=== PATIENT | female | born 1955 | race Caucasian/White ===

== ENCOUNTER → 2016-05-16 | Day surgery (SDC) | payer OTHER ==
[2016-05-05 10:54] VITALS: BMI 40.0
[~2016-05-16] VITALS: Ht 162.6 cm; Wt 106.8 kg
[~2016-05-16] MED LIST: ASCO500T16 PO; ATROPINE SULFATE 0.1 MG/ML 5ML SYR IV PRN; CALCTAB7 PO; ENAL1TAB31 PO; EpHEDrine SULFATE INJ 50 MG/ML AMP IV PRN; FISHOIL PO; LIDOCAINE HCL 2% 2 ML VIAL (20MG/ML) ONE; PROPOFOL IV EMULSION 10 MG/ML 20 ML VIAL IV ONE
[2016-05-16 10:24] VITALS: Ht 162.6 cm; Wt 106.8 kg
--- NOTE | 2016-05-16 10:38 | Endo History and Physical ---
History & Physical Date of Service: May 16, 2016. Chief Complaint: SCREENING FOR FOR COLON CANCER Referring Physician: DR SANZ History of Present Illness 60 yo CF who presents for colonoscopy secondary to colon polyps. Past Surgical History Hx Cardiac Surgery: No Hx Internal Defibrillator: No Hx Pacemaker: No Hx Abdominal Surgery: Yes (APPY) Hx of Implantable Prosthesis: No Hx Post-Op Nausea and Vomiting: No Hx Cancer Surgery: No Hx Thoracic Surgery: No Hx Orthopedic: No Hx Urinary Tract Surgery: No Family History Polyp, IBD Social History Smoking Status: Never Smoker Hx Substance Use: No Hx Alcohol Use: Yes (RARELY) Allergies Coded Allergies: No Known Allergies (Verified , 05/16/16) Current Medications Reported Home Medications Medications Dose Route/Sig Max Daily Dose Days Date Category Vasotec (Enalapril Maleate) 20 Mg Tab 1 Tab PO QAM 05/05/16 Reported Ascorbic Acid 500 Mg Tab 500 Mg PO QAM 03/07/12 Reported Model-3 (Fish Oil) Oil 1 Cap PO QAM 03/07/12 Reported Caltrate 600 Plus (Calcium Carbonate-Vitamin D W/) 1 Tab Tab 1 Tab PO QAM 03/07/12 Reported Vital Signs Weight (Kilograms): 106.82 Height (Feet): 5 Height (Inches): 4 Date Time Temp Pulse Resp B/P Pulse Ox O2 Delivery O2 Flow Rate FiO2 05/16/16 10:34 36.9 96 20 136/81 96 Room Air Physical Exam General Appearance: WD/WN, no apparent distress Respiratory/Chest: Auscultation: breath sounds normal Cardiovascular: Heart Auscultation: RRR Abdomen: Bowel Sounds: normal Inspection & Palpation: soft, non-distended, no tenderness, guarding & rebound Assessment and Plan Assessment: 60 yo CF who presents for colonoscopy secondary to colon polyps. Plan: Proceed with colonoscopy.
--- NOTE | 2016-05-16 11:42 | GI REPORT ---
Procedure Date: 05/16/2016 11:10 AM Procedure: Colonoscopy Indications: High risk colon cancer surveillance: Personal history of colonic polyps Medicines: Monitored Anesthesia Care Complications: No immediate complications. Estimated Blood Loss: Estimated blood loss: none. Procedure: Pre-Anesthesia Assessment: - Prior to the procedure, a History and Physical was performed, and patient medications and allergies were reviewed. The patient's tolerance of previous anesthesia was also reviewed. The risks and benefits of the procedure and the sedation options and risks were discussed with the patient. All questions were answered, and informed consent was obtained. Prior Anticoagulants: The patient has taken no previous anticoagulant or antiplatelet agents. ASA Grade Assessment: III - A patient with severe systemic disease. After reviewing the risks and benefits, the patient was deemed in satisfactory condition to undergo the procedure. After I obtained informed consent, the scope was passed under direct vision. Throughout the procedure, the patient's blood pressure, pulse, and oxygen saturations were monitored continuously. The Scope was introduced through the anus and advanced to the terminal ileum. The colonoscopy was performed without difficulty. The patient tolerated the procedure well. The quality of the bowel preparation was good. The terminal ileum, ileocecal valve, appendiceal orifice, and rectum were photographed. Findings: Four sessile polyps were found in the rectum and in the sigmoid colon. The polyps were 4 to 6 mm in size. These polyps were removed with a hot snare. Resection and retrieval were complete. Scattered small-mouthed diverticula were found in the entire colon. Impression: - Four 4 to 6 mm polyps in the rectum and in the sigmoid colon, removed with a hot snare. Resected and retrieved. - Diverticulosis in the entire examined colon. Recommendation: - Resume previous diet. - Continue present medications. - Repeat colonoscopy for surveillance based on pathology results. - Return to primary care physician as previously scheduled. Jonah Reeves DO 05/16/2016 11:42:16 AM This report has been signed electronically. Note Initiated On: 05/16/2016 11:10 AM
--- NOTE | 2016-05-16 11:43 | Discharge Instructions ---
Endoscopy Patient Instructions Date / Procedure(s) Performed May 16, 2016. Colonoscopy Allergy Information Coded Allergies: No Known Allergies (Verified , 05/16/16) Discharge Date / Findings May 16, 2016. Colon polyps Diverticulosis Medication Instructions Stopped Medication(s): STOPPED FISH OIL, VITAMIN C, AND CALCUIM ON 05/09/16 Restart Stopped Medication(s): Reported Home Medications Medications Dose Route/Sig Max Daily Dose Days Date Category Vasotec (Enalapril Maleate) 20 Mg Tab 1 Tab PO QAM 05/05/16 Reported Ascorbic Acid 500 Mg Tab 500 Mg PO QAM 03/07/12 Reported [place]-3 (Fish Oil) Oil 1 Cap PO QAM 03/07/12 Reported Caltrate 600 Plus (Calcium Carbonate-Vitamin D W/) 1 Tab Tab 1 Tab PO QAM 03/07/12 Reported OK to resume all medications today as prescribed Provider Instructions Activity Restrictions - No exercising or heavy lifting for 24 hours. - Do not drink alcohol the day of the procedure. - Do not drive a car or operate machinery until the day after the procedure. - Do not make any important decisions or sign important papers in 24 hours after the procedure. Following Day: - Return to full activity which may include returning to work/school. Diet Start your diet with liquids and light foods (jello, soup, juice, toast). Then eat your usual diet if not nauseated. Treatment For Common After Affects For mild abdominal pain, bloating, or excessive gas: - Rest - Eat lightly - Lie on right side Follow-Up Information Follow-up with DR SANZ as scheduled Anesthesia Information What You Should Know You have had a procedure that required some medicine to reduce anxiety and discomfort. This treatment is called moderate sedation. After receiving the treatment, you may be sleepy, but you will be able to breathe on your own. The effects of the treatment may last for several hours. Follow these instructions along with Activity/Diet recommendations noted above: * Do NOT do anything where dizziness or clumsiness would be dangerous. * Rest quietly at home today, then you can be up and about tomorrow. * Have a responsible person stay with you the rest of today. * You may have had an I.V. today. If so, you may take the dressing off later today. Recommendations Call your doctor if: * Trouble breathing * Continuous vomiting for more than 24 hours * Temperature above 101 degrees * Severe abdominal pain or bloating * Pain not relieved by pain medicine ordered * There is increased drainage or redness from any incision * A large amount of rectal bleeding greater than 2-3 tablespoons. (If you had a polyp/s removed or have hemorrhoids, a small amount of blood - from the rectum is to be expected.) * You have any unanswered questions or concerns. IN THE EVENT OF A SERIOUS EMERGENCY, GO TO THE NEAREST EMERGENCY ROOM Your discharge instructions were prepared by provider Jonah Reeves. Patient Instructions Signature Page Lala Mcbride Patient (or Guardian) Signature/Date: I have read and understand the instructions given to me by my caregivers. Caregiver/RN/Doctor Signature/Date: The above-named patient and/or guardian has received patient instructions on this date. + Original Patient Signature Page (only) stays with chart. Please make copy for patient.
--- NOTE | 2016-05-16 11:58 | Anesthesiology Progress Note ---
Anesthesia Post Op Note Date & Time May 16, 2016 at 11:58 Vital Signs Pain Intensity: 0 Vital Signs Past 12 Hours Date Time Temp Pulse Resp B/P Pulse Ox O2 Delivery O2 Flow Rate FiO2 05/16/16 11:53 77 18 129/72 97 Room Air 05/16/16 11:38 90 18 113/64 96 Room Air 05/16/16 10:34 36.9 96 20 136/81 96 Room Air Notes Mental Status: alert / awake / arousable, participated in evaluation Pt Amnestic to Procedure: Yes Nausea / Vomiting: adequately controlled Pain: adequately controlled Airway Patency, RR, SpO2: stable & adequate BP & HR: stable & adequate Hydration State: stable & adequate Anesthetic Complications: no major complications apparent
[2016-05-16 12:08] VITALS: BP 124/76; PULSE 84; O2SAT 96
== END | disposition home or self-care (01) ==
LOC: C.GI 10:12
PROVIDERS: ATTEND Internal Medicine
DX: Z12.11 Encounter for screening for malignant neoplasm of colon (principal); Z86.010 Personal history of colon polyps; D12.8 Benign neoplasm of rectum; D12.5 Benign neoplasm of sigmoid colon; K57.90 Diverticulosis of intestine, part unspecified, without perforation or abscess without bleeding; I10 Essential (primary) hypertension; Z90.89 Acquired absence of other organs; Z68.42 Body mass index [BMI] 45.0-49.9, adult; E66.9 Obesity, unspecified; Z83.71 Family history of colonic polyps

== ENCOUNTER → 2016-06-03 | Outpatient (CLI) | payer OTHER ==
[~2016-06-03] MED LIST changes: -ATROPINE SULFATE 0.1 MG/ML 5ML SYR IV PRN; -EpHEDrine SULFATE INJ 50 MG/ML AMP IV PRN; -LIDOCAINE HCL 2% 2 ML VIAL (20MG/ML) ONE; -PROPOFOL IV EMULSION 10 MG/ML 20 ML VIAL IV ONE
== END | disposition home or self-care (01) ==
LOC: C.PAPS 11:56
PROVIDERS: ATTEND Obstetrics & Gynecology
DX: Z01.419 Encounter for gynecological examination (general) (routine) without abnormal findings (principal)

== ENCOUNTER → 2016-10-19 | Outpatient (CLI) | payer OTHER ==
--- NOTE | 2016-10-19 14:30 | DIAGNOSTIC IMAGING REPORT ---
RIGHT HIP UNILATERAL 2 VIEWS CLINICAL HISTORY: HIP PAIN, RIGHT Right pain. COMPARISON: None. DISCUSSION: Moderate degenerative change right hip joint space. Peripheral osteophytic reaction from the femoral head. Moderate sclerosis of the acetabular surfaces. No evidence for acetabular protrusion. There is no evidence for soft tissue swelling. IMPRESSION: Moderate degenerative change. No acute bony abnormality. Electronically signed by: Sylvester Harding M.D. 10/19/2016 2:28 PM Dictated Date/Time: 10/19/2016 2:28 PM
--- NOTE | 2016-10-19 14:31 | DIAGNOSTIC IMAGING REPORT ---
LEFT HIP UNILATERAL 2 VIEWS CLINICAL HISTORY: HIP PAIN, RIGHT pain COMPARISON: None. DISCUSSION: The bones and joint spaces appear intact. There is no evidence of fracture, dislocation or bony disease. There is no evidence for soft tissue swelling. IMPRESSION: Negative study. Electronically signed by: Sylvester Harding M.D. 10/19/2016 2:30 PM Dictated Date/Time: 10/19/2016 2:30 PM
== END | disposition home or self-care (01) ==
LOC: C.RAD1850 13:56
PROVIDERS: ATTEND Internal Medicine
DX: M25.551 Pain in right hip (principal)

== ENCOUNTER → 2017-01-02 | Outpatient (CLI) | payer OTHER ==
[2017-01-02 10:06] LABS: ALKALINE PHOSPHATASE 72 U/L (45-117); BLOOD UREA NITROGEN 17 mg/dl (7-18); BUN/CREATININE RATIO 22.4 (10-20); CALCIUM 8.8 mg/dl (8.5-10.1); CARBON DIOXIDE 24 mmol/L (21-32); CHLORIDE 109 mmol/L (98-107); CREATININE 0.76 mg/dl (0.60-1.20); GLUCOSE 97 mg/dl (70-99); HDL CHOLESTEROL 40 mg/dl; SODIUM 140 mmol/L (136-145)
[2017-01-02 10:08] LABS: ALB/GLOB RATIO 1.2 (0.9-2); ALT/SGPT 24 U/L (12-78); AST/SGOT 17 U/L (15-37); CHOLESTEROL 268 mg/dl (0-200); CHOLESTEROL/HDL RATIO 6.7; LDL CHOLESTEROL CALCULATED 184 mg/dl; TRIGLYCERIDES 219 mg/dl (0-150); VERY LOW DENSITY LIPOPROT CALC 44 mg/dl
== END | disposition home or self-care (01) ==
LOC: C.LAB1850 07:05
PROVIDERS: ATTEND Internal Medicine
DX: E78.5 Hyperlipidemia, unspecified (principal)

== ENCOUNTER → 2017-06-05 | Outpatient (CLI) | payer OTHER | LOC: C.PATHSPEC 11:20 | PROVIDERS: ATTEND Obstetrics & Gynecology | DX: N84.1 Polyp of cervix uteri (principal) ==

== ENCOUNTER → 2017-07-03 | Outpatient (CLI) | payer OTHER ==
[2017-07-03 09:48] LABS: BLOOD UREA NITROGEN 12 mg/dl (7-18); CREATININE 0.79 mg/dl (0.60-1.20); GLUCOSE 92 mg/dl (70-99)
[2017-07-03 09:49] LABS: ALBUMIN 3.6 gm/dl (3.4-5.0); ALT/SGPT 24 U/L (12-78); CALCIUM 8.9 mg/dl (8.5-10.1); CARBON DIOXIDE 25 mmol/L (21-32); CHOLESTEROL 229 mg/dl (0-200); POTASSIUM 3.8 mmol/L (3.5-5.1); SODIUM 139 mmol/L (136-145)
[2017-07-03 09:58] LABS: ALKALINE PHOSPHATASE 69 U/L (45-117); AST/SGOT 14 U/L (15-37); LDL CHOLESTEROL CALCULATED 129 mg/dl; TOTAL PROTEIN 7.2 gm/dl (6.4-8.2)
== END | disposition home or self-care (01) ==
LOC: C.LAB1850 07:14
PROVIDERS: ATTEND Internal Medicine
DX: E78.5 Hyperlipidemia, unspecified (principal)

== ENCOUNTER 2021-12-19 10:45 | Inpatient (IN) ==
[2021-12-19] MEDS ORDERED: SODIUM CHLORIDE 0.9% 1000ML 1,000 ML IV ONE (11:09)
[2021-12-19 11:38] LABS: Basophils # (auto) 0.03 K/uL (0-0.2); Basophils % (auto) 0.3 %; Eosinophils # (auto) 0.02 K/uL (0-0.50); Eosinophils % (auto) 0.2 %; Hematocrit (blood only) 38.9 % (34.1-44.9); Hemoglobin 12.8 g/dl (12.0-16.0); Immature Granulocytes # (auto) 0.23 K/uL (0.00-0.02); Immature Granulocytes % (auto) 2.1 %; Lymphocytes # (auto) 1.62 K/uL (1.2-3.4); Lymphocytes % (auto) 14.5 %; Mean Corpuscular Hemoglobin 27.9 pg (25.0-34.0); Mean Corpuscular Hgb Conc 32.9 g/dL (32.0-36.0); Mean Corpuscular Volume 84.7 fL (80.0-100.0); Mean Platelet Volume 11.2 fL (9.4-12.3); Monocytes # (auto) 1.47 K/uL (0.24-0.82); Monocytes % (auto) 13.2 %; Neutrophils # (auto) 7.77 K/uL (1.4-6.5); Neutrophils % (auto) 69.7 %; Platelet Count 224 K/uL (130-400); RDW Coefficient of Variation 15.3 % (11.5-14.5); RDW Standard Deviation 47.6 fL (36.4-46.3); Red Blood Count 4.59 M/uL (3.93-5.22); White Blood Count 11.14 K/ul (4.8-10.8)
[2021-12-19] MEDS ORDERED: ONDANSETRON INJ 2 MG/ML 2 ML VIAL IV STA (11:46)
[2021-12-19] MEDS ORDERED: MoRPHine SULFATE 4 MG/ML 1 ML CARP\\VIAL IV STA (11:46)
[2021-12-19 12:00] LABS: Albumin Globulin Ratio 1.1 (0.9-2); Albumin Level 3.5 gm/dl (3.4-5.0); Bilirubin Direct 6.9 mg/dl (0-0.2); Bilirubin,Total 12.4 mg/dl (0.2-1.0); Calcium 9.1 mg/dl (8.5-10.1); Creatinine Clr Calc Pharmacy 86.3 ml/min; Est GFR (African American) 99.5 ml/min; Est GFR (Non-African American) 85.8 ml/min; Globulin 3.1 gm/dl (2.5-4.0); Magnesium 1.9 mg/dl (1.7-2.4); Phosphorus 2.4 mg/dl (2.5-4.9); Potassium 3.3 mmol/L (3.5-5.1); Total Protein 6.6 gm/dl (6.0-8.3)
[2021-12-19] MEDS ORDERED: OPTIRAY 300 100mL IV ONE (13:17)
--- NOTE | 2021-12-19 13:38 | Emergency Department Note ---
Impression & Plan Choledocholithiasis, Cholelithiasis, Obstructive hyperbilirubinemia, COVID-19 ED Provider Note NAME: CRISTOFER ARCINIEGA AGE: 66 SEX: F ARRIVES VIA: Walk-In INFORMANT: Patient ED PROVIDER(S): Rober Vela MD CHIEF COMPLAINT: Abdominal pain, Jaundice PLAN: Disposition: Transfer MEDICAL DECISION MAKING: The patient is a pleasant 66-year-old woman with a past medical history of hypertension, hyperlipidemia who presents to the emergency department ac companied by her for evaluation of new jaundice in the setting of having upper abdominal pain and nausea over the past couple of days. She further adds she has had change in her stool where it appears joe. She denies any fevers but reports that she has had mild cough and congestion which her also has in the setting of recently returning from a trip to [place]. She reports her symptoms began on Monday but feels her cough has been improving. They did not get tested for COVID-19 thinking it may have just been from their travels. She is vaccinated for Covid-19, including her booster. She denies any regular alcohol use. She denies excessive acetaminophen use. Patient reports a history of appendectomy and tubal ligation. On arrival the patient is fatigued, uncomfortable but no acute distress, afebrile with heart in the 100s and vital signs otherwise stable. She appears clinically dry. She does have overt scleral icterus and mild-moderate jaundice. She is mild epigastric and right upper quadrant tenderness without guarding or rebound. WBC 11K, nonspecific. H/H and platelets within normal limits. Chemistry without metabolic acidosis. Electrolytes without significant abnormality. LFTs demonstrate obstructive pattern with total bilirubin 12.4 and direct bilirubin 6.9 with AST and ALT 72 and 135, respectively. Alk phos is elevated to 13. Lipase is not elevated. The patient's COVID-19 RNA, NAAT test was positive, which is considered to be incidental as patient reports resolving congestion at 5 days from symptoms onset and is fully vaccinated for Covid-19. CT of the abdomen pelvis was performed and demonstrates prominent intrahepatic biliary ductal dilatation with the CBD being dilated with abrupt narrowing at the level of the pancreatic head. Findings are suggestive of choledocholithiasis in the setting of numerous gallstones however pancreatic mass is not excluded. There is no CT evidence of cholecystitis. A consultation by general surgery John Paul Clark, general surgery PAC (with Dr. Birch general surgery), who discussed with GI on-call Dr. Santiago. Unfortunately, Dr. Valdez does not perform ERCP and so given the patient's jaundice and si gnificantly elevated bilirubin recommends transfer to tertiary care facility. Empiric ABX, CTX and flagyl administered. The patient agrees with plan for transfer and prefers [facility]. Case was discussed with [facility] transfer center and triage phsycian who accepts the patient for transfer with bed search initiated. Ultrasound ordered per request for further characterization of biliary obstruction while awaiting transfer. Bed assignment was obtained and the patient's accepting physician is Dr. Blank. Maintenance fluids provided and the patient did remain hemodynamically stable in the emergency department. Ground transport is pending. Fortunately we were unable to obtain ground transport tonight and at the earliest will be tomorrow morning but no guarantee. Case was discussed with Dr. Haro, [facility] hospitalist, who will evaluate the patient for admission until transportation becomes available. Appreciate assistance. Triage Nursing notes reviewed and agree them. Prior medical records reviewed Vital Signs: reviewed and remarkable for tachycardia. Differential diagnosis: Gastroenteritis, food borne illness, infections, appendicitis, diverticulitis, inflammatory bowel disease, obstruction, GI bleed, biliary pathology, volvulus, as well as other pathologies. ER treatment provided: See below. Diagnostics interpreted by me: ECG: Sinus tachycardia, 114 bpm, no ectopy, nonspecific ST abnormality, no overt ST elevation or depression, QTC 490, QT 76. Cardiac Monitoring: An order for continuous cardiac monitoring was placed and demonstrated sinus tachycardia, 114 bpm, no ectopy Laboratory studies: See below Imaging studies: See below Consultation(s): Dr. Kilpatrick [facility] hospitalist. John Paul Clark general surgery PAC with Dr. Birch general surgery. Dr. Blank, [facility] GI. Dr. Haro [facility] hospitalist. HPI: The patient is a pleasant 66-year-old woman with a past medical history of hypertension, hyperlipidemia who presents to the emergency department accompanied by her for evaluation of new jaundice in the setting of having upper abdominal pain and nausea over the past couple of days. She further adds she has had change in her stool where it appears joe. She denies any fevers but reports that she has had mild cough and congestion which her also has in the setting of recently returning from a trip to [place]. She reports her symptoms began on Monday but feels her cough has been improving. They did not get tested for COVID-19 thinking it may have just been from their travels. She is vaccinated for Covid-19, including her booster. She denies any regular alcohol use. She denies excessive acetaminophen use. Patient reports a history of appendectomy and tubal ligation. ROS: See above HPI for pertinent positives & negatives. A total of 10 systems reviewed and were otherwise negative. VITALS:See Below PHYSICAL EXAMINATION: GENERAL: Awake, alert, uncomfortable-appearing, in no distress HENT: Normocephalic, atraumatic. Oropharynx with dry mucous membranes and ot herwise unremarkable. EYES: Normal conjunctiva. Overt scleral icterus. NECK: Supple. No nuchal rigidity. FROM. No JVD. RESPIRATORY: Clear to auscultation. CARDIAC: Tachycardic rate, normal rhythm. Extremities warm and well perfused. Pulses equal. ABDOMEN: Soft, non-distended. Mild epigastric and right upper quadrant tenderness without guarding or rebound. No rebound or guarding. No masses. RECTAL: Deferred. MUSCULOSKELETAL: Chest examination reveals no tenderness. The back is symmetrical on inspection without obvious abnormality. There is no CVA tenderness to palpation. No joint edema. LOWER EXTREMITIES: Calves are equal size bilaterally and non-tender. No edema. No discoloration. NEURO: Normal sensorium. No sensory or motor deficits noted. SKIN: No rash or jaundice noted. ED COURSE: Critical Care: I have personally spent greater than 75 minutes of critical care time in the direct management of this patient. This includes bedside care, interpretation of diagnostic studies, and testing, discussion with consultants, patient, and family members, and other required patient management activities. This 75 minutes is in excess of all separately billable procedures. Rober Vela MD Past Med/Surg History Medical History Benign colonic polyp Cervical polyp Diverticulosis Hyperlipidemia Hyperplastic colon polyp Hypertension Osteoarthritis Surgical History History of bilateral tubal ligation History of breast biopsy multiple--all benign History of breast surgery multiple breast cysts removed over the year all Benign History of colonoscopy 2017, due 5 yrs History of tonsillectomy and adenoidectomy Hx of appendectomy Family History Mother Hypercholesterolemia Osteoarthritis Grandmother (Maternal) Coronary heart disease Myocardial infarction Osteoarthritis Grandfather (Maternal) Colon cancer Grandmother (Paternal) Ovarian cancer Father Hypercholesterolemia Stroke Other No family history of adverse response to anesthesia Prostate cancer Denies family history of Breast cancer Social History Smoking Status: Never smoker Second Hand Exposure: Yes (father smoked); Hx Alcohol Use: Yes (very rarely) Alcohol type: wine Hx Substance Use: No Preferred Language: Vietnamese Communication Ability: Effective [employer] Required: No Beliefs That Will Affect Care: None marital status: Current Living Situation: Spouse current occupational status: retired Feels Safe at Home: Yes Childhood Exposure to Second-Hand Smoke: Yes Dental Care, Regularly: Yes Physical Activity Frequency: 5-6 Times per Week Seatbelt Use: always Sunscreen Use: Yes Assistive Devices: Glasses Allergies Allergies Allergy/AdvReac Type Severity Reaction Status Date / Time atorvastatin AdvReac Intermediate Muscle Pain Verified 12/19/21 14:55 simvastatin AdvReac Intermediate Muscle Pain Verified 12/19/21 14:55 Home Meds Home Medications Medication Instructions Recorded Confirmed ccpcoxlc-aci-hpvv-FA-Ca carb-vit K 1 tab PO QAM 08/17/18 12/19/21 18 mg iron-400 mcg-500 mg tablet (One-A-Day Womens Formula) acetaminophen 650 mg 1,300 mg PO BID 06/18/21 12/19/21 tablet,extended release (Arthritis Pain Relief (acetaminophen) ER) coQ10 (ubiquinol) 100 mg capsule 500 mg PO QAM 08/19/21 12/19/21 diclofenac sodium 1 % topical gel 4 g topical BID PRN Pain 08/19/21 12/19/21 enalapril maleate 20 mg tablet 20 mg PO QAM 08/19/21 12/19/21 Previous Rx's Medication Instructions Recorded pravastatin 10 mg tablet 10 mg PO QPM #90 tabs 09/14/21 Results & Data (ED) Vital Signs Vital Signs - 24 hr 12/19/21 10:58 12/19/21 11:34 12/19/21 13:40 Temperature 36.6 C Temperature Source Temporal Artery Scan Pulse Rate 113 H Pulse Rate [Left Finger] 112 H 117 H Pulse Rhythm Pulse Rhythm [Left Finger] Regular Regular Pulse Strength [Left Finger] Normal Respiratory Rate 18 20 18 Respiratory Effort / Characteristics Non-Labored Non-Labored Respiratory Depth Normal Normal Blood Pressure 164/89 H Blood Pressure [Right Arm] 148/92 H 171/76 H Blood Pressure Mean 114 Blood Pressure Mean [Right Arm] 110 107 Pulse Oximetry 97 99 95 Oxygen Delivery Method Room Air Room Air Room Air Sepsis Recent Fever Within 48 Hours No Sepsis New/Unexplained Change in Mental Status N/A Sepsis Action Taken by Nursing No Action Required 12/19/21 12:28 12/19/21 11:09 12/19/21 15:45 Temperature Temperature Source Pulse Rate 109 H 118 H Pulse Rate [Left Finger] 117 H Pulse Rhythm Regular Pulse Rhythm [Left Finger] Regular Pulse Strength [Left Finger] Respiratory Rate 20 20 18 Respiratory Effort / Characteristics Respiratory Depth Normal Blood Pressure Blood Pressure [Right Arm] 122/85 Blood Pressure Mean Blood Pressure Mean [Right Arm] 97 Pulse Oximetry 98 99 98 Oxygen Delivery Method Room Air Room Air Room Air Sepsis Recent Fever Within 48 Hours Sepsis New/Unexplained Change in Mental Status Sepsis Action Taken by Nursing 12/19/21 14:30 12/19/21 17:00 Temperature Temperature Source Pulse Rate Pulse Rate [Left Finger] 119 H 113 H Pulse Rhythm Pulse Rhythm [Left Finger] Regular Regular Pulse Strength [Left Finger] Respiratory Rate 22 18 Respiratory Effort / Characteristics Respiratory Depth Normal Normal Blood Pressure Blood Pressure [Right Arm] 155/95 H 105/79 Blood Pressure Mean Blood Pressure Mean [Right Arm] 115 87 Pulse Oximetry 99 99 Oxygen Delivery Method Room Air Room Air Sepsis Recent Fever Within 48 Hours Sepsis New/Unexplained Change in Mental Status Sepsis Action Taken by Nursing Laboratory Data Attestation: I reviewed the patient's lab results. Result diagrams: 12/19/21 11:23 12/19/21 11:23 Lab Results 12/19/21 12/19/21 12/19/21 Range/Units 11:23 11:23 11:25 WBC 11.14 H (4.8-10.8) K/ul RBC 4.59 (3.93-5.22) M/uL Hgb 12.8 (12.0-16.0) g/dl Hct 38.9 (34.1-44.9) % MCV 84.7 (80.0-100.0) fL MCH 27.9 (25.0-34.0) pg MCHC 32.9 (32.0-36.0) g/dL RDW Std Deviation 47.6 H (36.4-46.3) fL RDW Coeff of Frederic 15.3 H (11.5-14.5) % Plt Count 224 (130-400) K/uL MPV 11.2 (9.4-12.3) fL Immature Gran % (Auto) 2.1 % Neut % (Auto) 69.7 % Lymph % (Auto) 14.5 % [place] % (Auto) 13.2 % Eos % (Auto) 0.2 % Baso % (Auto) 0.3 % Neut # (Auto) 7.77 H (1.4-6.5) K/uL Lymph # (Auto) 1.62 (1.2-3.4) K/uL [place] # (Auto) 1.47 H (0.24-0.82) K/uL Eos # (Auto) 0.02 (0-0.50) K/uL Baso # (Auto) 0.03 (0-0.2) K/uL Immature Gran # (Auto) 0.23 H (0.00-0.02) K/uL Sodium 134 L (136-145) mmol/L Potassium 3.3 L (3.5-5.1) mmol/L Chloride 99 (98-107) mmol/L Carbon Dioxide 23 (21-32) mmol/L Anion Gap 12 H (3-11) BUN 8 (6-23) mg/dl Creatinine 0.73 (0.6-1.2) mg/dl Est Cr Clr Drug Dosing 86.3 ml/min Est GFR ( Amer) 99.5 ml/min Est GFR (Non-Af Amer) 85.8 ml/min BUN/Creatinine Ratio 11.0 (10-20) Glucose 120 H (70-99(Fasting)) mg/dl Calcium 9.1 (8.5-10.1) mg/dl Phosphorus 2.4 L (2.5-4.9) mg/dl Magnesium 1.9 (1.7-2.4) mg/dl Total Bilirubin 12.4 H (0.2-1.0) mg/dl Direct Bilirubin 6.9 H (0-0.2) mg/dl AST 72 H (13-39) U/L ALT 135 H (7-52) U/L Alkaline Phosphatase 213 H (34-104) U/L Total Protein 6.6 (6.0-8.3) gm/dl Albumin 3.5 (3.4-5.0) gm/dl Globulin 3.1 (2.5-4.0) gm/dl Albumin/Globulin Ratio 1.1 (0.9-2) Lipase 7 L (11-82) U/L Urine Color Urine Appearance (Clear) Urine pH (4.5-7.5) Ur Specific Odell (1.000-1.030) Urine Protein (Negative) Urine Glucose (UA) (Negative) Urine Ketones (Negative) Urine Blood (Negative) Urine Nitrite (Negative) Urine Bilirubin (Negative) Urine Urobilinogen (Negative) Ur Leukocyte Esterase (Negative) SARS-CoV-2, RNA, NAAT POSITIVE A* (NEGATIVE) 12/19/21 Range/Units 13:00 WBC (4.8-10.8) K/ul RBC (3.93-5.22) M/uL Hgb (12.0-16.0) g/dl Hct (34.1-44.9) % MCV (80.0-100.0) fL MCH (25.0-34.0) pg MCHC (32.0-36.0) g/dL RDW Std Deviation (36.4-46.3) fL RDW Coeff of Frederic (11.5-14.5) % Plt Count (130-400) K/uL MPV (9.4-12.3) fL Immature Gran % (Auto) % Neut % (Auto) % Lymph % (Auto) % [place] % (Auto) % Eos % (Auto) % Baso % (Auto) % Neut # (Auto) (1.4-6.5) K/uL Lymph # (Auto) (1.2-3.4) K/uL [place] # (Auto) (0.24-0.82) K/uL Eos # (Auto) (0-0.50) K/uL Baso # (Auto) (0-0.2) K/uL Immature Gran # (Auto) (0.00-0.02) K/uL Sodium (136-145) mmol/L Potassium (3.5-5.1) mmol/L Chloride (98-107) mmol/L Carbon Dioxide (21-32) mmol/L Anion Gap (3-11) BUN (6-23) mg/dl Creatinine (0.6-1.2) mg/dl Est Cr Clr Drug Dosing ml/min Est GFR ( Amer) ml/min Est GFR (Non-Af Amer) ml/min BUN/Creatinine Ratio (10-20) Glucose (70-99(Fasting)) mg/dl Calcium (8.5-10.1) mg/dl Phosphorus (2.5-4.9) mg/dl Magnesium (1.7-2.4) mg/dl Total Bilirubin (0.2-1.0) mg/dl Direct Bilirubin (0-0.2) mg/dl AST (13-39) U/L ALT (7-52) U/L Alkaline Phosphatase (34-104) U/L Total Protein (6.0-8.3) gm/dl Albumin (3.4-5.0) gm/dl Globulin (2.5-4.0) gm/dl Albumin/Globulin Ratio (0.9-2) Lipase (11-82) U/L Urine Color Dark Yellow Urine Appearance Clear (Clear) Urine pH 6.5 (4.5-7.5) Ur Specific Odell 1.018 (1.000-1.030) Urine Protein Negative (Negative) Urine Glucose (UA) Negative (Negative) Urine Ketones Trace H (Negative) Urine Blood Negative (Negative) Urine Nitrite Negative (Negative) Urine Bilirubin 2+ H (Negative) Urine Urobilinogen Negative (Negative) Ur Leukocyte Esterase Negative (Negative) SARS-CoV-2, RNA, NAAT (NEGATIVE) Administered Medications Discontinued Medications Sodium Chloride (Nss 1000ml) 1,000 mls @ 999 mls/hr IV .Q1H1M ONE Stop: 12/19/21 12:09 Last Infusion: 12/19/21 12:27 Dose: 999 mls/hr Documented By: Admin: 12/19/21 11:30 Dose: 999 mls/hr Documented By: BOBO Ceftriaxone Sodium (Rocephin) 2,000 mg in 70 mls @ 140 mls/hr IV NOW STA Stop: 12/19/21 15:38 Last Infusion: 12/19/21 16:10 Dose: 140 mls/hr Documented By: Admin: 12/19/21 15:32 Dose: 140 mls/hr Documented By: VAP Lactated Ringer's (Lr) 1,000 mls @ 999 mls/hr IV .Q1H1M ONE Stop: 12/19/21 16:10 Last Infusion: 12/19/21 17:50 Dose: 999 mls/hr Documented By: Admin: 12/19/21 15:44 Dose: 999 mls/hr Documented By: VAP Metronidazole (Flagyl) 500 mg in 100 mls @ 100 mls/hr IV NOW STA Stop: 12/19/21 17:03 Last Admin: 12/19/21 16:40 Dose: 100 mls/hr Documented By: VAP Ioversol (Optiray 300 100ml) 92 ml IV ONCE ONE Stop: 12/19/21 13:18 Last Admin: 12/19/21 13:17 Dose: 92 ml Documented By: MADONNA Morphine Sulfate (Morphine Sulfate 4 Mg/Ml 1 Ml Carp\Vial) 4 mg IV NOW STA Stop: 12/19/21 11:47 Last Admin: 12/19/21 11:59 Dose: 4 mg Documented By: BOBO Morphine Sulfate (Morphine Sulfate 10 Mg/Ml Carp/Vial) 6 mg IV NOW STA Stop: 12/19/21 15:10 Last Admin: 12/19/21 15:31 Dose: 6 mg Documented By: BOBO Ondansetron HCl (Ondansetron Inj 2 Mg/Ml 2 Ml Vial) 4 mg IV NOW STA Stop: 12/19/21 11:47 Last Admin: 12/19/21 11:59 Dose: 4 mg Documented By: VAP Imaging Data Radiologist's Impression: Abdomen/Pelvis CT 12/19/21 13:03 CT abd pelvis IV con only CLINICAL HISTORY: upper abd pain, jaundice, covid TECHNIQUE: Helical axial images of the abdomen and pelvis were obtained and displayed. Automated dose lowering techniques and/or adjustment according to pa tient size were utilized for this exam. This exam was performed with intravenous contrast. CT DOSE: 1097.11 mGy.cm COMPARISON: None available at the time of this dictation. FINDINGS: Lower chest: Bibasilar atelectasis versus scarring is seen. Liver: Unremarkable. No focal lesions are seen. Gallbladder and biliary tree: Cholelithiasis is seen without evidence of cholecystitis. There is prominent dilation of the intrahepatic bile ducts. The extrahepatic and common bile duct measures up to 9 mm in short axis although it appears to sharply narrowing at the level of the pancreatic head. Pancreas: Unremarkable, no focal lesions. Spleen: Unremarkable. Adrenals: Unremarkable. Kidneys and ureters: Unremarkable. Bladder: Unremarkable. Reproductive organs: Unremarkable. Bowel: Diverticulosis is seen without evidence of diverticulitis. Patient is status post appendectomy. There is a [id number] hiatal hernia. Lymph nodes Retroperitoneal: Unremarkable. Pelvic: Unremarkable. Mesenteric: Unremarkable. Peritoneum: Normal. Vessels: Atherosclerotic calcifications are seen. Abdominal wall: Unremarkable. Bones: Degenerative changes in the visualized spine. IMPRESSION: Prominent intrahepatic biliary ductal dilation. The common bile duct is dilated with abrupt narrowing at the level of the pancreatic head. Findings may represent choledocholithiasis in this patient with numerous gallstones however a pancreatic head mass cannot be excluded. No evidence of cholecystitis is seen. ACT 112: Negative or not required by law. Electronically signed by: Leander Oropeza M.D. 12/19/2021 2:05 PM Discharge Plan Visit Data Chief Complaint: Abdominal Pain Stated Complaint: ITCHY SKIN, YELLOW, BACK AND ABD PAIN, ED Provider: Rober Vela Discharge Problem: Choledocholithiasis, Cholelithiasis, Obstructive hyperbilirubinemia, COVID-19 Forms Stand Alone Forms: My [facility] Prescriptions Prescriptions: No Action pravastatin 10 mg tablet 10 mg PO QPM Qty: 90 3RF acetaminophen [Arthritis Pain Relief (acetam)] 650 mg tablet extended release 1,300 mg PO BID One-A-Day Womens Formula 18 mg iron-400 mcg-500 mg tablet 1 tab PO QAM enalapril maleate 20 mg tablet 20 mg PO QAM diclofenac sodium 1 % gel 4 g topical BID PRN (Reason: Pain) Rx Instructions: shoulder coQ10 (ubiquinol) 100 mg capsule 500 mg PO QAM Referrals Referrals: Shavon Chase MD [Primary Care Provider] -
[2021-12-19 13:43] LABS: Appearance Urine Clear (Clear); Blood Urine Negative (Negative); Color Urine Dark Yellow; Glucose Urine UA Negative (Negative); Ketones Urine Trace (Negative); Leukocyte Esterase Urine Negative (Negative); Nitrite Urine Negative (Negative); Protein Urine Negative (Negative); Specific Gravity Urine 1.018 (1.000-1.030); Urobilinogen Urine Negative (Negative); pH Urine 6.5 (4.5-7.5)
[2021-12-19 13:45] LABS: Bilirubin Urine 2+ (Negative)
--- NOTE | 2021-12-19 14:07 | CT Scan Report ---
CT abd pelvis IV con only CLINICAL HISTORY: upper abd pain, jaundice, covid TECHNIQUE: Helical axial images of the abdomen and pelvis were obtained and displayed. Automated dose lowering techniques and/or adjustment according to patient size were utilized for this exam. This e xam was performed with intravenous contrast. CT DOSE: 1097.11 mGy.cm COMPARISON: None available at the time of this dictation. FINDINGS: Lower chest: Bibasilar atelectasis versus scarring is seen. Liver: Unremarkable. No focal lesions are seen. Gallbladder and biliary tree: Cholelithiasis is seen without evidence of cholecystitis. There is prom inent dilation of the intrahepatic bile ducts. The extrahepatic and common bile duct measures up to 9 mm in short axis although it appears to sharply narrowing at the level of the pancreatic head. Pancreas: Unremarkable, no focal lesions. Spleen: Unremarkable. Adrenals: Unremarkable. Kidneys and ureters: Unremarkable. Bladder: Unremarkable. Reproductive organs: Unremarkable. Bowel: Diverticulosis is seen without evidence of diverticulitis. Patient is status post appendectomy . There is a mlncl-rz-hframgmy hiatal hernia. Lymph nodes Retroperitoneal: Unremarkable. Pelvic: Unremarkable. Mesenteric: Unremarkable. Peritoneum: Normal. Vessels: Atherosclerotic calcifications are seen. Abdominal wall: Unremarkable. Bones: Degenerative changes in the visualized spine. IMPRESSION: Prominent intrahepatic biliary ductal dilation. The common bile duct is dilated with abrupt narrowing at the level of the pancreatic head. Findings may represent choledocholithiasis in this patient with numerous gallstones however a pancreatic head mass cannot be excluded. No evidence of cholecystitis is seen. ACT 112: Negative or not required by law. Electronically signed by: Leander Oropeza M.D. 12/19/2021 2:05 PM
--- NOTE | 2021-12-19 14:58 | Hospitalist Consultation ---
Date of Consultation December 19, 2021 Assessment & Plan (1) Cholelithiasis: (2) Choledocholithiasis: Due to the patient's labs, imaging, and clinical presentation I do feel she requires admission to the hospital. I discussed her clinical presentation along with the laboratory findings and the findings on imaging with the on-call ict quality assurance engineer Dr. Santiago. I contacted this specialist as I feel the patient will require an ERCP. Dr. Ho notes that he does not provide this service. He feels that the patient should requires transfer to a facility where this procedure can be offered. Therefore, I discussed with with the patient and she prefers transfer as recommended. We also recommend proceeding as follows: Keep patient n.p.o. Provide analgesics Provide antiemetics Provide intravenous fluids for hydration Recommend initiating antibiotics The above discussion with gastroenterology and additional recommendations have been directly discussed with the treating emergency room physician Supervising Physician Co-Signing Physician Notes I personally saw and examined the patient. I verified all anderson points and agree with John Paul Clark PA-C with the following exceptions and/or additions: 66-year-old female with significant history of intermittent right upper quadrant pain related to fatty meals. Presents with 1 week of increasing right upper quadrant pain. Nausea, decreased appetite and jaundice over the last 2 days. No fevers or chills. Intentional weight loss of 50 pounds over the last year. O/E HS1+2, no murmurs, Chest CTAB, Abdo RUQ and epigastric pain without guarding or rebound tenderness, alert and orientated x3 A/P Obstructive jaundice -suspect due to gallstones with CBD dilatation on CT and elevated LFTs. Due to the holiday weekend there is no one available to do ERCP today or tomorrow therefore recommending transfer to a tertiary care hospital that can facilitate this. IV ceftriaxone given, will add IV metronidazole, n.p.o., IV fluids. History of Present Illness Reason for Consultation: Abdominal pain, choledocholithiasis History of Present Illness This is a 66-year-old female who notes that she recently tested positive for COVID-19. The patient says that she feels as though she has a "head cold.". Concerning this COVID-19 infection she has had a cold for approximately 3 to 4 days. She says she is not short of breath at rest but does get somewhat winded when she negotiates steps and inclines. She has not lost her sense of taste or smell. She does note a decreased appetite. She has an intermittent cough. She does note that she has received 2 COVID-19 vaccines as well as 2 boosters with the most recent booster being in early spring. She presented to the emergency department secondary to abdominal pain x1 week. She initially felt as though she was having heartburn and she took some Tums and Zantac with some relief of her pain. Approximate 24 hours after abdominal pain started though she did develop some severe epigastric pain with associated nausea and vomiting. The pain radiated to her back. She had chills without fevers. She denies any weight loss. She denies any palliative factors but notes that the pain is markedly worse after eating. She denies any diarrhea, bright red blood per rectum, or melanotic stools. She also denies any hematemesis. Patient notes that she has had a colonoscopy in the past and there were polyps noted but she did not have any other significant pathology. She is a lifetime non-smoker. She denies any family history of colon cancer or pancreatic cancer. Concerning prior abdominal surgeries the patient has had an appendectomy at age 12 and a tubal ligation at age 30. Concerning oral intake she has consumed some water this morning but her most recent solid food intake was approximate 6:00 PM on 12/18/2021. Today in the emergency department the patient had labs and imaging which I independently reviewed. CBC revealed white blood cell count was 11.1. Hemoglobin, hematocrit, platelet count were all noted to be within normal range. Chemistry profile showed sodium was 134 with a potassium of 3.3. BUN and creatinine were both within the normal range. Chemistry profile showed total and direct bilirubin were 12.4 and 6.9 respectively. AST and ALT were 72 and 135 respectively and alkaline phosphatase was 213. Lipase was nonelevated. Urinalysis was not indicative of infection. Patient did test positive for COVID-19. A CT scan of the abdomen pelvis was performed that showed prominent intrahepatic biliary ductal dilatation. Common bile duct was noted to be dilated and there was an abrupt narrowing at the level of the pancreatic head. The patient was noted to have cholelithiasis without evidence of cholecystitis. The findings of patient's biliary ductal dilatation were felt to potentially represent choledocholithiasis, particularly in a patient with numerous gallstones. At the time of my interview the patient was resting comfortably in bed and she was in no distress. Allergies Allergy/AdvReac Type Severity Reaction Status Date / Time atorvastatin AdvReac Intermediate Muscle Pain Verified 12/19/21 14:55 simvastatin AdvReac Intermediate Muscle Pain Verified 12/19/21 14:55 Home Medications Medication Instructions Recorded Confirmed Type hgyjpdgl-iua-vfji-FA-Ca carb-vit K 1 tab PO QAM 08/17/18 12/19/21 History 18 mg iron-400 mcg-500 mg tablet (One-A-Day Womens Formula) acetaminophen 650 mg 1,300 mg PO BID 06/18/21 12/19/21 History tablet,extended release (Arthritis Pain Relief (acetaminophen) ER) coQ10 (ubiquinol) 100 mg capsule 500 mg PO QAM 08/19/21 12/19/21 History diclofenac sodium 1 % topical gel 4 g topical BID PRN Pain 08/19/21 12/19/21 History enalapril maleate 20 mg tablet 20 mg PO QAM 08/19/21 12/19/21 History pravastatin 10 mg tablet 10 mg PO QPM #90 tabs 09/14/21 12/19/21 Rx Patient History Medical History Benign colonic polyp Cervical polyp Diverticulosis Hyperlipidemia Hyperplastic colon polyp Hypertension Osteoarthritis Surgical History History of bilateral tubal ligation History of breast biopsy multiple--all benign History of breast surgery multiple breast cysts removed over the year all Benign History of colonoscopy 2016, due 5 yrs History of tonsillectomy and adenoidectomy Hx of appendectomy Family History Mother Hypercholesterolemia Osteoarthritis Grandmother (Maternal) Coronary heart disease Myocardial infarction Osteoarthritis Grandfather (Maternal) Colon cancer Grandmother (Paternal) Ovarian cancer Father Hypercholesterolemia Stroke Other No family history of adverse response to anesthesia Prostate cancer Denies family history of Breast cancer Social History Smoking Status: Never smoker Second Hand Exposure: No; Do You Dip or Chew Tobacco: No; Hx Alcohol Use: Yes Alcohol type: wine Hx Substance Use: No Preferred Language: Divehi Communication Ability: Effective Can Repairer Required: No Beliefs That Will Affect Care: None marital status: Current Living Situation: Spouse current occupational status: retired Feels Safe at Home: Yes Safety Concerns: Feels Safe At This Time Childhood Exposure to Second-Hand Smoke: Yes Dental Care, Regularly: Yes Physical Activity Frequency: 5-6 Times per Week Seatbelt Use: always Sunscreen Use: Yes Assistive Devices: Glasses Review of Systems Constitutional: + chills; no fever Eyes: no eye pain Ear, Nose, Mouth, Throat: no ear pain Respiratory: + cough and + dyspnea on exertion Cardiovascular: no chest pain Gastrointestinal: + abdominal pain, + nausea and + vomiting Genitourinary: no dysuria Musculoskeletal: + back pain (Radiating from abdomen) Integumentary: + pruritus; no rash Neurologic: no localized weakness Physical Exam Constitutional: WD/WN, vitals as above Eyes: Scleral jaundice noted ENMT: Ears: no hearing impairment and no external ear abnormality Sublingual jaundice noted Neck: trachea midline Respiratory: normal respiratory effort, lungs clear to auscultation Cardiovascular: Rate/Rhythm: regular rate and regular rhythm Vessels: dorsalis pedis pulses present Gastrointestinal (Abdomen): Abdomen is soft, nondistended, and nonrigid. Bowel sounds are hypoactive. Patient did have pain with palpation in the epigastric area as well as the right upper quadrant with a positive Garcia sign. Musculoskeletal: No calf tenderness. Feet are warm and nonmottled. Pedal pulses are palpable. Skin: no rashes Neurologic: moves all extremities Psychiatric: A+Ox3, euthymic affect Results & Data Results & Data ([facility]) Vital Signs (Past 12 Hours) Vital Signs Temp Pulse Pulse Resp BP BP Pulse Ox 12/19/21 11:09 118 H 20 99 12/19/21 12:28 109 H 20 98 12/19/21 13:40 117 H 18 171/76 H 95 12/19/21 11:34 112 H 20 148/92 H 99 12/19/21 10:58 36.6 C 113 H 18 164/89 H 97 O2 Del Method 12/19/21 11:09 Room Air 12/19/21 12:28 Room Air 12/19/21 13:40 Room Air 12/19/21 11:34 Room Air 12/19/21 10:58 Room Air PG Care Time/CCT Total # of Minutes Spent Total Time Spent with Patient: Total time spent is greater than 50% in coordination of care (as documented) at patient's floor/unit and/or counseling patient: Coding Level of Care Code 35633 Inpt Consult Level 5 Diagnoses Cholelithiasis K80.20 Choledocholithiasis K80.50
[2021-12-19] MEDS ORDERED: cefTRIAXone SODIUM 2,000 MG/70 ML BAG IV STA (15:09)
[2021-12-19] MEDS ORDERED: MoRPHine SULFATE 10 MG/ML CARP/VIAL IV STA (15:09)
[2021-12-19] MEDS ORDERED: LACTATED RINGER'S 1,000 ML IV ONE (15:10)
[2021-12-19] MEDS ORDERED: metroNIDAZOLE 500 MG/100 ML BAG IV STA (16:04)
[2021-12-19] MEDS ORDERED: MoRPHine SULFATE 2 MG/ML CARP IV PRN ×2 (17:59→23:24)
[2021-12-19] MEDS ORDERED: MoRPHine SULFATE 4 MG/ML 1 ML CARP\\VIAL IV PRN (17:59)
[2021-12-19] MEDS ORDERED: LACTATED RINGER'S 1,000 ML IV SCH (19:45)
--- NOTE | 2021-12-19 20:44 | History & Physical Report ---
Date of Service December 19, 2021 Assessment & Plan (1) Obstructive hyperbilirubinemia: Plan: - GB ultrasound ordered, completed in ED, results pending. -DDx at this point includes obstructing stone in CBD versus an obstructing mass. - Will order MRCP. - Keep patient n.p.o. with IVF - IV Zofran, IV morphine for supportive care. - Continue IV Flagyl and ceftriaxone as started in ED. - GI consult placed, appreciate the recommendations. (2) COVID-19: Plan: - 3-4 days of symptoms, mostly of cough, head cold, occasional shortness of breath with vigorous activity. - SPO2 >92% on room air, no indications for steroids or remdesivir. - Will provide supportive treatment. (3) Hypertension: Plan: - Continue home meds. (4) Hyperlipidemia: Plan: - Hold statin given acute elevation of LFTs. (5) Osteoarthritis: Plan: - Continue topical Voltaren. (6) Hypokalemia: Plan: - 2 K riders added onto IVF, recheck with a.m. labs. Plan - Admit to med/surg. - SCDs for VTE ppx. - Full Code. History of Present Illness Chief Complaint: Abdominal pain x1 week Primary Care Provider: Shavon Chase MD Lala Mcbride is a 66-year-old female with past medical history significant for hypertension, hyperlipidemia, and osteoarthritis who is presenting today with abdominal pain over the past week. Thinking this may be her heartburn, she took Tums and Zantac which did relieve your symptoms somewhat, however her pain became very severe and she started vomiting. Is going to her back and she has had chills at home, however no recorded fevers. Pain is significantly worse after eating. She is not having any change to her stools, denies acholic stools, diarrhea, melena, hematochezia. She had a colonoscopy recently, she thinks it was in the past year and she has other than benign polyps there were no worrisome findings. Upon presentation to the ED, she was hypertensive and HR in 110s, SPO2 >92% on room air, afebrile. Labs significant for an elevated WBC of 11.14, potassium 3.3, phosphorus 2.4. Her T bili is 12.4 with direct 6.9, AST 72, ALT 135, alk phos 213, ALT significantly elevated from prior labs in June. Her lipase is 7. Did test positive for COVID in her ED, for the past several days she has had a head cold, cough, and has been a little bit winded with more vigorous activity, however not short of breath at rest. No unilateral leg swelling or calf pain. She is up-to-date on COVID vaccines and boosters, last received a booster earlier this spring. Patient was originally supposed to be transferred to [facility] as our facility would not be able to perform an ERCP on this patient until Monday, 12/21, however as there are no available beds at transfer facility, we will admit her for MRCP and IV antibiotics. Plan will be for ERCP if indicated on Monday, however patient will be transferred if she decompensates and it is felt ERCP is emergently needed. Allergies Allergy/AdvReac Type Severity Reaction Status Date / Time atorvastatin AdvReac Intermediate Muscle Pain Verified 12/19/21 14:55 simvastatin AdvReac Intermediate Muscle Pain Verified 12/19/21 14:55 Home Medications Medication Instructions Recorded Confirmed Type uzjxxsfz-jol-fygr-FA-Ca carb-vit K 1 tab PO QAM 08/17/18 12/19/21 History 18 mg iron-400 mcg-500 mg tablet (One-A-Day Womens Formula) acetaminophen 650 mg 1,300 mg PO BID 06/18/21 12/19/21 History tablet,extended release (Arthritis Pain Relief (acetaminophen) ER) coQ10 (ubiquinol) 100 mg capsule 500 mg PO QAM 08/19/21 12/19/21 History diclofenac sodium 1 % topical gel 4 g topical BID PRN Pain 08/19/21 12/19/21 History enalapril maleate 20 mg tablet 20 mg PO QAM 08/19/21 12/19/21 History pravastatin 10 mg tablet 10 mg PO QPM #90 tabs 09/14/21 12/19/21 Rx Past Med/Surg History Medical History Benign colonic polyp Cervical polyp Diverticulosis Hyperlipidemia Hyperplastic colon polyp Hypertension Osteoarthritis Surgical History History of bilateral tubal ligation History of breast biopsy multiple--all benign History of breast surgery multiple breast cysts removed over the year all Benign History of colonoscopy 2017, due 5 yrs History of tonsillectomy and adenoidectomy Hx of appendectomy Family History Mother Hypercholesterolemia Osteoarthritis Grandmother (Maternal) Coronary heart disease Myocardial infarction Osteoarthritis Grandfather (Maternal) Colon cancer Grandmother (Paternal) Ovarian cancer Father Hypercholesterolemia Stroke Other No family history of adverse response to anesthesia Prostate cancer Denies family history of Breast cancer Social History Smoking Status: Never smoker Second Hand Exposure: No; Do You Dip or Chew Tobacco: No; Hx Alcohol Use: Yes Alcohol type: wine Hx Substance Use: No Preferred Language: Thai Communication Ability: Effective Wax Pot Tender Required: No Beliefs That Will Affect Care: None marital status: Current Living Situation: Spouse current occupational status: retired Feels Safe at Home: Yes Safety Concerns: Feels Safe At This Time Childhood Exposure to Second-Hand Smoke: Yes Dental Care, Regularly: Yes Physical Activity Frequency: 5-6 Times per Week Seatbelt Use: always Sunscreen Use: Yes Assistive Devices: Glasses Review of Systems Review of Systems: All systems reviewed & are unremarkable except as noted in HPI & below Physical Exam Physical Exam: General: awake, alert, no apparent distress Head: Normocephalic, atraumatic ENT: With icterus, sublingual jaundice;PERRL, EOMI, no pharyngeal exudate, mucous membranes moist Chest: Clear to auscultation, on room air, no adventitious breath sounds Cardiac: Regular rate and rhythm, no murmur, no JVD, normal peripheral pulses, good capillary refill Abdominal: TTP in epigastric and RUQ without rebound or guarding; NABS x 4 quadrants, soft Extremities: Normal inspection, no peripheral edema or erythema, calfs nontender to palpation Psych: Normal mood and affect Neuro: AAO x 3, strength intact bilaterally and rated 5/5, no motor deficits, speech is clear, no peripheral sensory deficits Skin: no rash or erythema Results & Data Results & Data ([facility]) Vital Signs (Past 12 Hours) Vital Signs Temp Pulse Pulse Resp BP BP Pulse Ox 12/19/21 17:00 113 H 18 105/79 99 12/19/21 14:30 119 H 22 155/95 H 99 12/19/21 15:45 117 H 18 122/85 98 12/19/21 11:09 118 H 20 99 12/19/21 12:28 109 H 20 98 12/19/21 13:40 117 H 18 171/76 H 95 12/19/21 11:34 112 H 20 148/92 H 99 12/19/21 10:58 36.6 C 113 H 18 164/89 H 97 O2 Del Method 12/19/21 17:00 Room Air 12/19/21 14:30 Room Air 12/19/21 15:45 Room Air 12/19/21 11:09 Room Air 12/19/21 12:28 Room Air 12/19/21 13:40 Room Air 12/19/21 11:34 Room Air 12/19/21 10:58 Room Air Laboratory Results Abnormal lab results 12/19/21 12/19/21 12/19/21 Range/Units 11:23 11:23 11:25 WBC 11.14 H (4.8-10.8) K/ul RDW Std Deviation 47.6 H (36.4-46.3) fL RDW Coeff of Frederic 15.3 H (11.5-14.5) % Neut # (Auto) 7.77 H (1.4-6.5) K/uL Rush # (Auto) 1.47 H (0.24-0.82) K/uL Immature Gran # (Auto) 0.23 H (0.00-0.02) K/uL Sodium 134 L (136-145) mmol/L Potassium 3.3 L (3.5-5.1) mmol/L Anion Gap 12 H (3-11) Glucose 120 H (70-99(Fasting)) mg/dl Phosphorus 2.4 L (2.5-4.9) mg/dl Total Bilirubin 12.4 H (0.2-1.0) mg/dl Direct Bilirubin 6.9 H (0-0.2) mg/dl AST 72 H (13-39) U/L ALT 135 H (7-52) U/L Alkaline Phosphatase 213 H (34-104) U/L Lipase 7 L (11-82) U/L Urine Ketones (Negative) Urine Bilirubin (Negative) SARS-CoV-2, RNA, NAAT POSITIVE A* (NEGATIVE) 12/19/21 Range/Units 13:00 WBC (4.8-10.8) K/ul RDW Std Deviation (36.4-46.3) fL RDW Coeff of Frederic (11.5-14.5) % Neut # (Auto) (1.4-6.5) K/uL Rush # (Auto) (0.24-0.82) K/uL Immature Gran # (Auto) (0.00-0.02) K/uL Sodium (136-145) mmol/L Potassium (3.5-5.1) mmol/L Anion Gap (3-11) Glucose (70-99(Fasting)) mg/dl Phosphorus (2.5-4.9) mg/dl Total Bilirubin (0.2-1.0) mg/dl Direct Bilirubin (0-0.2) mg/dl AST (13-39) U/L ALT (7-52) U/L Alkaline Phosphatase (34-104) U/L Lipase (11-82) U/L Urine Ketones Trace H (Negative) Urine Bilirubin 2+ H (Negative) SARS-CoV-2, RNA, NAAT (NEGATIVE) Diagnostic Findings Abdomen/Pelvis CT 12/19/21 13:03 CT abd pelvis IV con only CLINICAL HISTORY: upper abd pain, jaundice, covid TECHNIQUE: Helical axial images of the abdomen and pelvis were obtained and displayed. Automated dose lowering techniques and/or adjustment according to patient size were utilized for this exam. This exam was performed with intravenous contrast. CT DOSE: 1097.11 mGy.cm COMPARISON: None available at the time of this dictation. FINDINGS: Lower chest: Bibasilar atelectasis versus scarring is seen. Liver: Unremarkable. No focal lesions are seen. Gallbladder and biliary tree: Cholelithiasis is seen without evidence of cholecystitis. There is prominent dilation of the intrahepatic bile ducts. The extrahepatic and common bile duct measures up to 9 mm in short axis although it appears to sharply narrowing at the level of the pancreatic head. Pancreas: Unremarkable, no focal lesions. Spleen: Unremarkable. Adrenals: Unremarkable. Kidneys and ureters: Unremarkable. Bladder: Unremarkable. Reproductive organs: Unremarkable. Bowel: Diverticulosis is seen without evidence of diverticulitis. Patient is status post appendectomy. There is a [id number] hiatal hernia. Lymph nodes Retroperitoneal: Unremarkable. Pelvic: Unremarkable. Mesenteric: Unremarkable. Peritoneum: Normal. Vessels: Atherosclerotic calcifications are seen. Abdominal wall: Unremarkable. Bones: Degenerative changes in the visualized spine. IMPRESSION: Prominent intrahepatic biliary ductal dilation. The common bile duct is dilated with abrupt narrowing at the level of the pancreatic head. Findings may represent choledocholithiasis in this patient with numerous gallstones however a pancreatic head mass cannot be excluded. No evidence of cholecystitis is seen. ACT 112: Negative or not required by law. Electronically signed by: Leander Oropeza M.D. 12/19/2021 2:05 PM Code Status & VTE Plan Code Status Full code Supervising Physician Co-Signing Physician Notes Attending addendum: I have physically seen this patient, have supervised the LYNNE's activities, and agree with the H&P unless as otherwise noted. Assessment and Plan: Abnormal LFTs- Total bilirubin 12.4, direct bilirubin 6.9, AST 72, ALT 135 CT scan abdomen and pelvis with prominent intrahepatic biliary ductal dilatation. The common bile duct is dilated with abrupt narrowing at the level of pancreatic head. Findings may represent choledocholithiasis in this patient with numerous gallstones however a pancreatic head mass cannot be excluded. No evidence of active cholecystitis is seen Gallbladder ultrasound with positive sonographic Garcia sign and gallbladder wall thickening with multiple gallstones. Findings are concerning for acute cholecystitis. Enlargement of the common bile duct may be reactive, with distal choledocholithiasis not being excluded. NPO IV fluids Zofran 4 mg IV every 6 hours as needed Morphine sulfate 4 mg IV every 3 hours as needed severe pain Ceftriaxone 2 g IV daily Flagyl 5 mg IV every 8 hours Consult gastroenterology If ERCP required, and unable to be done locally, the patient will be transferred to another facility COVID-19 infection- 3 to 4 days of improving symptoms of cough and head congestion Nonhypoxic No steroids or remdesivir due to above Remaining orders and notations as noted PG Care Time/CCT Total # of Minutes Spent Total Time Spent with Patient: Total time spent is greater than 50% in coordination of care (as documented) at patient's floor/unit and/or counseling patient: Coding Level of Care Code 09559 Initial Inpt Care Lvl 3 Diagnoses Obstructive hyperbilirubinemia K83.1 COVID-19 U07.1 Hypertension I10 Hyperlipidemia E78.5 Osteoarthritis M19.90 Hypokalemia E87.6
--- NOTE | 2021-12-19 21:18 | Ultrasound Report ---
US gallbladder CLINICAL HISTORY: jaundice, choledocholithiasis TECHNIQUE: Multiple real-time sonographic images of the right upper quadrant were obtained. Comparison: Comparison is made to CT abdomen pelvis 12/19/2021 FINDINGS: The liver is diffusely homogenous with normal contour and echogenicity. The liver is mildly coarsened in echotexture without evidence of underlying mass. No intrahepatic ductal dilatation is seen. Sarahi ear hyperechoic foci with posterior shadowing are identified layering dependently within the gallblad marcelino, which are consistent with gallstones. Nonmobile stones are seen in the gallbladder neck. The gal lbladder wall measures up to 0.4 cm in thickness. A sonographic Garcia's sign was elicited by the son ographer. The common duct measures 1.0 cm in diameter at the level of the hepatic artery. The panc reas is not well visualized secondary to overlying bowel gas. The right kidney shows normal echogenicity, cortical thickness and renal contour. The right kidney sh ows no evidence of hydronephrosis or mass. No ascites or free fluid is seen in Brock's pouch. IMPRESSION: 1. Positive sonographic Garcia's sign and gallbladder wall thickening with multiple gallstones. Find ings are concerning for acute cholecystitis. 2. Enlargement of the common bile duct may be reactive, distal choledocholithiasis cannot be exclude d. ACT 112: Negative or not required by law. Electronically signed by: Leander Oropeza M.D. 12/19/2021 9:16 PM
[2021-12-19] MEDS ORDERED: DICLOFENAC SOD 1% GEL 100 GM TUBE EXT PRN (23:24)
[2021-12-19] MEDS ORDERED: ALBUT/IPRATROP 3MG/0.5MG NEB 3 ML VIAL NEB PRN (23:24)
[2021-12-19] MEDS ORDERED: guaiFENesin 600 MG TABCR PO PRN (23:24)
[2021-12-19] MEDS ORDERED: POLYETHYLENE (MIRALAX) 17 GM PACK PO PRN (23:24)
[2021-12-19] MEDS ORDERED: ONDANSETRON INJ 2 MG/ML 2 ML VIAL IV PRN (23:24)
[2021-12-20] MEDS: POTASSIUM CHLORIDE / WTR 10 MEQ/100 ML PLCT IV SCH ×2 (00:01→01:20)
[2021-12-20] MEDS ORDERED: metroNIDAZOLE 500 MG/100 ML BAG IV SCH (01:00)
[2021-12-20] MEDS ORDERED: ENOXAPARIN INJ 60 MG/0.6 ML SYR SQ SCH (01:15)
[2021-12-20] MEDS: MoRPHine SULFATE 4 MG/ML 1 ML CARP\\VIAL IV PRN ×2 (01:16→05:54)
[2021-12-20 06:53] LABS: Basophils # (auto) 0.02 K/uL (0-0.2); Basophils % (auto) 0.3 %; Eosinophils # (auto) 0.03 K/uL (0-0.50); Eosinophils % (auto) 0.4 %; Hematocrit (blood only) 34.6 % (34.1-44.9); Hemoglobin 11.9 g/dl (12.0-16.0); Immature Granulocytes # (auto) 0.15 K/uL (0.00-0.02); Immature Granulocytes % (auto) 2.2 %; Lymphocytes # (auto) 1.08 K/uL (1.2-3.4); Lymphocytes % (auto) 15.7 %; Mean Corpuscular Hemoglobin 30.3 pg (25.0-34.0); Mean Corpuscular Hgb Conc 34.4 g/dL (32.0-36.0); Mean Platelet Volume 11.3 fL (9.4-12.3); Monocytes # (auto) 0.98 K/uL (0.24-0.82); Monocytes % (auto) 14.2 %; Neutrophils # (auto) 4.64 K/uL (1.4-6.5); Neutrophils % (auto) 67.2 %; Platelet Count 228 K/uL (130-400); RDW Coefficient of Variation 15.8 % (11.5-14.5); RDW Standard Deviation 50.9 fL (36.4-46.3); Red Blood Count 3.93 M/uL (3.93-5.22)
[2021-12-20] MEDS ORDERED: MoRPHine SULFATE 2 MG/ML CARP IV ONE (07:15)
[2021-12-20 07:17] LABS: Albumin Globulin Ratio 1.2 (0.9-2); BUN Creatinine Ratio 18.2 (10-20); Bilirubin Direct 6.3 mg/dl (0-0.2); Bilirubin,Total 10.5 mg/dl (0.2-1.0); Calcium 8.6 mg/dl (8.5-10.1); Est GFR (African American) 113.3 ml/min; Est GFR (Non-African American) 97.7 ml/min; Globulin 2.6 gm/dl (2.5-4.0); Potassium 3.6 mmol/L (3.5-5.1); Total Protein 5.6 gm/dl (6.0-8.3)
--- NOTE | 2021-12-20 07:22 | Electrocardiogram Report ---
Test Reason : Blood Pressure : / mmHG Vent. Rate : 114 BPM Atrial Rate : 114 BPM P-R Int : 134 ms QRS Dur : 076 ms QT Int : 356 ms P-R-T Axes : 022 053 038 degrees QTc Int : 490 ms Sinus arrhythmia with PACs Nonspecific ST abnormality Abnormal ECG No previous ECGs available Confirmed by eSymour Vila ([id number]) on 12/20/2021 7:22:21 AM Referred By: REFERRED SELF Confirmed By:Ramon Vila
--- NOTE | 2021-12-20 08:11 | Magnetic Resonance Report ---
MRCP CLINICAL HISTORY: Obstructive hyperbilirubinemia. TECHNIQUE: Utilizing a 1.5 Kayla magnet and dedicated coil, multiplanar, multiecho imaging [facility] was performed utilizing heavily T2 weighted pulsing sequences without IV contrast. COMPARISON STUDY: CT of the abdomen and pelvis and right upper quadrant ultrasound December 19, 2021 . FINDINGS: There are trace bilateral pleural effusions. Moderate sized hiatal hernia is noted. No hepa tic lesions are identified on this unenhanced exam. There is moderate intra and extrahepatic biliary ductal dilatation. There is abrupt caliber change of the mid common bile duct shown on coronal 3-D MR CP sequence image 94 of 152. No common bile duct calculi are identified. There is no pancreatic ducta l dilatation. There is pancreas divisum. Although suboptimally assessed on this unenhanced exam, ther e is suggestion of a mass within the pancreatic head which measures approximately 2.8 x 2.1 cm on axi al FIESTA sequence image 19 of 32. This likely accounts for common bile duct obstruction. No addition al masses are identified. A prominent portacaval lymph node measures 1 cm in short axis diameter. The re are numerous gallstones within the gallbladder. There is no pericholecystic fluid. Unenhanced imag es of the spleen, adrenal glands and right kidney are normal. A small cyst arises from the lower pole of the left kidney. There is no hydronephrosis. Caliber of visualized small and large bowel are norm al. IMPRESSION: 1. Moderate intra and extra hepatic biliary ductal dilatation with abrupt caliber change of the mid c ommon bile duct. Suspected associated pancreatic head mass, measuring approximately 2.8 x 2.1 cm. The se findings are suggestive of a neoplasm and suspicious for pancreatic adenocarcinoma. Cholangiocarci noma could appear similar. GI consultation for consideration for ERCP is recommended. 2. Cholelithiasis. Gallbladder distention. No convincing evidence for acute cholecystitis although a hepatobiliary scan could be obtained if indicated. 3. No pancreatic ductal dilatation. Pancreas divisum. 4. No common bile duct calculi identified. 5. Nonspecific prominent portacaval lymph node. ACT 112: Negative or not required by law. Electronically signed by: Eduar Arora M.D. 12/20/2021 8:09 AM
--- NOTE | 2021-12-20 08:17 | Communication Note ---
Date of Service: December 20, 2021 By CMS guidelines, a determination that the admission or continued stay is not medically necessary has been made by a member of the UR committee and bart garcia for this hospital stay, therefore a Code 44 will be completed and the Inpatient admission will be changed to outpatient.
[2021-12-20] MEDS ORDERED: CEROVITE ADV FORMULA TAB PO SCH (09:00)
[2021-12-20] MEDS ORDERED: ENALAPRIL MALEATE 10 MG TAB PO SCH (09:00)
[2021-12-20] MEDS ORDERED: cefTRIAXone SODIUM 2,000 MG in DEXTROSE 5% 50 ML IV SCH (09:00)
[2021-12-20] MEDS ORDERED: NON-FORMULARY MEDICATION (Coq10 (Ubiquinol) 100 mg capsule) PO SCH (09:00)
--- NOTE | 2021-12-20 22:24 | Discharge Summary ---
Date of Service December 20, 2021 Admission HPI Per Admitting Provider Lala Mcbride is a 66-year-old female with past medical history significant for hypertension, hyperlipidemia, and osteoarthritis who is presenting today with abdominal pain over the past week. Thinking this may be her heartburn, she took Tums and Zantac which did relieve your symptoms somewhat, however her pain became very severe and she started vomiting. Is going to her back and she has had chills at home, however no recorded fevers. Pain is significantly worse after eating. She is not having any change to her stools, denies acholic stools, diarrhea, melena, hematochezia. She had a colonoscopy recently, she thinks it was in the past year and she has other than benign polyps there were no worrisome findings. Upon presentation to the ED, she was hypertensive and HR in 110s, SPO2 >92% on room air, afebrile. Labs significant for an elevated WBC of 11.14, potassium 3.3, phosphorus 2.4. Her T bili is 12.4 with direct 6.9, AST 72, ALT 135, alk phos 213, ALT significantly elevated from prior labs in June. Her lipase is 7. Did test positive for COVID in her ED, for the past several days she has had a head cold, cough, and has been a little bit winded with more vigorous activity, however not short of breath at rest. No unilateral leg swelling or calf pain. She is up-to-date on COVID vaccines and boosters, last received a booster earlier this spring. Patient was originally supposed to be transferred to [facility] as our facility would not be able to perform an ERCP on this patient until Monday, 12/21, however as there are no available beds at transfer facility, we will admit her for MRCP and IV antibiotics. Plan will be for ERCP if indicated on Monday, however patient will be transferred if she decompensates and it is felt ERCP is emergently needed. Principal Diagnosis Obstructive jaundice Pancreatic mass Discharge Exam Constitutional WD/WN, vitals as above Respiratory normal respiratory effort, lungs clear to auscultation Cardiovascular RRR, no murmur, no edema Gastrointestinal (Abdomen) Inspection/Auscultation: abdomen normal to inspection; abdomen not distended Percussion/Palpation: + abdomen tender (Right upper quadrant and epigastric) and abdomen soft; no guarding and abdomen not rigid Psychiatric A+Ox3, euthymic affect Discharge Data Allergies Allergy/AdvReac Type Severity Reaction Status Date / Time atorvastatin AdvReac Intermediate Muscle Pain Verified 12/19/21 14:55 simvastatin AdvReac Intermediate Muscle Pain Verified 12/19/21 14:55 Consultations 12/19/21 19:56 ED Decision to Admit Stat 12/19/21 23:24 Consult Gastroenterology Routine 12/20/21 07:43 Burn CD for patient Stat Ordered Studies 12/19/21 13:03 CT abd pelvis IV con only Stat IMPRESSION: Prominent intrahepatic biliary ductal dilation. The common bile duct is dilated with abrupt narrowing at the level of the pancreatic head. Findings may represent choledocholithiasis in this patient with numerous gallstones however a pancreatic head mass cannot be excluded. No evidence of cholecystitis is seen. 12/19/21 17:58 US gallbladder Stat IMPRESSION: 1. Positive sonographic Garcia's sign and gallbladder wall thickening with multiple gallstones. Findings are concerning for acute cholecystitis. 2. Enlargement of the common bile duct may be reactive, distal choledocholithiasis cannot be excluded. 12/20/21 04:14 MR MRCP Urgent IMPRESSION: 1. Moderate intra and extra hepatic biliary ductal dilatation with abrupt caliber change of the mid common bile duct. Suspected associated pancreatic head mass, measuring approximately 2.8 x 2.1 cm. These findings are suggestive of a neoplasm and suspicious for pancreatic adenocarcinoma. Cholangiocarcinoma could appear similar. GI consultation for consideration for ERCP is recommended. 2. Cholelithiasis. Gallbladder distention. No convincing evidence for acute cholecystitis although a hepatobiliary scan could be obtained if indicated. 3. No pancreatic ductal dilatation. Pancreas divisum. 4. No common bile duct calculi identified. 5. Nonspecific prominent portacaval lymph node. Hospital Course (1) Obstructive hyperbilirubinemia: Lala Mcbride is a 66 year old female admitted overnight at [facility] from December 19 - 2021 due to obstructive jaundice. MRCP was concerning for suspected pancreatic head mass suspicious for pancreatic adenocarcinoma. This was discussed with the patient and her prior to transfer. Transfer was arranged to outside facility due to no ERCP services at this hospital currently. However due to lack of transport she was admitted overnight and placed on IV ceftriaxone and metronidazole, n.p.o. and IV fluids. Transport is now arranged for the morning and she will be transferred to [facility] for further treatment. Nb: medication list below is her outpatient medications, please see separate scanned file for inpatient medications. (2) COVID-19: (3) Hypertension: (4) Hyperlipidemia: (5) Osteoarthritis: (6) Hypokalemia: Total Time Total Time Spent Total Time Spent (In Minutes): 40 Discharge Plan Discharge Items Patient Disposition: Transfer Acute Care Hospital Reason For Visit: OBSTRUCTIVE HYPERBILIRUBINEMIA Discharge Diagnosis: OBSTRUCTIVE HYPERBILIRUBINEMIA Activity: Resume your previous activity Non-emergency contact: Primary Care Provider Call non-emergency contact if: you have any medication questions and your symptoms worsen Follow-up/Referrals: Shavon Chase MD [Primary Care Provider] - Diet: Other - See Diet Comment Diet Comment: NPO Addtl Attending Provider Instructions: Lala Mcbride is a 66 year old female admitted overnight at [facility] from December 19 - 2021 due to obstructive jaundice. MRCP was concerning for suspected pancreatic head mass suspicious for pancreatic adenocarcinoma. Transfer was arranged to outside facility due to no ERCP services at this hospital currently. However due to lack of transport she was admitted overnight here and placed on IV ceftriaxone and metronidazole, kept NPO and is now being transferred. Nb: medication list below is her outpatient medications, please see seperate scanned file for inpatient medications. Pending Studies at Discharge: No Stand-Alone Forms: My [facility] Skilled Items Patient informed of condition?: Yes DNR: No Discharge Level of Care: Other Communicable Disease: Yes (COVID-19) Discharge Prognosis: Stable Lines: Peripheral IV Urinary Catheter: No Medications and DC Order Prescriptions: Continued pravastatin 10 mg tablet 10 mg PO QPM Qty: 90 3RF acetaminophen [Arthritis Pain Relief (acetam)] 650 mg tablet extended release 1,300 mg PO BID One-A-Day Womens Formula 18 mg iron-400 mcg-500 mg tablet 1 tab PO QAM enalapril maleate 20 mg tablet 20 mg PO QAM diclofenac sodium 1 % gel 4 g topical BID PRN (Reason: Pain) Rx Instructions: shoulder coQ10 (ubiquinol) 100 mg capsule 500 mg PO QAM Discharge Orders: Discharge Order (Routine); Ordered 12/20/21 Ordered By: Vahe Kilpatrick Admission Data Admit Date/Time: 12/19/21 20:42 Attending Provider: Vahe Kilpatrick Admit Provider: Raymundo Haro Primary Care Provider: Shavon Chase V. Other Providers: Raymundo Haro ; Raphael Santiago Jr Other Interventions: Discharge Summary Assessment (RN) Last Done: 12/20/21 09:09 Coding Level of Care Code D/C DAY MANAGEMENT >30 MINS Diagnoses Obstructive hyperbilirubinemia K83.1 COVID-19 U07.1 Hypertension I10 Hyperlipidemia E78.5 Osteoarthritis M19.90 Hypokalemia E87.6
== END 2021-12-20 09:10 | disposition short-term general hospital (02) | DRG 444 ==
LOC: ED 10:45 → SUATTDRO 20:42 → 2N 20:42

== ENCOUNTER 2023-05-14 16:41 | Inpatient (IN) ==
--- OUTSIDE RECORDS SUMMARY | 2023-05-14 16:49 | External Medical Summary | Summary of Care ---
Author Name Unknown Organization [facility] Address [address] [place] [address] Phone [phone] Care Team Providers Care Early Years Teacher Name Role Phone Shavon Hancock MD [facility] Care Provider Reason for Visit * Reason Onset Date Comments Precert Approved 05/02/2023 13 MARLENY martinez - - Encounter Details Date Type Department Care Team (Late st Contact Info) Description 04/28/2023 Telephone Hematology/Oncology Treatment, [place] [address] [place] [address] Joe Raya MD [address] [place] [address] Precert Approved (Coy martinez - - ) Allergies Active Allergy Reactions Criticality Noted Date Comments Atorvastatin High 03/17/2022 Other reaction(s): Muscle Pain Simvastatin High 03/17/2022 Other reaction(s): Muscle Pain Statins 12/20/2021 Except pravastatin documented as of this encounter (statuses as of 05/02/2023) Medications Medication Sig Dispensed Refills Start Date End Date Status Enalapril Maleate 10 MG Oral Tablet (Vasotec) Take 2 Tablets by mouth in the morning. Patient states she is taking 20mg in morning and 10mg at night. 0 Active Pravastatin Sodium 20 MG Oral Tablet (Pravachol) Take 1 Tablet by mouth every evening. 0 Active Co-Enzyme Q10 100 MG Oral Capsule Take by mouth . 0 Active Prochlorperazine Maleate 10 MG Oral Tablet (Compazine)Indicatio ns:Malignant neoplasm of head of pancreas (HCC) Take 1 Tablet (10 mg) by mouth every 6 hours as needed for Nausea. 30 Tablet 3 03/21/2022 Active Additional Information Patient not taking.Reported on 07/04/2022 Dexamethasone 4 MG Oral Tablet (Decadron)Indication s:Pancreatic adenocarcinoma (HCC) 8mg in AM on day 2, 8mg twice a day on days 3 and 4 of each cycle 50 Tablet 1 09/05/2022 Active Additional Information Patient not taking.Reported on 10/11/2022 oxyCODONE HCl 5 MG Oral Tablet (Oxy IR)Indications:Malig nant neoplasm of head of pancreas (HCC) Take 1 Tablet by mouth every 8 hours as needed for Pain, Moderate. 60 Tablet 0 09/28/2022 Active Loratadine 10 MG Oral Capsule (Claritin) Take 1 Capsule by mouth in the morning. 0 Active Rivaroxaban 20 MG Oral Tablet (Xarelto)Indications :Malignant neoplasm of head of pancreas (HCC) Take 1 Tablet by mouth daily with dinner. 90 Tablet 1 11/21/2022 Active Omeprazole 20 MG Oral Capsule Delayed Release (PriLOSEC) Take 1 Capsule by mouth in the morning. 90 Capsule 0 12/08/2022 Active Lidocaine-Prilocaine 2.5-2.5 % External Cream (Emla)Indications:Ma lignant neoplasm of head of pancreas (HCC) APPLY TO SKIN OVER MEDIPORT & COVER 1HR PRIOR TO ACCESSING. 30 g 1 12/26/2022 Active Potassium Chloride ER 10 MEQ Oral Tablet Extended ReleaseIndications:M alignant neoplasm of head of pancreas (HCC) Take 1 Tablet by mouth in the morning and 1 Tablet before bedtime. 60 Tablet 5 03/28/2023 Active Diphenoxylate-Atropi ne 2.5-0.025 MG Oral Tablet (Lomotil)Indications :Pancreatic adenocarcinoma (HCC) Take 2 Tablets by mouth 4 times a day as needed for Diarrhea. 60 Tablet 1 04/05/2023 Active Ondansetron HCl 8 MG Oral TabletIndications:Ma lignant neoplasm of head of pancreas (HCC) Take 1 Tablet by mouth in the morning and 1 Tablet at noon and 1 Tablet before bedtime. 30 Tablet 3 04/11/2023 Active LORazepam 0.5 MG Oral Tablet (Ativan)Indications: Pancreatic adenocarcinoma (HCC) Take 1 Tablet by mouth every 8 hours as needed for Anxiety. 60 Tablet 0 04/21/2023 Active Gabapentin 300 MG Oral Capsule (Neurontin)Indicatio ns:Malignant neoplasm of head of pancreas (HCC),Chemotherapy-i nduced neuropathy Take 1 Capsule by mouth in the morning and 1 Capsule at noon and 1 Capsule before bedtime. 90 Capsule 3 04/25/2023 Active Hyoscyamine Sulfate ER 0.375 MG Oral Tablet Extended Release 12 Hour (Levbid)Indications: Pancreatic adenocarcinoma (HCC) Take 1 Tablet by mouth every 12 hours as needed for Cramping. 60 Tablet 2 04/27/2023 Active Hospital, Clinic, or Other Facility Administered Medication Ordered Dose Route Frequency Start Date End Date Status Fluorouracil (5-Fu) 4,375 mg in NSS 138 mL infusion 4375 mg IV CONTINUOUS 04/12/2023 05/01/2023 Discontinued documented as of this encounter (statuses as of 05/02/2023) Active Problems Problem Noted Date Diagnosed Date Metastasis to liver 03/30/2023 Dehydration 05/26/2022 Diarrhea 05/26/2022 Malignant neoplasm of head of pancreas Encounter for antineoplastic chemotherapy 2021 Postprocedural intraabdominal abscess 02/04/2022 Hepatic abscess 02/04/2022 Pancreatic adenocarcinoma 12/23/2021 Hypertension 12/20/2021 Hyperlipidemia 12/20/2021 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 documented as of this encounter (statuses as of 05/02/2023) Resolved Problems Problem Noted Date Diagnosed Date Resolved Date COVID-19 12/24/2021 12/28/2021 Post-ERCP acute pancreatitis 12/22/2021 12/28/2021 Choledocholithiasis 12/22/2021 12/29/19 Right upper quadrant pain 12/20/2021 documented as of this encounter (statuses as of 05/02/2023) Immunizations Name Administration Dates Next Due COVID-19 mRNA, LNP-s, No Pre serve, 2-Dose Series (Moderna) 06/16/2020,05/12/2020 Seasonal Influenza Virus Vac cine, Unspecified Formulation 02/21/2018,01/05/2017,04/24/2015 Seasonal Influenza, Quadriva lent Hd (Fluzone Hd) 12/16/2022 documented as of this encounter Social History Tobacco Use Types Packs/Day Years Used Date Smoking Tobacco: Never Smokeless Tobacco: Never Alcohol Use Standard Drinks/Week Comments Yes 0 (1 standard drink = 0.6 oz pur e alcohol) rarely Sex and Gender Information Value Date Recorded Sex Assigned at Not on file Gender Identity Not on file Sexual Orientation Not on file Job Start Date Occupation Industry Not on file Not on file Not on file documented as of this encounter Functional Status Functional Status Response Date of Assess ment Are you deaf or do you have serious difficulty h earing? No 12/20/2021 Are you blind or do you have serious difficulty seeing, even when wearing glasses? No 12/20/2021 Do you have serious difficul ty walking or climbing stairs? (5 years old or older) No 12/20/2021 Do you have difficulty dress ing or bathing? (5 years old or older) No 12/20/2021 Because of a physical, menta l, or emotional condition, do you have difficulty doing errands alone such as visiting a doctor s office or shopping? (15 years old or older) No 12/21/19 22 Cognitive Status Response Date of Assessm ent Because of a physical, menta l, or emotional condition, do you have serious difficulty concentrating, remembering, or making decisions? (5 years old or older) No 12/20/2021 documented as of this encounter Miscellaneous Notes * Telephone Encounter - Gay Hewitt, KATHERINE - 05/02/2023 9:02 AM EST New or re-auth: New authorization Approved/Denied: Approved Drug Name and Formulation: Hyoscyamine Sulfate ER 0.375MG er tablets How Prescribed(directions/sig): Take 1 Tablet by mouth every 12 hours as needed for Cramping Day Supply: 30 Did you receive insurance information from outside the chart? No, received insurance information within the chart Valid auth start date: 04/28/23 Valid auth end date: 04/25/24 Rx Insurance Info: OSITO BRUCE Reference #: N/A Rx Benefits Verified through/on date: 05/02/23 Referral (TE) received from: Prescribing Clinic Gay Hewitt [employer] P: [phone] F: [phone] 05/02/23,9:02 AM * Telephone Encounter - Gay Hewitt OSA - 05/01/2023 11:54 AM EST Images from the original note were not included. Awaiting determination from [facility] New or re-auth: New authorization Approved/Denied: Approved Drug Name and Formulation: Hyoscyamine Sulfate ER 0.375MG er tablets How Prescribed(directions/sig): Take 1 Tablet by mouth every 12 hours as needed for Cramping Day Supply: 30 Did you receive insurance information from outside the chart? No, received insurance information within the chart Valid auth start date: 04/28/23 Valid auth end date: Open ended Rx Insurance Info: [facility] Reference #: [id number] Rx Benefits Verified through/on date: 05/01/23 Referral (TE) received from: Prescribing Clinic Gay Hewitt [employer] P: [phone] F: [phone] 05/01/23,11:50 AM * Telephone Encounter - Gay Hewitt OSA - 04/29/2023 8:21 PM EST [facility] Authorization Submission Submission Information: Medication: Hyoscyamine Sulfate ER 0.375MG er tablets Portal used: [facility]/Right fax Insurance: [facility]/ HELPER Authorization #/Mcmullen: [id number] Gay Hewitt [employer] P: [phone] F: [phone] 04/29/2023,8:22 PM * Telephone Encounter - Nikki Tam RN - 04/28/2023 8:54 AM EST ICD-10: c25.9 Start date: 1 week Drugs: Disp Refills Start End Hyoscyamine Sulfate ER 0.375 MG Oral Tablet Extended Release 12 Hour (Levbid) 60 Tablet 2 04/27/2023-- Sig - Route: Take 1 Tablet by mouth every 12 hours as needed for Cramping. - Oral Physician: Dr Raya Received fax from Cyn that levbid rx requires auth. documented in this encounter Plan of Treatment Upcoming Encounters Date Type Department Care Team (Latest Contact Info) Description 05/02/2023 11:00 AM EST Hem/Onc Treatment Hematology[address] [address] Bo[place], Chair 8 Hem Onc [address] [place] [address] Metastasis to liver (HCC)*; Encounter for antineoplastic chemotherapy; Malignant neoplasm of head of pancreas (HCC) 05/05/2023 10:00 AM EST Appointment Ancillary Special Procedures, [place] [id number] [place] [address] 05/09/2023 11:30 AM EST Office Visit Hematology/Oncolog y [facility] Bozena [address] [place] [address] Natasha Houser CRNP [address] [facility] [address] 05/09/2023 12:00 PM EST Hem/Onc Treatment [address]ematology[address] [address] Bozena, Chair 7 Hem Onc [address] [place] [address] 05/23/2023 8:45 AM EST Office Visit Hematology/Oncolog y [facility] Bozena [address] [place] [address] Joe Raya MD [address] [facility] [place] [address] Health Maintenance Due Date Last Done Comments Lipid Panel 1955 Depression Screening 1967 Albumin/Creatinine Ratio 11/28/1973 Hepatitis C Screening 11/28/1973 DTaP,Tdap,and Td Vaccines (1 - Tdap) 11/28/1974 Cologuard 11/28/2000 Colonoscopy 11/28/2000 Colorectal Cancer Screening 11/28/2000 Fecal Occult Blood Test 11/28/2000 Sigmoidoscopy 11/28/2000 DXA Scan 11/28/2020 Mammogram 12/03/2020 12/04/2019, 07/13/2018 Pneumococcal Vaccine: 65+ Years (2 - PPSV23 or PCV20) 02/10/2021 12/16/2020 COVID-19 Vaccine (5 - 2022-24 season) 2022 08/05/2021, 02/10/2021, 06/16/2020, Additional history exists GFR 05/01/2024 05/01/2023, 11/2023, 04/11/2023, Additional history exists Zoster Vaccines Completed 04/06/2020, 02/04/2020 Influenza Vaccine (FLU shot) Completed 04/2022, 01/21/2020, 03/29/2019, Additional history exists GARDASIL-HPV IMMUNIZATION SERIES Aged Out No longer eligible based on patient's age to complete this topic Hepatitis B Aged Out No longer eligi ble based on patient's age to complete this topic MENINGOCOCCAL (MENACTRA/MENVEO) Aged Out No longer eligible based on patient's age to complete this topic documented as of this encounter Medical Devices Implanted Type Area Sand Conditioner Device Identifier Shelf Expiration Date Model / Serial / Lot Stent 10fr 9cm Clso-10-9 - [id number] Implanted:Qty : 1 on 12/21/2021 by Stanton Bailey MD at ENDOSCOPY [facility] COOK : NIKKI [place] [id number] 07/15/2024 [id number] / / [id number] Port Implant W/8f Poly Cath - [id number] Implanted:Qty : 1 on 04/01/2022 by Sylvester Givens, DO at OR [facility] Right: Chest CR BARD : [employer] [id number] 05/17/2022 [id number] / / [id number] documented as of this encounter Advance Directives Latest Code Status on File Code Status Date Activated Date Inactivated Comments Full Code 01/28/2022 3:55 PM 02/08/2022 8:29 PM Question Answer Comments Discussion of Advance Directives occurred with: Not Discussed due to patient's condition Code Status History Code Status Date Activated Date Inactivated Comments Full Code 01/28/2022 9:47 AM 01/28/2022 3:55 PM Question Answer Comments Discussion of Advance Directives occurred with: Not Discussed due to patient's condition Limited Code 12/20/2021 11:44 AM 12/28/2021 6:37 PM Okay with CPR and defibrillator. Do NOT intubate Question Answer Comments Discussion of Advance Directives occurred with: Patient Intubation? No Cardiac Compressions? Yes Defibrillation? Yes Limited Code 12/20/2021 11:43 AM 12/20/2021 11:44 AM Okay with CPR and defibrillator. Do NOT intubate Question Answer Comments Discussion of Advance Directives occurred with: Patient Full Code 12/20/2021 10:55 AM 12/20/2021 11:43 AM This order reflects the patients wishes and were consensually agreed upon. Question Answer Comments Discussion of Advance Directives occurred with: Patient Care Teams Early Years Teacher Relationship Specialty Start Date End Date Shavon Hancock MD [address] [address] PCP - General Internal Medicine 06/15/18 documented as of this encounter
--- OUTSIDE RECORDS SUMMARY | 2023-05-14 16:49 | External Medical Summary | Summary of Care ---
Author Name Unknown Organization [facility] Address [address] [place] [address] Phone [phone] Care Team Providers Care Systems Manager Name Role Phone Shavon Hancock MD Prim ry Care Provider Reason for Visit * Reason Comments Chemotherapy C2D1 Onivyde/Leucovo rin/5FU * Episode Based Medications (Routine) - Authorized Specialty Diagnoses / Procedures Referred By Patrick sahu Referred To Contact Diagnoses Metastasis to liver (HCC) Encounter for antineoplastic chemotherapy Malignant neoplasm of head of pancreas (HCC) Procedures MT LEUCOVORIN CALCIUM INJECTION MT PALONOSETRON HCL MT FLUOROURACIL INJECTION MT INJ IRINOTECAN LIPOSOME 1 MG MT INJECTION, UDENYCA 0.5 MG Joe Raya MD 200 [facility] [place] [address] Anc Hem/Onc Scenery [address] [address] Referral ID Status Reason Start Date Expiration Date V isits Requested Visits Authorized [id number] Authorized 04/04/2023 04/16/2099 [id number] Encounter Details Date Type Department Care Team (Latest Contact Info) Description 05/02/2023 11:00 AM EST Hem/Onc Treatment Hematology/Oncolog y Treatment, [address] [address] Bozena, Chair 8 Hem Onc Scenery [address] [place] [address] [place] [address] Metastasis to liver (HCC)*; Encounter for antineoplastic chemotherapy; Malignant neoplasm of head of pancreas (HCC) Allergies Active Allergy Reactions Criticality Noted Date [...] on file documented as of this encounter Last Filed Vital Signs Vital Sign Reading Time Taken Comments Blood Pressure 123/72 05/02/2023 11:05 AM EST Pulse 87 05/02/2023 11:05 AM EST Temperature 36.5 C (97.7 F) 05/02/2023 11:[address] Respiratory Rate 16 05/02/2023 11:05 AM EST Oxygen Saturation 96% 05/02/2023 11:05 AM EST Inhaled Oxygen Concentration - - Weight 70.5 kg (155 lb 6.4 oz) 05/02/2023 11:05 AM EST Height - - Body Mass Index 26.05 04/05/2023 12:00 PM EST documented in this encounter Functional Status Functional Status Response [...] (15 years old or older) No 12/21/19 Cognitive Status Response Date of Assessm ent Because of a physical, menta l, or emotional condition, do you have serious difficulty concentrating, remembering, or making decisions? (5 years old or older) No 12/20/2021 documented as of this encounter Nursing Notes * Lupe Mendez RN - 05/02/2023 12:41 PM EST Chair 12 Pt here for chemo. States she feels much better then last week and has gained weight. Chemo agents Onivyde Appetite "much better" Nausea/Vomiting denies Diarrhea improved but still goes about 3 x/day, no more cramping Constipation denies Mucositis denies Fatigue denies Bleeding denies Infection denies Rash denies Numbness tingling stable Pain denies Radiation no ABN Labs WNL for treatment Alt in Tx: no Return in 2 days Safety and Risk for Injury Patient will remain free from injury. Ensure appropriate safety devices are available. Provide and maintain safe environment. Pt notified that pharmacy needed to obtain onivyde from [facility] for full dose and agreeable to waiting for med. Goals: Patient will remain free from injury. Possible barriers to meeting goals: ambulation with IV pole, benadryl side effects, use of ambulatory device Stability of the patient: Moderately stable - low risk of patient condition declining or worsening Summary regarding today's goals: Met: patient without injury during treatment today Functional status at today's visit: Restricted in physically strenuous activity but ambulatory and able to carry out work on a light orsedentary nature, e.g. light house work, office work The drug name, dose, infusion volume, rate and route of administration, expiration date and time, appearance and physical integrity of the drug and rate set on the pump and sequencing of drug administration (as applicable) were verified by me and second sign-in RN. Patient was assessed for symptoms or adverse side effects during treatment. Pt tolerated ordered medications well. No complaints. Home 5-FU pump initiated. Discharged in stable condition. * Nikki Tam RN - 05/01/2023 1:19 PM EST Alk phos 183. Dr Raya aware. documented in this encounter Plan of Treatment Upcoming Encounters Date Type Department Care Team (Late st Contact Info) Description 05/04/2023 2:00 PM EST Hem/Onc Treatment Hematology/[address]cology [address] [address] Bozena, Chair 7 Hem On[address] [place] [address] 05/05/2023 10:00 AM EST Appointment Ancillary Special Procedures, [address] [address] 05/15/2023 9:30 AM EST Laboratory Laboratory, [address] [address] [facility], Lab [address] [place] [address] 05/16/2023 8:15 AM EST Office Visit Hematology/Oncology [facility] [address] [place] [address] Joe Raya MD 200 [facility] [place] [address] 05/16/2023 8:45 AM EST Hem/Onc Treatment Hematology/Oncology [address], [address] [address] Bozena, Chair 2 Hem Onc [address] [place] [address] Health Maintenance Due Date Last Done Comments [...] this encounter Medical Devices Implanted Type Area Dictating Machine Typist Device Identifier Shelf Expiration Date Model / Serial / Lot Stent 10fr 9cm Clso-10-9 - [id number] Implanted:Qty : 1 on 12/21/2021 by Stanton Bailey MD at ENDOSCOPY [facility] COOK : [place]KKI [place] [id number] 07/15/2024 [id number] / / [id number] Port Implant W/8f Poly Cath - [id number] Implanted:Qty : 1 on 04/01/2022 by Sylvester Givens DO at OR [facility] Right: Chest CR BARD : PERIPHERAL VASCULAR [id number] 05/17/2022 [id number] / / [id number] documented as of this encounter Visit Diagnoses Diagnosis Metastasis to liver (HCC)- Primary Secondary malignant neoplasm of liver Encounter for antineoplastic chemotherapy Malignant neoplasm of head of pancreas (HCC) Malignant neoplasm of head of pancreas documented in this encounter Administered Medications Active Administered Medications - up to 3 most recent administrations Medication Order MAR Action Action Date Dose Rate Site Atropine sulfate inj 0.4 mg 0.4 mg, IV Push, ONCE PRN Diarrhea, Starting on Mon05/02/23 at 1107, Until Discontinued Given 05/02/2023 1:45 PM EST 0.4 mg diphenhydrAMINE (Benadryl) inj 50 mg 50 mg, IV Push, ONCE PRN Other, Hypersensitivity Reaction, Starting on Mon05/02/23 at 1107, Until Mon05/03/23 at 1106, For 24 hours EPINEPHrine 1 MG/ML inj 0.3 mg 0.3 mg, Intramuscular, ONCE PRN Other, Hypersensitivity Reaction or Anaphylaxis, Starting on Mon05/02/23 at 1107, Until Mon05/03/23 at 1106, For 24 hours hEParin 100 UNIT/ML Lock Flush inj 500 Units 500 Units (5 mL), IV Lock, PRN Other, IV Flush, Starting on Mon05/02/23 at 1107, Until Mon05/03/23 at 1106, For 24 hours, Do not flush if lock, PICC, or central line not in place; IV infusing or unable to flush. Hydrocortisone Sod Suc (PF) (Solu-Cortef) inj 100 mg 100 mg, IV Push, ONCE PRN Other, Hypersensitivity Reaction, Starting on Mon05/02/23 at 1107, Until Mon05/03/23 at 1106, For 24 hours LORAzepam (Ativan) tab 0.5 mg 0.5 mg, Oral, ONCE PRN Anxiety, Nausea, Starting on Mon05/02/23 at 0830, Until Discontinued NSS infusion Intravenous, at 50 mL/hr, PRN, Starting on Mon05/02/23 at 0830, Until Discontinued, Maintenance line Start Infusion 05/02/2023 11:20 AM EST 50 mL/hr oxygen GAS Inhalation, OXYGEN, First dose on Mon05/02/23 at 1145, Until Discontinued, Device/Managed by: Low Flow Device, Goal SPO2 (%): 91-95, Starting Device: Nasal Cannula, Initial Flow Rate (LPM): 2, Lowest Support: Nasal Cannula: Flow 0-6 LPM. Titrate up/down by 1 LPM., Higher Support: Non-Rebreather (NRB) Mask: Minimum of 10 LPM. Titrate to maintain bag inflation., Titration Interval: Q2 minutes and as needed., Notify Provider: For sudden DECREASE in resting SPO2 to less than 85% and when escalating delivery device., Wean patient off Oxygen when the oxygen saturation is greater than or equal to 93% sodium chloride 0.9 % flush central line 10 mL 10 mL, IV Push, PRN Other, IV Flush, Starting on Mon05/02/23 at 1107, Until Mon05/03/23 at 1106, For 24 hours, Do not flush if lock, PICC, or central line not in place; IV infusing or unable to flush. Given 05/02/2023 3:48 PM EST 10 mL Inactive Administered Medications - up to 3 most recent administrations Medication Order MAR Action Action Date Dose Rate Site dexAMETHasone (Decadron) tab 12 mg 12 mg, Oral, ONCE, On Mon05/02/23 at 1145, For 1 dose Given 05/02/2023 1:19 PM EST 12 mg Fluorouracil (5-Fu) 4,375 mg for Home Infusion 4,375 mg (rounded from 4,368 mg = 2,400 mg/m2 1.82 m2 Treatment Plan BSA from Recorded weight), Intravenous, Administer over 46 Hours, Home Infusion Pharmacy to specify base solution and volume., ONCE, 1 dose, On Mon05/02/23 at 1030 Start Infusion 05/02/2023 3:50 PM EST 4,375 mg 3 mL/hr irinotecan liposome (Onivyde) 129 mg in D5W 500 mL infusion 129 mg (rounded from 127.4 mg = 70 mg/m2 1.82 m2 Treatment Plan BSA from Recorded weight), IV Piggyback, ONCE, 1 dose, On Mon05/02/23 at 1145, Administer over 90 Minutes, Give prior to leucovorin and 5-FU Allow solution to come to room temperature before mixing. If UGT1A1*28 Allele present give 50 mg/m2. Use Dedicated line Without Filter Start Infusion 05/02/2023 1:44 PM EST 129 mg 333.33 mL/hr leucovorin calcium 750 mg in D5W 250 mL INFUSION 750 mg (rounded from 728 mg = 400 mg/m2 1.82 m2 Treatment Plan BSA from Recorded weight), IV Piggyback, ONCE, 1 dose, On Mon05/02/23 at 1145, Administer over 30 Minutes Start Infusion 05/02/2023 3:13 PM EST 750 mg 500 mL/hr Palonosetron (Aloxi) inj SOLN 0.25 mg 0.25 mg, IV Push, ONCE, On Mon05/02/23 at 1145, For 1 dose, Restricted per [facility] antiemetic guidelines Given 05/02/2023 1:19 PM EST 0.25 mg documented in this encounter Advance Directives Latest Code Status [...] Advance Directives occurred with: Patient Care Teams Systems Manager Relationship Specialty Start Date End Date Shavon Hancock MD [address] [address] PCP - General Internal Medicine 06/15/18 documented as of this encounter
--- OUTSIDE RECORDS SUMMARY | 2023-05-14 16:49 | External Medical Summary | Summary of Care ---
Author Name Unknown Organization [facility] Address [address] [place] [address] Phone [phone] Care Team Providers Care Flight Communications Specialist Name Role Phone Shavon Hancock MD [facility] Care Provider Encounter Details Date Type Department Care Team (Late st Contact Info) Description 05/11/2023 Telephone Hematology/Oncology [facility] [address] [place] [place] [address] Services, Scheduling [address] [place] [address] Allergies Active Allergy Reactions Criticality Noted Date Comments Atorvastatin High 03/17/2022 Other reaction(s): Muscle Pain Simvastatin High 03/17/2022 Other reaction(s): Muscle Pain Statins 12/20/2021 Except pravastatin documented as of this encounter (statuses as of 05/11/2023) Medications Medication Sig Dispensed Refills Start Date [...] of head of pancreas (HCC),Chemotherapy-i nduced neuropathy (HCC) Take 1 Capsule by mouth in the morning and 1 Capsule at noon and 1 Capsule before bedtime. 90 Capsule 3 04/25/2023 Active Hyoscyamine Sulfate ER 0.375 MG Oral Tablet Extended Release 12 Hour (Levbid)Indications: Pancreatic adenocarcinoma (HCC) Take 1 Tablet by mouth every 12 hours as needed for Cramping. 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 documented as of this encounter (statuses as of 05/11/2023) Resolved Problems Problem Noted Date Diagnosed Date Resolved Date COVID-19 12/24/2021 12/28/2021 Post-ERCP acute pancreatitis 12/22/2021 12/28/2021 Choledocholithiasis 12/22/2021 12/29/19 Right upper quadrant pain 12/20/2021 documented as of this encounter (statuses as of 05/11/2023) Immunizations Name Administration Dates Next Due COVID-19 [...] encounter Miscellaneous Notes * Telephone Encounter - Andreea Nunez OSA - 05/11/2023 9:41 AM EST Diana Parmar called asking to speak with a nurse in regards to some of the issues shes having Please call her back thank you documented in this encounter Plan of Treatment Upcoming Encounters Date Type Department Care Team (Late st Contact Info) Description 05/15/2023 9:30 AM EST Laboratory Laboratory, [address] [address] [facility], Lab [address] [place] [address] 05/16/2023 8:15 AM EST Office Visit Hematology/Oncology [facility] [place] [address] [place] [address] Joe Raay MD [address] [place] [address] 05/16/2023 8:45 AM EST Hem/Onc Treatment Hematology/Oncology Treatment, [place] [address] [place], [place] [address] Bozena, Chair 2 Hem [facility]c [facility] [address] 05/19/2023 2:00 PM EST Appointment Ancillary Special Procedures, [address] [address] Health Maintenance Due Date Last Done Comments [...] PCV20) 02/10/2021 12/16/2020 COVID-19 Vaccine (5 - 2022- season) 2022 08/05/2021, 02/10/2021, 06/16/2020, Additional history exists GFR 05/01/2024 05/01/2023, 11/2023, 04/11/2023, Additional history exists Diabetes Screening 05/01/2026 05/01/2023, 0 04/24/2023, 04/11/2023, Additional history exists Zoster Vaccines Completed [...] this encounter Medical Devices Implanted Type Area Import/Export Clerk Device Identifier Shelf Expiration Date Model / Serial / Lot Stent 10fr 9cm Clso-10-9 - [id number] Implanted:Qty : 1 on 12/21/2021 by Stanton Bailey MD at [facility]COPY [facility] COOK : NIKKI [place] [id number] 07/15/2024 [id number] / / [id number] Port Implant W/8f Poly Cath - [id number] Implanted:Qty : 1 on 04/01/2022 by Sylvester Givens DO at OR [facility] Right: Chest CR BARD : PERIPHERAL VASCULAR [id number] 05/17/2022 [id number] / / [id number] documented as of this encounter Advance Directives [...] Advance Directives occurred with: Patient Care Teams Flight Communications Specialist Relationship Specialty Start Date End Date Shavon Hancock MD [address] [place] [address] PCP - General Internal Medicine 06/15/18 documented as of this encounter
--- OUTSIDE RECORDS SUMMARY | 2023-05-14 16:49 | External Medical Summary | Summary of Care ---
Author Name Unknown Organization [facility] Address [address] [place] [address] Phone [phone] Care Team Providers Care Forestry Tree Pruner Name Role Phone Shavon Hancock MD [facility] Care Provider Reason for Visit * Reason Onset Date Comments Precert Approved 04/28/2023 13 MARLENY martinez - - Awaiting determination from [facility] Encounter Details Date Type Department Care Team (Late st Contact Info) Description 04/28/2023 Telephone Hematology/Oncology Treatment, [place] [address] [place] [address] Joe Raya MD [address] [place] [address] Precert Approved (13 MARLENY martinez - - Awaitin... Allergies Active Allergy Reactions Criticality Noted Date Comments Atorvastatin High 03/17/2022 Other reaction(s): Muscle Pain Simvastatin High 03/17/2022 Other reaction(s): Muscle Pain Statins 12/20/2021 Except pravastatin documented as of this encounter (statuses as of 05/01/2023) Medications Medication Sig Dispensed Refills Start Date [...] mL infusion 4375 mg IV CONTINUOUS 04/12/2023 Ac tive documented as of this encounter (statuses as of 05/01/2023) Active Problems Problem Noted Date Diagnosed Date Metastasis to liver 03/30/2023 Dehydration 05/26/2022 Diarrhea 05/26/2022 Malignant neoplasm of head of pancreas Encounter for antineoplastic chemotherapy 2021 Postprocedural intraabdominal abscess 02/04/2022 Hepatic abscess 02/04/2022 Pancreatic adenocarcinoma 12/23/2021 Hypertension 12/20/2021 Hyperlipidemia 12/20/2021 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 documented as of this encounter (statuses as of 05/01/2023) Resolved Problems Problem Noted Date Diagnosed Date Resolved Date COVID-19 12/24/2021 12/28/2021 Post-ERCP acute pancreatitis 12/22/2021 12/28/2021 Choledocholithiasis 12/22/2021 12/29/19 Right upper quadrant pain 12/20/2021 documented as of this encounter (statuses as of 05/01/2023) Immunizations Name Administration Dates Next Due COVID-19 [...] Telephone Encounter - Gay Hewitt, KATHERINE - 05/01/2023 11:54 AM EST Images from [...] end date: Open ended Rx Insurance Info: [facility] Reference #: [id number] Rx Benefits Verified through/on date: 05/01/23 Referral (TE) received from: Prescribing Clinic Gay Hewitt Medication Picking Belt Operator P: [phone] F: [phone] 05/01/23,11:50 AM * Telephone Encounter - Gay Hewitt OSA - 04/29/2023 8:21 PM EST [facility] Authorization Submission Submission Information: Medication: Hyoscyamine Sulfate ER 0.375MG er tablets Portal used: [facility]/Right fax Insurance: [employer]/ NI Authorization #/Mcmullen: [id number] Gay Hewitt Medication Picking Belt Operator P: [phone] F: [phone] 04/29/2023,8:22 PM * Telephone Encounter - Nikki [...] Oral Physician: Dr Raya Received fax from [facility] that levbid rx requires auth. documented in this encounter Plan of Treatment Upcoming Encounters Date Type Department Care Team (Late st Contact Info) Description 05/02/2023 11:00 AM EST Hem/Onc Treatment Hematology/Oncology Treatment, [place] [facility] [address] Bo[place], Chair 8 Hem Onc [facility] 200 [facility] [address] 05/05/2023 10:00 AM EST Appointment Ancillary Special Procedures, [facility] [facility] [address] [phone] 05/08/2023 10:00 AM EST Laboratory Laboratory, [facility] [address] [place] [address] [facility], Lab [address] [place] [address] 05/09/2023 11:30 AM EST Office Visit Hematology/Oncology [facility] [address] [place] [address] Natasha Houser CRNP 400 [facility] [place] [address] 05/09/2023 12:00 PM EST Hem/Onc Treatment Hematology/Oncology Treatment, [place] [address] [place] [address] Bozena, Chair 7 Hem Onc [address] [place] [address] 05/23/2023 8:45 AM EST Office Visit Hematology/Oncology [facility] [place] 200 [facility] [place] [address] Joe Raya MD 200 [facility] [place] [address] Health Maintenance Due Date Last Done Comments Lipid Panel 1955 Depression Screening 1967 Albumin/Creatinine Ratio 11/28/1973 Hepatitis C Screening 11/28/1973 DTaP,Tdap,and Td Vaccines (1 - Tdap) 11/28/1974 Cologuard 11/28/2000 Colonoscopy 11/28/2000 Colorectal Cancer Screening 11/28/2000 Fecal Occult Blood Test 11/28/2000 Sigmoidoscopy 11/28/2000 DXA Scan 11/28/2020 Mammogram 12/03/2020 12/04/2019, 07/13/2018 Pneumococcal Vaccine: 65+ Years (2 - PPSV23 or PCV20) 02/10/2021 12/16/2020 COVID-19 Vaccine ( - 2022-24 season) 2022 08/05/2021, 02/10/2021, 06/16/2020, [...] this encounter Medical Devices Implanted Type Area Photographer News Device Identifier Shelf Expiration Date Model / Serial / Lot Stent 10fr 9cm Clso-10-9 - [id number] Implanted:Qty : 1 on 12/21/2021 by Stanton Bailey MD at ENDOSCOPY [facility] COOK : [place] [id number] 07/15/2024 [id number] / / [id number] Port Implant W/8f Poly Cath - [id number] Implanted:Qty : 1 on 04/01/2022 by Sylvester Givens DO at OR [facility] Right: Chest CR BARD : PERIPHERAL VASCULAR [id number] 05/17/2022 [id number] / / [id number] documented as of this encounter Advance Directives [...] Advance Directives occurred with: Patient Care Teams Forestry Tree Pruner Relationship Specialty Start Date End Date Shavon Hancock MD [address] [place] [address] PCP - General Internal Medicine 06/15/18 documented as of this encounter
--- OUTSIDE RECORDS SUMMARY | 2023-05-14 16:49 | External Medical Summary | Summary of Care ---
Author Name Unknown Organization [facility] Address [address] [place] [address] Phone [phone] Care Team Providers Care Media Marketing Manager Name Role Phone Shavon Hancock MD [facility] Care Provider Encounter Details Date Type Department Care Team (Late st Contact Info) Description 05/04/2023 Orders Only [facility] RX [address] [place] [address] Joe Raya MD [address] [place] [address] Allergies Active Allergy Reactions Criticality Noted Date Comments Atorvastatin High 03/17/2022 Other reaction(s): Muscle Pain Simvastatin High 03/17/2022 Other reaction(s): Muscle Pain Statins 12/20/2021 Except pravastatin documented as of this encounter (statuses as of 05/04/2023) Medications Medication Sig Dispensed Refills Start Date [...] Start Date End Date Status Fluorouracil (5-Fu) 2,175 mg in NSS 138 mL infusion 2175 mg IV CONTINUOUS 05/04/2023 05/05/2023 Active documented as of this encounter (statuses as of 05/04/2023) Active Problems Problem Noted Date Diagnosed Date Metastasis to liver 03/30/2023 Dehydration 05/26/2022 Diarrhea 05/26/2022 Malignant neoplasm of head of pancreas Encounter for antineoplastic chemotherapy 2021 Postprocedural intraabdominal abscess 02/04/2022 Hepatic abscess 02/04/2022 Pancreatic adenocarcinoma 12/23/2021 Hypertension 12/20/2021 Hyperlipidemia 12/20/2021 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 documented as of this encounter (statuses as of 05/04/2023) Resolved Problems Problem Noted Date Diagnosed Date Resolved Date COVID-19 12/24/2021 12/28/2021 Post-ERCP acute pancreatitis 12/22/2021 12/28/2021 Choledocholithiasis 12/22/2021 12/29/19 Right upper quadrant pain 12/20/2021 documented as of this encounter (statuses as of 05/04/2023) Immunizations Name Administration Dates Next Due COVID-19 [...] No 12/20/2021 documented as of this encounter Plan of Treatment Upcoming Encounters Date Type Department Care Team (Latest Contact Info) Description 05/05/2023 10:00 AM [facility] Hospital Encounter Ancillary Special Procedures, [address] [address] Canceled (Operations Clinical Pre Requisites Not Met) 05/05/2023 2:00 PM [facility] Hospital Encounter Ancillary Special Procedures, [address] [address] Canceled (Patient Cancel-Unplanned Event) 05/15/2023 9:30 AM [facility] Laboratory Laboratory, [address] [phone] [facility], Lab [address] [place] [address] 05/16/2023 8:15 AM EST Office Visit Hematology/Oncolog y [facility] [address] [place] [address] Joe Raya MD [address] [place] [address] 05/16/2023 8:45 AM EST Hem/Onc Treatment Hematology/Oncolog y Treatment, [place] [facility] [address] [place] [address] [place], Chair 2 Hem Onc Scenery [address] [place] [address] 05/19/2023 2:00 PM EST Appointment Ancillary Special Procedures, [place] [id number] [place] [address] Health Maintenance Due Date Last Done [...] 06/16/2020, Additional history exists GFR 05/01/2024 05/01/2023, /0 11/2023, 04/11/2023, Additional history exists Diabetes Screening [...] this encounter Medical Devices Implanted Type Area Director Government Device Identifier Shelf Expiration Date Model / Serial / Lot Stent 10fr 9cm Clso-10-9 - [id number] Implanted:Qty : 1 on 12/21/2021 by Stanton Bailey MD at ENDOSCOPY [facility] [place] COOK : NIKKI [place] [id number] 07/15/2024 [id number] / / [id number] Port Implant W/8f Poly Cath - [id number] Implanted:Qty : 1 on 04/01/2022 by Sylvester Givens DO at [facility] Right: Chest CR BARD : PERIPHERAL VASCULAR [id number] 05/17/2022 [id number] / / [id number] documented as of this encounter Advance Directives [...] Advance Directives occurred with: Patient Care Teams Media Marketing Manager Relationship Specialty Start Date End Date Shavon Hancock MD [address] [address] PCP - General Internal Medicine 06/15/18 documented as of this encounter
--- OUTSIDE RECORDS SUMMARY | 2023-05-14 16:49 | External Medical Summary ---
Author Name Unknown Address Unknown Organization K1G:LABORATORY [facility] - [address] [facility] [address] Laboratory Report Ordering Provider Test Date Status ALICE ROSEN 05/01/2023 11:10:01 Final Observation Date Value Abnormality Reference (Units ) Status SYNC LEUKOCYTES IN BLOOD BY AUTOMATED COUNT 05/01/2023 11:10:01 5.61 4.00-10.80 (K/uL) Final Neutrophils/100 leukocytes in Blood by Manual count 05/01/2023 11:10:01 48.0 40.0-75.0 (%) Final Lymphocytes/100 leukocytes in Blood by Manual count 05/01/2023 11:10:01 28.0 18.0-42.0 (%) Final Monocytes/100 leukocytes in Blood by Manual count 05/01/2023 11:10:01 8.0 1.0-11.0 (%) Final Eosinophils/100 leukocytes in Blood by Manual count 05/01/2023 11:10:01 12.0 Above high normal 0.0-6.0 (%) Final Metamyelocytes/100 leukocytes in Blood by Manual count 05/01/2023 11:10:01 3.0 Above high normal <=0.0 (%) Final Myelocytes/100 leukocytes in Blood by Manual count 05/01/2023 11:10:01 1.0 Above high normal <=0.0 (%) Final Neutrophils [#/volume] in Blood by Manual count 05/01/2023 11:10:01 2.69 1.80-7.70 (K/uL) Final Lymphocytes [#/volume] in Blood by Manual count 05/01/2023 11:10:01 1.57 1.00-4.80 (K/uL) Final Monocytes [#/volume] in Blood by Manual count 05/01/2023 11:10:01 0.45 0.00-1.10 (K/uL) Final Eosinophils [#/volume] in Blood by Manual count 05/01/2023 11:10:01 0.67 0.00-0.70 (K/uL) Final Metamyelocytes [#/volume] in Blood by Manual count 05/01/2023 11:10:01 0.17 Above high normal <=0.00 (K/uL) Final Myelocytes [#/volume] in Blood by Manual count 05/01/2023 11:10:01 0.06 Above high normal <=0.00 (K/uL) Final Nucleated erythrocytes/100 leukocytes [Ratio] in Blood by Automated count 05/01/2023 11:10:01 Final Performing Location LABORATORY [address] [address]
--- OUTSIDE RECORDS SUMMARY | 2023-05-14 16:49 | External Medical Summary | Summary of Care ---
Author Name Unknown Organization [facility] Address [address] [place] [address] Phone [phone] Care Team Providers Care Research Psychologist Name Role Phone Shavon Hancock MD [facility] Care Provider Reason for Visit * Reason Comments Outpatient Testing Encounter Details Date Type Department Care Team (Late st Contact Info) Description 05/01/2023 11:00 AM EST Laboratory Laboratory, [place] [address] [place] [address] Gj, Lab [facility] [place] [address] Pancreatic adenocarcinoma (HCC) Allergies Active Allergy Reactions Criticality Noted [...] 11:00 AM EST Hem/Onc Treatment Hematology/Oncology Treatment, [address] [address] Bozena, Chair 8 Hem On[address] [address] 05/05/2023 10:00 AM EST Appointment Ancillary Special Procedures, [address] [address] 05/08/2023 10:00 AM EST Laboratory Laboratory, [address] [address] Gj, Lab [address] [place] [address] 05/09/2023 11:30 AM EST Office Visit Hematology/Oncology [facility] [address] [facility] [place] [address] Natasha Houser CRNP 400 [facility] [place] [address] 05/09/2023 12:00 PM EST Hem/Onc Treatment Hematology/Oncology Treatment, [place] [address] [facility] [address] [place] [address] Bozena, Chair 7 Hem Onc [address] [place] [address] 05/23/2023 8:45 AM EST Office Visit Hematology/Oncology [facility] [place] [address] [facility] [place] [address] Joe Raya MD [address] [facility] [place] [address] Pending Results Name Type Priority Associated Diagnoses Date /Time CBC WITH WBC DIFFERENTIAL Lab STAT Pancreatic adenocarcinoma (HCC) 05/01/2023 11:10 AM EST COMPREHENSIVE METABOLIC PANEL Lab STAT Pancreatic adenocarcinoma (HCC) 05/01/2023 11:10 AM EST CBC Lab STAT Pancreatic adenocarcinoma (HCC) 05/01/2023 11:10 AM EST DIFFERENTIAL, AUTOMATED Lab STAT Pancreatic adenocarcinoma (HCC) 05/01/2023 11:10 AM EST Scheduled Orders Name Type Priority Associated Diagnoses Orde r Schedule CBC Lab STAT Pancreatic adenocarcinoma (HCC) Ordered: 05/01/2023 DIFFERENTIAL, AUTOMATED Lab STAT Pancreatic adenocarcinoma (HCC) Ordered: 05/01/2023 Health Maintenance Due Date Last Done Comments [...] PCV20) 02/10/2021 12/16/2020 COVID-19 Vaccine ( - 2022- season) 2022 08/05/2021, 02/10/2021, 06/16/2020, Additional history exists GFR 04/24/2024 04/24/2023, 03/18, 03/29/2023, Additional history exists Zoster Vaccines Completed 04/06/2020, [...] this encounter Medical Devices Implanted Type Area Presser Cotton Ginning Device Identifier Shelf Expiration Date Model / Serial / Lot Stent 10fr 9cm Clso-10-9 - [id number] Implanted:Qty : 1 on 12/21/2021 by Stanton Bailey MD at [place] [facility] [place] [id number] 07/15/2024 [id number] / / [id number] Port Implant W/8f Poly Cath - [id number] Implanted:Qty : 1 on 04/01/2022 by Sylvester Givens DO at OR [facility] Right: Chest CR BARD : PERIPHERAL VASCULAR [id number] 05/17/2022 [id number] / / [id number] documented as of this encounter Visit Diagnoses Diagnosis Pancreatic adenocarcinoma (HCC) Malignant neoplasm of pancreas, part unspecified documented in this encounter Advance Directives Latest [...] Advance Directives occurred with: Patient Care Teams Research Psychologist Relationship Specialty Start Date End Date Shavon Hancock MD [address] [address] PCP - General Internal Medicine 06/15/18 documented as of this encounter
--- OUTSIDE RECORDS SUMMARY | 2023-05-14 16:49 | External Medical Summary | Summary of Care ---
Author Name Unknown Organization [facility] Address [address] [place] [address] Phone [phone] Care Team Providers Care Hat Renovator Name Role Phone Shavon Hancock MD Care Provider Encounter Details Date Type Department Care Team (Latest Contact Info) Description 04/28/2023 11:59 PM [facility] Hospital Encounter Ancillary Special Procedures, [facility] [address] [place] [address] Canceled (Clinician Appointment Cancel Rescheduled at later date) Discharge Disposition: Home - Self Care Allergies Active Allergy Reactions Criticality Noted Date Comments Atorvastatin High 03/17/2022 Other reaction(s): Muscle Pain Simvastatin High 03/17/2022 Other reaction(s): Muscle Pain Statins 12/20/2021 Except pravastatin documented as of this encounter (statuses as of 05/05/2023) Medications Medication Sig Dispensed Refills Start Date [...] as of this encounter (statuses as of 05/05/2023) Active Problems Problem Noted Date Diagnosed Date Metastasis to liver 03/30/2023 Dehydration 05/26/2022 Diarrhea 05/26/2022 Malignant neoplasm of head of pancreas Encounter for antineoplastic chemotherapy 2021 Postprocedural intraabdominal abscess 02/04/2022 Hepatic abscess 02/04/2022 Pancreatic adenocarcinoma 12/23/2021 Hypertension 12/20/2021 Hyperlipidemia 12/20/2021 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 documented as of this encounter (statuses as of 05/05/2023) Resolved Problems Problem Noted Date Diagnosed Date Resolved Date COVID-19 12/24/2021 12/28/2021 Post-ERCP acute pancreatitis 12/22/2021 12/28/2021 Choledocholithiasis 12/22/2021 12/29/19 Right upper quadrant pain 12/20/2021 documented as of this encounter (statuses as of 05/05/2023) Immunizations Name Administration Dates Next Due COVID-19 [...] Care Team (Latest Contact Info) Description 05/05/2023 2:00 PM EST Hospital Encounter Ancillary Special Procedures, [place] [address] [place] [address] Canceled (Patient Cancel-Unplanned Event) 05/05/2023 4:00 PM EST Immunization/Inject ion Hematology/Oncolog y Treatment, [place] [address] [place] [address] Bozena, Chair 3 Hem Onc [facility] [address] [place] [address] 05/15/2023 9:30 AM EST Laboratory Laboratory, [place] [address] [facility] [place] [id number] [facility], Lab [address] [place] [address] [place] [address] 05/16/2023 8:15 AM EST Office Visit Hematology/Oncolog y [facility] [place] 200 [facility] [place] [address] Joe Raya MD [address] [place] [address] 05/16/2023 8:45 AM EST Hem/Onc Treatment Hematology/Oncolog y Treatment, [place] [address] [place] [address] Bozena, Chair 2 Hem Onc [place] [address] [facility] [place] [address] 05/19/2023 2:00 PM EST Appointment Ancillary Special Procedures, [place] [address] [place] [address] Health Maintenance Due Date Last Done Comments [...] this encounter Medical Devices Implanted Type Area Gardening Instructor Device Identifier Shelf Expiration Date Model / Serial / Lot Stent 10fr 9cm Clso-10-9 - [id number] Implanted:Qty : 1 on 12/21/2021 by Stanton Bailey MD at ENDOSCOPY [facility] [place] : [place] [id number] 07/15/2024 [id number] / / [id number] Port Implant W/8f Poly Cath - [id number] Implanted:Qty : 1 on 04/01/2022 by Sylvester Givens DO at OR [facility] Right: Chest CR BARD : PERIPHERAL VASCULAR [id number] 05/17/2022 [id number] / / [id number] documented as of this encounter Advance Directives [...] Advance Directives occurred with: Patient Care Teams Hat Renovator Relationship Specialty Start Date End Date Shavon Hancock MD [address] [place] [address] PCP - General Internal Medicine 06/15/18 documented as of this encounter
--- OUTSIDE RECORDS SUMMARY | 2023-05-14 16:49 | External Medical Summary | Summary of Care ---
Author Name Unknown Organization [facility] Address [address] [facility] [address] Phone [phone] Care Team Providers Care Carpenter Repairer Name Role Phone Shavon Hancock MD [facility] Care Provider Encounter Details Date Type Department Care Team (Late st Contact Info) Description 05/04/2023 Orders Only Hematology/Oncology [facility] [employer] [place] 200 [facility] [place] [address] Joe Raya MD [address] [facility] [place] [address] Malignant neoplasm of head of pancreas (HCC)*; Metastasis to liver (HCC) Allergies Active Allergy Reactions Criticality Noted [...] No 12/20/2021 documented as of this encounter Progress Notes * Joe Raya MD - 05/04/2023 3:02 PM EST When she came for the pump disconnect today, found out that she had not received 5-Fluorouracil infusion, at the most she may have received about 1/3 of the dose. We decided to give 5-Fluorouracil infusion for over 23 hours, half the dose. When she comes tomorrow for the pump disconnect, she will receive prophylactic Pegfilgrastim. We donot have other timing to give her prophylactic Pegfilgrastim over the weekend. documented in this encounter Plan of Treatment Upcoming Encounters Date Type Department Care Team (Latest Contact Info) Description 05/05/2023 10:00 AM EST Hospital Encounter Ancillary Special Procedures, [place] [address] Canceled (Operations Clinical Pre Requisites Not Met) 05/05/2023 2:00 PM EST Appointment Ancillary Special Procedures, [facility] [address] [place] [address] 05/15/2023 9:30 AM EST Laboratory Laboratory, [place] [address] [place] [phone] [facility], Lab [address] [place] [address] 05/16/2023 8:15 AM EST Office Visit Hematology/Oncolog y [facility] [employer] [place] [address] [place] [address] Joe Raya MD [address] [place] [address] 05/16/2023 8:45 AM EST Hem/Onc Treatment Hematology/Oncolog y Treatment, [place] [address] [place] [address] Bozena, Chair 2 Hem Onc [place] [address] [place] [address] Health Maintenance Due Date Last Done Comments [...] 06/16/2020, Additional history exists GFR 05/01/2024 05/01/2023, 01/0 11/2023, 04/11/2023, Additional history exists Diabetes Screening [...] this encounter Medical Devices Implanted Type Area Vat Overhauler Device Identifier Shelf Expiration Date Model / Serial / Lot Stent 10fr 9cm Clso-10-9 - [id number] Implanted:Qty : 1 on 12/21/2021 by Stanton Bailey MD at [place]OSCOPY [facility] [place] : [place] [id number] 07/15/2024 [id number] / / [id number] Port Implant W/8f Poly Cath - [id number] Implanted:Qty : 1 on 04/01/2022 by Sylvester Givens DO at [facility] Right: Chest CR BARD : PERIPHERAL VASCULAR [id number] 05/17/2022 [id number] / / [id number] documented as of this encounter Visit Diagnoses Diagnosis Malignant neoplasm of head of pancreas (HCC)- Primary Malignant neoplasm of head of pancreas Metastasis to liver (HCC) Secondary malignant neoplasm of liver documented in this encounter Advance Directives Latest [...] Advance Directives occurred with: Patient Care Teams Carpenter Repairer Relationship Specialty Start Date End Date Shavon Hancock MD [address] [place] [address] PCP - General Internal Medicine 06/15/18 documented as of this encounter
--- OUTSIDE RECORDS SUMMARY | 2023-05-14 16:49 | External Medical Summary | Summary of Care ---
Author Name Unknown Organization [facility] Address [address] [place] [address] Phone [phone] Care Team Providers Care Chemical Tester Name Role Phone Shavon Hancock MD Care Provider Encounter Details Date Type Department Care Team (Latest Contact Info) Description 05/05/2023 11:59 PM [email or web address] Hospital Encounter Ancillary Special Procedures, [facility] [address] [place] [address] Canceled (Patient Cancel-Unplanned Event) Discharge Disposition: Home - Self Care Allergies Active Allergy Reactions Criticality Noted Date Comments Atorvastatin High 03/17/2022 Other reaction(s): Muscle Pain Simvastatin High 03/17/2022 Other reaction(s): Muscle Pain Statins 12/20/2021 Except pravastatin documented as of this encounter (statuses as of 05/12/2023) Medications Medication Sig Dispensed Refills Start Date [...] as of this encounter (statuses as of 05/12/2023) Active Problems Problem Noted Date Diagnosed Date Metastasis to liver 03/30/2023 Dehydration 05/26/2022 Diarrhea 05/26/2022 Malignant neoplasm of head of pancreas Encounter for antineoplastic chemotherapy 2021 Postprocedural intraabdominal abscess 02/04/2022 Hepatic abscess 02/04/2022 Pancreatic adenocarcinoma 12/23/2021 Hypertension 12/20/2021 Hyperlipidemia 12/20/2021 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 documented as of this encounter (statuses as of 05/12/2023) Resolved Problems Problem Noted Date Diagnosed Date Resolved Date COVID-19 12/24/2021 12/28/2021 Post-ERCP acute pancreatitis 12/22/2021 12/28/2021 Choledocholithiasis 12/22/2021 12/29/19 Right upper quadrant pain 12/20/2021 documented as of this encounter (statuses as of 05/12/2023) Immunizations Name Administration Dates Next Due COVID-19 [...] Description 05/15/2023 9:30 AM EST Laboratory Laboratory, [address] [phone] [place], Lab [address] [place] [address] 05/16/2023 8:15 AM EST Office Visit Hematology/Oncology [facility] [place] [address] [place] [address] Joe Raya MD 200 [facility] [place] [address] 05/16/2023 8:45 AM EST Hem/Onc Treatment Hematology/Oncology Treatment, [place] [address] [facility] [address] [place] [address] Bozena, Chair 2 Hem Onc [address] [place] [address] 05/19/2023 2:00 PM EST Appointment Ancillary Special Procedures, [facility] [address] [address] Health Maintenance Due Date Last Done Comments [...] this encounter Medical Devices Implanted Type Area Wallpaper Scraper Device Identifier Shelf Expiration Date Model / Serial / Lot Stent 10fr 9cm Clso-10-9 - [id number] Implanted:Qty : 1 on 12/21/2021 by Stanton Bailey MD at [place]OSCOPY [facility] [place] : [place] [id number] 07/15/2024 [id number] / / [id number] Port Implant W/8f Poly Cath - [id number] Implanted:Qty : 1 on 04/01/2022 by Sylvester Givens DO at OR [facility] Right: Chest CR BARD : PERIPHERAL VASCULAR [id number] 05/17/2022 [id number] / / [id number] documented as of this encounter Advance Directives [...] Advance Directives occurred with: Patient Care Teams Chemical Tester Relationship Specialty Start Date End Date Shavon Hancock MD [address] [place] [address] PCP - General Internal Medicine 06/15/18 documented as of this encounter
--- OUTSIDE RECORDS SUMMARY | 2023-05-14 16:49 | External Medical Summary ---
Author Name Unknown Address Unknown Organization K1G:LABORATORY [facility] - [address] [place] [id number] Laboratory Report Ordering Provider Test Date Status ALICE ROSEN 05/01/2023 11:10:01 Final Observation Date Value Abnormality Reference (Units ) Status WBC, Total 05/01/2023 11:10:01 5.61 4.00-10.8 0 (K/uL) Final RBC 05/01/2023 11:10:01 4.17 3.85-5.15 (M/uL) Final Hemoglobin 05/01/2023 11:10:01 11.0 Below low normal 12 .0-15.3 (g/dL) Final HCT 05/01/2023 11:10:01 36.4 36.0-45.2 (%) Final MCV 05/01/2023 11:10:01 87.3 81.5-97.5 (fL) Final MCH 05/01/2023 11:10:01 26.4 27.0-34.0 (pg) Final MCHC 05/01/2023 11:10:01 30.2 32.0-36.0 (g/dL) Final RDW 05/01/2023 11:10:01 18.5 11.5-15.5 (%) Final Platelets 05/01/2023 11:10:01 282 140-400 (K /uL) Final MPV 05/01/2023 11:10:01 10.5 6.6-11.1 ( fL) Final Performing Location LABORATORY [facility] - [address] [facility] [address]
--- OUTSIDE RECORDS SUMMARY | 2023-05-14 16:49 | External Medical Summary | Summary of Care ---
Author Name Unknown Organization [facility] Address [address] [place] [address] Phone [phone] Care Team Providers Care Fabrication Manager Name Role Phone Shavon [facility]ancock MD [facility] Care Provider Reason for Visit * Reason Comments Procedure Pump disconnect Medication Administration Udenyca * Episode Based Medications (Routine) - Authorized Specialty Diagnoses / Procedures Referred By Patrick sahu Referred To Contact Diagnoses Metastasis to liver (HCC) Encounter for antineoplastic chemotherapy Malignant neoplasm of head of pancreas (HCC) Procedures [place] LEUCOVORIN CALCIUM INJECTION [place] PALONOSETRON HCL [place] FLUOROURACIL INJECTION [place] INJ IRINOTECAN LIPOSOME 1 MG [place] INJECTION, UDENYCA 0.5 MG Joe Raya MD [address] [place] [address] Anc Hem/Onc [address] [address] Referral ID Status Reason Start Date Expiration Date V isits Requested Visits Authorized [id number] Authorized 04/04/2023 04/16/2099 999 [id number] Encounter Details Date Type Department Care Team (Latest Contact Info) Description 05/05/2023 4:00 PM EST Immunization/ Injection Hematology/Oncology Treatment, [address] [address] Bozena, Chair 3 Hem Onc [address] [place] [address] Metastasis to liver (HCC)*; Encounter for antineoplastic [...] as of this encounter Nursing Notes * Akash Potter RN - 05/05/2023 4:25 PM EST Chair 9. Pt pump disconnected without issue. No kinks/leaks noticed. Pt denies any issues overnight. Port flushed with NSS, positive blood return. Port flushed with Heparin, port removed without issue. Udenyca given in PILAR per patient request. Pt ambulated from treatment room in stable condition. documented in this encounter Plan of Treatment Upcoming Encounters Date Type Department Care Team (Late st Contact Info) Description 05/15/2023 9:30 AM EST Laboratory Laboratory, [address] [phone] [facility], Lab [address] [place] [address] 05/16/2023 8:15 AM EST Office Visit Hematology/Oncology [address] [place] [address] Joe Raya MD [address] [place] [address] [place] [address] 05/16/2023 8:45 AM EST Hem/Onc Treatment Hematology/Oncology Treatment, [address] [place] [address] Bozena, Chair 2 Hem Onc [address] [address] 05/19/2023 2:00 PM EST Appointment Ancillary Special Procedures, [facility] [address] [phone] Health Maintenance Due Date Last Done Comments [...] encounter Medical Devices Implanted Type Area Director Fundraising Device Identifier Shelf Expiration Date Model / Serial / Lot Stent 10fr 9cm Clso-10-9 - [id number] Implanted:Qty : 1 on 12/21/2021 by Stanton Bailey MD at ENDOSCOPY [facility] [place] : [place] [id number] 07/15/2024 [id number] / / [id number] Port Implant W/8f Poly Cath - [id number] Implanted:Qty : 1 on 04/01/2022 by Sylvester Givens DO at OR [facility] Right: Chest CR BARD : PERIPHERAL VASCULAR [id number] 05/17/2022 [id number] / / [id number] documented as of this encounter Visit Diagnoses Diagnosis Metastasis to liver (HCC)- Primary Secondary malignant neoplasm of liver Encounter for antineoplastic chemotherapy Malignant neoplasm of head of pancreas (HCC) Malignant neoplasm of head of pancreas documented in this encounter Administered Medications Active Administered Medications - up to 3 most recent administrations Medication Order MAR Action Action Date Dose Rate Site hEParin 100 UNIT/ML Lock Flush inj 500 Units 500 Units (5 mL), IV Lock, PRN Other, IV Flush, Starting on Mon05/05/23 at 1600, Until 05/06/23 at 1559, For 24 hours, Do not flush if lock, PICC, or central line not in place; IV infusing or unable to flush. Given 05/05/2023 4:04 PM EST 500 Units sodium chloride 0.9 % flush central line 10 mL 10 mL, IV Push, PRN Other, IV Flush, Starting on Mon05/05/23 at 1600, Until 05/06/23 at 1559, For 24 hours, Do not flush if lock, PICC, or central line not in place; IV infusing or unable to flush. Given 05/05/2023 4:04 PM EST 10 mL Inactive Administered Medications - up to 3 most recent administrations Medication Order MAR Action Action Date Dose Rate Site Pegfilgrastim-cbqv (Udenyca) inj 6 mg 6 mg, Subcutaneous, ONCE, On Mon05/05/23 at 1645, For 1 dose Given 05/05/2023 4:04 PM EST 6 mg Arm L eft Upper documented in this encounter Advance Directives Latest [...] Advance Directives occurred with: Patient Care Teams Fabrication Manager Relationship Specialty Start Date End Date Shavon Hancock MD [address] [place] [address] PCP - General Internal Medicine 06/15/18 documented as of this encounter
--- OUTSIDE RECORDS SUMMARY | 2023-05-14 16:49 | External Medical Summary | Summary of Care ---
Author Name Unknown Organization [facility] Address [address] [place] [address] Phone [phone] Care Team Providers Care Lead Welder Name Role Phone Shavon Hancock MD [facility] Care Provider Reason for Visit * Reason Onset Date Comments Test Results 05/04/2023 Encounter Details Date Type Department Care Team (Late st Contact Info) Description 05/04/2023 Telephone Genetics HemOnc, [facility] [address] [place] [address] Stephanie Joshua, MS [address] [place] [address] Test Results Allergies Active Allergy Reactions Criticality Noted Date [...] encounter Miscellaneous Notes * Telephone Encounter - Stephanie Joshua, MS - 05/04/2023 2:59 PM EST I contacted Diana Mcbride today to disclose genetic test results by [facility]. Sent Gigzolo message. Genetic Test Result 05/03/2023: Negative Test Ordered: Multi-Cancer Panel at [facility] (70 genes) Genes Included: AIP, ALK, APC, BANDAR, AXIN2, BAP1, BARD1, BLM, BMPR1A, BRCA1, BRCA2, BRIP1, CDC73, CDH1, CDK4, CDKN1B, CDKN2A (p14ARF), CDKN2A (v45TOZ3m), CHEK2, CTNNA1, DICER1, EGFR, EPCAM, FH, FLCN, GREM1, HOXB13, KIT, LTZR1, MAX, MBD4, MEN1, MET, MITF, MLH1, MSH2, MSH3, MSH6, MUTYH, NF1, NF2, NTHL1, PALB2, PDGFRA, PMS2, POLD1, POLE, POT1, WLQSG3M, PTCH1, PTEN, RAD51C, RAD51D, RB1, RET, SDHA, SDHAF2, SDHB, SDHC, SDHD, SMAD4, SMARCA4, SMARCB1, SMARCE1, STK11, SUFU, TRYG149, TP53, TSC1, TSC2, VHL Summary & Follow Up: No hereditary cancer syndrome identified. No genetic variants were identified that explain the personal and family history of cancer. It is unlikely that Diana has a genetic variant that significantly increases risk for cancer. Diana should follow cancer screening recommendations based on personal and family history of cancer. No additional genetic testing is recommended at this time; however, the patient will be made aware of the 150-day reflex window, should they wish to purse additional analysis. Familial Implications: Genetic testing is not recommended for Diana's unaffected family members since no significant variants were found. Close relatives are encouraged to speak with their doctors about the family history of cancer to develop a personalized cancer screening plan. Stephanie Joshua MS, [facility] Licensed, Certified Genetic Counselor Cancer Genetics Risk Assessment Clinic, [facility] 05/04/2023 documented in this encounter Plan of Treatment Upcoming Encounters Date Type Department Care Team (Latest Contact Info) Description 05/05/2023 10:00 AM EST Hospital Encounter Ancillary Special Procedures, [address] [address] Canceled (Operations Clinical Pre Requisites Not Met) 05/05/2023 2:00 PM EST Appointment Ancillary Special Procedures, [address] [address] 05/15/2023 9:30 AM EST Laboratory Laboratory, [address] [address] [facility], Lab [address] [place] [address] 05/16/2023 8:15 AM EST Office Visit Hematology/Oncolog y [facility] [place] [address] [place] [address] Joe Raya MD [address] [place] [address] 05/16/2023 8:45 AM EST Hem/Onc Treatment Hematology/Oncolog y Treatment, [place] [address] [place], [place] [address] Bozena, Chair 2 Hem Onc Scenery [address] [place] [address] Health Maintenance Due Date Last Done Comments [...] this encounter Medical Devices Implanted Type Area Rehab Care Assistant Device Identifier Shelf Expiration Date Model / Serial / Lot Stent 10fr 9cm Clso-10-9 - [id number] Implanted:Qty : 1 on 12/21/2021 by Stanton Bailey MD [place] [facility] [place] [id number] 07/15/2024 [id number] / / [id number] Port Implant W/8f Poly Cath - [id number] Implanted:Qty : 1 on 04/01/2022 by Sylvester Givens, at OR [facility] Right: Chest CR BARD : PERIPHERAL VASCULAR [id number] 05/17/2022 [id number] / / [id number] documented as of this encounter Advance Directives [...] Advance Directives occurred with: Patient Care Teams Lead Welder Relationship Specialty Start Date End Date Shavon Hancock MD [address] [address] PCP - General Internal Medicine 06/15/18 documented as of this encounter
--- OUTSIDE RECORDS SUMMARY | 2023-05-14 16:49 | External Medical Summary | Summary of Care ---
Author Name Unknown Organization [facility] Address [address] [place] [address] Phone [phone] Care Team Providers Care Product Development Consultant Name Role Phone Shavon Hancock MD Prim ry Care Provider Reason for Visit * Reason Comments IV Therapy Hydration Chemotherapy Reconnect 5FU Pump * Episode Based Medications (Routine) - Authorized Specialty Diagnoses / Procedures Referred By Patrick sahu Referred To Contact Diagnoses Metastasis to liver (HCC) Encounter for antineoplastic chemotherapy Malignant neoplasm of head of pancreas (HCC) Procedures [place] LEUCOVORIN CALCIUM INJECTION [place] PALONOSETRON HCL [place] FLUOROURACIL INJECTION [place] INJ IRINOTECAN LIPOSOME 1 MG [place] INJECTION, UDENYCA 0.5 MG Joe Raya MD 200 [place] [address] Anc Hem/Onc [address] [address] Referral ID Status Reason Start Date Expiration Date V isits Requested Visits Authorized [id number] Authorized 04/04/2023 04/16/2099 999 999 Encounter Details Date Type Department Care Team (Latest Contact Info) Description 05/04/2023 2:00 PM EST Hem/Onc Treatment Hematology/Oncolog y Treatment, [address] [address] Bozena, Chair 7 Hem Onc Scenery [address] [place] [address] [place] [address] Metastasis to liver (HCC)*; Encounter for antineoplastic [...] acute pancreatitis 12/22/2021 12/28/2021 Choledocholithiasis 12/22/2021 12/29/19 22 Right upper quadrant pain 12/20/2021 documented as [...] Sign Reading Time Taken Comments Blood Pressure 118/76 05/04/2023 3:06 PM EST Pulse 68 05/04/2023 3:06 PM EST Temperature 36.6 C (97.9 F) 05/04/2023 3:06 PM ES T Respiratory Rate 16 05/04/2023 3:06 PM EST Oxygen Saturation 95% 05/04/2023 3:06 PM EST Inhaled Oxygen Concentration - - Weight - - Height - - Body Mass Index - - documented in this encounter Functional Status Functional [...] as of this encounter Nursing Notes * Rose York RN - 05/04/2023 5:03 PM EST Pt connected to CADD pump. Line unclamped; 5FU infusion initiated. Pt discharged in stable condition. * Nikki Tam RN - 05/04/2023 3:25 PM EST [facility] contacted- will cancel udenyca tomorrow and reschedule for in 2 weeks (05/19/23) * Akash Potter RN - 05/04/2023 3:07 PM EST Port access in place. Flushed with NSS. Pt fluids infusing. Safety and Risk for Injury Patient will remain free from injury. Ensure appropriate safety devices are available. Provide and maintain safe environment. * Apurva Cortes RN - 05/04/2023 3:07 PM EST 5FU pump appeared to be finished running, programming was correct and CADD pump states volume is at0ml. Volume of 5FU bag appears to be mostly full, maybe only 1/3 of the dose was administered. RN spoke with Dr. Raya regarding the 5FU medication and that most of the medication still remains in the bag. Patient would like to receive as much of the dose as she can, and Dr. Raya would like to give most of the dose we can until she comes back tomorrow, in [address]. [address] Raya, we will also administer Udenyca injection tomorrow as well when patient comes for pump d/c. Per pharmacy, able to program pump for 24 hours, patient will be ordered to receive about half of the dose she was originally ordered. Patient is agreeable to the plan above. In regards to her chemo tx 05/02, patient says she is feeling well today without any acute issues orcomplaints. Patient is comfortable and denies further needs at this time. documented in this encounter Plan of Treatment Upcoming Encounters Date Type Department Care Team (Latest Contact Info) Description 05/05/2023 10:00 AM EST Hospital Encounter Ancillary Special Procedures, [address] [address] Canceled (Operations Clinical Pre Requisites Not Met) 05/05/2023 2:00 PM EST Hospital Encounter Ancillary Special Procedures, [address] [address] Canceled (Patient Cancel-Unplanned Event) 05/15/2023 9:30 AM EST Laboratory Laboratory, [address] [address] [facility], Lab [address] [place] [address] 05/16/2023 8:15 AM EST Office Visit Hematology/Oncolog y [facility] Bozena [address] [place] [address] Joe Raya MD [address] [place] [address] [place] [address] 05/16/2023 8:45 AM EST Hem/Onc Treatment Hematology/Oncolog y Treatment, [place] 200 [facility] [place] [address] Bozena, Chair [address] Hem On[address] [place] [address] 05/19/2023 2:00 PM EST Appointment Ancillary Special Procedures, [address] [address] Health Maintenance Due Date Last Done Comments [...] this encounter Medical Devices Implanted Type Area Cheese Tester Device Identifier Shelf Expiration Date Model / Serial / Lot Stent 10fr 9cm Clso-10-9 - [id number] Implanted:Qty : 1 on 12/21/2021 by Stanton Bailey MD at [place] [facility] [place] [id number] 07/15/2024 [id number] / / [id number] Port Implant W/8f Poly Cath - [id number] Implanted:Qty : 1 on 04/01/2022 by Sylvester Givens DO at OR [facility] Right: Chest CR BARD : PERIPHERAL VASCULAR [id number] 05/17/2022 [id number] / / [id number] documented as of this encounter Visit Diagnoses [...] Lock, PRN Other, IV Flush, Starting on Marichuy 05/04/23 at 1413, Until Mon05/05/23 at 1412, For 24 hours, Do not flush if lock, PICC, or central line not in place; IV infusing or unable to flush. Given 05/04/2023 2:16 PM EST 500 Units sodium chloride 0.9 % flush central line 10 mL 10 mL, IV Push, PRN Other, IV Flush, Starting on Marichuy 05/04/23 at 1413, Until Mon05/05/23 at 1412, For 24 hours, Do not flush if lock, PICC, or central line not in place; IV infusing or unable to flush. Given 05/04/2023 2:16 PM EST 10 mL Inactive Administered Medications - up to 3 most recent administrations Medication Order MAR Action Action Date Dose Rate Site Fluorouracil (5-Fu) 2,175 mg for Home Infusion 2,175 mg (rounded from 2,184 mg = 1,200 mg/m2 1.82 m2 Treatment Plan BSA from Recorded weight), Intravenous, Administer over 23 Hours, Home Infusion Pharmacy to specify base solution and volume., ONCE, 1 dose, On Marichuy 05/04/23 at 1600 Start Infusion 05/04/2023 4:55 PM EST 2,175 mg 3 mL/hr NSS infusion FOR HYDRATION Intravenous, at 500 mL/hr Administer over 2 Hours, ONCE, 1 dose, On Marichuy 05/04/23 at 1445 Start Infusion 05/04/2023 2:14 PM EST 1,000 mL 500 mL/hr documented in this encounter Advance Directives Latest [...] Advance Directives occurred with: Patient Care Teams Product Development Consultant Relationship Specialty Start Date End Date Shavon Hancock MD [address] [place] [address] PCP - General Internal Medicine 06/15/18 documented as of this encounter
--- OUTSIDE RECORDS SUMMARY | 2023-05-14 16:49 | External Medical Summary | Summary of Care ---
Author Name Unknown Organization [facility] Address [address] [place] [address] Phone [phone] Care Team Providers Care Physical Therapy Aides Teacher Name Role Phone Shavon Hancock MD [facility] Care Provider Encounter Details Date Type Department Care Team (Late st Contact Info) Description 05/11/2023 Telephone Hematology/Oncology [facility] [address] [place] [facility] [place] [address] Services, Scheduling [address] [place] [address] Allergies Active Allergy Reactions Criticality Noted Date [...] encounter Miscellaneous Notes * Telephone Encounter - Nikki Tam RN - 05/11/2023 12:13 PM EST Called patient. She states that her nausea and diarrhea have been "wearing me out". Diarrhea: 3 episodes so far today, 5-6 episodes yesterday. Taking lomotil 4x/ day, eventually it improves but then the next day it has worn off so it starts over again. Nausea: Taking zofran 3x/ day. Does not take compazine very frequently, the few times she has triedit she has vomited before it worked. This is making her have a hard time eating as well. Cramping: This has improved with levbid. Patient states that she is drinking fluids, denies dizziness. Reviewed with Dr Raya. Patient can try imodium in between lomotil doses. Patient encouraged to trytaking compazine more frequently and alternate with zofran. Offered for patient to come to office for labs/ hydration/ see Dr Raya while in treatment room. Patient declined, states that she thinks she is doing ok for now but will let us know if she changes her mind. Verbalized understanding of above. * Telephone Encounter - Andreea Nunez OSA - 05/11/2023 9:41 AM EST Diana Parmar called asking to speak with a nurse in regards to some of the issues shes having Please call her back thank you documented in this encounter Plan of Treatment Upcoming Encounters Date Type Department Care Team (Late st Contact Info) Description 05/15/2023 9:30 AM EST Laboratory Laboratory, [address] [phone] [facility], Lab [address] [place] [address] 05/16/2023 8:15 AM EST Office Visit Hematology/Oncology [address] [address] Joe Raya MD [address] [place] [address] 05/16/2023 8:45 AM EST Hem/Onc Treatment Hematology/Oncology Treatment, [address] [address] Bozena, Chair [address] [address] 05/19/2023 2:00 PM EST Appointment Ancillary Special Procedures, [facility] [address] [address] Health Maintenance Due Date Last Done Comments [...] PCV20) 02/10/2021 12/16/2020 COVID-19 Vaccine (5 - season) 2022 08/05/2021, 02/10/2021, 06/16/2020, Additional history [...] this encounter Medical Devices Implanted Type Area Auto Radiator Mechanic Device Identifier Shelf Expiration Date Model / Serial / Lot Stent 10fr 9cm Clso-10-9 - [id number] Implanted:Qty : 1 on 12/21/2021 by Stanton Bailey MD [place] [facility] [place] [id number] 07/15/2024 [id number] / / [id number] Port Implant W/8f Poly Cath - [id number] Implanted:Qty : 1 on 04/01/2022 by Sylvester Givens DO at OR [facility] Right: Chest CR BARD : PERIPHERAL VASCULAR [id number] 05/17/2022 [id number] / / [id number] documented as of this encounter Advance Directives [...] Advance Directives occurred with: Patient Care Teams Physical Therapy Aides Teacher Relationship Specialty Start Date End Date Shavon Hancock MD [address] [place] [address] PCP - General Internal Medicine 06/15/18 documented as of this encounter
--- OUTSIDE RECORDS SUMMARY | 2023-05-14 16:49 | External Medical Summary | Summary of Care ---
Author Name Unknown Organization [facility] Address [address] [place] [address] Phone [phone] Care Team Providers Care Skeins Yarn Examiner Name Role Phone Shavon Hancock MD [facility] Care Provider Reason for Visit * Reason Comments Procedure Pump disconnect Medication Administration Udenyca * Episode Based Medications (Routine) - Authorized Specialty Diagnoses / Procedures Referred By Patrick sahu Referred To Contact Diagnoses Metastasis to liver (HCC) Encounter for antineoplastic chemotherapy Malignant neoplasm of head of pancreas (HCC) Procedures IN LEUCOVORIN CALCIUM INJECTION IN PALONOSETRON HCL IN FLUOROURACIL INJECTION IN INJ IRINOTECAN LIPOSOME 1 MG IN INJECTION, UDENYCA 0.5 MG Joe Raya MD [address] [place] [address] Anc Hem/Onc [address] [address] Referral ID Status Reason Start Date Expiration Date V isits Requested Visits Authorized [id number] Authorized 04/04/2023 04/16/2099 999 999 Encounter Details Date Type Department Care Team (Latest Contact Info) Description 05/05/2023 4:00 PM EST Immunization/ Injection Hematology/Oncology Treatment, [address] [address] Bozena, Chair [address] On[address] [place] [address] Metastasis to liver (HCC)*; Encounter for antineoplastic [...] Description 05/15/2023 9:30 AM EST Laboratory Laboratory, [address] [phone] [facility], Lab [address] [place] [address] 05/16/2023 8:15 AM EST Office Visit Hematology/Oncology [address] [place] [address] Joe Raya MD [address] [place] [address] [place] [address] 05/16/2023 8:45 AM EST Hem/Onc Treatment Hematology/Oncology Treatment, [address] [place] [address] Bozena, Chair 2 Hem Onc [address] [address] 05/19/2023 2:00 PM EST Appointment Ancillary Special Procedures, [facility] [address] [id number] Health Maintenance Due Date Last Done Comments [...] this encounter Medical Devices Implanted Type Area Avionics Manager Device Identifier Shelf Expiration Date Model / Serial / Lot Stent 10fr 9cm Clso-10-9 - [id number] Implanted:Qty : 1 on 12/21/2021 by Stanton Bailey MD [place] [facility] [place] [id number] 07/15/2024 [id number] / / [id number] Port Implant W/8f Poly Cath - [id number] Implanted:Qty : 1 on 04/01/2022 by Sylvester Givens DO at OR [facility] Right: Chest CR BARD : PERIPHERAL VASCULAR [id number] 05/17/2022 [id number] / / [id number] documented as of this encounter Visit Diagnoses [...] Advance Directives occurred with: Patient Care Teams Skeins Yarn Examiner Relationship Specialty Start Date End Date Shavon Hancock MD [address] [place] [address] PCP - General Internal Medicine 06/15/18 documented as of this encounter
--- OUTSIDE RECORDS SUMMARY | 2023-05-14 16:49 | External Medical Summary | Summary of Care ---
Author Name Unknown Organization [facility] Address [address] [place] [address] Phone [phone] Care Team Providers Care Medical Staff Services Coordinator Name Role Phone Shavon Hancock MD Prim ry Care Provider Reason for Visit * Reason Comments IV Therapy Hydration Chemotherapy Reconnect 5FU Pump * Episode Based Medications (Routine) - Authorized Specialty Diagnoses / Procedures Referred By Patrick sahu Referred To Contact Diagnoses Metastasis to liver (HCC) Encounter for antineoplastic chemotherapy Malignant neoplasm of head of pancreas (HCC) Procedures [place] LEUCOVORIN CALCIUM INJECTION [place] PALONOSETRON HCL [place] FLUOROURACIL INJECTION [place] INJ IRINOTECAN LIPOSOME 1 MG [place] INJECTION, UDENYCA 0.5 MG Joe Raya MD 200 [place] [address] Anc Hem/Onc [address] [address] Referral ID Status Reason Start Date Expiration Date V isits Requested Visits Authorized [id number] Authorized 04/04/2023 04/16/2099 999 999 Encounter Details Date Type Department Care Team (Latest Contact Info) Description 05/04/2023 2:00 PM EST Hem/Onc Treatment Hematology/Oncolog y Treatment, [address] [address] Bozena, Chair 7 Hem Onc Scenery [address] [place] [address] [place] [address] Metastasis to liver (HCC)*; Encounter for antineoplastic [...] PM EST Hospital Encounter Ancillary Special Procedures, [address] [address] Canceled (Patient Cancel-Unplanned Event) 05/05/2023 4:00 PM EST Immunization/Inject ion Hematology/Oncolog y Treatment, [address] [place] [address] Bozena, Chair 3 Hem Onc [address] [place] [address] 05/15/2023 9:30 AM EST Laboratory Laboratory, [address] [phone] [facility], Lab [address] [place] [address] 05/16/2023 8:15 AM EST Office Visit Hematology/Oncolog y [facility] [address] [place] [address] Joe Raya MD [address] [place] [address] [place] [address] 05/16/2023 8:45 AM EST Hem/Onc Treatment Hematology/Oncolog y Treatment, [address] [address] Bozena, Chair 2 Hem Onc [address] [place] [address] 05/19/2023 2:00 PM EST Appointment Ancillary Special Procedures, [place] [address] [place] [address] Health Maintenance Due Date Last Done Comments [...] this encounter Medical Devices Implanted Type Area Exhibit Builder Device Identifier Shelf Expiration Date Model / Serial / Lot Stent 10fr 9cm Clso-10-9 - [id number] Implanted:Qty : 1 on 12/21/2021 by Stanton Bailey MD at ENDOSCOPY [facility] : [place] [id number] 07/15/2024 [id number] / / [id number] Port Implant W/8f Poly Cath - [id number] Implanted:Qty : 1 on 04/01/2022 by Sylvester Givens DO at OR [facility] Right: Chest CR BARD : PERIPHERAL VASCULAR [id number] 05/17/2022 [id number] / / [id number] documented as of this encounter Visit Diagnoses Diagnosis Metastasis to liver (HCC)- Primary Secondary malignant neoplasm of liver Encounter for antineoplastic chemotherapy Malignant neoplasm of head of pancreas (HCC) Malignant neoplasm of head of pancreas documented in this encounter Administered Medications Inactive Administered Medications - up to 3 [...] 4:55 PM EST 2,175 mg 3 mL/hr hEParin 100 UNIT/ML Lock Flush inj 500 Units 500 Units (5 mL), IV Lock, PRN Other, IV Flush, Starting on Marichuy 05/04/23 at 1413, Until Marichuy 05/04/23 at 2104, For 24 hours, Do not flush if lock, PICC, or central line not in place; IV infusing or unable to flush. Given 05/04/2023 2:16 PM EST 500 Units NSS infusion FOR HYDRATION Intravenous, at 500 mL/hr Administer over 2 Hours, ONCE, 1 dose, On Marichuy 05/04/23 at 1445 Start Infusion 05/04/2023 2:14 PM EST 1,000 mL 500 mL/hr sodium chloride 0.9 % flush central line 10 mL 10 mL, IV Push, PRN Other, IV Flush, Starting on Marichuy 05/04/23 at 1413, Until Marichuy 05/04/23 at 2104, For 24 hours, Do not flush if lock, PICC, or central line not in place; IV infusing or unable to flush. Given 05/04/2023 2:16 PM EST 10 mL documented in this encounter Advance Directives Latest [...] Advance Directives occurred with: Patient Care Teams Medical Staff Services Coordinator Relationship Specialty Start Date End Date Shavon Hancock MD [address] [place] [address] PCP - General Internal Medicine 06/15/18 documented as of this encounter
--- OUTSIDE RECORDS SUMMARY | 2023-05-14 16:49 | External Medical Summary | Summary of Care ---
Author Name Unknown Organization [facility] Address [address] [place] [address] Phone [phone] Care Team Providers Care Care Manager Cna Name Role Phone Shavon Hancock MD Care Provider Encounter Details Date Type Department Care Team (Latest Contact Info) Description 05/05/2023 11:59 PM [facility] Hospital Encounter Ancillary Special Procedures, [facility] [address] [place] [address] Canceled (Operations Clinical Pre Requisites Not Met) Discharge Disposition: Home - Self Care Allergies [...] Description 05/15/2023 9:30 AM EST Laboratory Laboratory, [address] [phone] Gj, Lab [address] [place] [address] 05/16/2023 8:15 AM EST Office Visit Hematology/Oncology [facility] Bozen[address] [place] [address] Joe Raya MD 200 [facility] [place] [address] 05/16/2023 8:45 AM EST Hem/Onc Treatment Hematology/Oncology Treatment, [place] [address] [place] [address] Bozena, Chair [address] Hem [address] [place] [address] 05/19/2023 2:00 PM EST Appointment [facility] [address] [address] Health Maintenance Due Date Last Done Comments [...] this encounter Medical Devices Implanted Type Area Naval Designer Device Identifier Shelf Expiration Date Model / Serial / Lot Stent 10fr 9cm Clso-10-9 - [id number] Implanted:Qty : 1 on 12/21/2021 by Stanton Bailey MD [place] [facility] [place] [id number] 07/15/2024 [id number] / / [id number] Port Implant W/8f Poly Cath - [id number] Implanted:Qty : 1 on 04/01/2022 by Sylvester Givens DO at OR [facility] Right: Chest CR BARD : PERIPHERAL VASCULAR [id number] 05/17/2022 [id number] / / [id number] documented as of this encounter Advance Directives [...] Advance Directives occurred with: Patient Care Teams Care Manager Cna Relationship Specialty Start Date End Date Shavon Hancock MD [address] [place] [address] PCP - General Internal Medicine 06/15/18 documented as of this encounter
--- OUTSIDE RECORDS SUMMARY | 2023-05-14 16:50 | External Medical Summary | Summary of Care ---
Author Name Unknown Organization [facility] Address [address] [place] [address] Phone [phone] Care Team Providers Care Assembler [employer] Name Role Phone [facility] Care Provider Reason for Visit * Reason Comments Chemotherapy HOLD C2D1 Onivyde/Le uco/5FU IV Therapy Hydration Encounter Details Date Type Department Care Team (Latest Contact Info) Description 04/25/2023 2:00 PM EST Hem/Onc Treatment Hematology/Oncolog y Treatment, [address] [id number] [place], Chair [address] Hem On[address] [address] Metastasis to liver (HCC)*; Encounter for antineoplastic chemotherapy; Malignant neoplasm of head of pancreas (HCC); Dehydration; Diarrhea, unspecified type Allergies Active Allergy Reactions Criticality Noted Date Comments Atorvastatin High 03/17/2022 Other reaction(s): Muscle Pain Simvastatin High 03/17/2022 Other reaction(s): Muscle Pain Statins 12/20/2021 Except pravastatin documented as of this encounter (statuses as of 04/25/2023) Medications Medication Sig Dispensed Refills Start Date [...] Oral Capsule Take by mouth . 0 Acti ve Prochlorperazine Maleate 10 MG Oral Tablet (Compazine)Indicati ons:Malignant neoplasm of head of pancreas (HCC) Take 1 Tablet (10 mg) by mouth every 6 hours as needed for Nausea. 30 Tablet 3 03/21/2022 Active Additional Information Patient not taking.Reported on 07/04/2022 Dexamethasone 4 MG Oral Tablet (Decadron)Indicatio ns:Pancreatic adenocarcinoma (HCC) 8mg in AM on day 2, 8mg twice a day on days 3 and 4 of each cycle 50 Tablet 1 09/05/2022 Active Additional Information Patient not taking.Reported on 10/11/2022 oxyCODONE HCl 5 MG Oral Tablet (Oxy IR)Indications:Lindsay gnant neoplasm of head of pancreas (HCC) Take 1 Tablet by mouth every 8 hours as needed for Pain, Moderate. 60 Tablet 0 09/28/2022 Active Loratadine 10 MG Oral Capsule (Claritin) Take 1 Capsule by mouth in the morning. 0 Active Rivaroxaban 20 MG Oral Tablet (Xarelto)Indication s:Malignant neoplasm of head of pancreas (HCC) Take 1 Tablet by mouth daily with dinner. 90 Tablet 1 11/21/2022 Active Omeprazole 20 MG Oral Capsule Delayed Release (PriLOSEC) Take 1 Capsule by mouth in the morning. 90 Capsule 0 12/08/2022 Active Lidocaine-Prilocain e 2.5-2.5 % External Cream (Emla)Indications:M alignant neoplasm of head of pancreas (HCC) APPLY TO SKIN OVER MEDIPORT & COVER 1HR PRIOR TO ACCESSING. 30 g 1 12/26/2022 Active Potassium Chloride ER 10 MEQ Oral Tablet Extended ReleaseIndications: Malignant neoplasm of head of pancreas (HCC) Take 1 Tablet by mouth in the morning and 1 Tablet before bedtime. 60 Tablet 5 03/28/2023 Active Diphenoxylate-Atrop ine 2.5-0.025 MG Oral Tablet (Lomotil)Indication s:Pancreatic adenocarcinoma (HCC) Take 2 Tablets by mouth 4 times a day as needed for Diarrhea. 60 Tablet 1 04/05/2023 Active Ondansetron HCl 8 MG Oral TabletIndications:M alignant neoplasm of head of pancreas (HCC) Take 1 Tablet by mouth in the morning and 1 Tablet at noon and 1 Tablet before bedtime. 30 Tablet 3 04/11/2023 Active LORazepam 0.5 MG Oral Tablet (Ativan)Indications :Pancreatic adenocarcinoma (HCC) Take 1 Tablet by mouth every 8 hours as needed for Anxiety. 60 Tablet 0 04/21/2023 Active Gabapentin 300 MG Oral Capsule (Neurontin)Indicati ons:Malignant neoplasm of head of pancreas (HCC),Chemotherapy- induced neuropathy Take 1 Capsule by mouth in the morning and 1 Capsule at noon and 1 Capsule before bedtime. 90 Capsule 3 11/24/2022 4 Discontinu ed(Refill) Hospital, Clinic, or Other Facility Administered Medication Ordered Dose Route Frequency Start Date End Date Status Fluorouracil (5-Fu) 4,375 mg in NSS 138 mL infusion 4375 mg IV CONTINUOUS 04/12/2023 Ac tive documented as of this encounter (statuses as of 04/25/2023) Active Problems Problem Noted Date Diagnosed Date Metastasis to liver 03/30/2023 Dehydration 05/26/2022 Diarrhea 05/26/2022 Malignant neoplasm of head of pancreas Encounter for antineoplastic chemotherapy 2021 Postprocedural intraabdominal abscess 02/04/2022 Hepatic abscess 02/04/2022 Pancreatic adenocarcinoma 12/23/2021 Hypertension 12/20/2021 Hyperlipidemia 12/20/2021 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 documented as of this encounter (statuses as of 04/25/2023) Resolved Problems Problem Noted Date Diagnosed Date Resolved Date COVID-19 12/24/2021 12/28/2021 Post-ERCP acute pancreatitis 12/22/2021 12/28/2021 Choledocholithiasis 12/22/2021 12/29/19 Right upper quadrant pain 12/20/2021 documented as of this encounter (statuses as of 04/25/2023) Immunizations Name Administration Dates Next Due COVID-19 [...] Sign Reading Time Taken Comments Blood Pressure 139/82 04/25/2023 2:05 PM EST Pulse 116 04/25/2023 2:05 PM EST Temperature 37.1 C (98.8 F) 04/25/2023 2:05 PM ES T Respiratory Rate 18 04/25/2023 2:05 PM EST Oxygen Saturation 96% 04/25/2023 2:05 PM EST Inhaled Oxygen Concentration - - Weight 66.4 kg (146 lb 6.4 oz) 04/25/2023 2:05 P M EST Height - - Body Mass Index 24.54 04/05/2023 12:00 PM EST documented in this [...] as of this encounter Nursing Notes * Bobbi Crowder RN - 04/25/2023 4:50 PM EST Goals: Patient will remain free from injury. Possible barriers to meeting goals: Fall risk d.t ambulation with IV pole. Stability of the patient: Moderately stable - low risk of patient condition declining or worsening Summary regarding today's goals: Met: Patient remained free of injury. Patient tolerated procedure well. Discharged in stable condition. * Brenna Moise RN - 04/25/2023 3:19 PM EST Chair 11, present Chemo agents Onivyde/Leucovorin/5FU Appetite poor, weight down approx 15 pounds Nausea/Vomiting no Diarrhea yes, watery stools with stomach cramping, taking Imodium and Lomotil Constipation no Mucositis no Fatigue yes, has no energy to do anything Bleeding no Infection no but recent Covid infection Rash no Numbness tingling no Pain no Radiation no ABN Labs WNL for treatment Alt in Tx: HOLD chemo today, hydration only due to pt not feeling well Return in 1 week Pt is very teary and emotional today, stating she doesn't feel well, wants a break but isn't ready to give up. Emotional support provided. Dr Raya spoke with patient and spouse in exam room re how patient is feeling today and treatment moving forward. Plan to hold chemo today for a week, will give hydration today. VAD accessed without difficulty, good blood return noted, flushed with NSS and fluids infusing. Safety and Risk for Injury Patient will remain free from injury. Ensure appropriate safety devices are available. Provide and maintain safe environment. documented in this encounter Plan of Treatment Upcoming Encounters Date Type Department Care Team (Late st Contact Info) Description 04/28/2023 10:00 AM EST Hospital Encounter Ancillary Special Procedures, [address] [id number] 05/01/2023 11:00 AM EST Laboratory Laboratory, [address] [id number] [place], Lab [address] [place] [id number] 05/02/2023 11:00 AM EST Hem/Onc Treatment Hematology/Oncology Treatment, [place] [address] [facility] [address] [place], [place] [address] Bozena, Chair 8 Hem Onc Scenery [address] [place] [address] 05/08/2023 10:00 AM EST Laboratory Laboratory, [id number] [place] [address] [facility], Lab [facility] [place] [address] 05/09/2023 11:30 AM EST Office Visit Hematology/Oncology [facility] [place] [address] [facility] [place] [address] Natasha Houser CRNP [address] [place] [address] 05/09/2023 12:00 PM EST Hem/Onc Treatment [facility] [place] [address] [facility] [address] [place], Chair 7 Hem Onc Scenery [address] [facility] [place] [address] 05/23/2023 8:45 AM EST Office Visit Hematology/Oncology [facility] [place] [address] [facility] [place] [address] Joe Raya MD [address] [facility] [place] [id number] Health Maintenance Due Date Last Done Comments [...] 04/24/2024 04/24/2023, 03/18, 03/29/2023, Additional history exists Diabetes Screening 04/24/2026 04/24/2023, 1 06/12/2022, 03/29/2023, Additional history exists Zoster Vaccines Completed [...] this encounter Medical Devices Implanted Type Area Oven Builder Device Identifier Shelf Expiration Date Model / Serial / Lot Stent 10fr 9cm Clso-10-9 - [id number] Implanted:Qty : 1 on 12/21/2021 by Stanton Bailey MD at ENDOSCOPY [facility] : NIKKI CHELY [id number] 07/15/2024 [id number] / / [id number] Port Implant W/8f Poly Cath - [id number] Implanted:Qty : 1 on 04/01/2022 by Sylvester Givens DO at OR [facility] Right: Chest CR BARD : [employer]HER[employer] [id number] 05/17/2022 [id number] / / [id number] documented as of this encounter Visit Diagnoses Diagnosis Metastasis to liver (HCC)- Primary Secondary malignant neoplasm of liver Encounter for antineoplastic chemotherapy Malignant neoplasm of head of pancreas (HCC) Malignant neoplasm of head of pancreas Dehydration Diarrhea, unspecified type documented in this encounter Administered Medications Active Administered Medications - up to 3 most recent administrations Medication Order MAR Action Action Date Dose Rate Site hEParin 100 UNIT/ML Lock Flush inj 500 Units 500 Units (5 mL), IV Lock, PRN Other, IV Flush, Starting on Mon04/25/23 at 1517, Until Mon04/26/23 at 1516, For 24 hours, Do not flush if lock, PICC, or central line not in place; IV infusing or unable to flush. Given 04/25/2023 4:45 PM EST 500 Units sodium chloride 0.9 % flush central line 10 mL 10 mL, IV Push, PRN Other, IV Flush, Starting on Mon04/25/23 at 1517, Until Mon04/26/23 at 1516, For 24 hours, Do not flush if lock, PICC, or central line not in place; IV infusing or unable to flush. Given 04/25/2023 4:45 PM EST 10 mL Inactive Administered Medications - up to 3 most recent administrations Medication Order MAR Action Action Date Dose Rate Site NSS infusion FOR HYDRATION Intravenous, at 500 mL/hr Administer over 2 Hours, ONCE, 1 dose, On Mon04/25/23 at 1630 Start Infusion 04/25/2023 2:45 PM EST 1,000 mL 500 mL/hr documented [...] Advance Directives occurred with: Patient Care Teams Assembler [employer] Relationship Specialty Start Date End Date Shavon Hancock MD [address] [place] [address] PCP - General Internal Medicine 06/15/18 documented as of this encounter
--- OUTSIDE RECORDS SUMMARY | 2023-05-14 16:50 | External Medical Summary | Summary of Care ---
Author Name Unknown Organization [facility] [address] [address] Phone [phone] Care Team Providers Care Coat Examiner Name Role Phone Shavon Hancock MD [facility] Care Provider Reason for Visit * Reason Comments Re-Check Encounter Details Date Type Department Care Team (Late st Contact Info) Description 03/30/2023 9:15 AM EST Office Visit Hematology/Oncology [facility] [place] [address] [facility] [place] [address] Joe Raya MD [address] [facility] [place] [address] Malignant neoplasm of head of pancreas (HCC)*; Metastasis to liver (HCC) Allergies Active Allergy Reactions Criticality Noted Date Comments Atorvastatin High 03/17/2022 Other reaction(s): Muscle Pain Simvastatin High 03/17/2022 Other reaction(s): Muscle Pain Statins 12/20/2021 Except pravastatin documented as of this encounter (statuses as of 04/22/2023) Medications Medication Sig Dispensed Refills Start Date [...] with dinner. 90 Tablet 1 11/21/2022 Active Gabapentin 300 MG Oral Capsule (Neurontin)Indicati ons:Malignant neoplasm of head of pancreas (HCC),Chemotherapy- induced neuropathy Take 1 Capsule by mouth in the morning and 1 Capsule at noon and 1 Capsule before bedtime. 90 Capsule 3 11/24/2022 Active Omeprazole 20 MG Oral Capsule Delayed [...] as needed for Diarrhea. 60 Tablet 1 09/05/2022 3 Discontinu ed(Refill) Ondansetron HCl 8 MG Oral TabletIndications:M alignant neoplasm of head of pancreas (HCC) Take 1 Tablet by mouth in the morning and 1 Tablet at noon and 1 Tablet before bedtime. 30 Tablet 3 01/30/2023 3 Discontinu ed(Refill) LORazepam 0.5 MG Oral Tablet (Ativan)Indications :Pancreatic adenocarcinoma (HCC) Take 1 Tablet by mouth every 8 hours as needed for Anxiety. 60 Tablet 0 03/28/2023 4 Discontinu ed(Refill) documented as of this encounter (statuses as of 04/22/2023) Active Problems Problem Noted Date Diagnosed Date Metastasis to liver 03/30/2023 Dehydration 05/26/2022 Diarrhea 05/26/2022 Malignant neoplasm of head of pancreas 2 Encounter for antineoplastic chemotherapy 2021 Postprocedural intraabdominal abscess 02/04/2022 Hepatic abscess 02/04/2022 Pancreatic adenocarcinoma 12/23/2021 Hypertension 12/20/2021 Hyperlipidemia 12/20/2021 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 documented as of this encounter (statuses as of 04/22/2023) Resolved Problems Problem Noted Date Diagnosed Date Resolved Date COVID-19 12/24/2021 12/28/2021 Post-ERCP acute pancreatitis 12/22/2021 12/28/2021 Choledocholithiasis 12/22/2021 12/29/19 Right upper quadrant pain 12/20/2021 documented as of this encounter (statuses as of 04/22/2023) Immunizations Name Administration Dates Next Due COVID-19 [...] Sign Reading Time Taken Comments Blood Pressure 163/84 03/30/2023 9:05 AM EST Pulse 77 03/30/2023 9:05 AM EST Temperature 36.7 C (98.1 F) 03/30/2023 9:05 AM ES T Respiratory Rate - - Oxygen Saturation 96% 03/30/2023 9:05 AM EST Inhaled Oxygen Concentration - - Weight 72.7 kg (160 lb 3.2 oz) 03/30/2023 9:05 A M EST Height - - Body Mass Index 26.85 07/06/2022 10:13 AM EDT documented in this encounter Functional Status Functional [...] Progress Notes * Joe Raya MD - 04/22/2023 4:01 PM EST Because of previous history of neutropenia and high risk for febrile neutropenia, I would like to give her prophylactic Neulasta(to prevent febrile neutropenia). * Joe Raya MD - 03/30/2023 9:15 AM EST Hematology/Oncology Outpatient Clinic note [facility] [address] [facility] [place] [address] Name: Diana Mcbride Date: 11/02/2022 CHIEF COMPLAINT: Diana Mcbride is a 67 year old female here today for f/u visit today. 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 - NEGATIVE for pathogenic/likely pathogenic mutations in the common homologous recombination repairgenes on this panel. - KRAS G12V --> positive. -TP53 positive -CDKN2A --> positive Cancer Staging Pathological T3 N2 Metastatic 08/03/22 DATE OF DIAGNOSIS: 12/21/21 TREATMENT HISTORY: S/P Whipple's procedure (01/2022). -final pathology showed 4.6 cm primary tumor, invading the duodenal wall, negative margin, 8/29 lymph nodes positive for metastatic disease. Modified FOLFIRINOX chemotherapy.(04/05/2022- 09/06/2022, During the 12 cycle, decided discontinue oxaliplatin and irinotecan because of some neuropathy symptoms and diarrhea and hypokalemia because of that) - discontinued d/t disease progression CURRENT TREATMENT: Gemcitabine and Abraxane started on 09/20/2022 10/11/2022 --> decided to change gemcitabine And Abraxane chemotherapy to every other week. 03/30/2023--> disease progression noted in the latest imaging studies with enlarging upper abdominal lymph node measuring about 3 cm, significant rise in the CA 19-9 level noted, she will receive gemcitabine Abraxane today and in 2 weeks will change it to liposomal irinotecan, 5-Fluorouracil andleucovorin every 2 weekly. She is on Xarelto for IVC thrombus noted in March 2022 (initially started on Eliquis but becauseof insurance change to Xarelto). DIAGNOSTIC WORKUP: She presented with obstructive jaundice at [facility], bilirubin level around 10. MRCP (12/20/2021: 1. Moderate intra and extra hepatic biliary ductal dilatation with abrupt caliber change of the midcommon bile duct. Suspected associated pancreatic head mass, measuring approximately 2.8 x 2.1 cm. These findings are suggestive of a neoplasm and suspicious for pancreatic adenocarcinoma. Cholangiocarcinoma could appear similar. GI consultation for consideration for ERCP is recommended. 2. Cholelithiasis. Gallbladder distention. No convincing evidence for acute cholecystitis although a hepatobiliary scan could be obtained if indicated. 3. No pancreatic ductal dilatation. Pancreas divisum. 4. No common bile duct calculi identified. CT scan of the abdomen and pelvis (12/27/2021) 1. Worsening findings of acute pancreatitis. No drainable collection, necrosis or thrombus. 2. Secondary inflammation to the duodenum, worsened. 3. Improved pneumobilia and stable positioning of CBD stent. 4. Cholelithiasis. No cholecystitis. 5. Moderate hernia with reflux. 6. Stable small left and improved right effusion. FNA from the pancreatic head --> suspicious for adenocarcinoma (12/21/2021). S/P biliary stent placement done. She underwent the Whipple's procedure, cholecystectomy, biopsy from the liver lesion on 01/28/[address] Vazquez: -poorly differentiated adenocarcinoma 4.6 cm, invading the duodenal wall -negative margin -12/13 lymph nodes positive for metastatic disease -focal high-grade pancreatic intraepithelial neoplasia noted -liver biopsy --> benign findings -cholecystectomy specimen showed cholelithiasis, 1 reactive lymph node. -CA 19-9 level --> 378 (12/23/2021). Earlier she received modified FOLFIRINOX but while she was finishing the treatment, found to have increasing liver lesion, biopsy from that confirmed metastatic pancreatic cancer (08/03/2022) OTHER IMPORTANT HISTORY: -hypertension -hyperlipidemia. -uterine lesion noted in the recent imaging studies, no local symptoms, seen by fresco artist Dr. Raya at [facility]. As she has no symptoms and the planning to start chemotherapy soon, would like to hold further evaluation at this time. Interval History: She has come to the clinic for the follow-up, currently she is receiving gemcitabine and Abraxane every other week. Treatment schedule with change because of neuropathy symptoms and low blood count issues. Overall she has tolerated treatment well, she is also on Neurontin, previously noted neuropathy symptoms have improved to some extent, ambulates with the help of the cane, weight gain noted, current weight 160 lb, no nausea, no vomiting at this time, no abdominal pain. She is on Xarelto, no new bleeding complications. No increasing leg edema. No new cardiac or pulmonary symptoms No fever.ECOG PS 1. Past Medical History: Diagnosis Date Arthritis Hyperlipidemia Hypertension Pancreatic adenocarcinoma (HCC) 12/23/2021 Past Surgical History: Procedure Laterality Date BREAST LESION,OTHER,EXCISION Bilateral EGD, W/ENDOSCOPIC US N/A 12/21/2021 ESOPHAGOGASTRODUODENOSCOPY (EGD), FLEXIBLE, TRANSORAL, ENDOSCOPIC ULTRASOUND performed by Stanton Bailey MD at ENDOSCOPY [facility] EGD, W/ENDOSCOPIC US 07/06/2022 mass found liver/biopsies show chronic inflammation/ESOPHAGOGASTRODUODENOSCOPY (EGD), FLEXIBLE, TRANSORAL, ENDOSCOPIC ULTRASOUND performed by Asim Rojas DO at ENDOSCOPY [facility] EGD, W/ENDOSCOPIC US N/A 08/03/2022 ESOPHAGOGASTRODUODENOSCOPY (EGD), FLEXIBLE, TRANSORAL, ENDOSCOPIC ULTRASOUND performed by Stanton Bailey MD at ENDOSCOPY [facility] ERCP, DIAGNOSTIC, SPECIMEN COLLECTION N/A 12/21/2021 ENDOSCOPIC RETROGRADE CHOLANGIOPANCREATOGRAPHY (ERCP) DIAGNOSTIC performed by Stanton Bailey MD at ENDOSCOPY [facility] INSER TUNN ACC DEV;5 YRS/OLDER Right 04/01/2022 INSERT TUNNELED CENTRAL VENOUS ACCESS WITH SUBQ PORT performed by Sylvester Givens DO at OR [facility] MASTECTOMY, PARTIAL REMOVE PANCREAS, PARTIAL (WHIPPLE) N/A 01/28/2022 PANCREATECTOMY PROXIMAL WITH SUBTOTAL DUODENECTOMY performed by Pritesh Vazquez MD at OR [facility] US ENDOSCOPIC 07/21/2022 pancreatic mass -atypical cells and inflammatory cells / [facility] Social History Tobacco Use Smoking status: Never Smokeless tobacco: Never Vaping Use Vaping Use: Never used Substance and Sexual Activity Alcohol use: Yes Comment: rarely Drug use: Never Review of patient's allergies indicates: Allergen Reactions Atorvastatin Other reaction(s): Muscle Pain Simvastatin Other reaction(s): Muscle Pain Statins Except pravastatin Current Outpatient Medications Medication Sig Dispense Refill Enalapril Maleate 10 MG Oral Tablet (Vasotec) Take 2 Tablets by mouth in the morning. Patient states she is taking 20mg in morning and 10mg at night. Pravastatin Sodium 20 MG Oral Tablet (Pravachol) Take 1 Tablet by mouth every evening. Co-Enzyme Q10 100 MG Oral Capsule Take by mouth . (Patient not taking: Reported on 10/11/2022) Prochlorperazine Maleate 10 MG Oral Tablet (Compazine) Take 1 Tablet (10 mg) by mouth every 6 hoursas needed for Nausea. (Patient not taking: Reported on 07/04/2022) 30 Tablet 3 Dexamethasone 4 MG Oral Tablet (Decadron) 8mg in AM on day 2, 8mg twice a day on days 3 and 4 of each cycle (Patient not taking: Reported on 10/11/2022) 50 Tablet 1 Diphenoxylate-Atropine 2.5-0.025 MG Oral Tablet (Lomotil) Take 2 Tablets by mouth 4 times a day as needed for Diarrhea. 60 Tablet 1 oxyCODONE HCl 5 MG Oral Tablet (Oxy IR) Take 1 Tablet by mouth every 8 hours as needed for Pain, Moderate. 60 Tablet 0 Loratadine 10 MG Oral Capsule (Claritin) Take 1 Capsule by mouth in the morning. Rivaroxaban 20 MG Oral Tablet (Xarelto) Take 1 Tablet by mouth daily with dinner. 90 Tablet 1 Gabapentin 300 MG Oral Capsule (Neurontin) Take 1 Capsule by mouth in the morning and 1 Capsule at noon and 1 Capsule before bedtime. 90 Capsule 3 Omeprazole 20 MG Oral Capsule Delayed Release (PriLOSEC) Take 1 Capsule by mouth in the morning. 90Capsule 0 Lidocaine-Prilocaine 2.5-2.5 % External Cream (Emla) APPLY TO SKIN OVER MEDIPORT & COVER 1HR PRIOR TO ACCESSING. 30 g 1 Ondansetron HCl 8 MG Oral Tablet Take 1 Tablet by mouth in the morning and 1 Tablet at noon and 1 Tablet before bedtime. 30 Tablet 3 Potassium Chloride ER 10 MEQ Oral Tablet Extended Release Take 1 Tablet by mouth in the morning and1 Tablet before bedtime. 60 Tablet 5 LORazepam 0.5 MG Oral Tablet (Ativan) Take 1 Tablet by mouth every 8 hours as needed for Anxiety. 60 Tablet 0 No current facility-administered medications for this visit. OBJECTIVE: BP 163/84 (BP Site: Right Arm, BP Position: Sitting, BP Cuff Size: Regular) | Pulse 77 | Temp 36.7 C (98.1 F) | Wt 72.7 kg (160 lb 3.2 oz) | SpO2 96% | BMI 26.85 kg/m | BSA 1.82 m PHYSICAL EXAM: ECOG: Performance Status 1 = 80-90% Symptoms but nearly ambulatory General Appearance: No acute distress HEENT: Normal - No oral or pharyngeal masses, ulceration or thrush noted Lymph Nodes: Normal - No palpable lymph nodes in the neck or supraclavicular areas Lungs/Thorax: Normal - Clear to auscultation Heart: Normal - Regular rate and rhythm, normal S1, S2, no appreciable murmurs Extremities: +trace BLE edema Abdomen: Normal - Soft, nontender, bowel sounds present, no appreciable hepatosplenomegaly, no palpable masses Musculoskeletal: Normal - No pain on palpation over bony prominence, no joint or bony deformity Neurologic: alert and oriented x 4, ambulating with cane LABS: Blood workup done on 12/07/2022: -BUN/Creat: 9/0.7, Calcium 8.5 -AST 34, ALT 30, alkaline phosphatase 132, bilirubin level 0.3 -WBC 2900, H&H of 9.6/32.4, Platelet count [id number] CA 19-9 Latest Ref Rng <35.0 U/mL 12/23/2021 378.0 (H) 03/21/2022 505.5 (H) 05/30/2022 622.2 (H) 06/27/2022 382.1 (H) 07/25/2022 187.1 (H) 11/02/2022 50.6 (H) 11/23/2022 44.2 (H) __ Blood workup done on 02/01/2023: -WBC 4500, H&H of 10.5/37.5, Platelet count [id number] -BUN/Creat: 15/0.7, normal LFT. Calcium 8.7 -CA 19-9 level --> 46.7 Blood workup done on 03/29/2023: -WBC 3900, H&H of 10.9/37, Platelet count of [id number] -BUN/Creat: 10/0.7, Calcium 8.6 -AST 35, ALT 27, alkaline phosphatase 144, bilirubin level 0.4 -CA 19-9 level --> 705 MRI of the abdomen (08/15/2022) -previously noted liver lesion has decreased in size from 2 x 1.4 -> 1.6 x 1.2 cm. - soft tissue infiltration noted in the previously resected pancreas measuring 3.4 x 2.3 cm (previously 4.2 x 4.3 cm). -no significant intra-abdominal lymphadenopathy PET-CT scan (12/13/2022). -new focal uptake within the gabriella hepatis region around the surgical clip. This could be new lymphnode or physiologic bowel activity. SUV of 4.86. -mild splenomegaly. - Previous FDG activity along the posterior margin the surgical bed extending into the aortocaval chain, has resolved in the interim. No abnormal uptake identified within the liver. CT scan of the abdomen (12/26/2022). 1. Focal progression of disease around the proper hepatic artery, accounting for the hypermetabolicfocus on PET. 2. Regression of disease in other areas in the aortocaval space, retroaortic region, and SMA. 3. No change in the two right hepatic subcentimeter lesions. 4. Interval hemorrhage and decrease in size of the left kidney lower pole cyst CT scan of the chest, abdomen and pelvis on 03/22/2023: -increase in the lymph node around the celiac axis and SMA, now measuring about 3.0 cm, earlier It was 2.3 cm -stable lung nodules, stable liver lesions. Stable left para-aortic lymph node. No new sites of disease identified IMPRESSION/PLAN: Pancreatic head adenocarcinoma Liver metastasis Encounter for chemotherapy Chemotherapy induced peripheral neuropathy IVC thrombus Currently she is receiving gemcitabine Abraxane every other week. Gradual reduction of the CA 19-9 level noted to around 44, Reviewed with her and her regarding the recent follow-up CT scan of the chest, abdomen pelvis done on 03/22/2023, slight increase in the previously noted celiac axis/SMA lymph node measuring about 3 cm, previously It was 2.3 cm, otherwise stable lung nodules, stable liver lesions. Significant rise in the CA 19-9 level noted to around 700 range. I would like to repeat CA 19-9 level today. Earlier NGS checkup showed no actionable mutation Talked to them about next chemotherapy in the form of liposomal irinotecan, 5- Fluorouracil and leucovorin, reviewed with them regarding treatment schedule side effect profile she is in agreement for that Today she will receive gemcitabine Abraxane, this would be last treatment, in 2 weeks will start liposomal irinotecan, 5-Fluorouracil and leucovorin. She has neuropathy symptoms, which has remained stable, she is on Neurontin. Ambulates with the help of the cane. Overall she is doing well and having decent quality of life She will continue Xarelto She will take Imodium and Lomotil for the symptomatic treatment of diarrhea Once we start on any new treatment, will see her every other cycle. Dr. Joe Raya Hem/Onc (This note was completed using the dictation program Fluency Direct. As such, there may be misspellings word substitutions, or other variations that should not change the essence of the clinical content of this encounter note. If there is need for further clarification, please direct questions to the provider listed above.) documented in this encounter Nursing Notes * Conor Nguyen, MED ASSIST - 03/30/2023 9:08 AM EST Patient identified by name and date of . Do you have any concerns about pain management for today's visit? No Living Will or Advance Directive for Health Care as noted on problem list. My [facility] is a way you can talk to your provider online through e-mail. Would you like to sign up? I can activate it for you? ALREADY ACTIVE BP 163/84 (BP Site: Right Arm, BP Position: Sitting, BP Cuff Size: Regular) | Pulse 77 | Temp 36.7 C (98.1 F) | Wt 72.7 kg (160 lb 3.2 oz) | SpO2 96% | BMI 26.85 kg/m | BSA 1.82 m Patient was instructed to not get up on the exam table/exam chair until directed and assisted by their provider; patient is to remain seated in the chair/ wheelchair/ exam table/ exam chair for fall prevention and safety reasons. Patient is aware to have assistance to step down off exam table/exam chair with personnel. Patient voiced full comprehension of instructions. documented in this encounter Plan of Treatment Upcoming Encounters Date Type Department Care Team (Late st Contact Info) Description 04/24/2023 10:00 AM EST Laboratory Laboratory, [address] [id number] [facility], Lab [address] [place] [id number] 04/25/2023 2:00 PM EST Hem/Onc Treatment Hematology/Oncology Treatment, [address] [address] [address], [address] Hem Onc Scene [address] [place] [address] 04/28/2023 10:00 AM EST Hospital Encounter Ancillary Special Procedures, [facility] [address] [address] 05/08/2023 10:00 AM EST Laboratory Laboratory, [address] [address] [facility], Lab [address] [place] [id number] 05/09/2023 11:30 AM EST Office Visit Hematology/Oncology [facility] [address] [facility] [place] [address] Natasha Houser CRNP [address] [facility] [place] [address] 05/09/2023 12:00 PM EST Hem/Onc Treatment Hematology/Oncology Treatment, [place] [facility] [address] [address], [address] 7 Hem Onc [address] [place] [address] 05/23/2023 8:45 AM EST Office Visit Hematology/Oncology [facility] [address] [facility] [place] [address] Joe Raya MD [address] [facility] [place] [address] Scheduled Orders Name Type Priority Associated Diagnoses Orde r Schedule CA 19-9 Lab Routine Malignant neoplasm of head of pancreas (HCC) Metastasis to liver (HCC) Ordered: 03/30/2023 Health Maintenance Due Date Last Done Comments [...] 08/05/2021, 02/10/2021, 06/16/2020, Additional history exists GFR 04/11/2024 04/11/2023, 03/17, 03/13/2023, Additional history exists Diabetes Screening 04/11/2026 04/11/2023, 1 05/30/2022, 03/13/2023, Additional history exists Zoster Vaccines Completed 04/06/2020, [...] this encounter Medical Devices Implanted Type Area Professional Services Manager Device Identifier Shelf Expiration Date Model / Serial / Lot Stent 10fr 9cm Clso-10-9 - [id number] Implanted:Qty : 1 on 12/21/2021 by Stanton Bailey MD at ENDOSCOPY [facility] COOK : [place] [id number] 07/15/2024 [id number] / / [id number] Port Implant W/8f Poly Cath - [id number] Implanted:Qty : 1 on 04/01/2022 by Sylvester Givens DO at OR [facility] Right: Chest CR BARD : PERIPHERAL VASCULAR [id number] 05/17/2022 [id number] / / [id number] documented as of this encounter Visit Diagnoses [...] Advance Directives occurred with: Patient Care Teams Coat Examiner Relationship Specialty Start Date End Date Shavon Hancock MD [address] [place] [address] PCP - General Internal Medicine 06/15/18 documented as of this encounter"
--- OUTSIDE RECORDS SUMMARY | 2023-05-14 16:50 | External Medical Summary ---
Author Name Unknown Address Unknown Organization : Laboratory Report Ordering Provider Test Date Status DEE DEE JENKINS 04/24/2023 10:04:15 Final Observation Date Value Abnormality Reference (Units ) Status REFERENCE LAB SCANNED REPORT 04/24/2023 10:04:15 RESULT SCAN Final Performing Location
--- OUTSIDE RECORDS SUMMARY | 2023-05-14 16:50 | External Medical Summary | Summary of Care ---
Author Name Unknown Organization [facility] [address] [facility] [address] Phone [phone] Care Team Providers Care Die Maker Apprentice Name Role Phone Shavon Hancock MD [facility] Care Provider Reason for Visit * Reason Onset Date Comments Medication Refill 04/25/2023 Encounter Details Date Type Department Care Team (Late st Contact Info) Description 04/25/2023 Refill Hematology/Oncology [facility] [place] 200 [facility] [place] [address] Joe Raya MD 200 [facility] [place] [address] Malignant neoplasm of head of pancreas (HCC); Chemotherapy-induced neuropathy Allergies Active Allergy Reactions Criticality Noted Date [...] before bedtime. 90 Capsule 3 04/25/2023 Active Gabapentin 300 MG Oral Capsule (Neurontin)Indicati [...] encounter Miscellaneous Notes * Telephone Encounter - Joe Raya MD - 04/25/2023 3:17 PM EST E-prescribed Neurontin. * Telephone Encounter - Joe Raya MD - 04/25/2023 3:16 PM ESTFrom: Diaan Mcbride To: Office of Joe Raya MD Sent: 04/25/2023 8:25 AM EST Subject: Medication Renewal Request Refills have been requested for the following medications: Gabapentin 300 MG Oral Capsule (Neurontin) [Joe Raya MD] Preferred pharmacy: [id number] Delivery method: Pickup documented in this encounter Plan of Treatment Upcoming Encounters Date Type Department Care Team (Late st Contact Info) Description 04/28/2023 10:00 AM EST Hospital Encounter Ancillary Special Procedures, [facility] [place] [id number] [place] [address] 05/08/2023 10:00 AM EST Laboratory Laboratory, [address] [id number] [facility], Lab [address] [place] [address] 05/09/2023 11:30 AM EST Office Visit Hematology/Oncology [facility] [address] [place] [address] Natasha Houser CRNP [address] [place] [address] [place] [address] 05/09/2023 12:00 PM EST Hem/Onc Treatment Hematology/Oncology Treatment, [place] 200 [facility] [address] Bozena, Chair 7 Hem Onc [address] [place] [address] 05/23/2023 8:45 AM EST Office Visit Hematology/Oncology [facility] [address] [place] [address] Joe Raya MD 200 [facility] [place] [address] Health Maintenance Due Date Last Done Comments [...] this encounter Medical Devices Implanted Type Area Studio Couch Frame Builder Device Identifier Shelf Expiration Date Model / Serial / Lot Stent 10fr 9cm Clso-10-9 - [id number] Implanted:Qty : 1 on 12/21/2021 by Stanton Bailey MD at ENDOSCOPY [facility] COOK : [place] [id number] 07/15/2024 [id number] / / [id number] Port Implant W/8f Poly Cath - [id number] Implanted:Qty : 1 on 04/01/2022 by Sylvester Givens DO at OR [facility] Right: Chest CR BARD : PERIPHERAL VASCULAR [id number] 05/17/2022 [id number] / / [id number] documented as of this encounter Visit Diagnoses Diagnosis Malignant neoplasm of head of pancreas (HCC) Malignant neoplasm of head of pancreas Chemotherapy-induced neuropathy 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
--- OUTSIDE RECORDS SUMMARY | 2023-05-14 16:50 | External Medical Summary | Summary of Care ---
Author Name Unknown Organization [facility] Address [address] [place] [address] Phone [phone] Care Team Providers Care Outplacement Consultant Name Role Phone Shavon Hancock MD [facility] Care Provider Reason for Visit * Reason Onset Date Comments Precert In Process 04/28/2023 Coy martinez Encounter Details Date Type Department Care Team (Late st Contact Info) Description 04/28/2023 Telephone Hematology/Oncology Treatment, [place] 200 [facility] [place] [address] Joe Raya MD 200 [place] [address] Precert In Process (Coy martinez) Allergies Active Allergy Reactions Criticality Noted Date Comments Atorvastatin High 03/17/2022 Other reaction(s): Muscle Pain Simvastatin High 03/17/2022 Other reaction(s): Muscle Pain Statins 12/20/2021 Except pravastatin documented as of this encounter (statuses as of 04/29/2023) Medications Medication Sig Dispensed Refills Start Date [...] as of this encounter (statuses as of 04/29/2023) Active Problems Problem Noted Date Diagnosed Date Metastasis to liver 03/30/2023 Dehydration 05/26/2022 Diarrhea 05/26/2022 Malignant neoplasm of head of pancreas Encounter for antineoplastic chemotherapy 2021 Postprocedural intraabdominal abscess 02/04/2022 Hepatic abscess 02/04/2022 Pancreatic adenocarcinoma 12/23/2021 Hypertension 12/20/2021 Hyperlipidemia 12/20/2021 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375MG er tablets Portal used: CMM/Right fax Insurance: [employer]/ PACE Authorization #/Mcmullen: [id number] Gay Hewitt Med[employer] Mining Machinery Assembler P: [phone] F: [phone] 04/29/2023,8:22 PM * Telephone Encounter - Nikki [...] Oral Physician: Dr Raya Received fax from [facility] that levbid rx requires auth. documented in this encounter Plan of Treatment Upcoming Encounters Date Type Department Care Team (Late st Contact Info) Description 05/01/2023 11:00 AM EST Laboratory Laboratory, [address] [phone] [facility], Lab [address] [place] [address] 05/02/2023 11:00 AM EST Hem/Onc Treatment Hematology/Oncology [address] [place] [address] Bozena, Chair 8 Hem Onc [address] [place] [address] 05/05/2023 10:00 AM EST Appointment Ancillary Special Procedures, [address] [address] 05/08/2023 10:00 AM EST Laboratory Laboratory, [address] [phone] [facility], Lab [address] [place] [address] 05/09/2023 11:30 AM EST Office Visit Hematology/Oncology [address] [place] [address] Natasha Houser CRNP 400 [facility] [place] [address] 05/09/2023 12:00 PM EST Hem/Onc Treatment Hematology/Oncology Treatment, [address] [place], [place] [address] Bozena, Chair 7 Hem Onc [facility] 200 [facility] [place] [address] 05/23/2023 8:45 AM EST Office Visit Hematology/Oncology [facility] [place] 200 [facility] [place] [address] Joe Raya MD 200 [facility] [place] [address] Health Maintenance Due Date Last Done Comments [...] encounter Medical Devices Implanted Type Area Director Of Informatics Device Identifier Shelf Expiration Date Model / Serial / Lot Stent 10fr 9cm Clso-10-9 - [id number] Implanted:Qty : 1 on 12/21/2021 by Stanton Bailey MD at ENDOSCOPY [facility] CHELY : [place] [id number] 07/15/2024 [id number] / / [id number] Port Implant W/8f Poly Cath - [id number] Implanted:Qty : 1 on 04/01/2022 by Sylvester Givens DO at OR [facility] Right: Chest CR BARD : PERIPHERAL VASCULAR [id number] 05/17/2022 [id number] / / [id number] documented as of this encounter Advance Directives [...] Advance Directives occurred with: Patient Care Teams Outplacement Consultant Relationship Specialty Start Date End Date Shavon Hancock MD [address] [address] PCP - General Internal Medicine 06/15/18 documented as of this encounter
--- OUTSIDE RECORDS SUMMARY | 2023-05-14 16:50 | External Medical Summary | Summary of Care ---
Author Name Unknown Organization [facility] Address [address] [place] [address] Phone [phone] Care Team Providers Care Dispatcher Maintenance Name Role Phone Shavon Hancock MD [facility] Care Provider Reason for Visit * Reason Onset Date Comments Precert Future 04/28/2023 levbid Encounter Details Date Type Department Care Team (Late st Contact Info) Description 04/28/2023 Telephone Hematology/Oncology Treatment, [place] 200 [place] [address] Joe Raya MD 200 [place] [address] Precert Future (levbid) Allergies Active Allergy Reactions Criticality Noted Date Comments Atorvastatin High 03/17/2022 Other reaction(s): Muscle Pain Simvastatin High 03/17/2022 Other reaction(s): Muscle Pain Statins 12/20/2021 Except pravastatin documented as of this encounter (statuses as of 04/28/2023) Medications Medication Sig Dispensed Refills Start Date [...] as of this encounter (statuses as of 04/28/2023) Active Problems Problem Noted Date Diagnosed Date Metastasis to liver 03/30/2023 Dehydration 05/26/2022 Diarrhea 05/26/2022 Malignant neoplasm of head of pancreas Encounter for antineoplastic chemotherapy 2021 Postprocedural intraabdominal abscess 02/04/2022 Hepatic abscess 02/04/2022 Pancreatic adenocarcinoma 12/23/2021 Hypertension 12/20/2021 Hyperlipidemia 12/20/2021 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 documented as of this encounter (statuses as of 04/28/2023) Resolved Problems Problem Noted Date Diagnosed Date Resolved Date COVID-19 12/24/2021 12/28/2021 Post-ERCP acute pancreatitis 12/22/2021 12/28/2021 Choledocholithiasis 12/22/2021 12/29/19 Right upper quadrant pain 12/20/2021 documented as of this encounter (statuses as of 04/28/2023) Immunizations Name Administration Dates Next Due COVID-19 [...] Care Team (Latest Contact Info) Description 04/28/2023 10:00 AM EST Hospital Encounter Ancillary Special Procedures, [address] [address] Canceled (Clinician Appointment Cancel Rescheduled at later date) 05/01/2023 11:00 AM EST Laboratory Laboratory, [address] [address] [facility], Lab [address] [place] [address] 05/02/2023 11:00 AM EST Hem/Onc Treatment Hematology/Oncolog [facility] Treatment, [place] 200 [facility] [address] Bozena, Chair 8 Hem Onc [place] [address] [place] [address] 05/05/2023 10:00 AM EST Appointment Ancillary Special Procedures, [address] [address] 05/08/2023 10:00 AM EST Laboratory Laboratory, [address] [address] [facility], Lab [address] [place] [address] 05/09/2023 11:30 AM EST Office Visit Hematology/Oncolog y [facility] [place] [address] [place] [address] Natasha Houser CRNP [address] [place] [address] [place] [address] 05/09/2023 12:00 PM EST Hem/Onc Treatment Hematology/Oncolog y Treatment, [place] [address] [place] [address] Bozena, Chair 7 Hem Onc [place] [address] [place] [address] 05/23/2023 8:45 AM EST Office Visit Hematology/Oncolog y [place] Bozena [place] [address] [place] [address] Joe Raya MD 200 [place] [address] Health Maintenance Due Date Last Done Comments [...] this encounter Medical Devices Implanted Type Area Blade Groover Device Identifier Shelf Expiration Date Model / Serial / Lot Stent 10fr 9cm Clso-10-9 - [id number] Implanted:Qty : 1 on 12/21/2021 by Stanton Bailey MD at ENDOSCOPY [facility] [place] COOK : [place] [id number] 07/15/2024 [id number] / / [id number] Port Implant W/8f Poly Cath - [id number] Implanted:Qty : 1 on 04/01/2022 by Sylvester Givens DO at OR [facility] Right: Chest CR BARD : PERIPHERAL VASCULAR [id number] 05/17/2022 [id number] / / [id number] documented as of this encounter Advance Directives [...] Advance Directives occurred with: Patient Care Teams Dispatcher Maintenance Relationship Specialty Start Date End Date Shavon Hancock MD [address] [place] [address] PCP - General Internal Medicine 06/15/18 documented as of this encounter
--- OUTSIDE RECORDS SUMMARY | 2023-05-14 16:50 | External Medical Summary ---
Author Name Unknown Address Unknown Organization K1G:LABORATORY [facility] - [facility] [address] Laboratory Report Ordering Provider Test Date Status ALICE ROSEN 04/24/2023 10:04:15 Final Observation Date Value Abnormality Reference (Units ) Status BUN 04/24/2023 10:04:15 14 6-20 (mg/dL) Final Creatinine 04/24/2023 10:04:15 0.8 0.5-1.0 (mg/dL) Final Glomerular filtration rate/1.73 sq M.predicted [Volume Rate/Area] in Serum, Plasma or Blood by Creatinine-based formula (CKD-EPI) 04/24/2023 10:04:15 83 >=60 (mL/min) Final eGFR is calculated based on the CKD-EPI 2020 equation SODIUM 04/24/2023 10:04:15 135 135-146 (m mol/L) Final Potassium 04/24/2023 10:04:15 3.9 3.5-5.1 (m mol/L) Final Cl 04/24/2023 10:04:15 103 98-107 (mm ol/L) Final CO2 04/24/2023 10:04:15 21 Below low normal 22- 32 (mmol/L) Final Anion gap 04/24/2023 10:04:15 11 7-15 (mmol /L) Final Glucose 04/24/2023 10:04:15 106 70-120 (mg /dL) Final Albumin 04/24/2023 10:04:15 3.4 Below low normal 3.8 -5.0 (g/dL) Final AST (Aspartate aminotransferase) 04/24/2023 10:04:15 13 10-35 (U/L) Fin al Alk Phos 04/24/2023 10:04:15 166 Above high normal 35 -130 (U/L) Final Bilirubin, Total 04/24/2023 10:04:15 0.5 <=1 .2 (mg/dL) Final Calcium 04/24/2023 10:04:15 8.9 8.4-10.2 ( mg/dL) Final Protein 04/24/2023 10:04:15 6.0 6.0-8.3 (g /dL) Final ALT (Alanine aminotransferase) 04/24/2023 10:04:15 8 Below low normal 10-35 (U/L) Final Performing Location LABORATORY [facility] - [address] [place] [phone]
--- OUTSIDE RECORDS SUMMARY | 2023-05-14 16:50 | External Medical Summary ---
Author Name Unknown Address Unknown Organization K01:[facility] [place] [facility] [address] [place] [address] Laboratory Report Ordering Provider Test Date Status ALICE ROSEN 04/24/2023 10:04:15 Final Observation Date Value Abnormality Reference (Units ) Status Cancer Ag 19-9 04/24/2023 10:04:15 1372.0 Above high norm al <35.0 (U/mL) Final Performing Location LABORATORY [facility] - [address] [place] [address]
--- OUTSIDE RECORDS SUMMARY | 2023-05-14 16:50 | External Medical Summary | Summary of Care ---
Author Name Unknown Organization [facility] Address [address] [place] [address] Phone [phone] Care Team Providers Care Cigar Roller Name Role Phone Shavon [facility] MD [facility] Care Provider Reason for Visit * [...] UDENYCA 0.5 MG Joe Raya MD 200 [place] [address] Anc Hem/Onc [address] [address] Referral ID Status Reason Start Date Expiration Date V isits Requested Visits Authorized [id number] Authorized 04/04/2023 04/16/2099 [id number] Encounter Details Date Type Department Care Team (Latest Contact Info) Description 04/14/2023 4:15 PM EST Immunization/ Injection Hematology/Oncology Treatment, [address] [address] Bozena, Chair 11 Hem Onc [address] [place] [address] Metastasis to liver (HCC)*; Encounter for antineoplastic chemotherapy; Malignant neoplasm of head of pancreas (HCC); Encounter for adjustment and management of vascular access device; Encounter for prevention of neutropenia due to chemotherapy Allergies Active Allergy Reactions Criticality Noted Date Comments Atorvastatin High 03/17/2022 Other reaction(s): Muscle Pain Simvastatin High 03/17/2022 Other reaction(s): Muscle Pain Statins 12/20/2021 Except pravastatin documented as of this encounter (statuses as of 04/14/2023) Medications Medication Sig Dispensed Refills Start Date [...] 11/21/2022 Active Gabapentin 300 MG Oral Capsule (Neurontin)Indicatio [...] before bedtime. 60 Tablet 5 03/28/2023 Active LORazepam 0.5 MG Oral Tablet (Ativan)Indications: Pancreatic adenocarcinoma (HCC) Take 1 Tablet by mouth every 8 hours as needed for Anxiety. 60 Tablet 0 03/28/2023 Active Diphenoxylate-Atropi ne 2.5-0.025 MG Oral [...] before bedtime. 30 Tablet 3 04/11/2023 Active Hospital, Clinic, or Other Facility Administered Medication Ordered Dose Route Frequency Start Date End Date Status Fluorouracil (5-Fu) 4,375 mg in NSS 138 mL infusion 4375 mg IV CONTINUOUS 04/12/2023 Ac tive documented as of this encounter (statuses as of 04/14/2023) Active Problems Problem Noted Date Diagnosed Date Metastasis to liver 03/30/2023 Dehydration 05/26/2022 Diarrhea 05/26/2022 Malignant neoplasm of head of pancreas Encounter for antineoplastic chemotherapy 2021 Postprocedural intraabdominal abscess 02/04/2022 Hepatic abscess 02/04/2022 Pancreatic adenocarcinoma 12/23/2021 Hypertension 12/20/2021 Hyperlipidemia 12/20/2021 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 CADD pump reservoir volume is 0ml; infusion is complete. Device clamped/disconnected from VAD. VAD flushed with 10 ml NSS and Heparin 5 ml (100 units/ml). Nix needle removed intact. Udenyca administered per order; pt tolerated well. Pt reported 1 episode of emesis this a.m., but otherwise has no concerns related to treatment. Pt discharged in stable condition. documented in this encounter Plan of Treatment Upcoming Encounters Date Type Department Care Team (Late st Contact Info) Description 04/24/2023 10:00 AM EST Laboratory Laboratory, [address] [address] [facility], Lab [address] [place] [address] 04/25/2023 2:00 PM EST Hem/Onc Treatment Hematology/Oncology [address] [address] Bozena, Chair 10 Hem Onc [address] [place] [address] 04/28/2023 10:00 AM EST Hospital Encounter Ancillary Special Procedures, [facility] [address] [address] 05/08/2023 10:00 AM EST Laboratory Laboratory, [address] [address] [facility], Lab [address] [place] [address] 05/09/2023 11:30 AM EST Office Visit Hematology/Oncology [address] [place] [address] Natasha Houser CRNP [address] [place] [address] 05/09/2023 12:00 PM EST Hem/Onc Treatment Hematology/Oncology [address] [place], [place] [address] Bozena, Chair 7 Hem Onc [address] [place] [address] 05/23/2023 8:45 AM EST Office Visit Hematology/Oncology [facility] [place] 200 [facility] [place] [address] Joe Raya MD 200 [facility] [place] [address] Health Maintenance Due Date Last Done Comments [...] this encounter Medical Devices Implanted Type Area Retail Service Specialist Device Identifier Shelf Expiration Date Model / Serial / Lot Stent 10fr 9cm Clso-10-9 - [id number] Implanted:Qty : 1 on 12/21/2021 by Stanton Bailey MD at ENDOSCOPY [facility] [place] : [place] [id number] 07/15/2024 [id number] / / [id number] Port Implant W/8f Poly Cath - [id number] Implanted:Qty : 1 on 04/01/2022 by Sylvester Givens DO at [facility] Right: Chest CR BARD : PERIPHERAL VASCULAR [id number] 05/17/2022 [id number] / / [id number] documented as of this encounter Visit Diagnoses Diagnosis Metastasis to liver (HCC)- Primary Secondary malignant neoplasm of liver Encounter for antineoplastic chemotherapy Malignant neoplasm of head of pancreas (HCC) Malignant neoplasm of head of pancreas Encounter for adjustment and management of vascular access device Encounter for prevention of neutropenia due to chemotherapy documented in this encounter Administered Medications Active Administered Medications - up to 3 most recent administrations Medication Order MAR Action Action Date Dose Rate Site hEParin 100 UNIT/ML Lock Flush inj 500 Units 500 Units (5 mL), IV Lock, PRN Other, IV Flush, Starting on Mon04/14/23 at 1616, Until 04/15/23 at 1615, For 24 hours, Do not flush if lock, PICC, or central line not in place; IV infusing or unable to flush. Given 04/14/2023 4:19 PM EST 500 Units sodium chloride 0.9 % flush central line 10 mL 10 mL, IV Push, PRN Other, IV Flush, Starting on Mon04/14/23 at 1616, Until 04/15/23 at 1615, For 24 hours, Do not flush if lock, PICC, or central line not in place; IV infusing or unable to flush. Given 04/14/2023 4:19 PM EST 10 mL Inactive Administered Medications - up to 3 most recent administrations Medication Order MAR Action Action Date Dose Rate Site Pegfilgrastim-cbqv (Udenyca) inj 6 mg 6 mg, Subcutaneous, ONCE, On Mon04/14/23 at 1730, For 1 dose Given 04/14/2023 4:23 PM EST 6 mg Arm R ight Upper documented in this encounter Advance Directives [...] Advance Directives occurred with: Patient Care Teams Cigar Roller Relationship Specialty Start Date End Date Shavon Hancock MD [address] [address] PCP - General Internal Medicine 06/15/18 documented as of this encounter
--- OUTSIDE RECORDS SUMMARY | 2023-05-14 16:50 | External Medical Summary ---
Author Name Unknown Address Unknown Organization K1G:LABORATORY [facility] - [facility] [address] Laboratory Report Ordering Provider Test Date Status ALICE ROSEN 05/01/2023 11:10:01 Final Observation Date Value Abnormality Reference (Units ) Status BUN 05/01/2023 11:10:01 11 6-20 (mg/dL) Final Creatinine 05/01/2023 11:10:01 0.8 0.5-1.0 (mg/dL) Final Glomerular filtration rate/1.73 sq M.predicted [Volume Rate/Area] in Serum, Plasma or Blood by Creatinine-based formula (CKD-EPI) 05/01/2023 11:10:01 86 >=60 (mL/min) Final eGFR is calculated based on the CKD-EPI 2020 equation SODIUM 05/01/2023 11:10:01 142 135-146 (m mol/L) Final Potassium 05/01/2023 11:10:01 3.8 3.5-5.1 (m mol/L) Final Cl 05/01/2023 11:10:01 107 98-107 (mm ol/L) Final CO2 05/01/2023 11:10:01 23 22-32 (mmo l/L) Final Anion gap 05/01/2023 11:10:01 12 7-15 (mmol /L) Final Glucose 05/01/2023 11:10:01 116 70-120 (mg /dL) Final Albumin 05/01/2023 11:10:01 3.0 Below low normal 3.8 -5.0 (g/dL) Final AST (Aspartate aminotransferase) 05/01/2023 11:10:01 20 10-35 (U/L) Fin al Alk Phos 05/01/2023 11:10:01 183 Above high normal 35 -130 (U/L) Final Bilirubin, Total 05/01/2023 11:10:01 0.3 <=1 .2 (mg/dL) Final Calcium 05/01/2023 11:10:01 8.6 8.4-10.2 ( mg/dL) Final Protein 05/01/2023 11:10:01 5.7 Below low normal 6.0 -8.3 (g/dL) Final ALT (Alanine aminotransferase) 05/01/2023 11:10:01 9 Below low normal 10-35 (U/L) Final Performing Location LABORATORY [facility] - [address] [place] [phone]
--- OUTSIDE RECORDS SUMMARY | 2023-05-14 16:50 | External Medical Summary | Summary of Care ---
Author Name Unknown Organization [facility] Address [address] [place] [address] Phone [phone] Care Team Providers Care Cutter Inspector Name Role Phone [facility] Provider Reason for Visit * Reason Comments Outpatient Testing Encounter Details Date Type Department Care Team (Late st Contact Info) Description 04/24/2023 10:00 AM EST Laboratory Laboratory, [id number] [place] [address] Gj, Lab [facility] [place] [address] Pancreatic adenocarcinoma (HCC) Allergies Active Allergy Reactions Criticality Noted Date Comments Atorvastatin High 03/17/2022 Other reaction(s): Muscle Pain Simvastatin High 03/17/2022 Other reaction(s): Muscle Pain Statins 12/20/2021 Except pravastatin documented as of this encounter (statuses as of 04/24/2023) Medications Medication Sig Dispensed Refills Start Date [...] for Anxiety. 60 Tablet 0 04/21/2023 Active Hospital, Clinic, or Other Facility Administered Medication Ordered Dose Route Frequency Start Date End Date Status Fluorouracil (5-Fu) 4,375 mg in NSS 138 mL infusion 4375 mg IV CONTINUOUS 04/12/2023 Ac tive documented as of this encounter (statuses as of 04/24/2023) Active Problems Problem Noted Date Diagnosed Date Metastasis to liver 03/30/2023 Dehydration 05/26/2022 Diarrhea 05/26/2022 Malignant neoplasm of head of pancreas Encounter for antineoplastic chemotherapy 2021 Postprocedural intraabdominal abscess 02/04/2022 Hepatic abscess 02/04/2022 Pancreatic adenocarcinoma 12/23/2021 Hypertension 12/20/2021 Hyperlipidemia 12/20/2021 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 documented as of this encounter (statuses as of 04/24/2023) Resolved Problems Problem Noted Date Diagnosed Date Resolved Date COVID-19 12/24/2021 12/28/2021 Post-ERCP acute pancreatitis 12/22/2021 12/28/2021 Choledocholithiasis 12/22/2021 12/29/19 Right upper quadrant pain 12/20/2021 documented as of this encounter (statuses as of 04/24/2023) Immunizations Name Administration Dates Next Due COVID-19 [...] Team (Late st Contact Info) Description 04/25/2023 2:00 PM EST Hem/Onc Treatment [facility]emat[facility]cology [facility], [place] [facility] [address] Bo[place], Chair 10 Hem On[address] [place] [address] 04/28/2023 10:00 AM EST Hospital Encounter Ancillary Special Procedures, [facility] [address] [address] 05/08/2023 10:00 AM EST Laboratory Laboratory, [address] [phone] Gj, Lab [address] [place] [address] 05/09/2023 11:30 AM EST Office Visit Hematology/Oncology [facility] 200 [facility] [place] [address] Natasha Houser CRNP [address] [place] [address] 05/09/2023 12:00 PM EST Hem/Onc Treatment Hematology/Oncology Treatment, [place] [address] [place], [place] [address] Bozena, Chair 7 Hem Onc [facility] [address] [place] [address] 05/23/2023 8:45 AM EST Office Visit Hematology/Oncology [facility] [place] [address] [place] [address] Joe Raya MD [address] [place] [address] Scheduled Orders Name Type Priority Associated Diagnoses Orde r Schedule CBC Lab STAT Pancreatic adenocarcinoma (HCC) Ordered: 04/24/2023 DIFFERENTIAL, AUTOMATED Lab STAT Pancreatic adenocarcinoma (HCC) Ordered: 04/24/2023 Health Maintenance Due Date Last Done Comments [...] this encounter Medical Devices Implanted Type Area Passenger Flagman Device Identifier Shelf Expiration Date Model / Serial / Lot Stent 10fr 9cm Clso-10-9 - [id number] Implanted:Qty : 1 on 12/21/2021 by Stanton Bailey MD at ENDOSCOPY [facility] : [place] [id number] 07/15/2024 [id number] / / [id number] Port Implant W/8f Poly Cath - [id number] Implanted:Qty : 1 on 04/01/2022 by Sylvester Givens DO at [facility] Right: Chest CR BARD : PERIPHERAL VASCULAR [id number] 05/17/2022 [id number] / / [id number] documented as of this encounter Visit Diagnoses [...] Advance Directives occurred with: Patient Care Teams Cutter Inspector Relationship Specialty Start Date End Date Shavon Hancock MD [address] [place] [address] PCP - General Internal Medicine 06/15/18 documented as of this encounter
--- OUTSIDE RECORDS SUMMARY | 2023-05-14 16:50 | External Medical Summary ---
Author Name Unknown Address Unknown Organization K1G:LABORATORY [facility] - [address] [facility] [id number] Laboratory Report Ordering Provider Test Date Status ALICE ROSEN 04/24/2023 10:04:15 Final Observation Date Value Abnormality Reference (Units ) Status SYNC LEUKOCYTES IN BLOOD BY AUTOMATED COUNT 04/24/2023 10:04:15 5.12 4.00-10.80 (K/uL) Final Segs 04/24/2023 10:04:15 51.5 40.0-75.0 (%) Final Lymphs % 04/24/2023 10:04:15 31.1 18.0-42.0 (%) Final Monos 04/24/2023 10:04:15 13.5 Above high normal 1.0-11.0 (%) Final Eosinophils 04/24/2023 10:04:15 3.5 0.0-6.0 (%) Final Basos 04/24/2023 10:04:15 0.4 0.0-2.0 (%) Final Absolute Segs 04/24/2023 10:04:15 2.64 1.80-7.70 (K/uL) Final Lymphs, absolute 04/24/2023 10:04:15 1.59 1.00-4.80 (K/ul) Final Monos, Abs 04/24/2023 10:04:15 0.69 0.00-1.10 (K/uL) Final Eos, Abs 04/24/2023 10:04:15 0.18 0.00-0.70 (K/uL) Final Basos, Abs 04/24/2023 10:04:15 0.02 0.00-0.20 (K/uL) Final Performing Location LABORATORY [facility] - [address] [facility] [address]
--- OUTSIDE RECORDS SUMMARY | 2023-05-14 16:50 | External Medical Summary ---
Author Name Unknown Address Unknown Organization K1G:LABORATORY [facility] - [address] [place] [id number] Laboratory Report Ordering Provider Test Date Status ALICE ROSEN 04/24/2023 10:04:15 Final Observation Date Value Abnormality Reference (Units ) Status WBC, Total 04/24/2023 10:04:15 5.12 4.00-10.8 0 (K/uL) Final RBC 04/24/2023 10:04:15 3.99 3.85-5.15 (M/uL) Final Hemoglobin 04/24/2023 10:04:15 10.5 Below low normal 12 .0-15.3 (g/dL) Final HCT 04/24/2023 10:04:15 34.6 Below low normal 36. 0-45.2 (%) Final MCV 04/24/2023 10:04:15 86.7 81.5-97.5 (fL) Final MCH 04/24/2023 10:04:15 26.3 27.0-34.0 (pg) Final MCHC 04/24/2023 10:04:15 30.3 32.0-36.0 (g/dL) Final RDW 04/24/2023 10:04:15 17.4 11.5-15.5 (%) Final Platelets 04/24/2023 10:04:15 351 140-400 (K /uL) Final MPV 04/24/2023 10:04:15 10.5 6.6-11.1 ( fL) Final Performing Location [facility] - [address] [place] [phone]
--- OUTSIDE RECORDS SUMMARY | 2023-05-14 16:50 | External Medical Summary | Summary of Care ---
Author Name Unknown Organization [facility] Address [address] [facility] [address] Phone [phone] Care Team Providers Care Loss Prevention Associate Name Role Phone Shavon Hancock MD [facility] Care Provider Reason for Visit * Reason Onset Date Comments Medication Refill 04/21/2023 Encounter Details Date Type Department Care Team (Late st Contact Info) Description 04/21/2023 Refill Hematology/Oncology [facility] [place] 200 [facility] [place] [address] Joe Raya MD 200 [place] [id number] Pancreatic adenocarcinoma (HCC) Allergies Active Allergy Reactions Criticality Noted Date Comments Atorvastatin High 03/17/2022 Other reaction(s): Muscle Pain Simvastatin High 03/17/2022 Other reaction(s): Muscle Pain Statins 12/20/2021 Except pravastatin documented as of this encounter (statuses as of 04/21/2023) Medications Medication Sig Dispensed Refills Start Date [...] for Anxiety. 60 Tablet 0 04/21/2023 Active LORazepam 0.5 MG Oral Tablet (Ativan)Indications :Pancreatic adenocarcinoma (HCC) Take 1 Tablet by mouth every 8 hours as needed for Anxiety. 60 Tablet 0 03/28/2023 4 Discontinu ed(Refill) Hospital, Clinic, or Other Facility Administered Medication Ordered Dose Route Frequency Start Date End Date Status Fluorouracil (5-Fu) 4,375 mg in NSS 138 mL infusion 4375 mg IV CONTINUOUS 04/12/2023 Ac tive documented as of this encounter (statuses as of 04/21/2023) Active Problems Problem Noted Date Diagnosed Date Metastasis to liver 03/30/2023 Dehydration 05/26/2022 Diarrhea 05/26/2022 Malignant neoplasm of head of pancreas 2 Encounter for antineoplastic chemotherapy 2021 Postprocedural intraabdominal abscess 02/04/2022 Hepatic abscess 02/04/2022 Pancreatic adenocarcinoma 12/23/2021 Hypertension 12/20/2021 Hyperlipidemia 12/20/2021 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 documented as of this encounter (statuses as of 04/21/2023) Resolved Problems Problem Noted Date Diagnosed Date Resolved Date COVID-19 12/24/2021 12/28/2021 Post-ERCP acute pancreatitis 12/22/2021 12/28/2021 Choledocholithiasis 12/22/2021 12/29/19 Right upper quadrant pain 12/20/2021 documented as of this encounter (statuses as of 04/21/2023) Immunizations Name Administration Dates Next Due COVID-19 [...] encounter Miscellaneous Notes * Telephone Encounter - Natasha Houser CRNP - 04/21/2023 1:43 PM EST Signed Prescriptions: Disp Refills LORazepam 0.5 MG Oral Tablet (Ativan) 60 Tab*0 Sig: Take 1 Tablet by mouth every 8 hours as needed for Anxiety.Authorizing Provider: NATASHA HOUSER * Telephone Encounter - Akash Potter RN - 04/21/2023 12:56 PM ESTPending Prescriptions: Disp Refills LORazepam 0.5 MG Oral Tablet (Ativan) 60 Tab*0 Sig: Take 1 Tablet by mouth every 8 hours as needed for Anxiety. * Telephone Encounter - Akash Potter RN - 04/21/2023 12:53 PM EST Last filled 03/28/23 for 20 day supply. Checked PDMP. No concerns. documented in this encounter Plan of Treatment Upcoming Encounters Date Type Department Care Team (Late st Contact Info) Description 04/24/2023 10:00 AM EST Laboratory Laboratory, [address] [phone] [facility], Lab [address] [place] [address] 04/25/2023 2:00 PM EST Hem/Onc Treatment Hematology/Oncology Treatment, [address] [address] Bozena, Chair 10 Hem Onc [address] [address] 04/28/2023 10:00 AM EST Hospital Encounter Ancillary Special Procedures, [facility] [address] [id number] 05/08/2023 10:00 AM EST Laboratory Laboratory, [address] [phone] [facility], Lab [address] [place] [address] 05/09/2023 11:30 AM EST Office Visit Hematology/Oncology [facility] 200 [facility] [place] [place] [address] Natasha Houser CRNP 400 [facility] [place] [address] 05/09/2023 12:00 PM EST Hem/Onc Treatment Hematology/Oncology Treatment, [place] [address] [facility] [address] [place] [address] Bozena, Chair 7 Hem Onc [address] [place] [address] 05/23/2023 8:45 AM EST Office Visit Hematology/Oncology [facility] [address] [place] [address] Joe Raya MD 200 [facility] [place] [place] [address] Health Maintenance Due Date Last Done Comments [...] this encounter Medical Devices Implanted Type Area Track Surfacing Machine Operator Device Identifier Shelf Expiration Date Model / Serial / Lot Stent 10fr 9cm Clso-10-9 - [id number] Implanted:Qty : 1 on 12/21/2021 by Stanton Bailey MD at ENDOSCOPY [facility] : [place] [id number] 07/15/2024 [id number] / / [id number] Port Implant W/8f Poly Cath - [id number] Implanted:Qty : 1 on 04/01/2022 by Sylvester Givens DO at [facility] Right: Chest CR BARD : PERIPHERAL VASCULAR [id number] 05/17/2022 [id number] / / [id number] documented as of this encounter Visit Diagnoses [...] Advance Directives occurred with: Patient Care Teams Loss Prevention Associate Relationship Specialty Start Date End Date Shavon Hancock MD [address] [place] [address] PCP - General Internal Medicine 06/15/18 documented as of this encounter
[2023-05-14 17:35] LABS: Basophils # (auto) 0.06 K/uL (0.00-0.20); Basophils % (auto) 0.6 %; Eosinophils # (auto) 0.17 K/uL (0.00-0.50); Eosinophils % (auto) 1.8 %; Hematocrit (blood only) 30.3 % (37.0-47.0); Hemoglobin 9.3 g/dl (12.0-16.0); Immature Granulocytes % (auto) 1.1 %; Lymphocytes # (auto) 1.67 K/uL (1.20-3.40); Mean Corpuscular Hemoglobin 26.2 pg (25.0-34.0); Mean Corpuscular Hgb Conc 30.7 g/dL (32.0-36.0); Mean Corpuscular Volume 85.4 fL (80.0-100.0); Mean Platelet Volume 10.8 fL (9.4-12.4); Monocytes # (auto) 0.88 K/uL (0.11-0.59); Monocytes % (auto) 9.5 %; Platelet Count 475 K/uL (130-400); RDW Coefficient of Variation 20.3 % (11.5-14.5); RDW Standard Deviation 59.7 fL (36.4-46.3); Red Blood Count 3.55 M/uL (4.20-5.40); White Blood Count 9.28 K/ul (4.8-10.8)
[2023-05-14] MEDS: SODIUM CHLORIDE 0.9% 1,000 ML IV SCH ×3 (17:46→20:45)
[2023-05-14 17:55] LABS: Albumin Globulin Ratio 1.2 (0.9-2); Albumin Level 2.6 gm/dl (3.4-5.0); BUN Creatinine Ratio 9.2 (10-20); Bilirubin,Total 0.5 mg/dl (0.2-1.0); Calcium 7.8 mg/dl (8.6-10.3); Creatinine Clr Calc Pharmacy 13.1 ml/min; Est GFR (African American) 12.6 ml/min; Est GFR (Non-African American) 10.9 ml/min; Globulin 2.2 gm/dl (2.5-4.0); Potassium 4.8 mmol/L (3.5-5.1); Total Protein 4.8 gm/dl (6.0-8.3)
[2023-05-14 18:02] LABS: Anisocytosis Present; Echinocytes 2+; Polychromasia 1+; Tear Drop Cells 1+; Toxic Granulation 1+
--- NOTE | 2023-05-14 20:41 | History & Physical Report ---
Date of Service May 14, 2023 Assessment & Plan (1) Pancreatic adenocarcinoma: (2) IVC thrombosis: (3) Hypotension: (4) Acute kidney injury: Plan Hypotension -BP in 70s/40s on arrival, suspect due to hypovolemia -S/P 2L of NSS, BP improved to 100/57 with some tachycardia (rates up to 120). Will continue home metoprolol for now with hold precautions. -Continue w/ maintenance fluids. No history of CHF, no reduced EF in the past. -Albumin low (2.2) on admission, ordered 50g of 25% albumin -Monitor on telemetry Acute Kidney Injury -Cr 4.01 on admission. Will hold nephrotoxic agents -Suspect pre-renal etiology due to poor PO intake and frequent diarrhea secondary to chemotherapy -CT A/P ordered -Repeat metabolic panel in a.m. Diarrhea- Campylobacter -Approximately 1 week of loose stools, typically has diarrhea after chemo but this was more significant -Only has had 1 episode of diarrhea so far today -Stool Biofire positive for Campylobacter -Started daily azithromycin, anticipate minimum 7-10 day course Metastatic Pancreatic Adenocarcinoma | S/P Whipple -Follows with [facility] Oncology, Dr. Raya -Most recent chemotherapy treatment two weeks prior, is due for next treatment this week -CT A/P shows large-volume abdominal ascites. Anasarca. Could consider paracentesis -Pain from cancer and arthritis managed with Tylenol Abnormal EKG -V5 lead in EKG in ED appearing like a. flutter, but only in this isolated lead -Repeat EKG ordered -Will continue to monitor patient on telemetry Hyponatremia -Sodium of 129 on admission -Patient receiving NSS maintenance fluids, will repeat metabolic panel in a.m. 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 Will continue home metoprolol with hold precautions Diet: Regular Admit to PCU/tele VTE Prophylaxis: Home Xarelto Code Status: Full History of Present Illness Primary Care Provider: MD Lala Montes is a 67 year-old female who presents today due to hypotension. She has a current diagnosis of metastatic pancreatic adenocarcinoma (follows with [facility] Oncology, Dr. Raya), hx of prior IVC thrombus, HTN. She presents with ongoing diarrhea and decreased PO intake for the past week, also has been taking care of her who had a knee replacement for the past week which has been physically draining for her. Checked her BP today and it was 70s/40s, denies dizziness/lightheadedness/chest pain/shortness of breath. Has been checking her temperature daily and has been afebrile. Notes 1 week of fatigue, diarrhea, and poor appetite, secondary to recent chemotherapy treatment (her notes that this was a "heavier" round of chemo that was started in March. Denies vomiting and denies any blood in her stool- notes she has a hemorrhoid that gets irritated with ongoing diarrhea but has not noticed that bleeding this week. Allergies Allergy/AdvReac Type Severity Reaction Status Date / Time atorvastatin AdvReac Intermediate Muscle Pain Verified 10/28/22 10:39 simvastatin AdvReac Intermediate Muscle Pain Verified 10/28/22 10:39 Home Medications Medication Instructions Recorded Confirmed Type acetaminophen 650 mg 0 mg PO BID PRN pain 12/29/21 05/15/23 History tablet,extended release (Arthritis Pain Relief (acetaminophen) ER) loratadine 10 mg tablet (Claritin) 10 mg PO DAILY PRN ONCE DOSE 07/14/22 05/15/23 History FOLLOWING CHEMO ondansetron HCl 8 mg tablet 8 mg PO Q8H PRN Nausea 07/14/22 05/15/23 History potassium chloride 10 mEq 10 meq PO BID 07/14/22 05/15/23 History capsule,extended release prochlorperazine maleate 10 mg 10 mg PO Q6H PRN Nausea 07/14/22 05/15/23 History tablet rivaroxaban 20 mg tablet (Xarelto) 20 mg PO QPM 07/14/22 05/15/23 History pravastatin 10 mg tablet 10 mg PO QPM #90 tabs 10/17/22 05/15/23 Rx oxycodone 5 mg capsule 5 mg PO HS PRN SLEEP/PAIN 10/28/22 05/15/23 History lorazepam 0.5 mg tablet (Ativan) 0.5 mg PO Q8H PRN Anxiety 10/31/22 05/15/23 History metoprolol succinate 25 mg 25 mg PO DAILY #90 tabs 10/31/22 05/15/23 Rx tablet,extended release 24 hr enalapril maleate 20 mg tablet 20 mg PO BID #180 tabs 03/03/23 05/15/23 Rx omeprazole 20 mg tablet,delayed 20 mg PO QAM #90 tabs 03/20/23 05/15/23 Rx release gabapentin 300 mg capsule 300 mg PO TID 05/15/23 05/15/23 History hyoscyamine sulfate 0.375 mg 0.375 mg PO BID 05/15/23 05/15/23 History tablet,extended release,12 hr midodrine 2.5 mg tablet 5 mg (2 x 2.5 mg) PO 05/17/23 Rx TID@0800,1200,1700 30 days #90 tabs Past Med/Surg History Medical History Pancreatic cancer PVCs (premature ventricular contractions) IVC thrombosis on Xarelto PAC (premature atrial contraction) PACs/PVCs -- Follows with [facility] Cardio Sepsis 01/2022 post-op fever, blood cultures grew s. aureus, concern for intraabdominal infection > abx infusions finished 02/17/22 History of COVID-19 12/19/21 (asymptomatic, [facility]) Tachycardia Irregular heart beat Irregular heart rate Obstructive hyperbilirubinemia Cholelithiasis Choledocholithiasis Acute pain of right knee Hypertension increased after Whipple procedure, now on enalapril total 30 mg daily, white coat hypertension Hyperplastic colon polyp HX-HAS BEEN REMOVED Hyperlipidemia Diverticulosis HX Cervical polyp Surgical History History of ERCP S 12/2021 History of cholecystectomy Whipple + cholecystectomy ([facility], 01/2022) H/O Whipple procedure Whipple + cholecystectomy ([facility], 01/28/2022) S/P PICC central line placement 02/2022 s/p removal History of breast biopsy multiple- all benign History of bilateral tubal ligation History of tonsillectomy and adenoidectomy History of colonoscopy History of breast surgery multiple breast cysts removed- all benign Hx of appendectomy Family History Mother Hypercholesterolemia Osteoarthritis Grandmother (Maternal) Coronary heart disease Myocardial infarction Osteoarthritis Grandfather (Maternal) Colon cancer Grandmother (Paternal) Ovarian cancer Father Hypercholesterolemia Stroke Other No family history of adverse response to anesthesia Prostate cancer Denies family history of Breast cancer Social History Smoking Status: Never smoker Second Hand Exposure: Yes (HX-FATHER SMOKED); Do You Dip or Chew Tobacco: No; Hx Alcohol Use: No Hx Substance Use: No Preferred Language: Kosovan Communication Ability: Effective Learning Strategist Required: No Beliefs That Will Affect Care: None marital status: Current Living Situation: Spouse current occupational status: retired Feels Safe at Home: Yes Childhood Exposure to Second-Hand Smoke: Yes Dental Care, Regularly: Yes Physical Activity Frequency: 5-6 Times per Week Seatbelt Use: always Sunscreen Use: Yes Assistive Devices: Cane and Walker Review of Systems Review of Systems: As per above Physical Exam Constitutional: + thin and + frail appearing; no acute d istress Eyes: + anicteric sclerae; no conjunctival abn ormality ENMT: Ears: no external ear abnormality Nose: no external nose abnormality Moist mucous membranes Respiratory: normal respiratory effort, lungs clear to auscultation Cardiovascular: Rate/Rhythm: regular rhythm and + tachycardic Heart Sounds: no murmur Extremities: no edema Gastrointestinal (Abdomen): Percussion/Palpation: abdomen soft; no guarding Abdomen with mlld distention, some discomfort to palpation or right upper and lower quadrants Musculoskeletal: Moves all limbs independently Skin: no rashes, warm and dry Psychiatric: A+Ox3, euthymic affect Results & Data Results & Data Vital Signs (Past 12 Hours) Vital Signs Temp Pulse Resp BP Pulse Ox O2 Del Method O2 Flow Rate 05/14/23 19:10 108 H 23 05/14/23 19:00 97/62 L 05/14/23 19:00 106 H 15 05/14/23 18:50 108 H 20 05/14/23 18:46 99/57 L 05/14/23 18:46 107 H 24 05/14/23 18:40 107 H 17 96 05/14/23 18:30 96/63 L 05/14/23 18:30 108 H 20 99 05/14/23 18:20 104 H 17 93 05/14/23 18:15 97/56 L 05/14/23 18:15 103 H 19 98 05/14/23 18:10 106 H 17 99 05/14/23 18:00 104 H 22 92 05/14/23 18:00 100/57 L 05/14/23 17:50 103 H 19 94 05/14/23 17:45 107 H 21 99 05/14/23 17:45 94/59 L 05/14/23 17:41 111 H 05/14/23 17:30 107 H 17 99 05/14/23 17:30 88/52 L 05/14/23 17:21 114 H 05/14/23 17:21 99 Room Air 0 05/14/23 17:20 108 H 16 100 05/14/23 17:16 112 H 18 100 05/14/23 17:16 77/39 L 05/14/23 17:10 115 H 24 100 05/14/23 17:09 113 H 24 93 05/14/23 16:48 36.2 C L 95 H 20 70/47 L 94 Room Air Supervising Physician Co-Signing Physician Notes Attending addendum: I have physically seen this patient, have supervised the medical residents activities, and agree with the H&P unless as otherwise noted. Assessment and Plan: Hypotension/hypovolemia- Admit to monitored bed Blood pressure upon arrival 70s/40s, with improvement to 100/2:57 liters saline bolus Hold enalapril Continue metoprolol succinate with hold parameters due to heart rate in the 120s Continue IV fluid rehydration Further improvement in blood pressure after 50 g of 25% albumin given Acute kidney injury- Creatinine 4.01 on admission, baseline 0.58 Primarily expected to be prerenal, she improved with IV fluids as noted above Hypovolemia and dehydration likely secondary to diarrheal episodes CT of the abdomen and Pelvis to rule out any underlying pathology Campylobacter jejuni diarrhea- Stool bio fire positive for Campylobacter Due to immunocompromise state, will place on azithromycin 5 mg daily for 7 to 10-day course Pancreatic adenocarcinoma/status post Whipple- Follows with [facility] oncology Dr. Raya CT abdomen/pelvis shows large volume abdominal ascites. Anasarca Should consider diagnostic/therapeutic paracentesis with albumin supplementation Resident Activity Tracking Resident Involvement: Resident Care Provided Care Provided: Adult [facility] Medicine
[2023-05-14 21:00] LABS: Appearance Urine Cloudy (Clear); Bilirubin Urine 1+ (Negative); Blood Urine Negative (Negative); Glucose Urine UA Negative (Negative); Ketones Urine Negative (Negative); Leukocyte Esterase Urine Negative (Negative); Nitrite Urine Negative (Negative); Protein Urine 1+ (Negative); Specific Gravity Urine >= 1.030 (1.000-1.030); Urobilinogen Urine Negative (Negative); pH Urine 5.5 (4.5-7.5)
[2023-05-14 21:12] LABS: Color Urine Dark Yellow
[2023-05-14 21:25] LABS: Epithelial Cell Urine >30 /lpf (0-5)
[2023-05-14 21:26] LABS: Bacteria Urine Negative (Negative); RBC Urine 0-4 /hpf (0-4); WBC Urine 0-5 /hpf (0-5)
--- NOTE | 2023-05-14 21:52 | CT Scan Report ---
Exam(s): CT ABDOMEN + PELVIS Without Contrast EXAM: CT Abdomen and Pelvis Without Intravenous Contrast CLINICAL HISTORY: Reason for exam: known pancreatic adenocarcinoma, abdominal swellin. TECHNIQUE: Axial computed tomography images of the abdomen and pelvis without intravenous contrast. CTDI is 24.5 mGy and DLP is 1295.29 mGy-cm. Automated exposure control was utilized for the study. A dose lowering technique was utilized adhering to the principles of ALARA. COMPARISON: No relevant prior studies available. FINDINGS: Lung bases: Unremarkable. No mass. No consolidation. ABDOMEN: Liver: Mild surface nodularity of the liver, core liver hepatic cirrhosis. Gallbladder and bile ducts: Cholecystectomy. No splenomegaly. No ductal dilation. Pancreas: Pancreatic duct stent. Surgical clips in the pancreas. History of adenocarcinoma of the pancreas. Correlate with surgical history. Evaluation is limited without contrast. Spleen: See above. Adrenals: Unremarkable. No mass. Kidneys and ureters: Unremarkable. No obstructing stones. No hydronephrosis. Stomach and bowel: Wall thickening of small bowel, correlate for enteritis. Diverticulosis, without acute diverticulitis. No bowel obstruction. No free air. PELVIS: Appendix: No findings to suggest acute appendicitis. Bladder: Unremarkable. No stones. Reproductive: Unremarkable as visualized. ABDOMEN and PELVIS: Intraperitoneal space: Large-volume abdominal ascites .Anasarca. Bones/joints: Degenerative changes of the spine. No acute fracture. No dislocation. Soft tissues: See above. Vasculature: Atherosclerotic changes of the aorta. No abdominal aortic aneurysm. Lymph nodes: Unremarkable. No enlarged lymph nodes. IMPRESSION: 1. Large-volume abdominal ascites. Anasarca. 2. Wall thickening of small bowel, correlate for enteritis. 3. Pancreatic duct stent. Surgical clips in the pancreas. History of adenocarcinoma of the pancreas. Correlate with surgical history. Evaluation is limited without contrast. 4. Mild surface nodularity of the liver, core liver hepatic cirrhosis. 5. Diverticulosis, without acute diverticulitis. No bowel obstruction. No free air. Electronically signed by: Jose Brown MD 05/14/23 21:50 PM
[2023-05-14 22:14] LABS: Adenovirus F 40/41 PCR Not Detected (NotDetected); Astrovirus PCR Not Detected (NotDetected); Cryptosporidium PCR Not Detected (NotDetected); Cyclospora cayetanensis PCR Not Detected (NotDetected); Entamoeba histolytica PCR Not Detected (NotDetected); Enteroaggregative E.coli(EAEC) Not Detected (NotDetected); Enteropathogenic E.coli (EPEC) Not Detected (NotDetected); Enterotoxigenic E.coli (ETEC) Not Detected (NotDetected); Giardia lamblia PCR Not Detected (NotDetected); Norovirus GI/GII PCR Not Detected (NotDetected); Plesiomonas shigelloides PCR Not Detected (NotDetected); Rotavirus A PCR Not Detected (NotDetected); Salmonella PCR Not Detected (NotDetected); Sapovirus PCR Not Detected (NotDetected); Shiga-like Toxin E.coli (STEC) Not Detected (NotDetected); Shigella/Enteroinvasive E.coli Not Detected (NotDetected); Vibrio cholerae PCR Not Detected (NotDetected); Vibrio species PCR Not Detected (NotDetected); Yersinia enterocolitica PCR Not Detected (NotDetected)
[2023-05-14] MEDS ORDERED: PROCHLORPERAZINE MALEATE 10 MG TAB PO PRN (22:24)
[2023-05-14] MEDS ORDERED: ACETAMINOPHEN 325 MG TAB PO PRN (22:24)
[2023-05-14] MEDS ORDERED: RIVAROXABAN 20 MG TAB PO SCH (22:24)
[2023-05-14 22:34] LABS: Campylobacter PCR DETECTED (NotDetected)
[2023-05-14] MEDS ORDERED: AZITHROMYCIN 250 MG TAB PO ONE (23:05)
[2023-05-14] MEDS: PRAVASTATIN SOD 10 MG TAB PO SCH (23:46)
[2023-05-15] MEDS: ALBUMIN 25% 25 GM/100 ML VIAL IV SCH ×2 (00:07→01:19)
--- NOTE | 2023-05-15 00:59 | Emergency Department Note ---
Impression & Plan RONALD (acute kidney injury), Pancreatic carcinoma metastatic to liver, Campylobacter diarrhea ED Provider Note CHIEF COMPLAINT: Diarrhea, weakness HISTORY OF PRESENT ILLNESS: This 67-year-old female patient with past medical history of metastatic prostate cancer with lesions in the liver presents to the emergency department with complaints of significant diarrhea over the last 2 weeks. The patient has been attempting to control the diarrhea with [id number] agents. Tonight the patient took her blood pressure and it was noted to be in the 70s systolic. She contacted her oncologist who referred her to the emergency department. Patient denies any blood in the stools. She has been able to drink fluids, but has not been eating or drinking much. She denies any fevers. REVIEW OF SYSTEMS: A review of systems was performed with positives and pertinent negatives listed in the history of present illness. 10 systems were reviewed and are otherwise negative. ALLERGIES: see below MEDICATIONS: see below PMH: see below SOCIAL HISTORY: see below DDx: Infectious diarrhea, chemotherapy related diarrhea, electrolyte abnormality, acute kidney injury among others PHYSICAL EXAM: Vital signs reviewed. General: Chronically ill-appearing 67-year-old female, no significant distress HEENT: No scleral icterus, PERRLA, neck supple. Moist mucous membranes Cardiovascular: Regular rate and rhythm, no extra sounds. Pulmonary: Clear to auscultation bilaterally, normal work of breathing. Abdomen: Soft, mild generalized tenderness, no rebound or guarding, nondistended, positive bowel sounds. Musculoskeletal: Atraumatic, no peripheral edema. Neurologic: Patient awake alert and oriented x 3, speech is clear Skin: Warm, dry, no rash EMERGENCY DEPARTMENT COURSE/MDM: This patient was evaluated and appeared to be in no significant distress. IV access was obtained and laboratory work was drawn. The patient was placed on the awake overnight monitor noted to be in a sinus tachycardia. IV fluids were initiated. Patient's laboratory work reveals an acute kidney injury with a creatinine of 4 with a baseline of 0.58. Patient's blood pressure improved significantly after just 1 L of IV normal saline solution, fluids were continued. Stool sample was obtained and the patient is positive for Campylobacter. Patient's case was discussed with the hospitalist service who has agreed to evaluate the patient for admission and further management. Patient and her are aware of the plan and agreed. MONITORING: An order for cardiac monitoring was placed and the patient is noted to be in a sinus tachycardia at 104 beats per minute. EKG: To my interpretation reveals a sinus tachycardia at 112 bpm. Nonspecific T wave flattening, QTc is prolonged at 526. No PVC, no PAC. When compared to previous dated March 17, 2022, QTc has lengthened and T wave flattening laterally is new. 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 [place] 01/2022 post-op fever, blood cultures grew s. aureus, concern for intraabdominal infection > abx infusions finished 02/17/22 History of COVID-19 12/19/21 (asymptomatic, [facility]) Tachycardia Irregular heart beat Irregular heart rate Obstructive hyperbilirubinemia Cholelithiasis Choledocholithiasis Acute pain of right knee Hypertension increased after Whipple procedure, now on enalapril total 30 mg daily, white coat hypertension Hyperplastic colon polyp HX-HAS BEEN REMOVED Hyperlipidemia Diverticulosis HX Cervical polyp Surgical History History of ERCP S 12/2021 History of cholecystectomy Whipple + cholecystectomy ([facility], 01/2022) H/O Whipple procedure Whipple + cholecystectomy ([facility], 01/28/2022) S/P PICC central line placement 02/2022 s/p removal History of breast biopsy multiple- all benign History of bilateral tubal ligation History of tonsillectomy and adenoidectomy History of colonoscopy History of breast surgery multiple breast cysts removed- all benign Hx of appendectomy Family History Mother Hypercholesterolemia Osteoarthritis Grandmother (Maternal) Coronary heart disease Myocardial infarction Osteoarthritis Grandfather (Maternal) Colon cancer Grandmother (Paternal) Ovarian cancer Father Hypercholesterolemia Stroke Other No family history of adverse response to anesthesia Prostate cancer Denies family history of Breast cancer Social History Smoking Status: Never smoker Second Hand Exposure: Yes (HX-FATHER SMOKED); Do You Dip or Chew Tobacco: No; Hx Alcohol Use: No Hx Substance Use: No Preferred Language: Barbadian Communication Ability: Effective 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 Beliefs That Will Affect Care: None marital status: Current Living Situation: Spouse current occupational status: retired Feels Safe at Home: Yes Childhood Exposure to Second-Hand Smoke: Yes Dental Care, Regularly: Yes Physical Activity Frequency: 5-6 Times per Week Seatbelt Use: always Sunscreen Use: Yes Assistive Devices: Cane and Walker Allergies Allergies Allergy/AdvReac Type Severity Reaction Status Date / Time atorvastatin AdvReac Intermediate Muscle Pain Verified 10/28/22 10:39 simvastatin AdvReac Intermediate Muscle Pain Verified 10/28/22 10:39 Home Meds Home Medications Medication Instructions Recorded Confirmed acetaminophen 650 mg 0 mg PO BID PRN pain 12/29/21 05/18/23 tablet,extended release (Arthritis Pain Relief (acetaminophen) ER) loratadine 10 mg tablet (Claritin) 10 mg PO DAILY PRN ONCE DOSE 07/14/22 05/18/23 FOLLOWING CHEMO potassium chloride 10 mEq 10 meq PO BID 07/14/22 05/18/23 capsule,extended release prochlorperazine maleate 10 mg 10 mg PO Q6H PRN Nausea 07/14/22 05/18/23 tablet rivaroxaban 20 mg tablet (Xarelto) 20 mg PO QPM 07/14/22 05/18/23 oxycodone 5 mg capsule 5 mg PO HS PRN SLEEP/PAIN 10/28/22 05/18/23 gabapentin 300 mg capsule 300 mg PO TID 05/15/23 05/18/23 hyoscyamine sulfate 0.375 mg 0.375 mg PO BID 05/15/23 05/18/23 tablet,extended release,12 hr lorazepam 0.5 mg tablet (Ativan) 0.5 mg PO Q8H PRN Anxiety 05/18/23 05/18/23 ondansetron HCl 8 mg tablet 8 mg PO Q8H PRN Nausea 05/18/23 05/18/23 Previous Rx's Medication Instructions Recorded pravastatin 10 mg tablet 10 mg PO QPM #90 tabs 10/17/22 metoprolol succinate 25 mg 25 mg PO DAILY #90 tabs 10/31/22 tablet,extended release 24 hr enalapril maleate 20 mg tablet 20 mg PO BID #180 tabs 03/03/23 omeprazole 20 mg tablet,delayed 20 mg PO QAM #90 tabs 03/20/23 release midodrine 2.5 mg tablet 5 mg (2 x 2.5 mg) PO 05/17/23 TID@0800,1200,1700 30 days #90 tabs Results & Data (ED) Vital Signs Vital Signs - 24 hr 05/14/23 16:48 05/14/23 17:09 05/14/23 17:10 Temperature 36.2 C L Temperature Source Temporal Artery Scan Pulse Rate 95 H 113 H 115 H Pulse Rate from SpO2 Sensor 112 H 113 H Respiratory Rate 20 24 24 Respiratory Effort / Characteristics Non-Labored Spontaneous Respiratory Depth Normal Respiratory Pattern Regular Blood Pressure 70/47 L Blood Pressure Mean 54 Pulse Oximetry 94 93 100 Oxygen Delivery Method Room Air Oxygen Flow Rate Sepsis Recent Fever Within 48 Hours No Sepsis New/Unexplained Change in Mental Status N/A Sepsis Action Taken by Nursing No Action Required 05/14/23 17:16 05/14/23 17:16 05/14/23 17:20 Temperature Temperature Source Pulse Rate 112 H 108 H Pulse Rate from SpO2 Sensor 113 H 107 H Respiratory Rate 18 16 Respiratory Effort / Characteristics Respiratory Depth Respiratory Pattern Blood Pressure 77/39 L Blood Pressure Mean 60 Pulse Oximetry 100 100 Oxygen Delivery Method Oxygen Flow Rate Sepsis Recent Fever Within 48 Hours Sepsis New/Unexplained Change in Mental Status Sepsis Action Taken by Nursing 05/14/23 17:21 05/14/23 17:21 05/14/23 17:30 Temperature Temperature Source Pulse Rate 114 H Pulse Rate from SpO2 Sensor Respiratory Rate Respiratory Effort / Characteristics Respiratory Depth Respiratory Pattern Blood Pressure 88/52 L Blood Pressure Mean 63 Pulse Oximetry 99 Oxygen Delivery Method Room Air Oxygen Flow Rate 0 Sepsis Recent Fever Within 48 Hours Sepsis New/Unexplained Change in Mental Status Sepsis Action Taken by Nursing 05/14/23 17:30 05/14/23 17:41 05/14/23 17:45 Temperature Temperature Source Pulse Rate 107 H 111 H Pulse Rate from SpO2 Sensor 107 H Respiratory Rate 17 Respiratory Effort / Characteristics Respiratory Depth Respiratory Pattern Blood Pressure 94/59 L Blood Pressure Mean 76 Pulse Oximetry 99 Oxygen Delivery Method Oxygen Flow Rate Sepsis Recent Fever Within 48 Hours Sepsis New/Unexplained Change in Mental Status Sepsis Action Taken by Nursing 05/14/23 17:45 05/14/23 17:50 05/14/23 18:00 Temperature Temperature Source Pulse Rate 107 H 103 H Pulse Rate from SpO2 Sensor 106 H 103 H Respiratory Rate 21 19 Respiratory Effort / Characteristics Respiratory Depth Respiratory Pattern Blood Pressure 100/57 L Blood Pressure Mean 67 Pulse Oximetry 99 94 Oxygen Delivery Method Oxygen Flow Rate Sepsis Recent Fever Within 48 Hours Sepsis New/Unexplained Change in Mental Status Sepsis Action Taken by Nursing 05/14/23 18:00 05/14/23 18:10 05/14/23 18:15 Temperature Temperature Source Pulse Rate 104 H 106 H 103 H Pulse Rate from SpO2 Sensor 106 H 108 H 102 H Respiratory Rate 22 17 19 Respiratory Effort / Characteristics Respiratory Depth Respiratory Pattern Blood Pressure Blood Pressure Mean Pulse Oximetry 92 99 98 Oxygen Delivery Method Oxygen Flow Rate Sepsis Recent Fever Within 48 Hours Sepsis New/Unexplained Change in Mental Status Sepsis Action Taken by Nursing 05/14/23 18:15 05/14/23 18:20 05/14/23 18:30 Temperature Temperature Source Pulse Rate 104 H 108 H Pulse Rate from SpO2 Sensor 105 H 108 H Respiratory Rate 17 20 Respiratory Effort / Characteristics Respiratory Depth Respiratory Pattern Blood Pressure 97/56 L Blood Pressure Mean 68 Pulse Oximetry 93 99 Oxygen Delivery Method Oxygen Flow Rate Sepsis Recent Fever Within 48 Hours Sepsis New/Unexplained Change in Mental Status Sepsis Action Taken by Nursing 05/14/23 18:30 05/14/23 18:40 05/14/23 18:46 Temperature Temperature Source Pulse Rate 107 H 107 H Pulse Rate from SpO2 Sensor 107 H Respiratory Rate 17 24 Respiratory Effort / Characteristics Respiratory Depth Respiratory Pattern Blood Pressure 96/63 L Blood Pressure Mean 69 Pulse Oximetry 96 Oxygen Delivery Method Oxygen Flow Rate Sepsis Recent Fever Within 48 Hours Sepsis New/Unexplained Change in Mental Status Sepsis Action Taken by Nursing 05/14/23 18:46 05/14/23 18:50 05/14/23 19:00 Temperature Temperature Source Pulse Rate 108 H 106 H Pulse Rate from SpO2 Sensor Respiratory Rate 20 15 Respiratory Effort / Characteristics Respiratory Depth Respiratory Pattern Blood Pressure 99/57 L Blood Pressure Mean 78 Pulse Oximetry Oxygen Delivery Method Oxygen Flow Rate Sepsis Recent Fever Within 48 Hours Sepsis New/Unexplained Change in Mental Status Sepsis Action Taken by Nursing 05/14/23 19:00 05/14/23 19:10 05/14/23 19:15 Temperature Temperature Source Pulse Rate 108 H 115 H Pulse Rate from SpO2 Sensor 112 H Respiratory Rate 23 16 Respiratory Effort / Characteristics Respiratory Depth Respiratory Pattern Blood Pressure 97/62 L Blood Pressure Mean 79 Pulse Oximetry 97 Oxygen Delivery Method Oxygen Flow Rate Sepsis Recent Fever Within 48 Hours Sepsis New/Unexplained Change in Mental Status Sepsis Action Taken by Nursing 05/14/23 19:15 05/14/23 19:20 05/14/23 19:30 Temperature Temperature Source Pulse Rate 111 H 112 H Pulse Rate from SpO2 Sensor 112 H 111 H Respiratory Rate 20 17 Respiratory Effort / Characteristics Respiratory Depth Respiratory Pattern Blood Pressure 109/62 Blood Pressure Mean 70 Pulse Oximetry 95 94 Oxygen Delivery Method Oxygen Flow Rate Sepsis Recent Fever Within 48 Hours Sepsis New/Unexplained Change in Mental Status Sepsis Action Taken by Nursing 05/14/23 19:30 05/14/23 19:40 05/14/23 19:45 Temperature Temperature Source Pulse Rate 114 H Pulse Rate from SpO2 Sensor 114 H Respiratory Rate 18 Respiratory Effort / Characteristics Respiratory Depth Respiratory Pattern Blood Pressure 98/61 L 92/58 L Blood Pressure Mean 70 71 Pulse Oximetry 95 Oxygen Delivery Method Oxygen Flow Rate Sepsis Recent Fever Within 48 Hours Sepsis New/Unexplained Change in Mental Status Sepsis Action Taken by Nursing 05/14/23 19:45 05/14/23 19:50 05/14/23 20:00 Temperature Temperature Source Pulse Rate 114 H 115 H 115 H Pulse Rate from SpO2 Sensor 114 H 115 H 114 H Respiratory Rate 18 20 Respiratory Effort / Characteristics Respiratory Depth Respiratory Pattern Blood Pressure Blood Pressure Mean Pulse Oximetry 95 94 96 Oxygen Delivery Method Oxygen Flow Rate Sepsis Recent Fever Within 48 Hours Sepsis New/Unexplained Change in Mental Status Sepsis Action Taken by Nursing 05/14/23 20:00 05/14/23 20:10 05/14/23 20:15 Temperature Temperature Source Pulse Rate 119 H Pulse Rate from SpO2 Sensor 119 H Respiratory Rate 19 Respiratory Effort / Characteristics Respiratory Depth Respiratory Pattern Blood Pressure 106/61 93/70 L Blood Pressure Mean 73 77 Pulse Oximetry 97 Oxygen Delivery Method Oxygen Flow Rate Sepsis Recent Fever Within 48 Hours Sepsis New/Unexplained Change in Mental Status Sepsis Action Taken by Nursing 05/14/23 20:15 05/14/23 20:20 05/14/23 20:30 Temperature Temperature Source Pulse Rate 118 H 119 H 121 H Pulse Rate from SpO2 Sensor 118 H 119 H 121 H Respiratory Rate 20 Respiratory Effort / Characteristics Respiratory Depth Respiratory Pattern Blood Pressure Blood Pressure Mean Pulse Oximetry 96 96 97 Oxygen Delivery Method Oxygen Flow Rate Sepsis Recent Fever Within 48 Hours Sepsis New/Unexplained Change in Mental Status Sepsis Action Taken by Nursing 05/14/23 20:30 05/14/23 20:44 05/14/23 20:50 Temperature Temperature Source Pulse Rate 135 H 123 H Pulse Rate from SpO2 Sensor 123 H Respiratory Rate 16 20 Respiratory Effort / Characteristics Respiratory Depth Respiratory Pattern Blood Pressure 100/57 L Blood Pressure Mean 66 Pulse Oximetry 95 Oxygen Delivery Method Oxygen Flow Rate Sepsis Recent Fever Within 48 Hours Sepsis New/Unexplained Change in Mental Status Sepsis Action Taken by [facility]sp Medications Current Medication List: was personally reviewed by me Laboratory Data Attestation: I reviewed the patient's lab results. 05/17/23 06:37 05/17/23 06:37 Lab Results 05/14/23 05/14/23 05/14/23 Range/Units 17:18 18:05 20:45 WBC 9.28 (4.8-10.8) K/ul RBC 3.55 L (4.20-5.40) M/uL Hgb 9.3 L (12.0-16.0) g/dl Hct 30.3 L (37.0-47.0) % MCV 85.4 (80.0-100.0) fL MCH 26.2 (25.0-34.0) pg MCHC 30.7 L (32.0-36.0) g/dL RDW Std Deviation 59.7 H (36.4-46.3) fL RDW Coeff of Frederic 20.3 H (11.5-14.5) % Plt Count 475 H (130-400) K/uL MPV 10.8 (9.4-12.4) fL Immature Gran % (Auto) 1.1 % Neut % (Auto) 69.0 % Lymph % (Auto) 18.0 % Bath % (Auto) 9.5 % Eos % (Auto) 1.8 % Baso % (Auto) 0.6 % Neut # (Auto) 6.40 (1.40-6.50) K/uL Lymph # (Auto) 1.67 (1.20-3.40) K/uL Bath # (Auto) 0.88 H (0.11-0.59) K/uL Eos # (Auto) 0.17 (0.00-0.50) K/uL Baso # (Auto) 0.06 (0.00-0.20) K/uL Immature Gran # (Auto) 0.10 (0.01-0.20) K/uL Toxic Granulation 1+ Polychromasia 1+ Anisocytosis Present Tear Drop Cells 1+ Echinocytes 2+ Sodium 129 L (136-145) mmol/L Potassium 4.8 (3.5-5.1) mmol/L Chloride 102 (98-107) mmol/L Carbon Dioxide 17 L (21-32) mmol/L Anion Gap 10 (3-11) BUN 37 H (6-23) mg/dl Creatinine 4.01 H (0.6-1.2) mg/dl Est Cr Clr Drug Dosing 13.1 ml/min Est GFR ( Amer) 12.6 ml/min Est GFR (Non-Af Amer) 10.9 ml/min BUN/Creatinine Ratio 9.2 L (10-20) Glucose 101 H (70-99(Fasting)) mg/dl Lactate 1.4 (0.4-2.0) mmol/L Calcium 7.8 L (8.6-10.3) mg/dl Total Bilirubin 0.5 (0.2-1.0) mg/dl AST 15 (13-39) U/L ALT 6 L (7-52) U/L Alkaline Phosphatase 224 H (34-104) U/L Total Protein 4.8 L (6.0-8.3) gm/dl Albumin 2.6 L (3.4-5.0) gm/dl Globulin 2.2 L (2.5-4.0) gm/dl Albumin/Globulin Ratio 1.2 (0.9-2) Lipase 13 (11-82) U/L Procalcitonin 1.05 H (0-0.5) ng/ml Urine Color Dark Yellow Urine Appearance Cloudy A (Clear) Urine pH 5.5 (4.5-7.5) Ur Specific [place] >= 1.030 (1.000-1.030) Urine Protein 1+ H (Negative) Urine Glucose (UA) Negative (Negative) Urine Ketones Negative (Negative) Urine Blood Negative (Negative) Urine Nitrite Negative (Negative) Urine Bilirubin 1+ H (Negative) Urine Urobilinogen Negative (Negative) Ur Leukocyte Esterase Negative (Negative) Urine RBC 0-4 (0-4) /hpf Urine WBC 0-5 (0-5) /hpf Ur Epithelial Cells >30 H (0-5) /lpf Urine Bacteria Negative (Negative) Hyaline Casts 10-30 H (0-5) /lpf Stl C. cayetanensis PCR Not Detected (NotDetected) Stool Rotavirus A PCR Not Detected (NotDetected) Stl Adenov F 40/41 PCR Not Detected (NotDetected) Stool Astrovirus (PCR) Not Detected (NotDetected) Stool Campylobacter PCR DETECTED A* (NotDetected) Stl C. diff Tox B Gene Negative Cdiff Gene (Neg) Stool Cryptosporidium PCR Not Detected (NotDetected) Stl E.coli Shiga Tox PCR Not Detected (NotDetected) Stl Enterotoxigenic E PCR Not Detected (NotDetected) Stool EPEC (PCR) Not Detected (NotDetected) Stool EAEC (PCR) Not Detected (NotDetected) Stl E. histolytica PCR Not Detected (NotDetected) Stool Giardia Lamblia PCR Not Detected (NotDetected) Stool Salmonella PCR Not Detected (NotDetected) Stool Sapovirus (PCR) Not Detected (NotDetected) Stl P. shigelloides PCR Not Detected (NotDetected) Stl Shigella/EIEC PCR Not Detected (NotDetected) St Y.enterocolitica PCR Not Detected (NotDetected) Stool Vibrio (PCR) Not Detected (NotDetected) Stl Vibrio cholerae PCR Not Detected (NotDetected) Stl Norovirus GI/GII PCR Not Detected (NotDetected) Administered Medications Discontinued Medications Azithromycin (Azithromycin 250 Mg Tab) 500 mg PO NOW ONE Stop: 05/14/23 23:06 Last Admin: 05/14/23 23:45 Dose: 500 mg Documented By: JESSE Azithromycin (Azithromycin 250 Mg Tab) [facility] [place]: 05/25/23 08:59 Last Admin: 05/17/23 09:19 Dose: 500 mg Documented By: Admin: 05/16/23 09:16 Dose: 500 mg Documented By: Admin: 05/15/23 09:26 Dose: 500 mg Documented By: MTRupert Sodium Chloride (Nss) 1,000 mls @ 999 mls/hr IV .Q1H1M [facility] Stop: 05/14/23 19:45 Last Infusion: 05/14/23 19:32 Dose: Infused Documented By: BCWhitney Admin: 05/14/23 18:36 Dose: 999 mls/hr Documented By: Infusion: 05/14/23 18:35 Dose: Infused Documented By: Admin: 05/14/23 17:46 Dose: 999 mls/hr Documented By: ALEX Sodium Chloride (Nss) 1,000 mls @ 150 mls/hr IV .Q6H40M OFE Stop: 06/13/23 20:14 Last Admin: 05/15/23 07:42 Dose: Not Given Documented By: Infusion: 05/15/23 04:27 Dose: Infused Documented By: Admin: 05/14/23 20:45 Dose: 150 mls/hr Documented By: ALEX Albumin Human (Albumin 25%) 25 gm in 100 mls @ 50 mls/hr IV Q2H OFE Stop: 05/15/23 03:29 Last Infusion: 05/15/23 05:57 Dose: Infused Documented By: Admin: 05/15/23 01:19 Dose: 50 mls/hr Documented By: Infusion: 05/15/23 01:19 Dose: Infused Documented By: Admin: 05/15/23 00:07 Dose: 50 mls/hr Documented By: JESSE Lactated Ringer's (Lr) 1,000 mls @ 100 mls/hr IV .Q10H OFE Stop: 06/14/23 05:59 Last Infusion: 05/15/23 14:17 Dose: Infused Documented By: Admin: 05/15/23 06:13 Dose: 100 mls/hr Documented By: JESSE Albumin Human (Albumin 25%) 25 gm in 100 mls @ 50 mls/hr IV Q2H OFE Stop: 05/16/23 20:29 Last Infusion: 05/16/23 20:39 Dose: Infused Documented By: LUIS ARMANDO Admin: 05/16/23 18:39 Dose: 50 mls/hr Documented By: Infusion: 05/16/23 18:39 Dose: Infused Documented By: Admin: 05/16/23 16:39 Dose: 50 mls/hr Documented By: VINNIE Lorazepam (Lorazepam 0.5 Mg Tab) 0.5 mg PO BID PRN PRN Reason: Anxiety Stop: 06/13/23 22:23 Last Admin: 05/16/23 20:07 Dose: 0.5 mg Documented By: LUIS ARMANDO Admin: 05/15/23 22:19 Dose: 0.5 mg Documented By: LUIS ARMANDO Metoprolol Succinate (Metoprolol Succ 50mg Ext Rel Tab) 50 mg PO DAILY OFE Stop: 06/14/23 08:59 Last Admin: 05/17/23 09:19 Dose: 50 mg Documented By: Admin: 05/16/23 09:17 Dose: 50 mg Documented By: Admin: 05/15/23 09:30 Dose: 50 mg Documented By: VINNIE Midodrine (Midodrine Hcl 2.5 Mg Tab) 2.5 mg PO TID@0800,1200,1700 OFE Stop: 06/14/23 11:59 Last Admin: 05/16/23 11:52 Dose: 2.5 mg Documented By: Admin: 05/16/23 09:16 Dose: 2.5 mg Documented By: Admin: 05/15/23 16:26 Dose: 2.5 mg Documented By: Admin: 05/15/23 12:22 Dose: 2.5 mg Documented By: VINNIE Midodrine (Midodrine Hcl 2.5 Mg Tab) 5 mg PO TID@0800,1200,1700 OFE Stop: 06/15/23 16:59 Last Admin: 05/17/23 12:13 Dose: 5 mg Documented By: Admin: 05/17/23 09:19 Dose: 5 mg Documented By: Admin: 05/16/23 16:08 Dose: 5 mg Documented By: FUNMILAYO Pantoprazole Sodium (Pantoprazole 40 Mg Tab) 40 mg PO QAM OFE Stop: 06/14/23 08:59 Last Admin: 05/17/23 09:19 Dose: 40 mg Documented By: Admin: 05/16/23 09:17 Dose: 40 mg Documented By: Admin: 05/15/23 09:26 Dose: 40 mg Documented By: VINNIE Pravastatin Sodium (Pravastatin Sod 10 Mg Tab) 10 mg PO QPM OFE Stop: 06/13/23 22:23 Last Admin: 05/16/23 20:07 Dose: 10 mg Documented By: LUIS ARMANDO Admin: 05/15/23 20:07 Dose: 10 mg Documented By: LUIS ARMANDO Admin: 05/14/23 23:46 Dose: 10 mg Documented By: B Imaging Data Radiologist's Impression: Abdomen/Pelvis CT 05/14/23 20:32 Exam(s): CT ABDOMEN + PELVIS Without Contrast EXAM: CT Abdomen and Pelvis Without Intravenous Contrast CLINICAL HISTORY: Reason for exam: known pancreatic adenocarcinoma, abdominal swellin. TECHNIQUE: Axial computed tomography images of the abdomen and pelvis without intravenous contrast. CTDI is 24.5 mGy and DLP is 1295.29 mGy-cm. Automated exposure control was utilized for the study. A dose lowering technique was utilized adhering to the principles of ALARA. COMPARISON: No relevant prior studies available. FINDINGS: Lung bases: Unremarkable. No mass. No consolidation. ABDOMEN: Liver: Mild surface nodularity of the liver, core liver hepatic cirrhosis. Gallbladder and bile ducts: Cholecystectomy. No splenomegaly. No ductal dilation. Pancreas: Pancreatic duct stent. Surgical clips in the pancreas. History of adenocarcinoma of the pancreas. Correlate with surgical history. Evaluation is limited without contrast. Spleen: See above. Adrenals: Unremarkable. No mass. Kidneys and ureters: Unremarkable. No obstructing stones. No hydronephrosis. Stomach and bowel: Wall thickening of small bowel, correlate for enteritis. Diverticulosis, without acute diverticulitis. No bowel obstruction. No free air. PELVIS: Appendix: No findings to suggest acute appendicitis. Bladder: Unremarkable. No stones. Reproductive: Unremarkable as visualized. ABDOMEN and PELVIS: Intraperitoneal space: Large-volume abdominal ascites .Anasarca. Bones/joints: Degenerative changes of the spine. No acute fracture. No dislocation. Soft tissues: See above. Vasculature: Atherosclerotic changes of the aorta. No abdominal aortic aneurysm. Lymph nodes: Unremarkable. No enlarged lymph nodes. IMPRESSION: 1. Large-volume abdominal ascites. Anasarca. 2. Wall thickening of small bowel, correlate for enteritis. 3. Pancreatic duct stent. Surgical clips in the pancreas. History of adenocarcinoma of the pancreas. Correlate with surgical history. Evaluation is limited without contrast. 4. Mild surface nodularity of the liver, core liver hepatic cirrhosis. 5. Diverticulosis, without acute diverticulitis. No bowel obstruction. No free air. Electronically signed by: Jose Brown MD 05/14/23 21:50 PM Discharge Plan Visit Data Chief Complaint: Hypotension Stated Complaint: REF BY DOC, HYPOTENSION ED Provider: Bonita Morocho Discharge Problem: RONALD (acute kidney injury), Pancreatic carcinoma metastatic to liver, Campylobacter diarrhea Patient Disposition: Admitted As Inpatient Discharge Instructions Interventions: ED Discharge Assessment Last Done: 05/14/23 21:49
[2023-05-15] MEDS ORDERED: LACTATED RINGER'S 1,000 ML IV SCH (06:00)
[2023-05-15 07:03] LABS: Basophils # (auto) 0.02 K/uL (0.00-0.20); Basophils % (auto) 0.3 %; Eosinophils # (auto) 0.06 K/uL (0.00-0.50); Eosinophils % (auto) 0.9 %; Hematocrit (blood only) 25.8 % (37.0-47.0); Immature Granulocytes # (auto) 0.06 K/uL (0.01-0.20); Immature Granulocytes % (auto) 0.9 %; Lymphocytes # (auto) 1.13 K/uL (1.20-3.40); Lymphocytes % (auto) 17.3 %; Mean Corpuscular Hemoglobin 26.8 pg (25.0-34.0); Mean Corpuscular Volume 86.3 fL (80.0-100.0); Mean Platelet Volume 10.6 fL (9.4-12.4); Monocytes # (auto) 0.76 K/uL (0.11-0.59); Monocytes % (auto) 11.6 %; Neutrophils # (auto) 4.51 K/uL (1.40-6.50); Platelet Count 293 K/uL (130-400); RDW Coefficient of Variation 20.2 % (11.5-14.5); RDW Standard Deviation 61.3 fL (36.4-46.3); Red Blood Count 2.99 M/uL (4.20-5.40); White Blood Count 6.54 K/ul (4.8-10.8)
[2023-05-15 07:17] LABS: Albumin Globulin Ratio 1.7 (0.9-2); Albumin Level 2.9 gm/dl (3.4-5.0); BUN Creatinine Ratio 11.9 (10-20); Bilirubin,Total 0.6 mg/dl (0.2-1.0); Calcium 7.9 mg/dl (8.6-10.3); Est GFR (African American) 18.3 ml/min; Est GFR (Non-African American) 15.8 ml/min; Globulin 1.7 gm/dl (2.5-4.0); Potassium 4.7 mmol/L (3.5-5.1); Total Protein 4.6 gm/dl (6.0-8.3)
[2023-05-15] MEDS: SODIUM CHLORIDE 0.9% 1,000 ML IV SCH (07:42)
[2023-05-15 07:47] LABS: Anisocytosis Present; Echinocytes 1+; Ovalocytes 1+; Tear Drop Cells 1+
[2023-05-15] MEDS ORDERED: METOPROLOL SUCC 25MG EXT REL TAB PO SCH (09:00)
[2023-05-15] MEDS: PANTOprazole 40 MG TAB PO SCH (09:26)
[2023-05-15] MEDS: AZITHROMYCIN 250 MG TAB PO SCH (09:26)
[2023-05-15] MEDS: METOPROLOL SUCC 50MG EXT REL TAB PO SCH (09:30)
--- NOTE | 2023-05-15 09:41 | Electrocardiogram Report ---
Test Reason : Blood Pressure : / mmHG Vent. Rate : 112 BPM Atrial Rate : 112 BPM P-R Int : 118 ms QRS Dur : 080 ms QT Int : 386 ms P-R-T Axes : 064 076 067 degrees QTc Int : 526 ms Sinus tachycardia Nonspecific T wave abnormality Prolonged QT Abnormal ECG When compared with ECG of 17-MAR-2022 11:05, Aberrant conduction is no longer Present Nonspecific T wave abnormality now evident in Lateral leads Confirmed by Red Qureshi ([id number]) on 05/15/2023 9:40:44 AM Referred By: Shavon Wright Confirmed By:Red Qureshi
[2023-05-15] MEDS: MIDODRINE HCL 2.5 MG TAB PO SCH ×2 (12:22→16:26)
[2023-05-15] MEDS ORDERED: Nursing to Pharmacy Communication SCH (12:45)
--- NOTE | 2023-05-15 14:19 | Hospitalist Progress Note ---
"Date of Service May 15, 2023 Assessment & Plan (1) Hypotension: Plan: Hypotension -Now resolved -BP in 70s/40s on arrival, suspect due to hypovolemia, possibly due to Campylobacter diarrhea -She received IV fluids, albumin -Currently blood pressure 114/75 -Continue azithromycin which was started at home for the Campylobacter (2) Pancreatic adenocarcinoma: Plan: Metastatic Pancreatic Adenocarcinoma | S/P Whipple -Follows with [facility], Dr. Raya -Most recent chemotherapy treatment two weeks prior, is due for next treatment this week -CT A/P shows large-volume abdominal ascites. Anasarca. Could consider paracentesis -Pain from cancer and arthritis managed with Tylenol (3) Acute kidney injury: Plan: Acute Kidney Injury -Cr 4.01 on admission. Some improvement following IV fluids, creatinine is currently 2.90 -Suspect pre-renal etiology due to poor PO intake and frequent diarrhea secondary to chemotherapy -CT A/P ordered -Repeat metabolic panel in a.m. 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 Plan Hopefully discharge in next 24 to 48 hours Admission and Anticipated Discharge Date Admission Date: May 14, 2023 Subjective Patient seen and examined, still complains of distended abdomen, open for paracentesis procedure Review of Systems Review of Systems: All systems reviewed are negative, apart from the ones contained in the history. Physical Exam Physical Exam: The patient is awake, alert and oriented 3, well developed and well nourished, normocephalic and atraumatic, lying in bed and in no acute distress. HEENT--PERRL, EOMI, mucous membranes and oropharynx mildly dry Neck--supple. No JVD. No bruits. Thyroid normal, trachea midline, no adenopathy. Heart--normal S1 and S2. No murmurs, rubs or gallops. Lungs--clear bilaterally, no respiratory distress, no accessory muscle use. Abdomen--distended Extremities--no cyanosis or clubbing. No edema. Dermatologic--normal skin turgor, normal color, no abnormal lymph nodes, no rash. Neurologic--cranial nerves II through XII grossly intact. Rheumatologic--normal range of motion. Psychiatric--normal affect. Results & Data Results & Data Vital Signs (Past 12 Hours) Vital Signs Temp Pulse Pulse Resp BP Pulse Ox O2 Del Method 05/15/23 11:51 97.9 F 101 H 18 114/75 98 Room Air 05/15/23 09:21 97.9 F 123 H 18 113/73 Room Air 05/15/23 07:41 97.9 F 122 H 16 92/44 L 95 Room Air 05/15/23 03:27 98.8 F 121 H 19 95/52 L 91 Room Air PG Care Time/CCT Total # of Minutes Spent Total Time Spent with Patient: Total time spent is greater than 50% in coordination of care (as documented) at patient's floor/unit and/or counseling patient: Coding Level of Care Code 14627 SUB INP/OBS CARE 2/35MIN Diagnoses Hypotension I95.9 Pancreatic adenocarcinoma C25.9 Acute kidney injury N17.9 IVC thrombosis I82.220 Ascites R18.8 Hyponatremia E87.1 Time Spent (min) 35"
[2023-05-15] MEDS ORDERED: RIVAROXABAN 20 MG TAB PO SCH (16:30)
[2023-05-15] MEDS: PRAVASTATIN SOD 10 MG TAB PO SCH (20:07)
[2023-05-15] MEDS: LORazepam 0.5 MG TAB PO PRN (22:19)
[2023-05-16 06:42] LABS: Basophils # (auto) 0.02 K/uL (0.00-0.20); Basophils % (auto) 0.2 %; Eosinophils # (auto) 0.08 K/uL (0.00-0.50); Eosinophils % (auto) 0.9 %; Hematocrit (blood only) 30.6 % (37.0-47.0); Hemoglobin 9.7 g/dl (12.0-16.0); Immature Granulocytes # (auto) 0.05 K/uL (0.01-0.20); Immature Granulocytes % (auto) 0.5 %; Lymphocytes # (auto) 1.22 K/uL (1.20-3.40); Lymphocytes % (auto) 13.2 %; Mean Corpuscular Hemoglobin 26.3 pg (25.0-34.0); Mean Corpuscular Hgb Conc 31.7 g/dL (32.0-36.0); Mean Corpuscular Volume 82.9 fL (80.0-100.0); Mean Platelet Volume 10.8 fL (9.4-12.4); Monocytes % (auto) 9.8 %; Neutrophils # (auto) 6.95 K/uL (1.40-6.50); Neutrophils % (auto) 75.4 %; Platelet Count 387 K/uL (130-400); RDW Coefficient of Variation 20.6 % (11.5-14.5); RDW Standard Deviation 59.3 fL (36.4-46.3); Red Blood Count 3.69 M/uL (4.20-5.40); White Blood Count 9.22 K/ul (4.8-10.8)
[2023-05-16 07:06] LABS: Albumin Globulin Ratio 1.5 (0.9-2); Albumin Level 2.9 gm/dl (3.4-5.0); BUN Creatinine Ratio 18.8 (10-20); Bilirubin,Total 0.7 mg/dl (0.2-1.0); Calcium 8.5 mg/dl (8.6-10.3); Creatinine Clr Calc Pharmacy 27.7 ml/min; Est GFR (African American) 29.7 ml/min; Est GFR (Non-African American) 25.7 ml/min; Potassium 4.5 mmol/L (3.5-5.1); Total Protein 4.9 gm/dl (6.0-8.3)
[2023-05-16 07:10] LABS: Prothrombin Time 11.4 Seconds (9.0-12.0)
[2023-05-16 07:24] LABS: Anisocytosis Present; Echinocytes 1+; Ovalocytes 1+
[2023-05-16] MEDS: MIDODRINE HCL 2.5 MG TAB PO SCH ×3 (09:16→16:08)
[2023-05-16] MEDS: AZITHROMYCIN 250 MG TAB PO SCH (09:16)
[2023-05-16] MEDS: METOPROLOL SUCC 50MG EXT REL TAB PO SCH (09:17)
[2023-05-16] MEDS: PANTOprazole 40 MG TAB PO SCH (09:17)
--- NOTE | 2023-05-16 12:50 | Hospitalist Progress Note ---
"Date of Service May 16, 2023 Assessment & Plan (1) Hypotension: Plan: Hypotension -Now resolved -BP in 70s/40s on arrival, suspect due to hypovolemia, possibly due to Campylobacter diarrhea -She received IV fluids, albumin -Currently blood pressure 101/66 -Continue azithromycin which was started at home for the Campylobacter (2) Ascites: Plan: CT scan of the abdomen showed evidence of large volume ascites She is now status post paracentesis by IR Removal of about 5 L of fluid Patient feels much more comfortable (3) Pancreatic adenocarcinoma: Plan: Metastatic Pancreatic Adenocarcinoma | S/P Whipple -Follows with [facility], Dr. Raya -Most recent chemotherapy treatment two weeks prior, is due for next treatment this week -Pain from cancer and arthritis managed with Tylenol (4) Acute kidney injury: Plan: Acute Kidney Injury -Cr 4.01 on admission. Some improvement following IV fluids, creatinine is currently 2.90 -Suspect pre-renal etiology due to poor PO intake and frequent diarrhea secondary to chemotherapy -CT A/P ordered -Repeat metabolic panel in a.m. 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 Plan Hopefully discharge in next 24 hours Admission and Anticipated Discharge Date Admission Date: May 14, 2023 Subjective Patient seen and examined, feels overall better following paracentesis Review of Systems Review of Systems: All systems reviewed are negative, apart from the ones contained in the history. Physical Exam Physical Exam: The patient is awake, alert and oriented 3, well developed and well nourished, normocephalic and atraumatic, lying in bed and in no acute distress. HEENT--PERRL, EOMI, mucous membranes and oropharynx mildly dry Neck--supple. No JVD. No bruits. Thyroid normal, trachea midline, no adenopathy. Heart--normal S1 and S2. No murmurs, rubs or gallops. Lungs--clear bilaterally, no respiratory distress, no accessory muscle use. Abdomen--distended Extremities--no cyanosis or clubbing. No edema. Dermatologic--normal skin turgor, normal color, no abnormal lymph nodes, no rash. Neurologic--cranial nerves II through XII grossly intact. Rheumatologic--normal range of motion. Psychiatric--normal affect. Results & Data Results & Data Vital Signs (Past 12 Hours) Vital Signs Temp Pulse Pulse Pulse Resp BP Pulse Ox 05/16/23 10:55 97.9 F 99 H 18 93/58 L 94 05/16/23 09:11 98.1 F 118 H 16 101/66 92 05/16/23 07:52 97.9 F 126 H 20 105/71 93 05/16/23 07:15 120 H 05/16/23 03:22 98.1 F 119 H 18 109/75 93 O2 Del Method 05/16/23 10:55 Room Air 05/16/23 09:11 Room Air 05/16/23 07:52 Room Air 05/16/23 07:15 05/16/23 03:22 Room Air PG Care Time/CCT Total # of Minutes Spent Total Time Spent with Patient: Total time spent is greater than 50% in coordination of care (as documented) at patient's floor/unit and/or counseling patient: Coding Level of Care Code 66092 SUB INP/OBS CARE 2/35MIN Diagnoses Hypotension I95.9 Ascites R18.8 Pancreatic adenocarcinoma C25.9 Acute kidney injury N17.9 IVC thrombosis I82.220 Hyponatremia E87.1 Time Spent (min) 35"
--- NOTE | 2023-05-16 14:42 | Ultrasound Report ---
ULTRASOUND-GUIDED PARACENTESIS CLINICAL HISTORY: Ascites PROCEDURE: Procedure and risks were explained. Informed consent was obtained. A final timeout was com pleted. The abdomen was prepped and draped in sterile fashion. 1% buffered lidocaine was utilized for skin anesthesia. Utilizing ultrasound guidance, a 5 [place] safety centesis catheter was advanced into the left lower q uadrant pocket of ascites. Ultrasound images were obtained. 5 L of ascites fluid was removed and disc arded. Moderate ascites remains. The catheter was removed and Band-Aid applied. The patient tolerated the procedure well. Vital signs will be monitored postprocedure. IMPRESSION: Paracentesis as above. Moderate ascites remains. Performed, dictated, and signed by Torres Paz PA-C; to be co-signed by Dr. Rito Romero. Electronically signed by: Rito Romero M.D. 05/16/2023 2:55 PM
[2023-05-16] MEDS: ALBUMIN 25% 25 GM/100 ML VIAL IV SCH ×2 (16:39→18:39)
[2023-05-16] MEDS: LORazepam 0.5 MG TAB PO PRN (20:07)
[2023-05-16] MEDS: PRAVASTATIN SOD 10 MG TAB PO SCH (20:07)
[2023-05-17 07:17] LABS: Basophils # (auto) 0.01 K/uL (0.00-0.20); Basophils % (auto) 0.2 %; Eosinophils # (auto) 0.08 K/uL (0.00-0.50); Eosinophils % (auto) 1.4 %; Hematocrit (blood only) 27.7 % (37.0-47.0); Hemoglobin 8.8 g/dl (12.0-16.0); Immature Granulocytes # (auto) 0.04 K/uL (0.01-0.20); Immature Granulocytes % (auto) 0.7 %; Lymphocytes # (auto) 0.84 K/uL (1.20-3.40); Lymphocytes % (auto) 14.8 %; Mean Corpuscular Hemoglobin 26.3 pg (25.0-34.0); Mean Corpuscular Hgb Conc 31.8 g/dL (32.0-36.0); Mean Corpuscular Volume 82.9 fL (80.0-100.0); Mean Platelet Volume 10.3 fL (9.4-12.4); Monocytes # (auto) 0.74 K/uL (0.11-0.59); Neutrophils # (auto) 3.97 K/uL (1.40-6.50); Neutrophils % (auto) 69.9 %; Platelet Count 243 K/uL (130-400); RDW Coefficient of Variation 20.5 % (11.5-14.5); RDW Standard Deviation 59.4 fL (36.4-46.3); Red Blood Count 3.34 M/uL (4.20-5.40); White Blood Count 5.68 K/ul (4.8-10.8)
[2023-05-17 07:29] LABS: Albumin Globulin Ratio 1.9 (0.9-2); Albumin Level 2.9 gm/dl (3.4-5.0); BUN Creatinine Ratio 26.2 (10-20); Bilirubin,Total 0.8 mg/dl (0.2-1.0); Calcium 8.4 mg/dl (8.6-10.3); Creatinine Clr Calc Pharmacy 41.4 ml/min; Est GFR (African American) 49.2 ml/min; Est GFR (Non-African American) 42.4 ml/min; Globulin 1.5 gm/dl (2.5-4.0); Potassium 4.4 mmol/L (3.5-5.1); Total Protein 4.4 gm/dl (6.0-8.3)
[2023-05-17 07:40] LABS: Anisocytosis Present; Polychromasia 1+; Tear Drop Cells 1+
[2023-05-17] MEDS: AZITHROMYCIN 250 MG TAB PO SCH (09:19)
[2023-05-17] MEDS: MIDODRINE HCL 2.5 MG TAB PO SCH ×2 (09:19→12:13)
[2023-05-17] MEDS: METOPROLOL SUCC 50MG EXT REL TAB PO SCH (09:19)
[2023-05-17] MEDS: PANTOprazole 40 MG TAB PO SCH (09:19)
--- NOTE | 2023-05-17 12:31 | Discharge Summary ---
Date of Service May 17, 2023 Admission HPI Per Admitting Provider Lala Mcbride is a 67 year-old female who presents today due to hypotension. She has a current diagnosis of metastatic pancreatic adenocarcinoma (follows with [facility], Dr. Raya), hx of prior IVC thrombus, HTN. She presents with ongoing diarrhea and decreased PO intake for the past week, also has been taking care of her who had a knee replacement for the past week which has been physically draining for her. Checked her BP today and it was 70s/40s, denies dizziness/lightheadedness/chest pain/shortness of breath. Has been checking her temperature daily and has been afebrile. Notes 1 week of fatigue, diarrhea, and poor appetite, secondary to recent chemotherapy treatment (her notes that this was a "heavier" round of chemo that was started in March. Denies vomiting and denies any blood in her stool- notes she has a hemorrhoid that gets irritated with ongoing diarrhea but has not noticed that bleeding this week. Principal Diagnosis Hypotension, ascites Discharge Exam The patient is awake, alert and oriented 3, well developed and well nourished, normocephalic and atraumatic, lying in bed and in no acute distress. HEENT--PERRL, EOMI, mucous membranes and oropharynx mildly dry Neck--supple. No JVD. No bruits. Thyroid normal, trachea midline, no adenopathy. Heart--normal S1 and S2. No murmurs, rubs or gallops. Lungs--clear bilaterally, no respiratory distress, no accessory muscle use. Abdomen--distended Extremities--no cyanosis or clubbing. No edema. Dermatologic--normal skin turgor, normal color, no abnormal lymph nodes, no rash. Neurologic--cranial nerves II through XII grossly intact. Rheumatologic--normal range of motion. Psychiatric--normal affect. Discharge Data Allergies Allergy/AdvReac Type Severity Reaction Status Date / Time atorvastatin AdvReac Intermediate Muscle Pain Verified 10/28/22 10:39 simvastatin AdvReac Intermediate Muscle Pain Verified 10/28/22 10:39 Consultations 05/14/23 21:58 ED Decision to Admit Stat Ordered Studies 05/14/23 20:32 CT Abd and Pelvis [CT abd pelvis wo con] Urgent 05/16/23 08:00 IR paracentesis abd w/img US Routine Hospital Course (1) Hypotension: Hypotension -Now resolved -BP in 70s/40s on arrival, suspect due to hypovolemia, possibly due to Campylobacter diarrhea -She received IV fluids, albumin -Currently blood pressure 109/70 -Continue azithromycin which was started at home for the Campylobacter -Continue midodrine at home (2) Ascites: CT scan of the abdomen showed evidence of large volume ascites She is now status post paracentesis by IR Removal of about 5 L of fluid Patient feels much more comfortable (3) Pancreatic adenocarcinoma: Metastatic Pancreatic Adenocarcinoma | S/P Whipple -Follows with [facility], Dr. Raya -Most recent chemotherapy treatment two weeks prior, is due for next treatment this week -Pain from cancer and arthritis managed with Tylenol (4) Acute kidney injury: Acute Kidney Injury -Cr 4.01 on admission. Some improvement following IV fluids, creatinine is currently 1.30 -Suspect pre-renal etiology due to poor PO intake and frequent diarrhea secondary to chemotherapy -CT A/P ordered -Repeat metabolic panel in a.m. 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 Plan Hopefully discharge in next 24 hours Total Time Total Time Spent Total Time Spent (In Minutes): 35 Discharge Plan Discharge Items Patient Disposition: Home - Self-Care Reason For Visit: HYPOTENSION Discharge Diagnosis: Hypotension, ascitis Activity: Resume your previous activity Non-emergency contact: Primary Care Provider and Oncologist Call non-emergency contact if: you have any medication questions Follow-up/Referrals: Shavon Chase MD [Primary Care Provider] - 05/23/23 1:30 pm Diet: Regular Addtl Attending Provider Instructions: please make appointment to follow up with your regular Oncologist Pending Studies at Discharge: No Stand-Alone Forms: My [employer], Smoking Cessation Medications and DC Order Prescriptions: New midodrine 2.5 mg Tablet 5 mg PO TID@0800,1200,1700 30 Days Qty: 90 0RF Continued acetaminophen [Arthritis Pain Relief (acetam)] 650 mg tablet extended release 0 mg PO BID PRN (Reason: pain) Rx Instructions: Unable to verify medication with patient/pharmacy at this date/time. pravastatin 10 mg tablet 10 mg PO QPM Qty: 90 3RF metoprolol succinate 25 mg tablet extended release 24 hr 25 mg PO DAILY Qty: 90 1RF omeprazole 20 mg tablet,delayed release (DR/EC) 20 mg PO QAM Qty: 90 3RF oxycodone 5 mg capsule 5 mg PO HS PRN (Reason: SLEEP/PAIN) lorazepam [Ativan] 0.5 mg tablet 0.5 mg PO Q8H PRN (Reason: Anxiety) hyoscyamine sulfate 0.375 mg tablet extended release 12 hr 0.375 mg PO BID gabapentin 300 mg capsule 300 mg PO TID potassium chloride 10 mEq Capsule, Extended Release 10 meq PO BID ondansetron HCl 8 mg Tablet 8 mg PO Q8H PRN (Reason: Nausea) prochlorperazine maleate 10 mg Tablet 10 mg PO Q6H PRN (Reason: Nausea) loratadine [Claritin] 10 mg Tablet 10 mg PO DAILY PRN (Reason: ONCE DOSE FOLLOWING CHEMO) Patient Comments: TAKES MONDAY FOLLOWING CHEMO, ONE DOSE ONLY. Xarelto 20 mg Tablet 20 mg PO QPM Rx Instructions: must administer with evening meal Held enalapril maleate 20 mg tablet 20 mg PO BID Qty: 180 1RF Hold Instructions: Resume on 05/27/23. Resume when your Blood pressure improves to above 120/70mmhg Discharge Orders: Discharge Order (Routine); Ordered 05/17/23 Ordered By: Modesto Weller Admission Data Admit Date/Time: 05/14/23 20:52 Attending Provider: Modesto Weller Admit Provider: Alecia Cope Primary Care Provider: Shavon Chase V. Other Providers: Raymundo Haro Other Interventions: Discharge Summary Assessment (RN) Last Done: 05/17/23 12:19 Coding Level of Care Code 48573 INP/OBS DISCH >30 MIN Diagnoses Hypotension I95.9 Ascites R18.8 Pancreatic adenocarcinoma C25.9 Acute kidney injury N17.9 IVC thrombosis I82.220 Hyponatremia E87.1 Time Spent (min) 35
--- NOTE | 2023-05-17 18:59 | Billing Data ---
Date of Service May 17, 2023 Coding Level of Care Code 26387 INT INP/OBS CARE
== END 2023-05-17 13:35 | disposition home or self-care (01) | DRG 372 ==
LOC: ED 16:41 → 2S 20:52 → SUATTDRO 20:52 → 2S 21:49
DX: K52.1 Toxic gastroenteritis and colitis; C78.7 Secondary malignant neoplasm of liver and intrahepatic bile duct; Z98.0 Intestinal bypass and anastomosis status; A04.5 Campylobacter enteritis; R18.8 Other ascites; C25.9 Malignant neoplasm of pancreas, unspecified; Z88.8 Allergy status to other drugs, medicaments and biological substances; Z86.718 Personal history of other venous thrombosis and embolism; N17.9 Acute kidney failure, unspecified; E87.1 Hypo-osmolality and hyponatremia; I95.89 Other hypotension; Z86.16 Personal history of COVID-19

== ENCOUNTER 2023-05-19 09:55 | Inpatient (IN) ==
[2023-05-19] MEDS: SODIUM CHLORIDE 0.9% 500 ML IV STA (11:27)
[2023-05-19] MEDS: ONDANSETRON INJ 2 MG/ML 2 ML VIAL IV STA ×2 (11:29→15:28)
[2023-05-19] MEDS: FAMOTIDINE 20 MG in SYRINGE 3 ML IV STA (11:30)
[2023-05-19] MEDS: METOPROLOL TARTRATE 1 MG/ML VIAL IV STA (11:31)
[2023-05-19 11:45] LABS: Hematocrit (blood only) 38.1 % (37.0-47.0); Hemoglobin 12.1 g/dl (12.0-16.0); Mean Corpuscular Hemoglobin 26.4 pg (25.0-34.0); Mean Corpuscular Hgb Conc 31.8 g/dL (32.0-36.0); Mean Platelet Volume 10.2 fL (9.4-12.4); Platelet Count 449 K/uL (130-400); RDW Standard Deviation 58.4 fL (36.4-46.3); Red Blood Count 4.59 M/uL (4.20-5.40); White Blood Count 14.96 K/ul (4.8-10.8)
--- NOTE | 2023-05-19 11:56 | Emergency Department Note ---
Impression & Plan Acute kidney injury, Abdominal ascites, Metastasis from pancreatic cancer ED Provider Note CHIEF COMPLAINT: Abdominal swelling, vomiting HISTORY OF PRESENT ILLNESS: This 67-year-old female patient with past medical history of metastatic pancreatic cancer, acute kidney injury, ascites presents to the emergency department with complaints of vomiting and inability to tolerate oral intake. The patient was recently hospitalized for acute kidney injury after a Campylobacter infection. Patient had intractable diarrhea. She was hydrated intravenously and did undergo paracentesis. She states the fluid has recollected and is worse at this time. She denies any blood in her urine or stools. Patient denies any difficulty urinating. REVIEW OF SYSTEMS: A review of systems was performed with positives and pertinent negatives listed in the history of present illness. 10 systems were reviewed and are otherwise negative. ALLERGIES: see below MEDICATIONS: see below PMH: see below SOCIAL HISTORY: see below DDx: Intravenous volume depletion, massive ascites, portal vein thrombus, viral gastroenteritis, UTI, bowel obstruction among others. PHYSICAL EXAM: Vital signs reviewed. General: Chronically ill-appearing 67-year-old female, in no significant distress. HEENT: No scleral icterus, PERRLA, neck supple. CV: Tachycardic, regular. Pulmonary: Clear to auscultation bilaterally, normal work of breathing. Abdomen: Soft, mild diffuse abdominal tenderness, distended, positive fluid wave, no tympany to percussion Musculoskeletal: Atraumatic, no peripheral edema. Neurologic: Patient awake alert and oriented x 3, speech is clear Skin: Warm, dry, no rash EMERGENCY DEPARTMENT COURSE/MDM: This patient was evaluated and appeared to be in no distress. IV access was obtained and laboratory work was drawn. The patient was placed on the lunchroom monitor. She is noted to have significant abdominal distention and exam is consistent with a large amount of ascites. I did evaluate the patient on her last emergency visit prior to her hospitalization. It does appear that the patient is not able to take in enough fluid to maintain her renal function. Patient's creatinine today is 2.09 from 1.3 at discharge. At this time she appears to be intravascularly depleted and suffering from significant third spacing of her fluid. She is noted to be tachycardic and gentle IV hydration was initiated. She did improve after several doses of IV Zofran. Abdominal x-ray was performed and reveals no evidence of obstruction. CT imaging of the abdomen pelvis was contemplated however she had a CT just several days ago. Patient and her had multiple questions about her ascites moving forward. I am concerned that the patient may not have a realistic understanding of her prognosis. We did discuss that there are limited interventions moving forward for the ascites. At this time due to the vomiting and RONALD, patient will be evaluated by hospitalist service for admission. She and her have expressed understanding and agreed. MONITORING: An order for cardiac monitoring was placed and the patient is noted to be in a sinus tachycardia at beats 106 per minute. RADIOLOGY: KUB to my interpretation reveals no evidence of obstruction or free air. EKG: To my interpretation reveals a sinus tachycardia at [address] segments. QTc is 547. 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 aureus, concern for intraabdominal infection > abx infusions finished 02/17/22 History of COVID-19 12/19/21 (asymptomatic, [facility]) Tachycardia Irregular heart beat Irregular heart rate Obstructive hyperbilirubinemia Cholelithiasis Choledocholithiasis Acute pain of right knee Hypertension increased after Whipple procedure, now on enalapril total 30 mg daily, white coat hypertension Hyperplastic colon polyp HX-HAS BEEN REMOVED Hyperlipidemia Diverticulosis HX Cervical polyp Surgical History History of ERCP [facility] 12/2021 History of cholecystectomy Whipple + cholecystectomy ([facility], 01/2022) H/O Whipple procedure Whipple + cholecystectomy ([facility], 01/28/2022) S/P PICC central line placement 02/2022 s/p removal History of breast biopsy multiple- all benign History of bilateral tubal ligation History of tonsillectomy and adenoidectomy History of colonoscopy History of breast surgery multiple breast cysts removed- all benign Hx of appendectomy Family History Mother Hypercholesterolemia Osteoarthritis Grandmother (Maternal) Coronary heart disease Myocardial infarction Osteoarthritis Grandfather (Maternal) Colon cancer Grandmother (Paternal) Ovarian cancer Father Hypercholesterolemia Stroke Other No family history of adverse response to anesthesia Prostate cancer Denies family history of Breast cancer Social History Smoking Status: Never smoker Second Hand Exposure: Yes (HX-FATHER SMOKED); Do You Dip or Chew Tobacco: No; Hx Alcohol Use: No Hx Substance Use: No Preferred Language: Croatian Communication Ability: Effective Technical Solution Architect Required: No Beliefs That Will Affect Care: None marital status: Current Living Situation: Spouse current occupational status: retired Other Information That Helps Us Care for You: No Feels Safe at Home: Yes Safety Concerns: Feels Safe At This Time Childhood Exposure to Second-Hand Smoke: Yes Dental Care, Regularly: Yes Physical Activity Frequency: 5-6 Times per Week Seatbelt Use: always Sunscreen Use: Yes Assistive Devices: Cane and Walker Allergies Allergies Allergy/AdvReac Type Severity Reaction Status Date / Time atorvastatin AdvReac Intermediate Muscle Pain Verified 10/28/22 10:39 simvastatin AdvReac Intermediate Muscle Pain Verified 10/28/22 10:39 Home Meds Home Medications Medication Instructions Recorded Confirmed acetaminophen 650 mg 0 mg PO BID PRN pain 12/29/21 05/19/23 tablet,extended release (Arthritis Pain Relief (acetaminophen) ER) loratadine 10 mg tablet (Claritin) 10 mg PO DAILY PRN ONCE DOSE 07/14/22 05/19/23 FOLLOWING CHEMO potassium chloride 10 mEq 10 meq PO BID 07/14/22 05/19/23 capsule,extended release prochlorperazine maleate 10 mg 10 mg PO Q6H PRN Nausea 07/14/22 05/19/23 tablet rivaroxaban 20 mg tablet (Xarelto) 20 mg PO QPM 07/14/22 05/19/23 gabapentin 300 mg capsule 300 mg PO TID 05/15/23 05/19/23 hyoscyamine sulfate 0.375 mg 0.375 mg PO BID 05/15/23 05/19/23 tablet,extended release,12 hr lorazepam 0.5 mg tablet (Ativan) 0.5 mg PO Q8H PRN Anxiety 05/18/23 05/19/23 ondansetron HCl 8 mg tablet 8 mg PO Q8H PRN Nausea 05/18/23 05/19/23 Previous Rx's Medication Instructions Recorded pravastatin 10 mg tablet 10 mg PO QPM #90 tabs 10/17/22 metoprolol succinate 25 mg 25 mg PO DAILY #90 tabs 10/31/22 tablet,extended release 24 hr enalapril maleate 20 mg tablet 20 mg PO BID #180 tabs 03/03/23 omeprazole 20 mg tablet,delayed 20 mg PO QAM #90 tabs 03/20/23 release midodrine 2.5 mg tablet 5 mg (2 x 2.5 mg) PO 05/17/23 TID@0800,1200,1700 30 days #90 tabs Results & Data (ED) Vital Signs Vital Signs - 24 hr 05/19/23 09:57 05/19/23 10:39 05/19/23 11:06 Temperature 36.0 C L Temperature Source Temporal Artery Scan Pulse Rate 116 H 131 H Pulse Rate [Apical] Respiratory Rate 16 Respiratory Effort / Characteristics Non-Labored Respiratory Depth Normal Blood Pressure 109/78 Blood Pressure [Left Arm] Blood Pressure Mean 88 Blood Pressure Mean [Left Arm] Blood Pressure Position [Left Arm] Pulse Oximetry 97 97 Oxygen Delivery Method Room Air Room Air Sepsis Recent Fever Within 48 Hours No Sepsis New/Unexplained Change in Mental Status No Sepsis Action Taken by Nursing No Action Required 05/19/23 11:31 05/19/23 12:11 05/19/23 15:30 Temperature Temperature Source Pulse Rate 129 H Pulse Rate [Apical] 109 H 121 H Respiratory Rate 18 17 Respiratory Effort / Characteristics Respiratory Depth Blood Pressure 156/97 H Blood Pressure [Left Arm] 142/97 H 141/91 H Blood Pressure Mean Blood Pressure Mean [Left Arm] 112 107 Blood Pressure Position [Left Arm] Semi-fowlers Semi-fowlers Pulse Oximetry 98 96 Oxygen Delivery Method Room Air Room Air Sepsis Recent Fever Within 48 Hours Sepsis New/Unexplained Change in Mental Status Sepsis Action Taken by Nursing 05/19/23 15:59 Temperature Temperature Source Pulse Rate 123 H Pulse Rate [Apical] Respiratory Rate Respiratory Effort / Characteristics Respiratory Depth Blood Pressure Blood Pressure [Left Arm] Blood Pressure Mean Blood Pressure Mean [Left Arm] Blood Pressure Position [Left Arm] Pulse Oximetry Oxygen Delivery Method Sepsis Recent Fever Within 48 Hours Sepsis New/Unexplained Change in Mental Status Sepsis Action Taken by [facility] Medications Current Medication List: was personally reviewed by me Laboratory Data Attestation: I reviewed the patient's lab results. 05/21/23 05:52 05/21/23 12:03 Lab Results 05/19/23 05/19/23 05/19/23 Range/Units 11:23 13:13 14:14 WBC 14.96 H (4.8-10.8) K/ul RBC 4.59 (4.20-5.40) M/uL Hgb 12.1 (12.0-16.0) g/dl Hct 38.1 (37.0-47.0) % MCV 83.0 (80.0-100.0) fL MCH 26.4 (25.0-34.0) pg MCHC 31.8 L (32.0-36.0) g/dL RDW Std Deviation 58.4 H (36.4-46.3) fL RDW Coeff of Frederic 21.0 H (11.5-14.5) % Plt Count 449 H (130-400) K/uL MPV 10.2 (9.4-12.4) fL PT 14.1 H (9.0-12.0) Seconds INR 1.3 H (0.9-1.1) Sodium 128 L (136-145) mmol/L Potassium 5.9 H (3.5-5.1) mmol/L Chloride 101 (98-107) mmol/L Carbon Dioxide 16 L (21-32) mmol/L Anion Gap 11 (3-11) BUN 47 H (6-23) mg/dl Creatinine 2.09 H (0.6-1.2) mg/dl Est Cr Clr Drug Dosing Not Reportable Est GFR ( Amer) 27.7 ml/min Est GFR (Non-Af Amer) 23.9 ml/min BUN/Creatinine Ratio 22.5 H (10-20) Glucose 140 H (70-99(Fasting)) mg/dl Calcium 10.6 H (8.6-10.3) mg/dl Total Bilirubin 0.7 (0.2-1.0) mg/dl AST 27 (13-39) U/L ALT 17 (7-52) U/L Alkaline Phosphatase 398 H (34-104) U/L Troponin I High Sens 39.7 H 94.5 H* D (0-14) pg/ml Total Protein 5.1 L (6.0-8.3) gm/dl Albumin 2.9 L (3.4-5.0) gm/dl Globulin 2.2 L (2.5-4.0) gm/dl Albumin/Globulin Ratio 1.3 (0.9-2) Lipase 164 H (11-82) U/L Urine Color Dark Yellow Urine Appearance Cloudy A (Clear) Urine pH 5.0 (4.5-7.5) Ur Specific [place] 1.024 (1.000-1.030) Urine Protein Trace H (Negative) Urine Glucose (UA) Negative (Negative) Urine Ketones Trace H (Negative) Urine Blood Negative (Negative) Urine Nitrite Negative (Negative) Urine Bilirubin 1+ H (Negative) Urine Urobilinogen Negative (Negative) Ur Leukocyte Esterase 1+ H (Negative) Urine WBC (Auto) >30 H (0-5) /hpf Urine RBC (Auto) 0-4 (0-4) /hpf U Hyaline Cast (Auto) 10-30 H (0-5) /lpf U Epithel Cells (Auto) >30 H (0-5) /lpf Urine Bacteria (Auto) Negative (Negative) Administered Medications Calcitonin [place] (Calcitonin [place] 400 Units/2 Ml) 300 units SQ Q12 OFE Stop: 05/22/23 21:01 Last Admin: 05/21/23 12:36 Dose: 300 units Documented By: JOSE DANIEL Gabapentin (Gabapentin 300 Mg Cap) 300 mg PO TID [facility] Stop: 06/18/23 20:59 Last Admin: 05/21/23 12:38 Dose: 300 mg Documented By: JOSE DANIEL Admin: 05/21/23 08:32 Dose: 300 mg Documented By: JOSE DANIEL Admin: 05/20/23 20:54 Dose: 300 mg Documented By: Admin: 05/20/23 13:34 Dose: 300 mg Documented By: Admin: 05/20/23 07:59 Dose: 300 mg Documented By: Admin: 05/19/23 20:56 Dose: 300 mg Documented By: VJ Hyoscyamine (Hyoscyamine Sulfate 0.375 Mg Tabcr) 0.375 mg PO BID OFE Stop: 06/18/23 20:59 Last Admin: 05/21/23 08:32 Dose: 0.375 mg Documented By: JOSE DANIEL Admin: 05/20/23 20:54 Dose: 0.375 mg Documented By: Admin: 05/20/23 07:59 Dose: 0.375 mg Documented By: Admin: 05/19/23 20:56 Dose: 0.375 mg Documented By: VJ Famotidine 20 mg/ Syringe 5 mls @ 2.5 mls/min IV BID OFE Stop: 06/19/23 08:59 Last Admin: 05/21/23 08:23 Dose: 2.5 mls/min Documented By: JOSE DANIEL Admin: 05/20/23 21:16 Dose: 2.5 mls/min Documented By: Admin: 05/20/23 07:58 Dose: 2.5 mls/min Documented By: GONZALO Acetaminophen (Ofirmev) 1,000 mg in 100 mls @ 400 mls/hr IV Q8H PRN PRN Reason: NPO Stop: 05/22/23 19:44 Last Infusion: 05/19/23 20:20 Dose: Infused Documented By: Admin: 05/19/23 19:59 Dose: 400 mls/hr Documented By: SELENE Lorazepam 0.5 mg/ Syringe 0.5 mls @ 2 mls/min IV Q8H PRN PRN Reason: Anxiety/Agitation Stop: 06/18/23 19:45 Last Admin: 05/20/23 21:16 Dose: 2 mls/min Documented By: Admin: 05/19/23 19:59 Dose: 2 mls/min Documented By: SELENE Sodium Chloride (Nss) 1,000 mls @ 100 mls/hr IV .Q10H OFE Stop: 06/20/23 11:44 Last Admin: 05/21/23 12:35 Dose: 100 mls/hr Documented By: JOSE DANIEL Lactulose (Lactulose Syrup 20 Gm/30 Ml Udc) 20 gm PO TID OFE Stop: 06/19/23 08:59 Last Admin: 05/21/23 12:38 Dose: 20 gm Documented By: JOSE DANIEL Admin: 05/21/23 08:33 Dose: 20 gm Documented By: JOSE DANIEL Admin: 05/20/23 20:53 Dose: 20 gm Documented By: Admin: 05/20/23 13:34 Dose: 20 gm Documented By: Admin: 05/20/23 09:59 Dose: 20 gm Documented By: GONZALO Metoprolol Succinate (Metoprolol Succ 25mg Ext Rel Tab) 25 mg PO DAILY OFE Stop: 06/19/23 08:59 Last Admin: 05/21/23 08:33 Dose: 25 mg Documented By: JOSE DANIEL Admin: 05/20/23 07:59 Dose: 25 mg Documented By: GONZALO Ondansetron HCl (Ondansetron Inj 2 Mg/Ml 2 Ml Vial) 4 mg IV Q6H PRN PRN Reason: Nausea Stop: 06/18/23 18:51 Last Admin: 05/20/23 20:59 Dose: 4 mg Documented By: Admin: 05/20/23 13:34 Dose: 4 mg Documented By: Admin: 05/20/23 08:04 Dose: 4 mg Documented By: Admin: 05/19/23 19:59 Dose: 4 mg Documented By: SELENE Pantoprazole Sodium (Pantoprazole 40 Mg Tab) 40 mg PO QAM [facility] Stop: 06/19/23 08:59 Last Admin: 05/21/23 08:32 Dose: 40 mg Documented By: JOSE DANIEL Admin: 05/20/23 07:58 Dose: 40 mg Documented By: GONZALO Pravastatin Sodium (Pravastatin Sod 10 Mg Tab) 10 mg PO QPM OFE Stop: 06/18/23 20:59 Last Admin: 05/20/23 20:54 Dose: 10 mg Documented By: Admin: 05/19/23 20:56 Dose: 10 mg Documented By: VJ Sodium Zirconium Cyclosilicate (Sodium Zirconium Cyclosilicate 10 Gm Packet) 10 gm PO DAILY@1100 [facility] Stop: 06/19/23 10:59 Last Admin: 05/21/23 10:51 Dose: Not Given Documented By: JOSE DANIEL Admin: 05/20/23 09:59 Dose: 10 gm Documented By: GONZALO Sodium Zirconium Cyclosilicate (Sodium Zirconium Cyclosilicate 10 Gm Packet) 10 gm PO TID [facility] Stop: 05/22/23 21:01 Last Admin: 05/21/23 12:38 Dose: 10 gm Documented By: JOSE DANIEL Admin: 05/21/23 08:33 Dose: 10 gm Documented By: JOSE DANIEL Discontinued Medications Sodium Chloride (Nss) 500 mls @ 999 mls/hr IV .Q31M STA Stop: 05/19/23 11:18 Last Infusion: 05/19/23 14:10 Dose: Infused Documented By: Admin: 05/19/23 11:27 Dose: 999 mls/hr Documented By: JUAN Sodium Chloride (Nss) 1,000 mls @ 125 mls/hr IV .Q8H STA Stop: 05/19/23 18:47 Last Infusion: 05/19/23 21:38 Dose: Infused Documented By: Admin: 05/19/23 13:07 Dose: 125 mls/hr Documented By: VIJAYA Famotidine 20 mg/ Syringe 5 mls @ 2.5 mls/min IV NOW STA Stop: 05/19/23 10:49 Last Admin: 05/19/23 11:30 Dose: 2.5 mls/min Documented By: JUAN Ceftriaxone Sodium 2,000 mg/ (Dextrose) 50 mls @ 100 mls/hr IV NOW STA; Protocol Stop: 05/19/23 14:41 Last Infusion: 05/19/23 15:10 Dose: Infused Documented By: Admin: 05/19/23 14:39 Dose: 100 mls/hr Documented By: VIJAYA Famotidine (Pepcid 20mg Iv Push) 20 mg in 5 mls @ 2.5 mls/min IV NOW STA Stop: 05/19/23 15:07 Last Admin: 05/19/23 15:28 Dose: 2.5 mls/min Documented By: VIJAYA Sodium Chloride (Nss) 500 mls @ 999 mls/hr IV .Q31M ONE Stop: 05/19/23 16:43 Last Infusion: 05/19/23 18:09 Dose: Infused Documented By: Admin: 05/19/23 17:35 Dose: 999 mls/hr Documented By: Albumin Human (Albumin 25%) 25 gm in 100 mls @ 50 mls/hr IV ONE ONE Stop: 05/19/23 18:29 Last Infusion: 05/19/23 19:39 Dose: Infused Documented By: Admin: 05/19/23 17:38 Dose: 50 mls/hr Documented By: Ceftriaxone Sodium 2,000 mg/ (Dextrose) 50 mls @ 100 mls/hr IV Q24H [facility]; Protocol Stop: 05/25/23 13:59 Last Infusion: 05/20/23 14:19 Dose: Infused Documented By: Admin: 05/20/23 13:35 Dose: 100 mls/hr Documented By: GONZALO Sodium Chloride (Nss) 1,000 mls @ 125 mls/hr IV .Q8H OFE Stop: 05/20/23 02:51 Last Infusion: 05/20/23 04:26 Dose: Infused Documented By: Admin: 05/19/23 21:38 Dose: 125 mls/hr Documented By: VJ Sodium Chloride (Nss) 500 mls @ 999 mls/hr IV .Q31M ONE Stop: 05/21/23 08:30 Last Infusion: 05/21/23 09:10 Dose: Infused Documented By: JOSE DANIEL Admin: 05/21/23 08:31 Dose: 999 mls/hr Documented By: JOSE DANIEL Piperacillin Sod/Tazobactam (Sod 4.5 gm/ Dextrose) 100 mls @ 200 mls/hr IV ONE ONE; Protocol Stop: 05/21/23 08:44 Last Infusion: 05/21/23 09:10 Dose: Infused Documented By: JOSE DANIEL Admin: 05/21/23 08:51 Dose: 200 mls/hr Documented By: JOSE DANIEL Lorazepam (Lorazepam 1 Mg/1 Ml Syr Ed Inj Use) Confirm Administered Dose 1 mg .ROUTE .STK-MED ONE Stop: 05/19/23 19:57 Last Admin: 05/19/23 19:59 Dose: Not Given Documented By: SELENE Metoprolol Succinate (Metoprolol Succ 25mg Ext Rel Tab) 25 mg PO NOW STA Stop: 05/19/23 16:19 Last Admin: 05/19/23 17:31 Dose: 25 mg Documented By: Metoprolol Tartrate (Metoprolol Tartrate 1 Mg/Ml Vial) 5 mg IV NOW STA Stop: 05/19/23 10:49 Last Admin: 05/19/23 11:31 Dose: 5 mg Documented By: JUAN Midodrine (Midodrine Hcl 2.5 Mg Tab) 5 mg PO NOW STA Stop: 05/19/23 16:19 Last Admin: 05/19/23 18:01 Dose: 5 mg Documented By: Midodrine (Midodrine Hcl 2.5 Mg Tab) 5 mg PO TID@0800,1200,1700 OFE Stop: 05/19/23 19:01 Last Admin: 05/19/23 20:55 Dose: Not Given Documented By: VJ Morphine Sulfate (Morphine Sulfate 2 Mg/Ml [place]) 2 mg IV NOW STA Stop: 05/20/23 22:12 Last Admin: 05/20/23 22:19 Dose: 2 mg Documented By: VJ Ondansetron HCl (Ondansetron Inj 2 Mg/Ml 2 Ml Vial) 4 mg IV NOW STA Stop: 05/19/23 10:49 Last Admin: 05/19/23 11:29 Dose: 4 mg Documented By: JUAN Ondansetron HCl (Ondansetron Inj 2 Mg/Ml 2 Ml Vial) 4 mg IV NOW STA Stop: 05/19/23 15:07 Last Admin: 05/19/23 15:28 Dose: 4 mg Documented By: VIJAYA Imaging Data Radiologist's Impression: KUB X-Ray 05/19/23 10:48 XR KUB/Abdomen 1 view CLINICAL HISTORY: SBO, panc CA TECHNIQUE: 1 view of the abdomen was obtained. Comparison: Comparison is made to CT abdomen pelvis 05/06/2023 FINDINGS: Lung bases are unremarkable. The osseous structures are grossly unremarkable. A few scant loops of nondilated appearing gas-filled small bowel are seen. A moderate amount of stool is noted within the large bowel. IMPRESSION: Scanty bowel gas without evidence of small bowel obstruction. ACT 112: Negative or not required by law. Electronically signed by: Leander Oropeza M.D. 05/19/2023 1:21 PM Discharge Plan Visit Data Chief Complaint: Illness Stated Complaint: ABD SWELLING, UNABLE TO EAT OR DRINK ED Provider: Bonita Morocho Discharge Problem: Acute kidney injury, Abdominal ascites, Metastasis from pancreatic cancer Patient Disposition: Admitted As Inpatient Discharge Instructions Interventions: ED Discharge Assessment Last Done: 05/19/23 20:28 Discharge Problem: Abdominal ascites Qualifiers: Ascites type: malignant Qualified Code(s): R18.0 - Malignant ascites
[2023-05-19 12:03] LABS: Alanine Aminotransferase 17 U/L (7-52); Albumin Globulin Ratio 1.3 (0.9-2); Albumin Level 2.9 gm/dl (3.4-5.0); Alkaline Phosphatase 398 U/L (34-104); Anion Gap 11 (3-11); Aspartate Aminotransferase 27 U/L (13-39); BUN Creatinine Ratio 22.5 (10-20); Bilirubin,Total 0.7 mg/dl (0.2-1.0); Blood Urea Nitrogen 47 mg/dl (6-23); Calcium 10.6 mg/dl (8.6-10.3); Carbon Dioxide 16 mmol/L (21-32); Chloride 101 mmol/L (98-107); Est GFR (African American) 27.7 ml/min; Est GFR (Non-African American) 23.9 ml/min; Globulin 2.2 gm/dl (2.5-4.0); Glucose 140 mg/dl (70-99(Fasting)); Lipase 164 U/L (11-82); Potassium 5.9 mmol/L (3.5-5.1); Sodium 128 mmol/L (136-145); Total Protein 5.1 gm/dl (6.0-8.3)
[2023-05-19 12:08] LABS: Troponin I High Sensitivity 39.7 pg/ml (0-14)
[2023-05-19 12:10] LABS: INR 1.3 (0.9-1.1); Prothrombin Time 14.1 Seconds (9.0-12.0)
[2023-05-19] MEDS: SODIUM CHLORIDE 0.9% 1,000 ML IV STA (13:07)
--- NOTE | 2023-05-19 13:23 | XRay Report ---
XR KUB/Abdomen 1 view CLINICAL HISTORY: SBO, panc CA TECHNIQUE: 1 view of the abdomen was obtained. Comparison: Comparison is made to CT abdomen pelvis 05/06/2023 FINDINGS: Lung bases are unremarkable. The osseous structures are grossly unremarkable. A few scant loops of no ndilated appearing gas-filled small bowel are seen. A moderate amount of stool is noted within the la rge bowel. IMPRESSION: Scanty bowel gas without evidence of small bowel obstruction. ACT 112: Negative or not required by law. Electronically signed by: Leander Oropeza M.D. 05/19/2023 1:21 PM
[2023-05-19 13:46] LABS: Appearance Urine Cloudy (Clear); Bacteria Urine Automated Negative (Negative); Blood Urine Negative (Negative); Color Urine Dark Yellow; Epithelial Cell Urine Auto >30 /lpf (0-5); Glucose Urine UA Negative (Negative); Ketones Urine Trace (Negative); Leukocyte Esterase Urine 1+ (Negative); Nitrite Urine Negative (Negative); Protein Urine Trace (Negative); RBC Urine Automated 0-4 /hpf (0-4); Specific Gravity Urine 1.024 (1.000-1.030); Urobilinogen Urine Negative (Negative); WBC Urine Automated >30 /hpf (0-5)
[2023-05-19 13:53] LABS: Bilirubin Urine 1+ (Negative)
[2023-05-19] MEDS: cefTRIAXone SODIUM 2,000 MG in DEXTROSE 5 % MINI-B 50 ML IV STA (14:39)
--- NOTE | 2023-05-19 15:01 | History & Physical Report ---
Date of Service May 19, 2023 Assessment & Plan (1) Ascites: Plan: Recent paracentesis on 05/16/2023 with 5 L of ascitic fluid drainage Recurrence on readmission on 05/19/2023 In setting of pancreatic carcinoma with mets to liver CT abdomen/pelvis revealed large ascites, cirrhosis Elevated alk phos at 398 Continue midodrine Supplemental albumin 25% 25gm IV given Will defer Lasix and spironolactone at this time; in setting of RONALD and volume contraction IR paracentesis ordered; last Xarelto taken on 05/18; consider GI consult if IR provider unavailable for paracentesis over the weekend (2) Pancreatic carcinoma metastatic to liver: Plan: Dx of pancreatic cancer in 12/2021 S/p whipple procedure w/ [facility] heme/onc Dr. Raya Currently receiving chemotherapy CT abdomen/pelvic on 05/14 showed abdominal ascites, anasarca; s/p paracentesis on 05/16 Patient is on Xarelto for DVT PPx due to chemo; she endorses a history of blood clot "in her stomach" Hold Xarelto temporarily in the setting of potential paracentesis (3) Campylobacter diarrhea: Plan: Leukocytosis at 14.96 with neutrophil predominance, which is higher than prior admission Repeat stool PCR C. difficile ordered (in the setting of recent antibiotic use) Rocephin 2000 mg IV q24h (4) RONALD (acute kidney injury): Plan: BUN 47, creatinine 2.09, EGFR 23.9 on arrival No creatinine baseline available; may be 1.60 Likely due to poor oral intake, and renal hypoperfusion Hold enalapril Avoid nephrotoxic agents (5) Hyponatremia: Plan: Na 128 on arrival Likely secondary to GI losses Continue IVF resuscitation Trend BMP (6) Hyperkalemia: Plan: K 5.9 on arrival EKG revealed sinus tachycardia at 133 bpm; QTc 547 (caution use of QTc prolonging agents); no peaked T waves or widened QRS noted Hold potassium supplements Continuous telemetry monitoring Trend BMP (7) Elevated troponin: Plan: Troponin 39.7-->94.5 on arrival Clinically, patient denies chest pain, pleuritic CP, or SOB Continuous telemetry monitoring Trend troponin q6h x 2 Plan Disposition: Admit to PCU telemetry Full code Keep n.p.o. for now VTE PPx: Hold Home Xarelto for now (this will need to be held for 48 hours prior to paracentesis); SCDs History of Present Illness Chief Complaint: N/V/D Primary Care Provider: Shavon Chase MD Lala is a 67-year-old female with PMH of pancreatic carcinoma with mets to liver, HTN, HLD, OA, and IVC thrombosis. She presented for nausea, vomiting, generalized weakness, and inability to eat since her discharge from [facility] on 05/17. Recently hospitalized at [facility] from 05/14 - 05/17 for Campylobacter diarrhea following chemo, RONALD, hypotension, and ascites buildup requiring a paracentesis. Patient is s/p paracentesis on 05/16/2023 where 5 L of ascitic fluid was drained. Patient reports she felt good at time of discharge (was been feeling fatigued), however notes that her diarrhea has been ongoing, and that she is still vomiting (last vomited the morning of 05/19). Diarrhea is liquidy in consistency, and she endorses some bleeding with defecation, but attributes that to her hemorrhoids. She is not tolerating fluids or solids; she has been eating very little; mainly Jell-O and yogurt. She notes that she is having fluid buildup in her stomach again. She does not use supplemental oxygen at home. Last chemo session 3 weeks ago. She missed her chemo session last week due to hospitalization, and was set to have it done this upcoming week. She denies alcohol use, tobacco use, and smoking. Patient did not take any of her regular morning medications today on 05/19, as she was afraid she would be unable to keep them down. She took her regular medications as prescribed on 05/18, including Xarelto and metoprolol. Patient is hypertensive at 142/97, tachycardic at 109 bpm, and mildly hypothermic at 36.0 C at time of admission. 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 Allergies Allergy/AdvReac Type Severity Reaction Status Date / Time atorvastatin AdvReac Intermediate Muscle Pain Verified 10/28/22 10:39 simvastatin AdvReac Intermediate Muscle Pain Verified 10/28/22 10:39 Home Medications Medication Instructions Recorded Confirmed Type acetaminophen 650 mg 0 mg PO BID PRN pain 12/29/21 05/19/23 History tablet,extended release (Arthritis Pain Relief (acetaminophen) ER) loratadine 10 mg tablet (Claritin) 10 mg PO DAILY PRN ONCE DOSE 07/14/22 05/19/23 History FOLLOWING CHEMO potassium chloride 10 mEq 10 meq PO BID 07/14/22 05/19/23 History capsule,extended release prochlorperazine maleate 10 mg 10 mg PO Q6H PRN Nausea 07/14/22 05/19/23 History tablet rivaroxaban 20 mg tablet (Xarelto) 20 mg PO QPM 07/14/22 05/19/23 History pravastatin 10 mg tablet 10 mg PO QPM #90 tabs 10/17/22 05/19/23 Rx metoprolol succinate 25 mg 25 mg PO DAILY #90 tabs 10/31/22 05/19/23 Rx tablet,extended release 24 hr enalapril maleate 20 mg tablet 20 mg PO BID #180 tabs 03/03/23 05/19/23 Rx omeprazole 20 mg tablet,delayed 20 mg PO QAM #90 tabs 03/20/23 05/19/23 Rx release gabapentin 300 mg capsule 300 mg PO TID 05/15/23 05/19/23 History hyoscyamine sulfate 0.375 mg 0.375 mg PO BID 05/15/23 05/19/23 History tablet,extended release,12 hr midodrine 2.5 mg tablet 5 mg (2 x 2.5 mg) PO 05/17/23 05/19/23 Rx TID@0800,1200,1700 30 days #90 tabs lorazepam 0.5 mg tablet (Ativan) 0.5 mg PO Q8H PRN Anxiety 05/18/23 05/19/23 History ondansetron HCl 8 mg tablet 8 mg PO Q8H PRN Nausea 05/18/23 05/19/23 History Past Med/Surg History Medical History Pancreatic cancer PVCs (premature ventricular contractions) IVC thrombosis on Xarelto PAC (premature atrial contraction) PACs/PVCs -- Follows with [facility] Sepsis 01/2022 post-op fever, blood cultures grew s. aureus, concern for intraabdominal infection > abx infusions finished 02/17/22 History of COVID-19 12/19/21 (asymptomatic, [facility]) Tachycardia Irregular heart beat Irregular heart rate Obstructive hyperbilirubinemia Cholelithiasis Choledocholithiasis Acute pain of right knee Hypertension increased after Whipple procedure, now on enalapril total 30 mg daily, white coat hypertension Hyperplastic colon polyp HX-HAS BEEN REMOVED Hyperlipidemia Diverticulosis HX Cervical polyp Surgical History History of ERCP [facility] 12/2021 History of cholecystectomy Whipple + cholecystectomy ([facility], 01/2022) H/O Whipple procedure Whipple + cholecystectomy ([facility], 01/28/2022) S/P PICC central line placement 02/2022 s/p removal History of breast biopsy multiple- all benign History of bilateral tubal ligation History of tonsillectomy and adenoidectomy History of colonoscopy History of breast surgery multiple breast cysts removed- all benign Hx of appendectomy Family History Mother Hypercholesterolemia Osteoarthritis Grandmother (Maternal) Coronary heart disease Myocardial infarction Osteoarthritis Grandfather (Maternal) Colon cancer Grandmother (Paternal) Ovarian cancer Father Hypercholesterolemia Stroke Other No family history of adverse response to anesthesia Prostate cancer Denies family history of Breast cancer Social History Smoking Status: Never smoker Second Hand Exposure: Yes (HX-FATHER SMOKED); Do You Dip or Chew Tobacco: No; Hx Alcohol Use: No Hx Substance Use: No Preferred Language: Tamazight Communication Ability: Effective Gas Jockey Required: No Beliefs That Will Affect Care: None marital status: Current Living Situation: Spouse current occupational status: retired Other Information That Helps Us Care for You: No Feels Safe at Home: Yes Safety Concerns: Feels Safe At This Time Childhood Exposure to Second-Hand Smoke: Yes Dental Care, Regularly: Yes Physical Activity Frequency: 5-6 Times per Week Seatbelt Use: always Sunscreen Use: Yes Assistive Devices: Cane and Walker Review of Systems Review of Systems: See HPI above Physical Exam Physical Exam: General: no acute distress; non-toxic appearing; well-nourished; cooperative HEENT: normocephalic, atraumatic; scleral icterus; PERRLA w/ EOMs intact; moist mucus membrane; vision and hearing grossly intact Neck: supple; positive for JVD; no lymphadenopathy; trachea midline Skin: warm, dry without signs of tenting; no cyanosis; no rashes, bruising, lesions, or erythema noted CV: chest wall NTP; RRR; S1/S2 normal; no murmurs/rubs/gallops; pulses intact and symmetric at radial, DP, and PT Lungs: no acute respiratory distress; symmetrical chest wall expansion; clear breath sounds across all lung cornejo w/o adventitious sounds; no wheezing ABD: Soft; BS present; RUQ TTP; no rebound/guarding; moderate ascites and fluid buildup present; moderate distention; no bruising or rashes on the abdomen MSK: no tics or fasciculations; no edema noted in the LEs b/l, nonerythematous Neuro: A&Ox3; normal mood and affect; fluent speech; no focal deficits; sensation grossly intact in the LEs b/l Results & Data Results & Data Vital Signs (Past 12 Hours) Vital Signs Temp Pulse Pulse Resp BP BP Pulse Ox 05/19/23 12:11 109 H 18 142/97 H 98 05/19/23 11:31 129 H 156/97 H 05/19/23 11:06 97 05/19/23 10:39 131 H 05/19/23 09:57 36.0 C L 116 H 16 109/78 97 O2 Del Method 05/19/23 12:11 Room Air 05/19/23 11:31 05/19/23 11:06 Room Air 05/19/23 10:39 05/19/23 09:57 Room Air Laboratory Results Abnormal lab results 05/19/23 05/19/23 05/19/23 Range/Units 11:23 13:13 14:14 WBC 14.96 H (4.8-10.8) K/ul MCHC 31.8 L (32.0-36.0) g/dL RDW Std Deviation 58.4 H (36.4-46.3) fL RDW Coeff of Frederic 21.0 H (11.5-14.5) % Plt Count 449 H (130-400) K/uL PT 14.1 H (9.0-12.0) Seconds INR 1.3 H (0.9-1.1) Sodium 128 L (136-145) mmol/L Potassium 5.9 H (3.5-5.1) mmol/L Carbon Dioxide 16 L (21-32) mmol/L BUN 47 H (6-23) mg/dl Creatinine 2.09 H (0.6-1.2) mg/dl BUN/Creatinine Ratio 22.5 H (10-20) Glucose 140 H (70-99(Fasting)) mg/dl Calcium 10.6 H (8.6-10.3) mg/dl Alkaline Phosphatase 398 H (34-104) U/L Troponin I High Sens 39.7 H 94.5 H* D (0-14) pg/ml Total Protein 5.1 L (6.0-8.3) gm/dl Albumin 2.9 L (3.4-5.0) gm/dl Globulin 2.2 L (2.5-4.0) gm/dl Lipase 164 H (11-82) U/L Urine Appearance Cloudy A (Clear) Urine Protein Trace H (Negative) Urine Ketones Trace H (Negative) Urine Bilirubin 1+ H (Negative) Ur Leukocyte Esterase 1+ H (Negative) Urine WBC (Auto) >30 H (0-5) /hpf U Hyaline Cast (Auto) 10-30 H (0-5) /lpf U Epithel Cells (Auto) >30 H (0-5) /lpf Diagnostic Findings KUB X-Ray 05/19/23 10:48 XR KUB/Abdomen 1 view CLINICAL HISTORY: SBO, panc CA TECHNIQUE: 1 view of the abdomen was obtained. Comparison: Comparison is made to CT abdomen pelvis 05/06/2023 FINDINGS: Lung bases are unremarkable. The osseous structures are grossly unremarkable. A few scant loops of nondilated appearing gas-filled small bowel are seen. A moderate amount of stool is noted within the large bowel. IMPRESSION: Scanty bowel gas without evidence of small bowel obstruction. ACT 112: Negative or not required by law. Electronically signed by: Leander Oropeza M.D. 05/19/2023 1:21 PM Code Status & VTE Plan Code Status Full code VTE Prophylaxis Plan VTE Prophylaxis will be ordered: Yes Supervising Physician Co-Signing Physician Notes Patient seen and examined, chart reviewed, case discussed with Akash Vela, PAC and I agree with the assessment and plan as above except as otherwise noted Labs and images reviewed 67yo F with pancreatic cancer, liver mets, and recent admission for diarrhea and campylobacter infection. 5L last paracentesis and pt improved. On return home continued to have nausea, vomtiing, and diarrhea. Ascities has returned/increased. Unclear baseline Cr, last 1.3. 2.09 on admit, last admit as h igh as 2.94. Poor PO intake. Covered with rocephin. WBC 14. RUQ is tender to palpation. No transaminitis. UA contaminated On Xarelto for hx of IVC thrombus. This is held for para. Potassium 5.9. No peaked T waves or QRS widing on EKG. No hypoxia. Lungs are diminished but clear. Cr 0.8 on May 01, 2023 in [facility] system Was on Camplyobacter. Azithromycin was prescribed for campylobacter infection, no significant improvement. Has had hematochezia 2/2 hemorrhoids. Patient has history of pancreatic cancer with liver metastasis and recurrent abdominal ascites. She reports after last paracentesis she had rapid reaccumulation of fluid and now has increased fatigue and tachycardia. She has not had chest pain. Her troponin is mildly elevated suspicious for demand. Patient reports she has tightness in the right and left flank, although denies pain and reports that the feeling of tightness and discomfort is the same as when she has had fluid accumulation/ascites in the past. Her abdomen is nontender to palpation and has no rebound or guarding, no signs of SBP. She reports her diarrhea has continued she did not notice much change after completing the azithromycin. Repeat stool study for C. difficile is pending. She does have a leukocytosis. her creatinine on 05/01/2023 in the [facility] system was 0.8, at her last value while she was here was 1.3. Is acutely elevated to 2.09 on admission and with hyperkalemia at 5.9. Albumin is low and his membranes are dry/cracked. Suspect intravascular depletion with third spacing, agree with fluid management as above for support. He is normal patient is also on midodrine 3 times daily and received this while in the ER when creatinine is stable can trial medical therapy with Lasix/spironolactone. Otherwise agree with assessment and management as above. PG Care Time/CCT Total # of Minutes Spent Total Time Spent with Patient: Total time spent is greater than 50% in coordination of care (as documented) at patient's floor/unit and/or counseling patient: Coding [place] [address] INT INP/OBS CARE 3/75MIN Patient Type Established History Comprehensive Exam Comprehensive Medical Decision Making High Complexity Diagnoses Ascites R18.8 Pancreatic carcinoma metastatic to liver C25.9; C78.7 Campylobacter diarrhea A04.5 RONALD (acute kidney injury) N17.9 Hyponatremia E87.1 Hyperkalemia E87.5 Elevated troponin R79.89
[2023-05-19] MEDS: FAMOTIDINE 20MG IV PUSH 20 MG/5 ML SYR IV STA (15:28)
[2023-05-19] MEDS: MIDODRINE HCL 2.5 MG TAB PO STA (17:30)
[2023-05-19] MEDS: METOPROLOL SUCC 25MG EXT REL TAB PO STA (17:31)
[2023-05-19] MEDS: SODIUM CHLORIDE 0.9% 500 ML IV ONE (17:35)
[2023-05-19] MEDS: ALBUMIN 25% 25 GM/100 ML VIAL IV ONE (17:38)
--- NOTE | 2023-05-19 17:51 | CT Scan Report ---
CT abd pelvis wo con CLINICAL HISTORY: RONALD, ascites TECHNIQUE: Helical axial images of the abdomen and pelvis were obtained. Automated dose lowering tech niques and/or adjustment according to patient size were utilized for this exam. This exam was perfor med without intravenous contrast. CT DOSE: 1375.58 mGy.cm COMPARISON: Comparison is made to CT abdomen pelvis 05/14/2023 FINDINGS: Lower chest: Bibasilar atelectasis versus scarring is seen. Liver: Nodular contour of the liver is seen compatible with cirrhosis. Ill-defined hypodensity is see n in the hilum of the liver. Gallbladder and biliary tree: Patient is status post cholecystectomy. No intra- or extrahepatic bilia ry ductal dilation. Pancreas: Pancreatic duct stent is seen. Spleen: Unremarkable. Adrenals: Unremarkable. Kidneys and ureters: Unremarkable. Bladder: Unremarkable. Reproductive organs: Unremarkable. Bowel: A hiatal hernia is seen. Lymph nodes Retroperitoneal: Subcentimeter lymph nodes are noted. Pelvic: Unremarkable. Mesenteric: Subcentimeter lymph nodes are noted. Peritoneum: Large ascites is seen, similar in extent to prior exam. Postsurgical changes are seen abo ut the hilum of the liver. Vessels: Atherosclerotic calcifications are seen. Abdominal wall: Unremarkable. Bones: Unremarkable. IMPRESSION: Cirrhosis is seen. Evaluation of the liver and pancreas is limited due to noncontrast technique. Ther e is suggestion of a lesion near the hilum of the liver. ACT 112: Negative or not required by law. Electronically signed by: Leander Oropeza M.D. 05/19/2023 5:48 PM
[2023-05-19 18:09] LABS: Anion Gap 10 (3-11); BUN Creatinine Ratio 23.7 (10-20); Blood Urea Nitrogen 47 mg/dl (6-23); Calcium 10.2 mg/dl (8.6-10.3); Carbon Dioxide 16 mmol/L (21-32); Chloride 103 mmol/L (98-107); Est GFR (African American) 29.6 ml/min; Est GFR (Non-African American) 25.5 ml/min; Glucose 118 mg/dl (70-99(Fasting)); Potassium 5.8 mmol/L (3.5-5.1); Sodium 129 mmol/L (136-145)
[2023-05-19 18:17] LABS: Troponin I High Sensitivity 19.9 pg/ml (0-14)
[2023-05-19] MEDS ORDERED: LORazepam 0.5 MG TAB PO PRN (18:52)
[2023-05-19] MEDS ORDERED: ACETAMINOPHEN 325 MG TAB PO PRN (18:52)
[2023-05-19] MEDS: LORazepam 0.5 MG in SYRINGE 0.25 ML IV PRN (19:59)
[2023-05-19] MEDS: LORazepam 1 MG/1 ML SYR ED Inj Use ONE (19:59)
[2023-05-19] MEDS: ACETAMINOPHEN 1,000 MG/100 ML VIAL IV PRN (19:59)
[2023-05-19] MEDS: ONDANSETRON INJ 2 MG/ML 2 ML VIAL IV PRN (19:59)
[2023-05-19] MEDS: MIDODRINE HCL 2.5 MG TAB PO SCH (20:55)
[2023-05-19] MEDS: GABAPENTIN 300 MG CAP PO SCH (20:56)
[2023-05-19] MEDS: HYOSCYAMINE SULFATE 0.375 MG TABCR PO SCH (20:56)
[2023-05-19] MEDS: PRAVASTATIN SOD 10 MG TAB PO SCH (20:56)
--- OUTSIDE RECORDS SUMMARY | 2023-05-19 21:34 | External Medical Summary | Summary of Care ---
Author Name Unknown Organization [facility] [address] [facility] [address] Phone [phone] Care Team Providers Care Banquet Manager Name Role Phone Shavon Hancock MD Care Provider Reason for Visit * Reason Onset Date Comments Advice 05/15/2023 [place] Encounter Details Date Type Department Care Team (Late st Contact Info) Description 05/15/2023 Telephone Hematology/Oncology [facility] [place] [address] [facility] [address] Joe Raya MD [address] [place] [address] Advice ([place]) Allergies Active Allergy Reactions Criticality Noted Date Comments Atorvastatin High 03/17/2022 Other reaction(s): Muscle Pain Simvastatin High 03/17/2022 Other reaction(s): Muscle Pain Statins 12/20/2021 Except pravastatin documented as of this encounter (statuses as of 05/15/2023) Medications Medication Sig Dispensed Refills Start Date [...] as of this encounter (statuses as of 05/15/2023) Active Problems Problem Noted Date Diagnosed Date Metastasis to liver 03/30/2023 Dehydration 05/26/2022 Diarrhea 05/26/2022 Malignant neoplasm of head of pancreas Encounter for antineoplastic chemotherapy 2021 Postprocedural intraabdominal abscess 02/04/2022 Hepatic abscess 02/04/2022 Pancreatic adenocarcinoma 12/23/2021 Hypertension 12/20/2021 Hyperlipidemia 12/20/2021 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 documented as of this encounter (statuses as of 05/15/2023) Resolved Problems Problem Noted Date Diagnosed Date Resolved Date COVID-19 12/24/2021 12/28/2021 Post-ERCP acute pancreatitis 12/22/2021 12/28/2021 Choledocholithiasis 12/22/2021 12/29/19 Right upper quadrant pain 12/20/2021 documented as of this encounter (statuses as of 05/15/2023) Immunizations Name Administration Dates Next Due COVID-19 [...] encounter Miscellaneous Notes * Telephone Encounter - Shonna Marx OSA - 05/15/2023 10:04 AM EST Canceled appts for tomorrow. Will contact Dr Raya about rescheduling. * Telephone Encounter - Susan Esteves OSA - 05/15/2023 8:50 AM EST Patients called asking for patients treatment and appointment for tomorrow to be canceled. He stated that the patient is admitted to the hospital and he does not know when she will be discharged. Please follow up. documented in this encounter Plan of Treatment Upcoming Encounters Date Type Department Care Team (Late st Contact Info) Description 05/19/2023 2:00 PM EST Appointment Ancillary Special Procedures, [facility] [address] [place] [address] Health Maintenance Due Date Last Done Comments [...] this encounter Medical Devices Implanted Type Area Edge Finisher Device Identifier Shelf Expiration Date Model / Serial / Lot Stent 10fr 9cm Clso-10-9 - [id number] Implanted:Qty : 1 on 12/21/2021 by Stanton Bailey MD at ENDOSCOPY [facility] COOK : [place] [id number] 07/15/2024 [id number] / / [id number] Port Implant W/8f Poly Cath - [id number] Implanted:Qty : 1 on 04/01/2022 by Sylvester Givens DO at [facility] Right: Chest CR BARD : PERIPHERAL VASCULAR [id number] 05/17/2022 [id number] / / [id number] documented as of this encounter Advance Directives [...] Advance Directives occurred with: Patient Care Teams Banquet Manager Relationship Specialty Start Date End Date Shavon Hancock MD [address] [address] PCP - General Internal Medicine 06/15/18 documented as of this encounter
[2023-05-19] MEDS: SODIUM CHLORIDE 0.9% 1,000 ML IV SCH (21:38)
[2023-05-19 23:03] LABS: BUN Creatinine Ratio 25.2 (10-20); Calcium 10.2 mg/dl (8.6-10.3); Creatinine Clr Calc Pharmacy 26.4 ml/min; Est GFR (African American) 28.9 ml/min; Est GFR (Non-African American) 24.9 ml/min; Potassium 5.7 mmol/L (3.5-5.1)
[2023-05-20 06:33] LABS: Basophils # (auto) 0.02 K/uL (0.00-0.20); Basophils % (auto) 0.1 %; Hematocrit (blood only) 33.2 % (37.0-47.0); Hemoglobin 10.6 g/dl (12.0-16.0); Immature Granulocytes # (auto) 0.15 K/uL (0.01-0.20); Lymphocytes # (auto) 1.02 K/uL (1.20-3.40); Lymphocytes % (auto) 6.5 %; Mean Corpuscular Hemoglobin 26.4 pg (25.0-34.0); Mean Corpuscular Hgb Conc 31.9 g/dL (32.0-36.0); Mean Corpuscular Volume 82.8 fL (80.0-100.0); Mean Platelet Volume 10.6 fL (9.4-12.4); Monocytes # (auto) 1.19 K/uL (0.11-0.59); Monocytes % (auto) 7.6 %; Neutrophils # (auto) 13.38 K/uL (1.40-6.50); Neutrophils % (auto) 84.8 %; Platelet Count 394 K/uL (130-400); RDW Standard Deviation 59.9 fL (36.4-46.3); Red Blood Count 4.01 M/uL (4.20-5.40); White Blood Count 15.76 K/ul (4.8-10.8)
[2023-05-20 06:56] LABS: Calcium 10.7 mg/dl (8.6-10.3); Creatinine Clr Calc Pharmacy 27.2 ml/min; Est GFR (African American) 29.9 ml/min; Est GFR (Non-African American) 25.8 ml/min; Potassium 5.7 mmol/L (3.5-5.1)
[2023-05-20 07:35] LABS: Anisocytosis Present; Basophilic Stippling 2+; Echinocytes 3+; Polychromasia 2+
[2023-05-20] MEDS: PANTOprazole 40 MG TAB PO SCH (07:58)
[2023-05-20] MEDS: FAMOTIDINE 20 MG in SYRINGE 3 ML IV SCH (07:58)
[2023-05-20] MEDS: METOPROLOL SUCC 25MG EXT REL TAB PO SCH (07:59)
--- OUTSIDE RECORDS SUMMARY | 2023-05-20 08:34 | External Medical Summary | Summary of Care ---
Author Name Unknown Organization [facility] Address [address] [place] [address] Phone [phone] Care Team Providers Care S Iron Worker Name Role Phone Shavon Hancock MD [facility] Care Provider Encounter Details Date Type Department Care Team (Late st Contact Info) Description 05/16/2023 Result Scan Unspecified Department Joe Raya MD [address] [place] [address] <No scans attached> Allergies Active Allergy Reactions Criticality Noted Date Comments Atorvastatin High 03/17/2022 Other reaction(s): Muscle Pain Simvastatin High 03/17/2022 Other reaction(s): Muscle Pain Statins 12/20/2021 Except pravastatin documented as of this encounter (statuses as of 05/19/2023) Medications Medication Sig Dispensed Refills Start Date [...] as of this encounter (statuses as of 05/19/2023) Active Problems Problem Noted Date Diagnosed Date Metastasis to liver 03/30/2023 Dehydration 05/26/2022 Diarrhea 05/26/2022 Malignant neoplasm of head of pancreas Encounter for antineoplastic chemotherapy 2021 Postprocedural intraabdominal abscess 02/04/2022 Hepatic abscess 02/04/2022 Pancreatic adenocarcinoma 12/23/2021 Hypertension 12/20/2021 Hyperlipidemia 12/20/2021 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 documented as of this encounter (statuses as of 05/19/2023) Resolved Problems Problem Noted Date Diagnosed Date Resolved Date COVID-19 12/24/2021 12/28/2021 Post-ERCP acute pancreatitis 12/22/2021 12/28/2021 Choledocholithiasis 12/22/2021 12/29/19 Right upper quadrant pain 12/20/2021 documented as of this encounter (statuses as of 05/19/2023) Immunizations Name Administration Dates Next Due COVID-19 [...] as of this encounter Plan of Treatment Health Maintenance Due Date Last Done Comments [...] 02/10/2021, 06/16/2020, Additional history exists GFR 05/01/2024 05/17/2023, 04/17, 04/24/2023, Additional history exists Diabetes Screening 05/01/2026 05/17/2023, 0 05/01/2023, 04/24/2023, Additional history exists Zoster Vaccines Completed 04/06/2020, [...] this encounter Medical Devices Implanted Type Area Polo Coach Device Identifier Shelf Expiration Date Model / Serial / Lot Stent 10fr 9cm Clso-10-9 - [id number] Implanted:Qty : 1 on 12/21/2021 by Stanton Bailey MD [place] [facility] [place] [id number] 07/15/2024 [id number] / / [id number] Port Implant W/8f Poly Cath - [id number] Implanted:Qty : 1 on 04/01/2022 by Sylvester Givens DO at [facility] Right: Chest CR BARD : PERIPHERAL VASCULAR [id number] 05/17/2022 [id number] / / [id number] documented as of this encounter Procedures Procedure Name Priority Date/Time Associated Diagnosis Comments OUTSIDE LAB RESULTS 05/16/2023 documented in this encounter Results * OUTSIDE LAB RESULTS (05/16/2023) 05/16/2023 Joe Raya MD LABORATORY documented in this encounter Advance Directives Latest [...] Advance Directives occurred with: Patient Care Teams S Iron Worker Relationship Specialty Start Date End Date Shavon Hancock MD [address] [place] [address] PCP - General Internal Medicine 06/15/18 documented as of this encounter
--- OUTSIDE RECORDS SUMMARY | 2023-05-20 08:34 | External Medical Summary | Summary of Care ---
Author Name Unknown Organization [facility] Address [address] [place] [address] Phone [phone] Care Team Providers Care Jewel Stripper Name Role Phone Shavon Hancock MD [facility] Care Provider Encounter Details Date Type Department Care Team (Late st Contact Info) Description 05/14/2023 Result Scan Unspecified Department <No scans attached> Allergies Active Allergy Reactions [...] this encounter Medical Devices Implanted Type Area Call Center Support Consultant Device Identifier Shelf Expiration Date Model / Serial / Lot Stent 10fr 9cm Clso-10-9 - [id number] Implanted:Qty : 1 on 12/21/2021 by Stanton Bailey MD at [facility]OSCOPY [facility] [place]OOK : [place] [id number] 07/15/2024 [id number] / / [id number] Port Implant W/8f Poly Cath - [id number] Implanted:Qty : 1 on 04/01/2022 by Sylvester Givens DO at [facility] Right: Chest CR BARD : PERIPHERAL VASCULAR [id number] 05/17/2022 [id number] / / [id number] documented as of this encounter Procedures Procedure Name Priority Date/Time Associated Diagnosis Comments RADIOLOGY SCANNED RESULT 05/14/2023 documented in this encounter Results * RADIOLOGY SCANNED RESULT (05/14/2023) 05/14/2023 No Physician Data Unknown DIAGNOSTIC RAD IOLOGY SERVICES documented in this encounter Advance Directives Latest [...] Advance Directives occurred with: Patient Care Teams Jewel Stripper Relationship Specialty Start Date End Date Shavon Hancock MD [address] [address] PCP - General Internal Medicine 06/15/18 documented as of this encounter
--- OUTSIDE RECORDS SUMMARY | 2023-05-20 08:34 | External Medical Summary | Summary of Care ---
Author Name Unknown Organization [facility] Address [address] [facility] [address] Phone [phone] Care Team Providers Care Informatica Mdm Developer Name Role Phone Shavon Hancock MD [facility] Care Provider Encounter Details Date Type Department Care Team (Late st Contact Info) Description 05/19/2023 Orders Only Hematology/Oncology [facility] [place] [address] [facility] [place] [address] Joe Raya MD [address] [facility] [address] Allergies Active Allergy Reactions Criticality Noted Date [...] this encounter Medical Devices Implanted Type Area Antique Furniture Reproducer Device Identifier Shelf Expiration Date Model / Serial / Lot Stent 10fr 9cm Clso-10-9 - [id number] Implanted:Qty : 1 on 12/21/2021 by Stanton Bailey MD at ENDOSCOPY [facility] [place] COOK : [place] [id number] 07/15/2024 [id number] / / [id number] Port Implant W/8f Poly Cath - [id number] Implanted:Qty : 1 on 04/01/2022 by Sylvester Givens DO at OR [facility] Right: Chest CR BARD : PERIPHERAL VASCULAR [id number] 05/17/2022 [id number] / / [id number] documented as of this encounter Procedures Procedure Name Priority Date/Time Associated Diagnosis Comments CHEMISTRY-OUTSIDE Routine 05/17/2023 documented in this encounter Results * (ABNORMAL) CHEMISTRY-OUTSIDE (05/17/2023) Not all results display below - see scan for full detail OUTSIDE LAB (SEE SCANNED REPORT) Comment:SEE SCAN - CBC,PT/IN R,URINALYSIS,CHEM,LIPIASE,CDIF CREATININE-OUTSI DE LAB 1.30(A) 0.6 - 1.2 MG/DL OUTSIDE LAB (SEE SCANNED REPORT) EGFR-OUTSIDE LAB 42.4 ML/MIN/1.73M 2 OUTSIDE LAB (SEE SCANNED REPORT) POTASSIUM-OUTSID E LAB 4.4 3.5 - 5.1 MMOL/L OUTSIDE LAB (SEE SCANNED REPORT) GLUCOSE-OUTSIDE LAB 103(A) 70 - 99 MG/DL OUTSIDE LAB (SEE SCANNED REPORT) HOURS FASTING OUTSID E LAB (SEE SCANNED REPORT) TRIGLYCERIDES-OU TSIDE LAB OUTSIDE LAB (SEE SCANNED REPORT) CHOLESTEROL-OUTS RAGHAVENDRA LAB OUTSIDE LAB (SEE SCANNED REPORT) HDL-OUTSIDE LAB OUTS RAGHAVENDRA LAB (SEE SCANNED REPORT) CHOL/HDL RATIO-OUTSIDE LAB OUTSIDE LAB (SEE SCANNED REPORT) LDL (CALCULATED)-OUT SIDE LAB OUTSIDE LAB (SEE SCANNED REPORT) LDL (DIRECT MEASURE)-OUTSIDE LAB OUTSIDE LAB (SEE SCANNED REPORT) HEMOGLOBIN, H3I-VNPWQDZ LAB OUTSIDE LAB (SEE SCANNED REPORT) PHOSPHORUS-OUTSI DE LAB OUTSIDE LAB (SEE SCANNED REPORT) PTH-OUTSIDE LAB OUTS RAGHAVENDRA LAB (SEE SCANNED REPORT) MICROALBUMIN RATIO-OUTSIDE LAB OUTSIDE LAB (SEE SCANNED REPORT) PROTEIN, UA-OUTSIDE LAB 1+ NEGATIVE OUTSIDE LAB (SEE SCANNED REPORT) HEMOGLOBIN-OUTSI DE LAB 8.8(A) 12.0 - 16.0 G/DL OUTSIDE LAB (SEE SCANNED REPORT) 05/17/2023 History Per Patient LABORATORY OUTSIDE LAB (SEE SCANNED REPORT) documented in this encounter Advance Directives Latest [...] Advance Directives occurred with: Patient Care Teams Informatica Mdm Developer Relationship Specialty Start Date End Date Shavon Hancock MD [address] [place] [address] PCP - General Internal Medicine 06/15/18 documented as of this encounter
--- OUTSIDE RECORDS SUMMARY | 2023-05-20 08:34 | External Medical Summary | Summary of Care ---
Author Name Unknown Organization [facility] Address [address] [place] [address] Phone [phone] Care Team Providers Care Him Tech Name Role Phone Shavon Hancock MD [facility] Care Provider Encounter Details Date Type Department Care Team (Late st Contact Info) Description 05/16/2023 Result Scan Unspecified Department <No scans attached> [...] this encounter Medical Devices Implanted Type Area Copywriter Device Identifier Shelf Expiration Date Model / Serial / Lot Stent 10fr 9cm Clso-10-9 - [id number] Implanted:Qty : 1 on 12/21/2021 by Stanton Bailey MD at ENDOSCOPY [facility] [place] COOK : [place] [id number] 07/15/2024 [id number] / / [id number] Port Implant W/8f Poly Cath - [id number] Implanted:Qty : 1 on 04/01/2022 by Sylvester Givens DO at [facility] Right: Chest CR BARD : PERIPHERAL VASCULAR [id number] 05/17/2022 [id number] / / [id number] documented as of this encounter Procedures Procedure Name Priority Date/Time Associated Diagnosis Comments RADIOLOGY SCANNED RESULT 05/16/2023 documented in this encounter Results * RADIOLOGY SCANNED RESULT (05/16/2023) 05/16/2023 No Physician Data Unknown DIAGNOSTIC RAD IOLOGY [...] Advance Directives occurred with: Patient Care Teams Him Tech Relationship Specialty Start Date End Date Shavon Hancock MD [address] [address] PCP - General Internal Medicine 06/15/18 documented as of this encounter
[2023-05-20] MEDS: LACTULOSE SYRUP 20 GM/30 ML UDC PO SCH (09:59)
[2023-05-20] MEDS: SODIUM ZIRCONIUM CYCLOSILICATE 10 GM PACKET PO SCH (09:59)
--- NOTE | 2023-05-20 10:42 | Hospitalist Progress Note ---
Date of Service May 20, 2023 Assessment & Plan (1) Ascites: Plan: Recent paracentesis on 05/16/2023 with 5 L of ascitic fluid drainage Recurrence on readmission on 05/19/2023 In setting of pancreatic carcinoma with mets to liver CT abdomen/pelvis revealed large ascites, cirrhosis Will defer Lasix and spironolactone at this time; in setting of RONALD and volume contraction IR paracentesis ordered; last Xarelto taken on 05/18; (2) Pancreatic carcinoma metastatic to liver: Plan: Dx of pancreatic cancer in 12/2021 S/p whipple procedure w/ [facility] heme/onc Dr. Raya Currently receiving chemotherapy CT abdomen/pelvic on 05/14 showed abdominal ascites, anasarca; s/p paracentesis on 05/16 Patient is on Xarelto for DVT PPx due to chemo; she endorses a history of blood clot "in her stomach" Hold Xarelto temporarily in the setting of potential paracentesis (3) Campylobacter diarrhea: Plan: No bowel movement in the last 3 days Leukocytosis at 14.96 with neutrophil predominance, which is higher than prior admission Repeat stool PCR C. difficile ordered (in the setting of recent antibiotic use) Rocephin 2000 mg IV q24h (4) RONALD (acute kidney injury): Plan: BUN 47, creatinine 2.09, EGFR 23.9 on arrival No creatinine baseline available; may be 1.60 Likely due to poor oral intake, and renal hypoperfusion Hold enalapril Avoid nephrotoxic agents (5) Hyponatremia: Plan: Na 128 on arrival Likely secondary to GI losses Continue IVF resuscitation Trend BMP (6) Hyperkalemia: Plan: K 5.9 on arrival EKG revealed sinus tachycardia at 133 bpm; QTc 547 (caution use of QTc prolonging agents); no peaked T waves or widened QRS noted Hold potassium supplements Continuous telemetry monitoring Trend BMP Lokelma (7) Elevated troponin: Plan: Troponin 39.7-->94.5 on arrival Clinically, patient denies chest pain, pleuritic CP, or SOB Continuous telemetry monitoring Trend troponin q6h x 2 Plan Disposition: Continue hospitalization Full code Keep n.p.o. for now VTE PPx: Hold Home Xarelto for now (this will need to be held for 48 hours prior to paracentesis); SCDs Admission and Anticipated Discharge Date Admission Date: May 19, 2023 Subjective Patient seen and examined, endorses poor appetite generalized weakness. She has not had a bowel movement in 3 days Review of Systems Review of Systems: All systems reviewed are negative, apart from the ones contained in the history. Physical Exam Physical Exam: The patient is awake, alert and oriented 3, chronically ill looking. HEENT--PERRL, EOMI, mucous membranes and oropharynx mildly dry Neck--supple. No JVD. No bruits. Thyroid normal, trachea midline, no adenopathy. Heart--normal S1 and S2. No murmurs, rubs or gallops. Lungs--clear bilaterally, no respiratory distress, no accessory muscle use. Abdomen--distended Extremities--no cyanosis or clubbing. No edema. Dermatologic--normal skin turgor, normal color, no abnormal lymph nodes, no r miguelina. Neurologic--cranial nerves II through XII grossly intact. Rheumatologic--normal range of motion. Psychiatric--normal affect. Results & Data Results & Data Vital Signs (Past 12 Hours) Vital Signs Temp Pulse Pulse Resp BP Pulse Ox O2 Del Method 05/20/23 08:00 128 H 05/20/23 08:00 Room Air 05/20/23 07:57 97.3 F L 128 H 18 128/79 96 Room Air 05/20/23 02:59 98.4 F 124 H 15 160/99 H 95 Room Air 05/19/23 22:59 97.7 F 120 H 20 136/99 95 Room Air PG Care Time/CCT Total # of Minutes Spent Total Time Spent with Patient: Total time spent is greater than 50% in coordination of care (as documented) at patient's floor/unit and/or counseling patient: Coding Level of Care Code 52856 SUB INP/OBS CARE 2/35MIN Diagnoses Ascites R18.8 Pancreatic carcinoma metastatic to liver C25.9; C78.7 Campylobacter diarrhea A04.5 RONALD (acute kidney injury) N17.9 Hyponatremia E87.1 Hyperkalemia E87.5 Elevated troponin R79.89 Time Spent (min) 35
[2023-05-20] MEDS: cefTRIAXone SODIUM 2,000 MG in DEXTROSE 5 % MINI-B 50 ML IV SCH (13:35)
--- NOTE | 2023-05-20 21:42 | Electrocardiogram Report ---
Test Reason : Blood Pressure : / mmHG Vent. Rate : 133 BPM Atrial Rate : 133 BPM P-R Int : 120 ms QRS Dur : 058 ms QT Int : 288 ms P-R-T Axes : 035 082 097 degrees QTc Int : 429 ms Sinus tachycardia Nonspecific ST and T wave abnormality Abnormal ECG When compared with ECG of 14-MAY-2023 17:09, No significant change was found Confirmed by Ulysses Heart ([id number]) on 05/20/2023 9:41:53 PM Referred By: Joe Raya Confirmed By:Ulysses Heart
[2023-05-20] MEDS: MoRPHine SULFATE 2 MG/ML CARP IV STA (22:19)
[2023-05-21 06:32] LABS: Basophils # (auto) 0.03 K/uL (0.00-0.20); Basophils % (auto) 0.1 %; Hematocrit (blood only) 36.8 % (37.0-47.0); Hemoglobin 11.7 g/dl (12.0-16.0); Immature Granulocytes # (auto) 0.24 K/uL (0.01-0.20); Immature Granulocytes % (auto) 1.1 %; Lymphocytes # (auto) 0.81 K/uL (1.20-3.40); Lymphocytes % (auto) 3.8 %; Mean Corpuscular Hemoglobin 26.7 pg (25.0-34.0); Mean Corpuscular Hgb Conc 31.8 g/dL (32.0-36.0); Monocytes # (auto) 1.22 K/uL (0.11-0.59); Monocytes % (auto) 5.7 %; Neutrophils # (auto) 19.09 K/uL (1.40-6.50); Neutrophils % (auto) 89.3 %; Platelet Count 351 K/uL (130-400); RDW Coefficient of Variation 21.2 % (11.5-14.5); RDW Standard Deviation 61.7 fL (36.4-46.3); Red Blood Count 4.38 M/uL (4.20-5.40); White Blood Count 21.39 K/ul (4.8-10.8)
[2023-05-21 06:57] LABS: Albumin Globulin Ratio 1.5 (0.9-2); Albumin Level 3.1 gm/dl (3.4-5.0); BUN Creatinine Ratio 22.7 (10-20); Bilirubin,Total 0.4 mg/dl (0.2-1.0); Calcium 12.3 mg/dl (8.6-10.3); Creatinine Clr Calc Pharmacy 19.6 ml/min; Est GFR (African American) 19.6 ml/min; Est GFR (Non-African American) 16.9 ml/min; Globulin 2.1 gm/dl (2.5-4.0); Total Protein 5.2 gm/dl (6.0-8.3)
[2023-05-21 08:05] LABS: Acanthocytes 1+; Anisocytosis Present; Echinocytes 1+; Ovalocytes 1+; Polychromasia 1+; Tear Drop Cells 1+
[2023-05-21] MEDS: SODIUM CHLORIDE 0.9% 500 ML IV ONE (08:31)
[2023-05-21] MEDS: SODIUM ZIRCONIUM CYCLOSILICATE 10 GM PACKET PO SCH (08:33)
[2023-05-21] MEDS: PIPERACILLIN/TAZOBACTAM 4.5 GM in DEXTROSE 5% MINI-B 100 ML IV ONE (08:51)
--- NOTE | 2023-05-21 10:26 | Hospitalist Progress Note ---
Date of Service May 21, 2023 Assessment & Plan (1) Ascites: Plan: Recent paracentesis on 05/16/2023 with 5 L of ascitic fluid drainage Recurrence on readmission on 05/19/2023 In setting of pancreatic carcinoma with mets to liver CT abdomen/pelvis revealed large ascites, cirrhosis Will defer Lasix and spironolactone at this time; in setting of RONALD and volume contraction IR paracentesis ordered; last Xarelto taken on 05/18; (2) Pancreatic carcinoma metastatic to liver: Plan: Dx of pancreatic cancer in 12/2021 S/p whipple procedure w/ [facility] heme/onc Dr. Raya Currently receiving chemotherapy CT abdomen/pelvic on 05/14 showed abdominal ascites, anasarca; s/p paracentesis on 05/16 Patient is on Xarelto for DVT PPx due to chemo; she endorses a history of blood clot "in her stomach" Hold Xarelto temporarily in the setting of potential paracentesis Consult palliative (3) Leucocytosis: Plan: Worsening leukocytosis could be from her cancer or infection Blood cultures already obtained Will discontinue ceftriaxone, started IV Zosyn for broader coverage (4) Campylobacter diarrhea: Plan: No bowel movement in the last 3 days Leukocytosis at 14.96 with neutrophil predominance, which is higher than prior admission Repeat stool PCR C. difficile ordered (in the setting of recent antibiotic use) (5) RONALD (acute kidney injury): Plan: Worsening renal function, could be due to hepatorenal syndrome to Probably a component of prerenal and dehydration to Will consult nephrology (6) Hyponatremia: Plan: Some improvement Nephrology on consult (7) Hyperkalemia: Plan: K 5.9 on arrival, about the same this morning 6.0 EKG revealed sinus tachycardia at 133 bpm; QTc 547 (caution use of QTc prolonging agents); no peaked T waves or widened QRS noted Hold potassium supplements Continuous telemetry monitoring Trend BMP On [facility] Nephrology on consult (8) Elevated troponin: Plan: Troponin 39.7-->94.5 on arrival Clinically, patient denies chest pain, pleuritic CP, or SOB Continuous telemetry monitoring Trend troponin q6h x 2 (9) Malnutrition: Plan: Patient has not been eating, and has become more and more lethargic Nutritional supplements 3 times daily Plan Disposition: Continue hospitalization, patient is clinically deteriorating, will consult palliative Full code VTE PPx: Hold Home Xarelto for now (this will need to be held for 48 hours prior to paracentesis); [facility] [place]mission and Anticipated Discharge Date Admission Date: May 19, 2023 Subjective Patient seen and examined, endorses poor appetite generalized weakness. She is now in for more lethargic Review of Systems Review of Systems: All systems reviewed are negative, apart from the ones contained in the history. Physical Exam Physical Exam: The patient is awake, alert and oriented 3, chronically ill looking. HEENT--PERRL, EOMI, mucous membranes and oropharynx mildly dry Neck--supple. No JVD. No bruits. Thyroid normal, trachea midline, no adenopathy. Heart--normal S1 and S2. No murmurs, rubs or gallops. Lungs--clear bilaterally, no respiratory distress, no accessory muscle use. Abdomen--distended Extremities--no cyanosis or clubbing. No edema. Dermatologic--normal skin turgor, normal color, no abnormal lymph nodes, no rash. Neurologic--cranial nerves II through XII grossly intact. Rheumatologic--normal range of motion. Psychiatric--normal affect. Results & Data Results & Data Vital Signs (Past 12 Hours) Vital Signs Temp Pulse Resp BP Pulse Ox O2 Del Method 05/21/23 07:56 97.3 F L 127 H 18 123/85 96 Room Air 05/21/23 03:00 97.7 F 131 H 20 127/93 97 Room Air 05/21/23 00:38 Room Air 05/20/23 22:56 98.2 F 135 H 21 128/97 95 Room Air PG Care Time/CCT Total # of Minutes Spent Total Time Spent with Patient: Total time spent is greater than 50% in coordination of care (as documented) at patient's floor/unit and/or counseling patient: Coding Level of Care Code 42114 SUB INP/OBS CARE 2/35MIN Diagnoses Ascites R18.8 Pancreatic carcinoma metastatic to liver C25.9; C78.7 Leucocytosis D72.829 Campylobacter diarrhea A04.5 RONALD (acute kidney injury) N17.9 Hyponatremia E87.1 Hyperkalemia E87.5 Elevated troponin R79.89 Malnutrition E46 Time Spent (min) 35
--- NOTE | 2023-05-21 11:19 | Nephrology Consultation ---
Date of Consultation May 21, 2023 Assessment & Plan (1) RONALD (acute kidney injury): (2) Hyponatremia: (3) Hypercalcemia: (4) Hyperkalemia: (5) Ascites: (6) Metabolic acidosis: Plan 67 y o F with metastatic pancreatic adenocarcinoma, admitted with generalized weakness worsening ascites, recent diarrhea, vomiting, acute kidney injury and multiple electrolyte abnormality. Received IV fluid boluses and currently on empiric antibiotic but renal function and electrolyte continues to worsen. Blood pressure was initially low but since then blood pressure has been staying relatively stable. Overall clinically declining with persistent generalized weakness and poor p.o. intake. Has worsening abdominal ascites however clinical finding and lab parameters suggest intravascular volume depletion. -- Start on IV normal saline @100 ml/h, if any concern for respiratory distress, will consider loop diuretics. -- Considering acute kidney injury and progressive worsening of renal function, bisphosphonates are contraindicated, will start on calcitonin -- Continue on Lokelma 10 g 3 times daily -- Monitor renal function and electrolyte every 6 hours -- Monitor accurate intake and output -- Recommend keeping on scheduled for paracentesis tomorrow -- Overall prognosis poor, agree with palliative consult Thank you for allowing me to participate in your patient's care. It was a pleasure to see Lala. History of Present Illness Reason for Consultation: Acute kidney injury and multiple critical electrolyte abnormality. Attending Physician: Modesto Weller MD History of Present Illness Ms. Lala Mcbride is a 67-year old female with past medical history of metastatic pancreatic cancer, hypertension admitted to the hospital with generalized weakness, worsening abdominal ascites, RONALD and multiple critical electrolyte abnormality. Nephrology consult was requested for further managemen t of the above. Electronic medical records were reviewed in detail during patient's visit. Lala initially presented to the hospital on 05/15/2023 with hypotension, generalized weakness and diarrhea at home. Blood pressure systolic was noted to be in 70s at home. Initial lab on admission showed RONALD with creatinine 4.0, hyponatremia and hyperkalemia. Stool test was positive for Campylobacter jej uni. Diarrhea eventually resolved. She had paracentesis on 05/16/2022 and had 5 L of fluid removed. Kidney function improved, creatinine was down to 1.3, sodium improved to 131 and potassium improved to 4.4 on discharge on 05/17/2023. She presented back to ER on 05/19/2022 with generalized weakness, vomiting and reaccumulation of abdominal ascites. Lab was notable for worsening renal function and multiple critical electrolyte abnormality. Creatinine was again 2.1, sodium dropped to 128, potassium 5.9. She received IV normal saline boluses, ceftriaxone and currently continued on Zosyn. Over last 2 days kidney function worsen, this morning creatinine was 2.8, potassium 6.0, sodium 128, calcium 12.3, bicarb 14 with anion gap of 12. Albumin was 3.1 and lactate was 6.0. Last IV fluid bolus was yesterday morning . blood pressure has been relatively stable. Urinalysis with more than 30 WBC, more than 30 epithelial cells and hyaline cast with no bacteriuria. Trace proteinuria and no hematuria. CT abdomen pelvis without contrast on 05/19/2023 showed large volume ascites and cirrhosis. IV fluid was since stopped considering progressive ascites. Urine output unmeasured although reports decent urine output. Otherwise relatively healthy until 2 years ago with past medical history only significant for well-controlled hypertension. In December 2021 she presented to ER with obstructive jaundice with bilirubin of 10 and had MRCP done on 12/20/2021 showing 2.8 cm pancreatic head mass, CA 19-9 was 378. Eventually biopsy confirmed the diagnosis of adenocarcinoma pancreas and she had Whipple's procedure done on January 2022 and was on chemotherapy with modified FOLFIRINOX from 04/05/2022 to 09/06/2022. However it was discontinued in August 2022 as imaging showed disease progression with metastasis to liver and since then she was started on gemcitabine and Abraxane in September 2022 and currently she is getting the chemotherapy every 2 weeks. 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 Recent imaging however showed new lesion near gabriella hepatis. Overall she feels generally weak and exhausted. Denied any shortness of breath. Reports improvement in diarrhea. She feels thirsty. Labs this morning showed worsening of kidney function with multiple critical electrolyte abnormality including potassium of 6, sodium 128 and calcium 12.3. Allergies Allergy/AdvReac Type Severity Reaction Status Date / Time atorvastatin AdvReac Intermediate Muscle Pain Verified 10/28/22 10:39 simvastatin AdvReac Intermediate Muscle Pain Verified 10/28/22 10:39 Home Medications Medication Instructions Recorded Confirmed Type acetaminophen 650 mg 0 mg PO BID PRN pain 12/29/21 05/19/23 History tablet,extended release (Arthritis Pain Relief (acetaminophen) ER) loratadine 10 mg tablet (Claritin) 10 mg PO DAILY PRN ONCE DOSE 07/14/22 05/19/23 History FOLLOWING CHEMO potassium chloride 10 mEq 10 meq PO BID 07/14/22 05/19/23 History capsule,extended release prochlorperazine maleate 10 mg 10 mg PO Q6H PRN Nausea 07/14/22 05/19/23 History tablet rivaroxaban 20 mg tablet (Xarelto) 20 mg PO QPM 07/14/22 05/19/23 History pravastatin 10 mg tablet 10 mg PO QPM #90 tabs 10/17/22 05/19/23 Rx metoprolol succinate 25 mg 25 mg PO DAILY #90 tabs 10/31/22 05/19/23 Rx tablet,extended release 24 hr enalapril maleate 20 mg tablet 20 mg PO BID #180 tabs 03/03/23 05/19/23 Rx omeprazole 20 mg tablet,delayed 20 mg PO QAM #90 tabs 03/20/23 05/19/23 Rx release gabapentin 300 mg capsule 300 mg PO TID 05/15/23 05/19/23 History hyoscyamine sulfate 0.375 mg 0.375 mg PO BID 05/15/23 05/19/23 History tablet,extended release,12 hr midodrine 2.5 mg tablet 5 mg (2 x 2.5 mg) PO 05/17/23 05/19/23 Rx TID@0800,1200,1700 30 days #90 tabs lorazepam 0.5 mg tablet (Ativan) 0.5 mg PO Q8H PRN Anxiety 05/18/23 05/19/23 History ondansetron HCl 8 mg tablet 8 mg PO Q8H PRN Nausea 05/18/23 05/19/23 History Patient History Medical History (Updated 05/21/23 @ 11:36 by Emeli Arreaga MD) Metabolic acidosis Hypercalcemia Pancreatic cancer PVCs (premature ventricular contractions) IVC thrombosis on Xarelto PAC (premature atrial contraction) PACs/PVCs -- [place] [facility] [place] 01/2022 post-op fever, blood cultures grew s. aureus, concern for intraabdominal infection > abx infusions finished 02/17/22 History of COVID-19 12/19/21 (asymptomatic, [facility]) Tachycardia Irregular heart beat Irregular heart rate Obstructive hyperbilirubinemia Cholelithiasis Choledocholithiasis Acute pain of right knee Hypertension increased after Whipple procedure, now on enalapril total 30 mg daily, white coat hypertension Hyperplastic colon polyp HX-HAS BEEN REMOVED Hyperlipidemia Diverticulosis HX Cervical polyp Surgical History History of ERCP [facility] 12/2021 History of cholecystectomy Whipple + cholecystectomy ([facility], 01/2022) H/O Whipple procedure Whipple + cholecystectomy ([facility], 01/28/2022) S/P PICC central line placement 02/2022 s/p removal History of breast biopsy multiple- all benign History of bilateral tubal ligation History of tonsillectomy and adenoidectomy History of colonoscopy History of breast surgery multiple breast cysts removed- all benign Hx of appendectomy Family History Mother Hypercholesterolemia Osteoarthritis Grandmother (Maternal) Coronary heart disease Myocardial infarction Osteoarthritis Grandfather (Maternal) Colon cancer Grandmother (Paternal) Ovarian cancer Father Hypercholesterolemia Stroke Other No family history of adverse response to anesthesia Prostate cancer Denies family history of Breast cancer Social History Smoking Status: Never smoker Second Hand Exposure: Yes (HX-FATHER SMOKED); Do You Dip or Chew Tobacco: No; Hx Alcohol Use: No Hx Substance Use: No Preferred Language: Romansh Communication Ability: Effective [employer] Insulation Supervisor Required: No Beliefs That Will Affect Care: None marital status: Current Living Situation: Spouse current occupational status: retired Other Information That Helps Us Care for You: No Feels Safe at Home: Yes Safety Concerns: Feels Safe At This Time Childhood Exposure to Second-Hand Smoke: Yes Dental Care, Regularly: Yes Physical Activity Frequency: 5-6 Times per Week Seatbelt Use: always Sunscreen Use: Yes Assistive Devices: Cane and Walker Review of Systems Review of Systems: Detailed review of system was done and pertinent positives and negatives are mentioned above. Physical Exam Constitutional: WD/WN, vitals as above + ill appearing; no acute distress Eyes: + anicteric sclerae Neck: normal visual inspection Thyroid: no thyromegaly Respiratory: normal respiratory effort; no respiratory distress and no cough Auscultation: lungs clear to auscultation bilaterally Cardiovascular: Rate/Rhythm: regular rate and regular rhythm Heart Sounds: normal S1 and normal S2 Extremities: + edema (trace edema) Gastrointestinal (Abdomen): Inspection/Auscultation: + abdomen distended Percussion/Palpation: + abdomen firm; abdomen nontender and no guarding Musculoskeletal: Extremities: extremities normal to inspection Skin: no rashes, warm and dry Neurologic: no focal motor deficits Psychiatric: Orientation: alert and oriented x 3 Affect: euthymic affect Results & Data Vital Signs (Past 12 Hours) Vital Signs Temp Pulse Resp BP Pulse Ox O2 Del Method 05/21/23 08:00 Room Air 05/21/23 07:56 36.3 C L 127 H 18 123/85 96 Room Air 05/21/23 03:00 36.5 C 131 H 20 127/93 97 Room Air 05/21/23 00:38 Room Air PG Care Time/CCT Total # of Minutes Spent Total Time Spent with Patient: Total time spent is greater than 50% in coordination of care (as documented) at patient's floor/unit and/or counseling patient: Coding Level of Care Code 73787 IN/OBS CONSULT LVL 5,80M Diagnoses RONALD (acute kidney injury) N17.9 Hyponatremia E87.1 Hypercalcemia E83.52 Hyperkalemia E87.5 Ascites R18.8 Metabolic acidosis E87.20
[2023-05-21 12:35] LABS: Albumin Level 2.8 gm/dl (3.4-5.0); BUN Creatinine Ratio 21.3 (10-20); Calcium 12.2 mg/dl (8.6-10.3); Creatinine Clr Calc Pharmacy 17.6 ml/min; Est GFR (African American) 17.2 ml/min; Est GFR (Non-African American) 14.8 ml/min; Magnesium 2.2 mg/dl (1.7-2.4); Phosphorus 7.5 mg/dl (2.5-4.9); Potassium 5.8 mmol/L (3.5-5.1)
[2023-05-21] MEDS: SODIUM CHLORIDE 0.9% 1,000 ML IV SCH (12:35)
[2023-05-21] MEDS: CALCITONIN SALMON 400 UNITS/2 ML SQ SCH (12:36)
[2023-05-21] MEDS: PIPERACILLIN/TAZOBACTAM 4.5 GM in DEXTROSE 5% MINI-B 100 ML IV SCH (16:48)
[2023-05-21 19:29] LABS: Albumin Level 2.8 gm/dl (3.4-5.0); BUN Creatinine Ratio 20.1 (10-20); Creatinine Clr Calc Pharmacy 16.1 ml/min; Est GFR (African American) 15.4 ml/min; Est GFR (Non-African American) 13.3 ml/min; Phosphorus 7.8 mg/dl (2.5-4.9); Potassium 6.4 mmol/L (3.5-5.1)
[2023-05-21] MEDS ORDERED: STAT IV/IM STA ×2 (19:36→20:05)
[2023-05-21] MEDS ORDERED: CALCIUM GLUCONATE 10% 1,000 MG in SODIUM CHLOR 0.9% MINI-B 50 ML IV ONE (19:36)
[2023-05-21] MEDS: DEXTROSE 50% 50 ML SYRINGE IV ONE (20:19)
[2023-05-21] MEDS: INSULIN HUMAN REGULAR PER UNIT 10 UNITS in SYRINGE 9.9 ML IV STA (20:19)
[2023-05-21] MEDS: ALBUMIN 25% 25 GM/100 ML VIAL IV ONE (20:20)
[2023-05-21] MEDS: SODIUM BICARBONATE 8.4% 100 MEQ in DEXTROSE 5% 1,000 ML IV SCH (20:28)
[2023-05-21] MEDS: MIDODRINE HCL 2.5 MG TAB PO STA (20:31)
--- NOTE | 2023-05-21 21:20 | Communication Note ---
Date of Service: May 21, 2023 Called and spoke with Lala's , Cyrus. He states that he was at bedside earlier today and she was very tired and having a hard time breathing. I discussed with him Lala's latest blood work including elevated potassium and the implication that these values have regarding heart arrhythmias, etc in addition to her declining kidney function. Her states that when he talked with her today she was adamant that she would not want dialysis, and states that in the past few days they have talked some about her wishes and she has expressed that she "would not want to be kept alive just to be alive". I discussed with her that unfortunately due to her frail condition and known malignancy, she is very unlikely to have meaningful recovery if resuscitative measures were implemented in the situation of her heart stopping or her ceasing to breath. Patient's confirms that he would not want resuscitative measures if her heart were to stop beating or she were to stop breathing. Code status was changed from full code to DNR/DNI.
[2023-05-21 22:09] LABS: Albumin Level 3.1 gm/dl (3.4-5.0); BUN Creatinine Ratio 19.9 (10-20); Calcium 10.4 mg/dl (8.6-10.3); Creatinine Clr Calc Pharmacy 15.5 ml/min; Est GFR (African American) 14.8 ml/min; Est GFR (Non-African American) 12.8 ml/min; Phosphorus 7.5 mg/dl (2.5-4.9); Potassium 5.5 mmol/L (3.5-5.1)
[2023-05-21 22:15] LABS: INR 1.4 (0.9-1.1); Prothrombin Time 15.5 Seconds (9.0-12.0)
[2023-05-22] MEDS: ALBUMIN HUMAN 25% 12.5 GM/50 ML VIAL IV ONE (00:21)
[2023-05-22] MEDS: ALBUMIN 25% 25 GM/100 ML VIAL IV ONE (00:22)
[2023-05-22] MEDS ORDERED: LORazepam 0.5 MG in SYRINGE 0.25 ML IV PRN ×3 (03:17→13:06)
[2023-05-22] MEDS ORDERED: LORazepam 0.5 MG TAB PO PRN ×3 (03:17→13:06)
[2023-05-22] MEDS ORDERED: ONDANSETRON 4 MG OD TAB SL PRN ×2 (03:17→13:06)
[2023-05-22] MEDS: ONDANSETRON INJ 2 MG/ML 2 ML VIAL IV PRN (05:49)
--- NOTE | 2023-05-22 07:44 | Hospitalist Progress Note ---
Date of Service May 22, 2023 Assessment & Plan (1) Pancreatic carcinoma metastatic to liver: Plan: Dx of pancreatic cancer in 12/2021 S/p whipple procedure w/ [facility] heme/onc Dr. Raya Currently receiving chemotherapy CT abdomen/pelvic on 05/14 showed abdominal ascites, anasarca; s/p paracentesis on 05/16 Patient is on Xarelto for DVT PPx due to chemo; she endorses a history of blood clot "in her stomach" Hold Xarelto temporarily in the setting of potential paracentesis Hepatic dysfunction, elevated ammonia, coagulopathy Consult palliative (2) Leucocytosis: Plan: Worsening leukocytosis could be from her cancer or infection, consider sbp or Campylobacter bacteria Blood cultures already obtained Will discontinue ceftriaxone, started IV Zosyn for broader coverage (3) Campylobacter diarrhea: Plan: No bowel movement in the last 3 days Leukocytosis at 14.96 with neutrophil predominance, which is higher than prior admission Repeat stool PCR C. difficile ordered (in the setting of recent antibiotic use) (4) RONALD (acute kidney injury): Plan: Worsening renal function, could be due to hepatorenal syndrome to Probably a component of prerenal and dehydration to Will consult nephrology (5) Hyponatremia: Plan: Some improvement Nephrology on consult (6) Hyperkalemia: Plan: K 5.9 on arrival, about the same this morning 6.0 EKG revealed sinus tachycardia at 133 bpm; QTc 547 (caution use of QTc prolonging agents); no peaked T waves or widened QRS noted Hold potassium supplements Continuous telemetry monitoring Trend BMP On [facility] Nephrology on consult (7) Elevated troponin: Plan: Troponin 39.7-->94.5 on arrival, demand ischemia and renal failure are impacting elevation Clinically, patient denies chest pain, pleuritic CP, or SOB Continuous telemetry monitoring Trend troponin q6h x 2 (8) Malnutrition: Plan: Patient has not been eating, and has become more and more lethargic Nutritional supplements 3 times daily Plan Disposition: Continue hospitalization, patient is clinically deteriorating, will consult palliative Full code VTE PPx: Hold Home Xarelto for now (this will need to be held for 48 hours prior to paracentesis); SCDs Admission and Anticipated Discharge Date Admission Date: May 19, 2023 Results & Data Results & Data Vital Signs (Past 12 Hours) Vital Signs Temp Pulse Resp BP Pulse Ox O2 Del Method 05/22/23 03:00 97.5 F L 94 H 19 79/51 L 99 Room Air 05/21/23 23:00 100 H 25 H 86/54 L 100 Room Air PG Care Time/CCT Total # of Minutes Spent Total Time Spent with Patient: Total time spent is greater than 50% in coordination of care (as documented) at patient's floor/unit and/or counseling patient: Coding Diagnoses Pancreatic carcinoma metastatic to liver C25.9; C78.7 Leucocytosis D72.829 Campylobacter diarrhea A04.5 RONALD (acute kidney injury) N17.9 Hyponatremia E87.1 Hyperkalemia E87.5 Elevated troponin R79.89 Malnutrition E46
[2023-05-22] MEDS ORDERED: MIDODRINE HCL 2.5 MG TAB PO SCH (08:00)
--- NOTE | 2023-05-22 09:48 | Communication Note ---
Date of Service: May 22, 2023 Brief Palliative Medicine Note Consult received/appreciated; Chart reviewed. Case d/w primary team and nursing. Patient moved to [facility] after consult was ordered this weekend She presently has no acute symptom mgt needs/she is comfortable/she is in no distress. No indication for acute/urgent IP Pall med consult, so this will be declined and I remain available for re engagement should any acute or refractory EOL symptom needs arise. TS 25min Patient not seen, NO charge submitted. Thank you for allowing us to participate in the ongoing care of this patient. Please don't hesitate to call or page with any additional concerns. Dr. Evon Burton DNP Director, Palliative Care
[2023-05-22] MEDS: HYDROmorphone INJ 0.5 MG/0.5 ML SYR IV PRN (10:32)
[2023-05-22] MEDS: SCOPOLAMINE 1 MG TDSY TD SCH (10:54)
[2023-05-22] MEDS: ATROPINE SULFATE 1% OP SOLN 5 ML BTL SL PRN (11:39)
--- NOTE | 2023-05-22 12:12 | Electrocardiogram Report ---
Test Reason : Blood Pressure : / mmHG Vent. Rate : 096 BPM Atrial Rate : 096 BPM P-R Int : 118 ms QRS Dur : 080 ms QT Int : 328 ms P-R-T Axes : 044 059 089 degrees QTc Int : 414 ms Normal sinus rhythm Diffuse Nonspecific ST and T wave abnormality Abnormal ECG When compared with ECG of 19-MAY-2023 11:06, No significant change was found Confirmed by Darrin Vick ([id number]) on 05/22/2023 12:11:56 PM Referred By: Joe Raya Confirmed By:Darrin Vick
[2023-05-22] MEDS ORDERED: HYDROmorphone INJ 0.5 MG/0.5 ML SYR IV PRN (13:06)
[2023-05-22] MEDS ORDERED: ONDANSETRON INJ 2 MG/ML 2 ML VIAL IV PRN (13:06)
[2023-05-22] MEDS: HYDROmorphone/NSS 100 MG/100 ML BAG IV SCH (14:09)
[2023-05-22] MEDS: HYDROmorphone BOLUS from BAG IV PRN (14:15)
[2023-05-22] MEDS ORDERED: CHECK SCOPOLAMINE PATCH PLACEMENT SCH (16:00)
--- NOTE | 2023-05-22 17:02 | Discharge Summary ---
Date of Service May 22, 2023 Admission HPI Per Admitting Provider Lala is a 67-year-old female with PMH of pancreatic carcinoma with mets to liver, HTN, HLD, OA, and IVC thrombosis. She presented for nausea, vomiting, generalized weakness, and inability to eat since her discharge from [facility] on 05/17. Recently hospitalized at [facility] from 05/14 - 05/17 for Campylobacter diarrhea following chemo, RONALD, hypotension, and ascites buildup requiring a paracentesis. Patient is s/p paracentesis on 05/16/2023 where 5 L of ascitic fluid was drained. Patient reports she felt good at time of discharge (was been feeling fatigued), however notes that her diarrhea has been ongoing, and that she is still vomiting (last vomited the morning of 05/19). Diarrhea is liquidy in consistency, and she endorses some bleeding with defecation, but attributes that to her hemorrhoids. She is not tolerating fluids or solids; she has been eating very little; mainly Jell-O and yogurt. She notes that she is having fluid buildup in her stomach again. She does not use supplemental oxygen at home. Last chemo session 3 weeks ago. She missed her chemo session last week due to hospitalization, and was set to have it done this upcoming week. She denies alcohol use, tobacco use, and smoking. Patient did not take any of her regular morning medications today on 05/19, as she was afraid she would be unable to keep them down. She took her regular medications as prescribed on 05/18, including Xarelto and metoprolol. Patient is hypertensive at 142/97, tachycardic at 109 bpm, and mildly hypothermic at 36.0 C at time of admission. 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 Principal Diagnosis pancreatic cancer, on comfort measures Discharge Exam pt pronounced at 1433 with no spontaneous heart tones, pulse or respirations Discharge Data Allergies Allergy/AdvReac Type Severity Reaction Status Date / Time atorvastatin AdvReac Intermediate Muscle Pain Verified 10/28/22 10:39 simvastatin AdvReac Intermediate Muscle Pain Verified 10/28/22 10:39 Consultations 05/19/23 15:15 ED Decision to Admit Stat 05/21/23 07:45 Consult Nephrology Routine 05/21/23 07:52 Consult Palliative Care Routine Ordered Studies 05/19/23 16:13 CT Abdomen and Pelvis [CT abd pelvis wo con] Urgent Hospital Course (1) : pt pronounced deat at 1433 05/22/23 remainder or note from earlier in hospital stay (2) Pancreatic carcinoma metastatic to liver: Dx of pancreatic cancer in 12/2021 S/p whipple procedure w/ [facility] heme/onc Dr. Raya receiving chemotherapy CT abdomen/pelvic on 05/14 showed abdominal ascites, anasarca; s/p paracentesis on 05/16 Patient is on Xarelto for DVT PPx due to chemo; she endorses a history of blood clot "in her stomach" Held Xarelto Hepatic dysfunction, elevated ammonia, coagulopathy (3) Campylobacter diarrhea: No bowel movement in the last 3 days Leukocytosis at 14.96 with neutrophil predominance, which is higher than prior admission Repeat stool PCR C. difficile ordered (in the setting of recent antibiotic use) (4) RONALD (acute kidney injury): Worsening renal function, could be due to hepatorenal syndrome (5) Hyponatremia: (6) Hyperkalemia: (7) Elevated troponin: Troponin 39.7-->94.5 on arrival, demand ischemia and renal failure are impacting elevation (8) Malnutrition: Patient has not been eating, and has become more and more lethargic Plan Patient transition to comfort care measures 0 300 on 05/22/2023 eventually progressed to continuous morphine infusion and was pronounced at 1433 hrs. Total Time Total Time Spent Total Time Spent (In Minutes): It required greater than 30 minutes to prepare this patient for discharge. Discharge Plan Discharge Items Patient Disposition: Discharge Diagnosis: pancreatic cancer Other Date/Time: 05/22/23 14:33 Coding Level of Care Code 81487 INP/OBS DISCH >30 MIN Diagnoses R99 Pancreatic carcinoma metastatic to liver C25.9; C78.7 Campylobacter diarrhea A04.5 RONALD (acute kidney injury) N17.9 Hyponatremia E87.1 Hyperkalemia E87.5 Elevated troponin R79.89 Malnutrition E46
== END 2023-05-22 17:00 | disposition expired | DRG 435 ==
LOC: ED 09:55 → EDINP 16:12 → SUATTDRO 16:12 → 2E 20:28 → 3E 05-22 09:13